=== PATIENT | female | born 1970 | race Caucasian/White ===

== ENCOUNTER 2017-05-16 03:17 | Emergency (ER) | payer BC, SELFPAY ==
[2017-05-16 03:19] VITALS: BP 147/92; PULSE 98; RESP 17; TEMP 36.8; O2SAT 95; BMI 30.4
--- NOTE | 2017-05-16 03:34 | CT_ITS ---
STUDY: CT ABDOMEN AND PELVIS WITH CONTRAST REASON FOR EXAM: Female, 46 years old. Right lower quadrant pain RADIATION DOSAGE (If Supplied By Facility): CTDIvol = ( 16.62 ) mGy, DLP = ( 982.38 ) mGycm TECHNIQUE: Transaxial images were obtained from the dome of the diaphragm to the symphysis pubis without oral contrast. 100ML ml of Isovue 300 contrast was administered. Sagittal and coronal images were reconstructed. Individualized dose optimization techniques were used for this CT. COMPARISON: None. FINDINGS: The lung bases are clear. The liver is normal with no dilated intrahepatic biliary radicles. The gallbladder is normal with no gallstones and no pericholecystic fluid collection or streakiness. The spleen, pancreas and both adrenals are normal. The kidneys are normal with no masses, calculi or hydronephrosis. The stomach is normal. There is no bowel distention, acute appendicitis or diverticulitis. No abnormally constricting large bowel lesions. The abdominal wall is intact. There is no ascites, free intraperitoneal air or any evidence of epiploic appendagitis. The vascular structures in the retroperitoneum are normal The bones and joints seen are normal with no osteolytic or osteoblastic changes There is no retrocrural, retroperitoneal or mesenteric adenopathy. There is no mesenteric mistiness The urinary bladder is normal.. The uterus is normal There is no inguinal or pelvic adenopathy and there is no inguinal hernia. CT/Abdomen/Pelvis WITH Contrast IMPRESSION: No acute findings in the abdomen or pelvis. Specifically there is no acute appendicitis or diverticulitis. Electronically Signed: Willem Norris, at 6:18 EST Tel , Service support ,
[2017-05-16] MEDS: Ondansetron 4 MG/2 ML Vial IV (03:46)
[2017-05-16] MEDS: 0.9% Normal Saline 1,000 ML 1000 ML IV (03:47)
[2017-05-16 04:01] LABS: Bacteria 0 SEEN /hpf (None Seen); Mucous, Urine 0 SEEN /hpf (<or=2+); Red Blood Cells-Urine 0 SEEN /hpf (0-5); White Blood Cells 0 SEEN /hpf (0-5)
[2017-05-16 04:04] LABS: Color, Urine Yellow (Yellow); Glucose, Dipstick Normal (Normal); Ketone-Dipstick 5 mg/dl (Negative); Leukocyte Esterase-Dipstick Negative /ul (Negative); Nitrite-Dipstick Negative (Negative); Occult Blood-Urine Negative /ul (Negative); Protein-Dipstick 30 mg/dl (Negative); Urine Bilirubin Dipstick Negative (Negative); Urine Clarity Sl. Cloudy (Clear); Urine Urobilinogen 1 mg/dl (Normal)
[2017-05-16 04:05] LABS: Absolute Lymphocyte Count 1.47 X10^3/ul (0.83-4.51); Absolute Neutrophil Count 12.8 X10^3/uL (2.0-7.7); Basophil# 0.02 X10^3/uL; Basophil% 0.1 % (0-1); Eosinophil# 0.09 X10^3/uL; Eosinophils% 0.6 % (0-5); Hematocrit 40.7 % (37-47); Hemoglobin 13.5 g/dl (12.0-15.0); Lymphocyte # 1.47 X10^3/ul (4.0); Lymphocyte % 9.7 % (19-41); Mean Corp Hgb Conc 33.2 g/gl (32-36); Mean Corpuscular Hgb 29.7 pg (27.0-32.0); Mean Corpuscular Volume 89.5 fL (81-99); Mean Platelet Vol. 10.1 fl (6.2-12.0); Monocyte# 0.76 X10^3/uL; Neutrophil # 12.75 X10^3/uL (2.7-7.7); Neutrophil % 84.4 % (47-70); Platelet Count 257 K/mm3 (150-450); RBC Distribution Width CV 13.6 % (11.6-14.6); RBC Distribution Width SD 43.9 fl (35.1-43.9); Red Blood Count 4.55 M/mm3 (4.2-5.4); White Blood Count 15.1 K/mm3 (4.4-11.0)
[2017-05-16 04:10] LABS: Calcium Oxalate Crystals Ur 3+ /hpf (<or=2+)
[2017-05-16 04:11] LABS: POSITIVE COUNT NO; POSITIVE DIFFERENTIAL NO; POSITIVE MORPHOLOGY NO; Squamous Epithelial Cells - UA 0-5 SEEN /hpf (5-10)
[2017-05-16 04:19] LABS: Anion Gap 8 (5-15); BUN 11 mg/dL (7-18); BUN/Creat Ratio 13.9 RATIO (10-20); Calcium,Total 8.5 mg/dL (8.5-10.1); Chloride 105 mmol/L (98-107); Creatinine, Serum 0.79 mg/dL (0.55-1.02); EST Glomerular Filtration Rate 83 mL/min (>60); Est Glom Filt Rate - Afr Amer 101 mL/min (>60); Estimated Creatinine Clearance 78.47 ml/min; Glucose 105 mg/dL (74-106); Potassium 3.4 mmol/L (3.5-5.1); Sodium Level 140 mmol/L (136-145)
[2017-05-16 04:26] LABS: Pregnancy, Serum, hCG Quali. NEGATIVE Negative (0-9 Nonpreg)
--- NOTE | 2017-05-16 04:51 | ED.DCSUM_ITS ---
- ER Visit Summary Date of Service: 05/16/17 Chief Complaint: Abdominal pain History of Present Illness: The patient is a 46 F who sees Diamond Gant. She reports that she has abdominal pain began 2 days ago. Is gradually gotten worse. Is a sharp pain is 10 out of 10 at worst and 6 out of 10 currently. Is worsened by nothing relieved by nothing. She has had nausea without vomiting. Reports that she has had 8 episodes of diarrhea today. No blood in her stools or black tarry stools. No dysuria or frequency. Patient denies sick contacts. Has not been camping out of the country. No possible bad food exposure. Does not drink well water. No recent antibiotic use. Physical Examination: Vitals: Stable. Afebrile. General: Well-nourished and well-developed. Head: Normocephalic atraumatic. Neck: Supple, no lymphadenopathy. No JVD. Nontender. Cardiovascular: Regular rate and rhythm. No murmurs. Respiratory: No respiratory distress. Clear to auscultation bilaterally. Abdominal: Soft, moderate tenderness to palpation in the right lower quadrant, nondistended, normal bowel sounds. No guarding, rebound, or peritoneal signs. Back: Nontender. Extremities: Nontender, no edema. Skin: Normal color, no rash. Neurologic: Alert and oriented ?3. Cranial nerves II through XII are intact. Normal strength and sensation. Psych: Normal affect. Test Results: CBC is remarkable for a white count of 15.1 with 84 segmented neutrophils and 10 lymphocytes. Chem-7 is remarkable for potassium 3.4. UA is marked for ketones and 3+ calcium oxalate crystals. test is negative. CT abdomen pelvis with p.o. and IV contrast is back and shows no acute disease and a normal appendix. Emergency Department Course and Treatment: She had an IV placed. She was given a dose of morphine and Zofran IV. She is resting comfortably. The patient has had no diarrhea while in the emergency department. Treatment Plan: She will be discharged with Zofran and instructed to follow-up with her primary care physician in 1-2 days if not improving. Return to the emergency department for any worsening symptoms. Disposition: To home in improved and stable condition. Impression: 1. Abdominal pain, uncertain cause. 2. Diarrhea. This note was generated with [employer] software. It may contain incorrect words, spelling, and punctuation that were not noted in review of the chart prior to signing ED Disposition - Plan for ED Patient: Disposition: Home or Assisted Living Chief Complaint: Abd Pain Instructions: ED Abdominal Pain Unkn Cause Prescriptions: Ondansetron [Zofran Odt] 4 mg PO Q8H PRN PRN #10 tablet PRN Reason: Nausea Referrals: Sridevi Gant, [facility] [Primary Care Provider] - 1-2 Days if not improving
[2017-05-16 07:25] VITALS: BP 131/92; PULSE 82; RESP 16; O2SAT 97
== END 2017-05-16 07:26 | disposition home or self-care (01) ==
LOC: ED 03:39
PROVIDERS: Emergency Provider Emergency Medicine; Family Provider Nurse Practitioner Family; PCP Nurse Practitioner Family
DX: R10.31 Right lower quadrant pain (principal); R19.7 Diarrhea, unspecified; R68.83 Chills (without fever); R05 Cough; R11.0 Nausea; I10 Essential (primary) hypertension; F41.9 Anxiety disorder, unspecified; F32.9 Major depressive disorder, single episode, unspecified; Z87.42 Personal history of other diseases of the female genital tract; Z79.899 Other long term (current) drug therapy
CPT/HCPCS: 74177; 80048; 81001; 84703; 85025; 96361; 96374; 96375; 99283; J7030; Q9967; J2405

== ENCOUNTER → 2018-03-08 09:45 | Outpatient (CLI) | payer BC, SELFPAY ==
[2018-03-08 12:50] LABS: Hemoglobin A1c 5.5 % (4.2-6.3)
[2018-03-08 12:53] LABS: Estradiol 37.2 pg/mL; Free T3 3.4 pg/mL (2.18-3.98); T4 Free Direct 0.98 ng/dL (0.76-1.46); Thyroid Stim Hormone (TSH) 3.76 uIU/mL (0.358-3.74)
[2018-03-09 08:36] LABS: Thyroid Peroxidase AB 180 IU/mL (0-34)
[2018-03-12 08:41] LABS: HPV Reflexed? NOT INDICATED
== END ==
PROVIDERS: Visit Provider Obstetrics & Gynecology
DX: N92.6 Irregular menstruation, unspecified (principal); Z12.4 Encounter for screening for malignant neoplasm of cervix
CPT/HCPCS: 36415; 82670; 83036; 84144; 84403; 84439; 84443; 84481; 86376; 88175; G0145

== ENCOUNTER → 2018-03-14 11:23 | Outpatient (CLI) | payer BC, SELFPAY ==
--- NOTE | 2018-03-14 11:54 | US_ITS ---
STUDY: ULTRASOUND OF THE FEMALE PELVIS - COMPLETE REASON FOR EXAM: Female, 47 years old. Abnormal bleeding. LMP: March 08, 2018. TECHNIQUE: Transabdominal and Transvaginal. The urinary bladder was nearly empty on initial transabdominal scanning, so additional endovaginal imaging was employed. TECHNICAL QUALITY: Adequate. COMPARISON: CT abdomen and pelvis May 16, 2017. FINDINGS: The uterus is anteverted and is in a midline position. The uterus measures 7.9 x 4.7 x 4.0 cm. There multiple subcentimeter Nabothian cysts of the cervix. The endometrium measures 6.5 mm in thickness, and is heterogeneous (striated). There is no demonstrated endometrial mass. The myometrium was mildly heterogeneous with some increased overall vascularity, but there is no demonstrated myometrial mass. I.U.D. - The patient does not have an I.U.D. The right ovary is visualized. The right ovary measures 2.4 x 2.7 x 1.3 cm. This includes a 10 x 12 x 12 mm simple appearing cyst. There is no visualized right adnexal mass or complex lesion. There is normal arterial and normal venous vascularity. The left ovary is visualized. The left ovary measures 2.7 x 1.5 x 1.4 cm. This includes a 1.4 x 1.2 x 1.0 cm cyst with some internal echogenicity that may be proteinaceous debris or minor hemorrhage. There is no other visualized left adnexal mass or complex lesion. There is mild increased left adnexal vascularity compared to the right, although this may reflect varices. There is no fluid in the cul-de-sac. Polycystic ovary disease: No. US/Transvaginal Non- IMPRESSION: 1. Mildly heterogeneous normal sized uterus and normal thickness endometrium without a defined mass other than multiple subcentimeter nabothian cysts in the uterine cervix. 2. Mildly complicated 1.4 cm left ovarian cyst. There is a simple appearing 12 mm right ovarian cyst. Either or both may be follicles, and one might consider follow up immediately after the next 1-2 menstrual cycles to document involution or stability. Electronically Signed: Ramo Baron MD at 13:47 EST , Service support ,
--- NOTE | 2018-03-14 11:54 | US_ITS ---
STUDY: ULTRASOUND OF THE FEMALE PELVIS - COMPLETE REASON FOR EXAM: Female, 47 years old. Abnormal bleeding. LMP: March 08, 2018. TECHNIQUE: Transabdominal and Transvaginal. The urinary bladder was nearly empty on initial transabdominal scanning, so additional endovaginal imaging was employed. TECHNICAL QUALITY: Adequate. COMPARISON: CT abdomen and pelvis May 16, 2017. FINDINGS: The uterus is anteverted and is in a midline position. The uterus measures 7.9 x 4.7 x 4.0 cm. There multiple subcentimeter Nabothian cysts of the cervix. The endometrium measures 6.5 mm in thickness, and is heterogeneous (striated). There is no demonstrated endometrial mass. The myometrium was mildly heterogeneous with some increased overall vascularity, but there is no demonstrated myometrial mass. I.U.D. - The patient does not have an I.U.D. The right ovary is visualized. The right ovary measures 2.4 x 2.7 x 1.3 cm. This includes a 10 x 12 x 12 mm simple appearing cyst. There is no visualized right adnexal mass or complex lesion. There is normal arterial and normal venous vascularity. The left ovary is visualized. The left ovary measures 2.7 x 1.5 x 1.4 cm. This includes a 1.4 x 1.2 x 1.0 cm cyst with some internal echogenicity that may be proteinaceous debris or minor hemorrhage. There is no other visualized left adnexal mass or complex lesion. There is mild increased left adnexal vascularity compared to the right, although this may reflect varices. There is no fluid in the cul-de-sac. Polycystic ovary disease: No. US/Pelvic (Non ) IMPRESSION: 1. Mildly heterogeneous normal sized uterus and normal thickness endometrium without a defined mass other than multiple subcentimeter nabothian cysts in the uterine cervix. 2. Mildly complicated 1.4 cm left ovarian cyst. There is a simple appearing 12 mm right ovarian cyst. Either or both may be follicles, and one might consider follow up immediately after the next 1-2 menstrual cycles to document involution or stability. Electronically Signed: Ramo Baron MD at 13:47 EST , Service support ,
--- OUTSIDE RECORDS SUMMARY | 2018-04-30 12:34 | XMS RPT_ITS ---
:1970 Author Organization OHIP Care Team Providers Name Role Phone Ron Mendez Admitting Unavailable Ron Mendez Attending Unavailable Sridevi Gant Primary Care Unavailable Ellen Ganta K Admitting Unavailable Sridevi Gant K Attending Unavailable Ellen Ganta K Primary Care Unavailable Westley Simpson S Admitting Unavailable Westley Simpson S Attending Unavailable Sridevi Gant Primary Care Unavailable PendWestley cates S Admitting Unavailable Westley Simpson S Attending Unavailable Ellen Ganta K Primary Care Unavailable Krystal Ugalde Attending Unavailable Krystal Ugalde Referring Unavailable Sridevi Gant USER EXPERIENCE ARCHITECT-C Primary Care Unavailable Sridevi Gant USER EXPERIENCE ARCHITECT-C Primary Care Unavailable Sin Mcgrath Attending Unavailable Krystal Ugalde Attending Unavailable PROBLEMS PROBLEMS DATE TYPE CONDITION / CODE ATTENDING STATUS SOURCE 03/14/2018 Unknown N93.8 - Other Krystal Ugalde Active [facility] and vaginal Repository bleeding / N93.8(ICD-10) 03/08/2018 Unknown Z12.4 - Encounter Tram Krystal Figueroaoster for screening for [facility] malignant [facility] neoplasm of Repository cervix / Z12.4(ICD-10) 03/08/2018 Unknown N92.6 - Irregular Krystal Ugalde Umm Figueroaoster menstruation, [facility] unspecified / Hospital N92.6(ICD-10) Repository PROCEDURES PROCEDURES No Procedure Records FoundRESULTS RESULTS TRANSVAGINAL Observed: 03/14/2018 Status: F Source: [place] NON- 11:54 AM [facility] REPOSITORY [facility] Imaging Services [address] [place] [address] Transvaginal Non- MR#: [id number] Acct: [id number] Name: AURA SAUNDERS Rep #: [id number] : 1970 F 47 From: Geovany Baron MD PCP: HATTIE Antony Status: REG CLI Study: Transvaginal Non- Date of Exam: 03/14/18 Exam# [id number] Ordering Dr: Krystal Ugalde MD STUDY: ULTRASOUND OF THE FEMALE PELVIS - COMPLETE REASON FOR EXAM: Female, 47 years old. Abnormal bleeding. LMP: March 08, 2018. TECHNIQUE: Transabdominal and Transvaginal. The urinary bladder was nearly empty on initial transabdominal scanning, so additional endovaginal imaging was employed. TECHNICAL QUALITY: Adequate. COMPARISON: CT abdomen and pelvis May 16, 2017. FINDINGS: The uterus is anteverted and is in a midline position. The uterus measures 7.9 x 4.7 x 4.0 cm. There multiple subcentimeter Nabothian cysts of the cervix. The endometrium measures 6.5 mm in thickness, and is heterogeneous (striated). There is no demonstrated endometrial mass. The myometrium was mildly heterogeneous with some increased overall vascularity, but there is no demonstrated myometrial mass. I.U.D. - The patient does not have an I.U.D. The right ovary is visualized. The right ovary measures 2.4 x 2.7 x 1.3 cm. This includes a 10 x 12 x 12 mm simple appearing cyst. There is no visualized right adnexal mass or complex lesion. There is normal arterial and normal venous vascularity. The left ovary is visualized. The left ovary measures 2.7 x 1.5 x 1.4 cm. This includes a 1.4 x 1.2 x 1.0 cm cyst with some internal echogenicity that may be proteinaceous debris or minor hemorrhage. There is no other visualized left adnexal mass or complex lesion. There is mild increased left adnexal vascularity compared to the right, although this may reflect varices. There is no fluid in the cul-de-sac. Polycystic ovary disease: No. US/Transvaginal Non- IMPRESSION: 1. Mildly heterogeneous normal sized uterus and normal thickness endometrium without a defined mass other than multiple subcentimeter nabothian cysts in the uterine cervix. 2. Mildly complicated 1.4 cm left ovarian cyst. There is a simple appearing 12 mm right ovarian cyst. Either or both may be follicles, and one might consider follow up immediately after the next 1- 2 menstrual cycles to document involution or stability. Electronically Signed: Ramo Baron MD at 13:47 EST , Service support , CC: HATTIE Gant; Krystal Ugalde MD Pharmacy Operations Specialist: Signed PELVIC (NON ) Observed: 03/14/2018 Status: F Source: [place] 11:54 AM [facility] REPOSITORY [facility] Imaging Services [address] [place] [id number] Pelvic (Non ) MR#: [id number] Acct: [id number] Name: AURA SAUNDERS Rep #: [id number] : 1970 F 47 From: Geovany Baron MD PCP: HATTIE Antony Status: REG CLI Study: Pelvic (Non ) Date of Exam: 03/14/18 Exam# [id number] Ordering Dr: Krystal Ugalde MD STUDY: ULTRASOUND OF THE FEMALE PELVIS - COMPLETE REASON FOR EXAM: Female, 47 years old. Abnormal bleeding. LMP: March 08, 2018. TECHNIQUE: Transabdominal and Transvaginal. The urinary bladder was nearly empty on initial transabdominal scanning, so additional endovaginal imaging was employed. TECHNICAL QUALITY: Adequate. COMPARISON: CT abdomen and pelvis May 16, 2017. FINDINGS: The uterus is anteverted and is in a midline position. The uterus measures 7.9 x 4.7 x 4.0 cm. There multiple subcentimeter Nabothian cysts of the cervix. The endometrium measures 6.5 mm in thickness, and is heterogeneous (striated). There is no demonstrated endometrial mass. The myometrium was mildly heterogeneous with some increased overall vascularity, but there is no demonstrated myometrial mass. I.U.D. - The patient does not have an I.U.D. The right ovary is visualized. The right ovary measures 2.4 x 2.7 x 1.3 cm. This includes a 10 x 12 x 12 mm simple appearing cyst. There is no visualized right adnexal mass or complex lesion. There is normal arterial and normal venous vascularity. The left ovary is visualized. The left ovary measures 2.7 x 1.5 x 1.4 cm. This includes a 1.4 x 1.2 x 1.0 cm cyst with some internal echogenicity that may be proteinaceous debris or minor hemorrhage. There is no other visualized left adnexal mass or complex lesion. There is mild increased left adnexal vascularity compared to the right, although this may reflect varices. There is no fluid in the cul-de-sac. Polycystic ovary disease: No. US/Pelvic (Non ) IMPRESSION: 1. Mildly heterogeneous normal sized uterus and normal thickness endometrium without a defined mass other than multiple subcentimeter nabothian cysts in the uterine cervix. 2. Mildly complicated 1.4 cm left ovarian cyst. There is a simple appearing 12 mm right ovarian cyst. Either or both may be follicles, and one might consider follow up immediately after the next 1- 2 menstrual cycles to document involution or stability. Electronically Signed: Ramo Baron MD at 13:47 EST , Service support , CC: HATTIE Gant; Krystal Ugalde MD Pharmacy Operations Specialist: Signed PROGRESS Observed: 03/13/2018 Status: COMPLETED Source: [place] 7:45 AM [facility] [place] REPOSITORY HNO ID: [id number] Author: Miya Alfaro) Emma Service: (none) Author Type: Nurse Practitioner Type: Progress Notes Filed: 03/13/2018 7:55 AM Note Text: Subjective The history is provided by the patient. No freelance interpreter/translator was used. ERICK Saunders is a 47 year old female who presents today for CC of headache, sinus pressure, and left ear pain. This started over a week ago. Alleviating/Treatment: excedrin migraine, mucinex Aggravating: Leaning forward Risk factors: Co workers ill BP 118/70 Pulse 69 Temp 36.4 ?C (97.5 ?F) (Tympanic) Resp 16 Wt 77.2 kg (170 lb 3.2 oz) SpO2 96% No past medical history on file. I have confirmed and edited as necessary, the [facility] Review of Systems Constitutional: Negative for chills and fever. HENT: Positive for ear pain and sinus pain. Negative for congestion and sore throat. Respiratory: Negative for cough. Musculoskeletal: Negative for myalgias. Neurological: Positive for headaches (sinus). Objective Physical Exam Constitutional: She is well-developed, well-nourished, and in no distress. HENT: Head: Normocephalic and atraumatic. Right Ear: External ear and ear canal normal. Tympanic membrane is bulging. A middle ear effusion (serous) is present. Left Ear: Ear canal normal. Tympanic membrane is injected, erythematous and bulging. A middle ear effusion (purulent) is present. Nose: Mucosal edema and rhinorrhea present. Right sinus exhibits no maxillary sinus tenderness and no frontal sinus tenderness. Left sinus exhibits maxillary sinus tenderness and frontal sinus tenderness. Mouth/Throat: Uvula is midline and mucous membranes are normal. Posterior oropharyngeal erythema (mild) present. No oropharyngeal exudate, posterior oropharyngeal edema or tonsillar abscesses. Pulmonary/Chest: Breath sounds normal. She has no decreased breath sounds. She has no wheezes. She has no rhonchi. She has no rales. Lymphadenopathy: Head (right side): No submental, no submandibular and no tonsillar adenopathy present. Head (left side): No submental, no submandibular and no tonsillar adenopathy present. She has cervical adenopathy. Right cervical: Superficial cervical adenopathy present. Left cervical: Superficial cervical adenopathy present. Neurological: She is alert. Skin: Skin is warm and dry. Psychiatric: Affect normal. Nursing note and vitals reviewed. ASSESSMENT/PLAN: 1. Acute non-recurrent pansinusitis - ICD9: 461.8, ICD10: J01.40 (primary diagnosis) - Will begin treatment with Augmentin 875 mg PO BID for 10 days - Supportive care with plenty of fluids, rest. Tylenol (generic acetaminophen) 500 mg-2 tabs every 8 hrs. as needed for fever and aches Ibuprofen 600 mg (3-200mg tablets) every 6 hours. - Follow up in one week if symptoms persist or worsen. - AMOXICILLIN 875 MG-POTASSIUM CLAVULANATE 125 MG TABLET -Increase fluid intake. Try to drink at least 8 glasses of non caffeinated fluids daily. --Rest as much as possible. -Do the nasal saline irrigation at least 2 x day to relieve nasal mucous and congestion: brands include Soham Med, Simply saline, Paulding nasal spray, or even the generic store brand one is ok. Take the entire course of antibiotics as prescribed. DO NOT stop taking it early, even if you are feeling better. -Practice good hygiene, wash hands frequently. -Monitor for signs of worsening infection: increased temperature, pain in face, ear pain or headaches or increase in nasal congestion/mucous that is not improving. -Educated patient on side effects of medication. Probiotic (Florajen) 2. Acute suppurative otitis media of left ear - ICD9: 382.00, ICD10: H66.005 - Will begin treatment with Augmentin 875 mg PO BID for 10 days - Follow up in one week if symptoms persist or worsen. - AMOXICILLIN 875 MG-POTASSIUM CLAVULANATE 125 MG TABLET GO TO THE ER IF: 1. You have a severe headache or pain around the ear. 2. You notice swelling around the ear. 3. You have a seizure (convulsion), twitching of the facial muscles, or passes out. 4. You are dizzy, have a stiff neck, or cannot walk or talk normally. * Seek medical care immediately, call 911, go to ER if you have chest pain, difficulty breathing, shortness of breath, inability to swallow. Diagnosis and treatment plan were discussed and questions were answered to the patient's satisfaction. Pt acknowledged understanding of concepts and follow up plan. Specific signs and symptoms that would indicate the need for higher level of care were discussed in detail warranting prompt ER evaluation. JUANCHO Mirza Observed: 03/13/2018 Status: COMPLETED Source: [place] 7:30 AM [facility] REPOSITORY Office Visit (WSTR) AURA SAUNDERS ([id number]) 1970 F Date Time Provider Department 03/13/18 7:30 AM MIYA CARTER (NEAL) [facility] During your visit today, we recorded the following information about you: Temperature Pulse Respiration Blood pressure 97.5 degrees 69/minute 16/minute 118/70 Weight 77.2 kg Miya Carter APRN.CNP 03/13/2018 7:55 AM Signed Subjective The history is provided by the patient. No freelance interpreter/translator was used. ERICK Aura Saunders is a 47 year old female who presents today for CC of headache, sinus pressure, and left ear pain. This started over a week ago. Alleviating/Treatment: excedrin migraine, mucinex Aggravating: Leaning forward Risk factors: Co workers ill BP 118/70 Pulse 69 Temp 36.4 ?C (97.5 ?F) (Tympanic) Resp 16 Wt 77.2 kg (170 lb 3.2 oz) SpO2 96% No past medical history on file. I have confirmed and edited as necessary, the [facility] Review of Systems Constitutional: Negative for chills and fever. HENT: Positive for ear pain and sinus pain. Negative for congestion and sore throat. Respiratory: Negative for cough. Musculoskeletal: Negative for myalgias. Neurological: Positive for headaches (sinus). Objective Physical Exam Constitutional: She is well-developed, well-nourished, and in no distress. HENT: Head: Normocephalic and atraumatic. Right Ear: External ear and ear canal normal. Tympanic membrane is bulging. A middle ear effusion (serous) is present. Left Ear: Ear canal normal. Tympanic membrane is injected, erythematous and bulging. A middle ear effusion (purulent) is present. Nose: Mucosal edema and rhinorrhea present. Right sinus exhibits no maxillary sinus tenderness and no frontal sinus tenderness. Left sinus exhibits maxillary sinus tenderness and frontal sinus tenderness. Mouth/Throat: Uvula is midline and mucous membranes are normal. Posterior oropharyngeal erythema (mild) present. No oropharyngeal exudate, posterior oropharyngeal edema or tonsillar abscesses. Pulmonary/Chest: Breath sounds normal. She has no decreased breath sounds. She has no wheezes. She has no rhonchi. She has no rales. Lymphadenopathy: Head (right side): No submental, no submandibular and no tonsillar adenopathy present. Head (left side): No submental, no submandibular and no tonsillar adenopathy present. She has cervical adenopathy. Right cervical: Superficial cervical adenopathy present. Left cervical: Superficial cervical adenopathy present. Neurological: She is alert. Skin: Skin is warm and dry. Psychiatric: Affect normal. Nursing note and vitals reviewed. ASSESSMENT/PLAN: 1. Acute non-recurrent pansinusitis - ICD9: 461.8, ICD10: J01.40 (primary diagnosis) - Will begin treatment with Augmentin 875 mg PO BID for 10 days - Supportive care with plenty of fluids, rest. Tylenol (generic acetaminophen) 500 mg-2 tabs every 8 hrs. as needed for fever and aches Ibuprofen 600 mg (3-200mg tablets) every 6 hours. - Follow up in one week if symptoms persist or worsen. - AMOXICILLIN 875 MG-POTASSIUM CLAVULANATE 125 MG TABLET -Increase fluid intake. Try to drink at least 8 glasses of non caffeinated fluids daily. --Rest as much as possible. -Do the nasal saline irrigation at least 2 x day to relieve nasal mucous and congestion: brands include Soham Med, Simply saline, Paulding nasal spray, or even the generic store brand one is ok. Take the entire course of antibiotics as prescribed. DO NOT stop taking it early, even if you are feeling better. -Practice good hygiene, wash hands frequently. -Monitor for signs of worsening infection: increased temperature, pain in face, ear pain or headaches or increase in nasal congestion/mucous that is not improving. -Educated patient on side effects of medication. Probiotic (Florajen) 2. Acute suppurative otitis media of left ear - ICD9: 382.00, ICD10: H66.005 - Will begin treatment with Augmentin 875 mg PO BID for 10 days - Follow up in one week if symptoms persist or worsen. - AMOXICILLIN 875 MG-POTASSIUM CLAVULANATE 125 MG TABLET GO TO THE ER IF: 1. You have a severe headache or pain around the ear. 2. You notice swelling around the ear. 3. You have a seizure (convulsion), twitching of the facial muscles, or passes out. 4. You are dizzy, have a stiff neck, or cannot walk or talk normally. * Seek medical care immediately, call 911, go to ER if you have chest pain, difficulty breathing, shortness of breath, inability to swallow. Diagnosis and treatment plan were discussed and questions were answered to the patient's satisfaction. Pt acknowledged understanding of concepts and follow up plan. Specific signs and symptoms that would indicate the need for higher level of care were discussed in detail warranting prompt ER evaluation. Miya Carter APRN.NEAL Carter APRN.CNP 03/13/2018 7:51 AM Signed ASSESSMENT/PLAN: 1. Acute non-recurrent pansinusitis - ICD9: 461.8, ICD10: J01.40 (primary diagnosis) - Will begin treatment with Augmentin 875 mg PO BID for 10 days - Supportive care with plenty of fluids, rest. Tylenol (generic acetaminophen) 500 mg-2 tabs every 8 hrs. as needed for fever and aches Ibuprofen 600 mg (3-200mg tablets) every 6 hours. - Follow up in one week if symptoms persist or worsen. - AMOXICILLIN 875 MG-POTASSIUM CLAVULANATE 125 MG TABLET -Increase fluid intake. Try to drink at least 8 glasses of non caffeinated fluids daily. --Rest as much as possible. -Do the nasal saline irrigation at least 2 x day to relieve nasal mucous and congestion: brands include Soham Med, Simply saline, Paulding nasal spray, or even the generic store brand one is ok. Take the entire course of antibiotics as prescribed. DO NOT stop taking it early, even if you are feeling better. -Practice good hygiene, wash hands frequently. -Monitor for signs of worsening infection: increased temperature, pain in face, ear pain or headaches or increase in nasal congestion/mucous that is not improving. -Educated patient on side effects of medication. You can take an OTC probiotic such as Culturelle or Align to help with stomach upset/loose stool that you may get as a side effect of the antibiotic. 2. Acute suppurative otitis media of left ear - ICD9: 382.00, ICD10: H66.005 - Will begin treatment with Augmentin 875 mg PO BID for 10 days - Follow up in one week if symptoms persist or worsen. - AMOXICILLIN 875 MG-POTASSIUM CLAVULANATE 125 MG TABLET GO TO THE ER IF: 1. You have a severe headache or pain around the ear. 2. You notice swelling around the ear. 3. You have a seizure (convulsion), twitching of the facial muscles, or passes out. 4. You are dizzy, have a stiff neck, or cannot walk or talk normally. * Seek medical care immediately, call 911, go to ER if you have chest pain, difficulty breathing, shortness of breath, inability to swallow. Referring Provider: SELF [[id number]] Allergies As of Date: 03/13/2018 (No Known Allergies) Date Reviewed: 03/13/2018 Reviewed by: Miya MckeonMorton HospitalAshley Carter - Fully Assessed Reason for Visit: SAMANIEGO, sinus and left ear pain [Other] Cmt: x 1 week Primary Visit Diagnosis:Acute non-recurrent pansinusitis [J01.40] Other Visit Diagnosis:Acute suppurative otitis media of left ear [H66.005] Order(s):amoxicillin-clavulanic acid (AUGMENTIN) 875-125 mg per tabletTake 1 tablet by mouth twice daily for 10 days.Disp: 20 tabletRfl: 0 Prescriptions as of 03/13/2018 Sig: LOSARTAN ORAL Take by mouth. ZOLOFT ORAL Take by mouth. CHOLECALCIFEROL (VITAMIN D3) * Take 5,000 Units by mouth onc* PRILOSEC ORAL Take by mouth. POTASSIUM BICARBONATE ORAL Take by mouth. AMOXICILLIN 875 MG-POTASSIUM * Take 1 tablet by mouth twice * Problem List As Of Date: 03/13/2018 (None) Other instructions from your clinician: ASSESSMENT/PLAN: 1. Acute non-recurrent pansinusitis - ICD9: 461.8, ICD10: J01.40 (primary diagnosis) - Will begin treatment with Augmentin 875 mg PO BID for 10 days - Supportive care with plenty of fluids, rest. Tylenol (generic acetaminophen) 500 mg-2 tabs every 8 hrs. as needed for fever and aches Ibuprofen 600 mg (3-200mg tablets) every 6 hours. - Follow up in one week if symptoms persist or worsen. - AMOXICILLIN 875 MG-POTASSIUM CLAVULANATE 125 MG TABLET -Increase fluid intake. Try to drink at least 8 glasses of non caffeinated fluids daily. --Rest as much as possible. -Do the nasal saline irrigation at least 2 x day to relieve nasal mucous and congestion: brands include Soham Med, Simply saline, Paulding nasal spray, or even the generic store brand one is ok. Take the entire course of antibiotics as prescribed. DO NOT stop taking it early, even if you are feeling better. -Practice good hygiene, wash hands frequently. -Monitor for signs of worsening infection: increased temperature, pain in face, ear pain or headaches or increase in nasal congestion/mucous that is not improving. -Educated patient on side effects of medication. You can take an OTC probiotic such as Culturelle or Align to help with stomach upset/loose stool that you may get as a side effect of the antibiotic. 2. Acute suppurative otitis media of left ear - ICD9: 382.00, ICD10: H66.005 - Will begin treatment with Augmentin 875 mg PO BID for 10 days - Follow up in one week if symptoms persist or worsen. - AMOXICILLIN 875 MG-POTASSIUM CLAVULANATE 125 MG TABLET GO TO THE ER IF: 1. You have a severe headache or pain around the ear. 2. You notice swelling around the ear. 3. You have a seizure (convulsion), twitching of the facial muscles, or passes out. 4. You are dizzy, have a stiff neck, or cannot walk or talk normally. * Seek medical care immediately, call 911, go to ER if you have chest pain, difficulty breathing, shortness of breath, inability to swallow. Prescriptions ordered this encounter Disp Refills Start End AMOXICILLIN 875 MG-POTASSIUM CLAVULA* 20 t* 0 03/13/2018 03/23/2018 Route: ORAL Sig: Take 1 tablet by mouth twice daily for 10 days. Encounter Status:Closed by MIYA CARTER CNP on 03/13/18 HEMOGLOBIN A1C Collected: 03/08/2018 Status: F Source: [place] 9:53 AM [facility] REPOSITORY TYPE CODE TESTS RESULT OUT OF RANGE REFERENCE UNITS LAB L501.9985 4.2-6.3 % Normal HGB A1C 5.5 Performed By: #### L501.9985 #### [facility] [address] [place], [place], [id number] ([phone] FREE T3 Collected: 03/08/2018 Status: F Source: [place] 9:53 AM [facility] REPOSITORY TYPE CODE TESTS RESULT OUT OF RANGE REFERENCE UNITS LAB L501.68781 2.18-3.98 pg/mL Normal FREE T3 3.4 Performed By: #### L501.87394, L501.9520, L506.0400, L3300.1750 #### [facility] [address] [place], [address] THYROID STIM HORMONE Collected: 03/08/2018 Status: F Source: [place] (TSH) 9:53 AM [facility] REPOSITORY TYPE CODE TESTS RESULT OUT OF RANGE REFERENCE UNITS LAB L501.9520 0.358-3.74 uIU/mL High TSH 3.76 Performed By: #### L501.13948, L501.9520, L506.0400, L3300.1750 #### [facility] [address] [place], [address] T4 FREE DIRECT Collected: 03/08/2018 Status: F Source: [place] 9:53 AM [facility] REPOSITORY TYPE CODE TESTS RESULT OUT OF RANGE REFERENCE UNITS LAB L506.0400 0.76-1.46 ng/dL Normal T4 FREE 0.98 DIRECT Performed By: #### L501.10192, L501.9520, L506.0400, L3300.1750 #### [facility] [address] [place], [address] ESTRADIOL Collected: 03/08/2018 Status: F Source: [place] 9:53 AM [facility] REPOSITORY TYPE CODE TESTS RESULT OUT OF RANGE REFERENCE UNITS LAB L3300.1750 pg/mL Normal ESTRADIOL 37.2 Result Comment: NORMAL REFERENCE RANGES FEMALE FOLLICULAR 21.4 - 164.8 pg/mL MID-CYCLE PEAK 49.9 - 367.2 pg/mL LUTEAL 40.2 - 259.0 pg/mL POST-MENOPAUSAL ON MHT <11.0 - 462.1 pg/mL NOT ON MHT <11.0 - 58.3 pg/mL MALE <11.0 - 52.5 pg/mL NOTE: [facility] HAS CONFIRMED THE DRUG FULVETRANT (FASLODEX) MAY CAUSE FALSELY ELEVATED ESTRADIOL RESULTS WHEN USING THIS TEST METHOD. IF PATIENT IS TAKING FULVESTRANT AN ALTERNATIVE METHOD SHOULD BE USED TO DETERMINE ESTRADIOL CONCENTRATION. Performed By: #### L501.63039, L501.9520, L506.0400, L3300.1750 #### [facility] [address] [place], [address] TESTOSTERONE, SERUM TOTAL Collected: 03/08/2018 Status: F Source: [place] 9:53 AM [facility] REPOSITORY TYPE CODE TESTS RESULT OUT OF REFERENCE UNITS RANGE LAB L509.3000 ng/dL Testosterone Normal 7.94 Result Comment: NORMAL REFERENCE RANGES MALE AGE <50 123.06 - 813.86 ng/dL MALE AGE >50 89.98 - 780.10 ng/dL FEMALE PREMENOPAUSE AGE 21 - 60 9.01 - 47.94 ng/dL FEMALE POSTMENOPAUSE AGE 45 - 89 <7.00 - 45.62 ng/dL REFERENCE RANGE AND METHODOLOGY CHANGED 03/23/2017 Performed By: #### L509.3000, L509.4001 #### [facility] [address] [place], [address] PROGESTERONE LEVEL Collected: 03/08/2018 Status: F Source: RISON 9:53 AM [facility] REPOSITORY TYPE CODE TESTS RESULT OUT OF REFERENCE UNITS RANGE LAB L509.4001 See Comment ng/mL Progesterone Normal 2.90 Result Comment: Progesterone Reference Table: UNITS Female: Follicular 0.15 - 1.40 ng/mL Luteal 3.34 - 25.56 ng/mL Mid-luteal 4.44 - 28.03 ng/mL Postmenopausal 0.0 - 0.73 ng/mL : 1st Trimester 11.22 - 90.00 ng/mL 2nd Trimester 25.55 - 89.40 ng/mL 3rd Trimester 48.40 -422.50 ng/mL Performed By: #### L509.3000, L509.4001 #### [facility] [place], [address] THYROID PEROXIDASE AB Collected: 03/08/2018 Status: F Source: RISON 9:53 AM [facility] REPOSITORY TYPE CODE TESTS RESULT OUT OF RANGE REFERENCE UNITS LAB L3300.6900 0-34 IU/mL High TPO AB 180 6676 Result Comment: Performed at: [facility] [address] [id number] Development Lead: Salvatore Block PhD, Phone: [phone] Performed By: #### L3300.6900 #### [facility] (refer to report for specific site) refer to report for address and phone number PAP I-G W/RFX HRHPV Collected: 03/08/2018 Status: F Source: RISON 9:00 AM [facility] REPOSITORY Order Comment: CYTOLOGY INFORMATION: - CLINICAL INFORMATION: - DATE LMP/MENOPAUSE: 02/11/18 LMP - COLLECTION VIAL: Thin Prep Vial - FREQUENCY CHECKER SOURCE: CERVICAL/ENDOCERVICAL - COLLECTION TECHNIQUE: BRUSH/SPATULA Specimen Comment: [id number] Specimen Comment: Source.............Cervix;Endocervix Specimen Comment: LMP / Prev Treat...IUH=[id number] Specimen Comment: No. of containers..01 ThinPrep Vial TYPE CODE TESTS RESULT OUT OF RANGE REFERENCE UNITS LAB L7400.0800 . Normal DIAGN Comment Result Comment: NEGATIVE FOR INTRAEPITHELIAL LESION AND MALIGNANCY. LAB L7400.0900 . Normal ADEQ Comment Result Comment: Satisfactory for evaluation. No endocervical component is identified. LAB L7400.1400 . Normal PERFORM Comment Result Comment: Jeainne Sidhu, Rn Pacu LAB L7400.4753 . Normal TEST METHOD Comment Result Comment: This liquid based ThinPrep(R) pap test was screened with the use of an image guided system. LAB L7400.2600 . Normal . COMM LAB L7400.2700 . Normal PAPSMR Comment Result Comment: The Pap smear is a screening test designed to aid in the detection of premalignant and malignant conditions of the uterine cervix. It is not a diagnostic procedure and should not be used as the sole means of detecting cervical cancer. Both false-positive and false-negative reports do occur. LAB L7400.2800 . Normal HPV RFLX Comment Result Comment: The HPV DNA reflex criteria were not met with this specimen result therefore, no HPV testing was performed. Performed at: [facility] [id number] Development Lead: Payal Alvarado MD, Phone: [phone] Performed By: #### L7400.0350 #### [facility] (refer to report for specific site) refer to report for address and phone number Observed: 12/27/2017 Status: F Source: [facility] STREP CONFIRM 8:54 AM [facility] REPOSITORY Final Report: No Beta Hemolytic Streptococci Isolated Performed By: #### CD:[id number] #### DEVIN Microbiology Subsection [address] [place], [place] [id number] POC STREP A Collected: 12/27/2017 Status: F Source: [facility] 8:52 AM [facility] REPOSITORY TYPE CODE TESTS RESULT OUT OF RANGE REFERENCE UNITS LAB CD:[id number] Negative 283(LOINC) Normal Strep A Negative Screen LAB CD:[id number] Positive 315(LOINC) Normal Strep A Positive Scrn Int Ctl Performed By: #### CD:[id number] #### DEVIN POC Subsection [facility] [place] [address] CBC W/ AUTO DIFF Collected: 08/11/2017 Status: F Source: [facility] 9:35 AM [facility] REPOSITORY TYPE CODE TESTS RESULT OUT OF RANGE REFERENCE UNITS LAB 18460194(L 3.6-11.0 E3/mcL OINC) Normal WBC 8.2 LAB 61908065(L 3.90-5.40 E6/mcL OINC) Normal RBC 4.80 LAB 43535298(L 12.0-16.0 G/DL OINC) Normal Hgb 13.9 LAB 01635773(L 36.0-48.0 % OINC) Normal Hct 41.4 LAB 00757988(L 11.5-14.5 % OINC) Normal RDW 13.8 LAB 15264972(L 27.0-31.0 pg OINC) Normal MCH 29.0 LAB 22977833(L 33.0-37.0 G/DL OINC) Normal MCHC 33.6 LAB 24162205(L 78.0-100.0 fL OINC) Normal MCV 86.3 LAB 33778129(L 7.4-11.0 fL OINC) Normal MPV 8.9 LAB 49201328(L 130-400 E3/mcL OINC) Normal Platelet 258 Performed By: #### [id number] #### [place] [address] AUTO DIFF Collected: 08/11/2017 Status: F Source: BHARATH 9:35 AM [facility] REPOSITORY Order Comment: Order Added by Discern Expert. TYPE CODE TESTS RESULT OUT OF RANGE REFERENCE UNITS LAB 81601053(L 37.0-75.0 % OINC) Normal Neutro Auto 65.3 LAB 38234165(L 20.0-55.0 % OINC) Normal Lymph Auto 27.1 LAB 94592044(L 0.0-10.0 % OINC) Normal [place] Auto 5.3 LAB 68046319(L 0.0-11.0 % OINC) Normal Eos Auto 1.9 LAB 54294886(L 0.0-2.0 % OINC) Normal Basophil Auto 0.4 LAB 92543163(L 1.4-6.5 E3/mcL OINC) Normal Neutro 5.4 Absolute LAB 15964264(L 1.2-3.4 E3/mcL OINC) Normal Lymph Absolute 2.2 LAB 73343280(L 0.0-0.7 E3/mcL OINC) Normal [place] Absolute 0.4 LAB 91520601(L 0.0-0.7 E3/mcL OINC) Normal Eos Absolute 0.2 LAB 80500930(L 0.0-0.2 E3/mcL OINC) Normal Basophil 0.0 Absolute Performed By: #### [id number] #### DEVIN Rem[employer] [address] [place] [address] VIT B12 Collected: 08/11/2017 Status: F Source: [facility] 9:35 AM [facility] REPOSITORY TYPE CODE TESTS RESULT OUT OF RANGE REFERENCE UNITS LAB 65595523(LO 180-914 pg/mL INC) Normal Vitamin B12 574 Lvl Performed By: #### [id number] #### DVEIN [employer] [address] [place] [address] VITAMIN D 25 HYDROXY Collected: 08/11/2017 Status: F Source: [facility] 9:35 AM [facility] REPOSITORY TYPE CODE TESTS RESULT OUT OF RANGE REFERENCE UNITS LAB 856108548(L 30.0-100.0 ng/mL OINC) Normal Vitamin D 25 48.2 Hydroxy Performed By: #### [id number] #### DEVIN [employer] [address] [place] [address] CMP Collected: 08/11/2017 Status: F Source: [facility] 9:35 AM [facility] REPOSITORY TYPE CODE TESTS RESULT OUT OF RANGE REFERENCE UNITS LAB 04199509(L 70-99 mg/dL OINC) Glucose Normal Lvl 79 LAB 08861770(L 8.4-10.2 mg/dL OINC) Calcium Normal Lvl 9.2 LAB 10487146(L 136-145 mEq/L OINC) Sodium Normal Lvl 138 LAB 33712406(L 3.5-5.1 mEq/L OINC) Low Potassium Lvl 3.4 LAB 61817707(L 98-107 mEq/L OINC) Chloride Normal 102 LAB 21767781(L 24.0-30.0 mEq/L OINC) CO2 Normal 25.2 LAB 76066367(L 7-18 mg/dL OINC) BUN Normal 13 LAB 7773978(LO 0.6-1.3 mg/dL INC) Normal Creatinine 0.7 LAB 05764434(L 42-121 Int._Unit/ OINC) L Alk Phos Normal 50 LAB 17796138(L 0.2-1.0 mg/dL OINC) Bili Normal Total 0.8 LAB 76713082(L 3.2-5.0 G/DL OINC) Albumin Normal Lvl 4.6 LAB 93792948(L 6.4-8.3 G/DL OINC) Total Normal Protein 7.2 LAB 65356013(L 10-40 Int._Unit/ OINC) L ALT Normal 17 LAB 74933012(L 10-42 Int._Unit/ OINC) L AST Normal 19 LAB 42667399(L 5.4-30.0 ratio OINC) Normal BUN/Creat Ratio 18.6 LAB 21093532(L 2.0-4.0 G/DL OINC) Globulin Normal 2.6 LAB 59431653(L 1.1-1.9 ratio OINC) A/G Normal Ratio 1.8 Performed By: #### 1407676 #### DEVIN [employer] [address] [place] [address] EGFR Collected: 08/11/2017 Status: F Source: [facility] 9:35 AM [facility] REPOSITORY Order Comment: Order added by Discern Expert. TYPE CODE TESTS RESULT OUT OF RANGE REFERENCE UNITS LAB 53869770(LO mL/min/1.73 INC) m2 Normal eGFR >60 LAB 31972596(LO mL/min/1.73 INC) m2 Normal eGFR AA >60 Performed By: #### [id number] #### DEVIN [employer] [address] [place] [address] LIPID PROFILE Collected: 08/11/2017 Status: F Source: [facility] 9:35 AM [facility] REPOSITORY TYPE CODE TESTS RESULT OUT OF RANGE REFERENCE UNITS LAB 51082271(LO 50-200 mg/dL INC) High Chol 208 Result Comment: TOTAL CHOLEESTEROL: <200 NORMAL 200 - 239 BORDERLINE HIGH >240 HIGH LAB 26362446(LOINC) >=41 mg/dL Normal HDL 64 LAB 28765557(LOINC) 0-130 mg/dL Normal LDL 129 Result Comment: <100 OPTIMAL 100-129 NEAR / ABOVE OPTIMAL 130-159 BORDERLINE HIGH 160-189 HIGH >190 VERY HIGH CALC LDL NOT VALID WHEN TRIGLYCERIDE IS >400 MG/DL LAB 61020861(LOINC) 35-150 mg/dL Normal Trig 77 Result Comment: <150 NORMAL 150-199 BORDERLINE HIGH 200-499 HIGH >500 VERY HIGH LAB 71439410(LOINC) Normal VLDL 15 Performed By: #### [id number] #### DEVIN [employer] [address] [address] POC INFLUENZA A&B AG Collected: 06/08/2017 Status: F Source: BHARATH 10:04 AM [facility] REPOSITORY TYPE CODE TESTS RESULT OUT OF REFERENCE UNITS RANGE LAB 67005359(L Negative OINC) Normal Influenzae A Ag Negative Result Comment: A negative test result does not exclude infection with influenza A and B. Therefore, the results obtained should be used in conjunction with clinical findings to make an accurate diagnosis. LAB 80280697(LOINC) Negative Normal Influenzae B Ag Negative Performed By: #### CD:[id number] #### DEVIN POC Subsection [address] [address] EMERGENCY DEPARTMENT Observed: 05/18/2017 Status: F Source: TRACEY SUMMARY 3:51 PM [facility] REPOSITORY [facility] Medical Records Department [address] [place] [address] Emergency Department Summary 05/16/17 0450 MR#: [id number] Acct: [id number] Name: AURA SAUNDERS Rep #: [id number] : 1970 46 From: Sin Mcgrath MD PCP: Sridevi Gant USER EXPERIENCE ARCHITECTBerkley Status: DEP ER - ER Visit Summary Date of Service: 05/16/17 Chief Complaint: Abdominal pain History of Present Illness: The patient is a 46 F who sees Diamond Gant. She reports that she has abdominal pain began 2 days ago. Is gradually gotten worse. Is a sharp pain is 10 out of 10 at worst and 6 out of 10 currently. Is worsened by nothing relieved by nothing. She has had nausea without vomiting. Reports that she has had 8 episodes of diarrhea today. No blood in her stools or black tarry stools. No dysuria or frequency. Patient denies sick contacts. Has not been camping out of the country. No possible bad food exposure. Does not drink well water. No recent antibiotic use. Physical Examination: Vitals: Stable. Afebrile. General: Well-nourished and well-developed. Head: Normocephalic atraumatic. Neck: Supple, no lymphadenopathy. No JVD. Nontender. Cardiovascular: Regular rate and rhythm. No murmurs. Respiratory: No respiratory distress. Clear to auscultation bilaterally. Abdominal: Soft, moderate tenderness to palpation in the right lower quadrant, nondistended, normal bowel sounds. No guarding, rebound, or peritoneal signs. Back: Nontender. Extremities: Nontender, no edema. Skin: Normal color, no rash. Neurologic: Alert and oriented 3. Cranial nerves II through XII are intact. Normal strength and sensation. Psych: Normal affect. Test Results: CBC is remarkable for a white count of 15.1 with 84 segmented neutrophils and 10 lymphocytes. Chem-7 is remarkable for potassium 3.4. UA is marked for ketones and 3+ calcium oxalate crystals. test is negative. CT abdomen pelvis with p.o. and IV contrast is back and shows no acute disease and a normal appendix. Emergency Department Course and Treatment: She had an IV placed. She was given a dose of morphine and Zofran IV. She is resting comfortably. The patient has had no diarrhea while in the emergency department. Treatment Plan: She will be discharged with Zofran and instructed to follow-up with her primary care physician in 1-2 days if not improving. Return to the emergency department for any worsening symptoms. Disposition: To home in improved and stable condition. Impression: 1. Abdominal pain, uncertain cause. 2. Diarrhea. This note was generated with Guest[employer] dictation software. It may contain incorrect words, spelling, and punctuation that were not noted in review of the chart prior to signing ED Disposition - Plan for ED Patient: Disposition: Home or Assisted Living Chief Complaint: Abd Pain Instructions: ED Abdominal Pain Unkn Cause Prescriptions: Ondansetron [Zofran Odt] 4 mg PO Q8H PRN PRN #10 tablet PRN Reason: Nausea Referrals: Sridevi Gant, FERNANDO-C [Primary Care Provider] - 1-2 Days if not improving What to do if you have Problems For any increased pain, shortness of breath, bleeding, nausea or vomiting, chest pain, or any unexpected problems, contact your Primary Care Provider. Call [facility] ([phone]) or report to the closest Emergency Room. Call 911 if necessary. 05/18/17 1484 <Electronically signed by Sin Mcgrath MD> Date Sin Mcgrath MD Cosigner Signature (If Indicated): Date CC: Sridevi Gant URINALYSIS, COMPLETE Collected: 05/16/2017 Status: F Source: TRACEY 3:50 AM [facility] REPOSITORY Order Comment: Order Date: 05/16/17 How was Urine Obtained? CLEAN CATCH TYPE CODE TESTS RESULT OUT OF RANGE REFERENCE UNITS LAB L400.3000 Yellow COLOR Normal Yellow LAB L400.3050 Clear Normal CLARITY Sl. Cloudy LAB L400.3200 Normal mg/dl Normal GLUCOSE, UR Normal LAB L400.3300 Negative mg/dL Normal BILIRUBIN URINE Negative LAB L400.3400 Negative mg/dl High 5 KETONE UR LAB L400.3465 1.002-1.030 Normal SP.GR. DIPSTX 1.030 LAB L400.3550 5.0 - 8.0 pH UR Normal 5.0 LAB L400.3600 Negative mg/dl High PROT 30 DIPSTX LAB L400.3700 Normal mg/dl High 1 UROBILI LAB L400.3750 Negative Normal NITRITE UR Negative LAB L400.3780 Negative /ul Normal OCCULT BLOOD-UR Negative LAB L400.3800 Negative /ul LEUK Normal ESTERASE Negative LAB L400.4050 0-5 /hpf WBC 0 Normal SEEN LAB L400.4100 0-5 /hpf 0 Normal RBC-UA SEEN LAB L400.4150 5-10 /hpf SQUAM Normal EPI 0-5 SEEN LAB L400.4300 None Seen /hpf 0 Normal BACTERIA SEEN LAB L400.4350 <or=2+ /hpf 0 Normal MUCUS, URINE SEEN LAB L400.4700 <or=2+ /hpf CA OX 3+ Normal CRYSTAL Performed By: #### L400.0001 #### [facility] [address] [place], [address] CBC W/DIFF, AUTOMATED Collected: 05/16/2017 Status: F Source: TRACEY 3:50 AM [facility] REPOSITORY TYPE CODE TESTS RESULT OUT OF RANGE REFERENCE UNITS LAB L100.1000 4.4-11.0 K/mm3 High WBC 15.1 LAB L100.1200 4.2-5.4 M/mm3 Normal RBC 4.55 LAB L100.1300 12.0-15.0 g/dl Normal HGB 13.5 LAB L100.1400 37-47 % Normal HCT 40.7 LAB L100.1500 81-99 fL Normal MCV 89.5 LAB L100.1600 27.0-32.0 pg Normal MCH 29.7 LAB L100.1700 32-36 g/gl Normal MCHC 33.2 LAB L100.1810 11.6-14.6 % Normal RDW CV 13.6 LAB L100.1820 35.1-43.9 fl Normal RDW SD 43.9 LAB L100.1900 150-450 K/mm3 Normal PLT 257 LAB L100.2000 6.2-12.0 fl Normal MPV 10.1 LAB L100.2100 47-70 % High NEUT% 84.4 LAB L100.2200 19-41 % Low LY% 9.7 LAB L100.2300 0-10 % Normal MONO% 5.0 LAB L100.2400 0-5 % Normal EO% 0.6 LAB L100.2500 0-1 % Normal BASO% 0.1 LAB L100.2550 0.0-0.9 % Normal IM GRAN % 0.200 Result Comment: IG% - Immature Granulocytes (promyelocytes, myelocytes and metamyelocytes) > 1% indicates that a LEFT SHIFT is Present. LAB L100.2620 2.0-7.7 X10 3/uL High Absolute Neut 12.8 LAB L100.2720 0.83-4.51 X10 3/ul Normal Absolute Lymph 1.47 Performed By: #### L100.0100 #### [facility] [address] [place], [place], [address] BASIC METABOLIC Collected: 05/16/2017 Status: F Source: TRACEY PROFILE (BMP) 3:50 AM [facility] REPOSITORY TYPE CODE TESTS RESULT OUT OF RANGE REFERENCE UNITS LAB L501.0100 74-106 mg/dL Normal GLU 105 Result Comment: Fasting Glucose result from 100 to 125 mg/dL suggests IMPAIRED HOMEOSTASIS per A.D.A. criteria. Please note revised GLUCOSE reference range effective 2017. LAB L501.1000 7-18 mg/dL Normal BUN 11 LAB L501.1100 0.55-1.02 mg/dL Normal CREAT,SERUM 0.79 Result Comment: The validity of the calculated GFR AND GFRAA in patients over 70 years has not been determined. Clinical correlation is essential. LAB L501.1110 >60 mL/min Normal EST GFR 83 Result Comment: Non- GFR Calc LAB L501.1115 >60 mL/min Normal EST GFR - AA 101 Result Comment: GFR Calc LAB L501.1255 ml/min Normal Estimated CRCL 78.47 LAB L501.1300 10-20 RATIO Normal BUN/CRE 13.9 LAB L501.2200 8.5-10 mg/dL Normal .1 CA 8.5 LAB L501.5300 136-14 mmol/L Normal 5 NA 140 LAB L501.5600 3.5-5. mmol/L Low 1 K 3.4 LAB L501.5900 98-107 mmol/L Normal CL 105 LAB L501.6100 21.0-3 mmol/L Normal 2.0 CO2 27.0 LAB L501.6200 5-15 Normal GAP 8 Performed By: #### L500.2500 #### [facility] [address] [place], [place], [id number] ,SERUM,HCG QUALI. Collected: Status: F Source: TRACEY 05/16/2017 3:50 AM [facility] REPOSITORY TYPE CODE TESTS RESULT OUT OF REFERENCE UNITS RANGE LAB L700.7000 0-9 Nonpreg Negative Normal HCGSQUAL NEGATIVE LAB L700.6700 =>Qualitative mIU/mL Normal HCG Qual < 1 triggr Performed By: #### L700.6800 #### [facility] [address] [place], [place], [id number] ABDOMEN/PELVIS WITH Observed: 05/16/2017 Status: F Source: TRACEY CONTRAST 3:35 AM [facility] REPOSITORY [facility] Imaging Services [address] [place] [address] Abdomen/Pelvis WITH Contrast MR#: [id number] Acct: [id number] Name: AURA SAUNDESR Rep #: [id number] : 1970 F 46 From: Willem Norris MD PCP: Sridevi Gant Status: REG ER Study: Abdomen/Pelvis WITH Contrast Date of Exam: 05/16/17 Exam# [id number] Ordering Dr: Sin Mcgrath MD STUDY: CT ABDOMEN AND PELVIS WITH CONTRAST REASON FOR EXAM: Female, 46 years old. Right lower quadrant pain RADIATION DOSAGE (If Supplied By Facility): CTDIvol = ( 16.62 ) mGy, DLP = ( 982.38 ) mGycm TECHNIQUE: Transaxial images were obtained from the dome of the diaphragm to the symphysis pubis without oral contrast. 100ML ml of Isovue 300 contrast was administered. Sagittal and coronal images were reconstructed. Individualized dose optimization techniques were used for this CT. COMPARISON: None. FINDINGS: The lung bases are clear. The liver is normal with no dilated intrahepatic biliary radicles. The gallbladder is normal with no gallstones and no pericholecystic fluid collection or streakiness. The spleen, pancreas and both adrenals are normal. The kidneys are normal with no masses, calculi or hydronephrosis. The stomach is normal. There is no bowel distention, acute appendicitis or diverticulitis. No abnormally constricting large bowel lesions. The abdominal wall is intact. There is no ascites, free intraperitoneal air or any evidence of epiploic appendagitis. The vascular structures in the retroperitoneum are normal The bones and joints seen are normal with no osteolytic or osteoblastic changes There is no retrocrural, retroperitoneal or mesenteric adenopathy. There is no mesenteric mistiness The urinary bladder is normal.. The uterus is normal There is no inguinal or pelvic adenopathy and there is no inguinal hernia. CT/Abdomen/Pelvis WITH Contrast IMPRESSION: No acute findings in the abdomen or pelvis. Specifically there is no acute appendicitis or diverticulitis. Electronically Signed: Willem Norris, at 6:18 EST Tel , Service support , CC: Sridevi Gant; Sin Mcgrath MD Pharmacy Operations Specialist: Signed ALLERGIES ALLERGIES DATE TYPE / CODE NAME / CODE REACTION SEVERITY SOURCE 05/16/2017 Drug No Known Unknown [place] Allergy/416 Allergies/F247244 Community 656784(SNOM 388(RXNORM) Hospital ED CT) Repository Drug NO KNOWN [facility] Class/08337 ALLERGIES Main [place] 1003(SNOMED Repository CT) Drug/141193 No Known [place]ish 003(SNOMED Allergies [facility] Repository Drug/296041 [place] C Amish 003(SNOMED [facility]) [facility] Repository ENCOUNTERS ENCOUNTERS ADMIT/DISCHARGE ACCOUNT ADMITTING ENCOUNTER LOCATION SOURCE NUMBER CLASS 03/14/2018 [id number] Ambulatory [facility] ing:US Repository 03/13/2018/03/14/20 [id number] Ambulatory [address] [place] Repository 03/08/2018 [id number] Ambulatory [facility] ing:WOBLAB Repository 01/21/2018/01/22/[id number] ing:CD:[id number] [facility] 7151Room: Repository CD:[id number] 12/27/2017/12/28/[id number] ing:CD:[id number] [facility]raase System 7151Room: Repository CD:[id number] 08/11/2017/08/12/19 [id number] Sridevi Gant [facility] [address] [facility] Repository 06/08/2017/06/09/19 [id number] [facility] [facility] ing:CD:[id number] [facility] 7151Room: Repository CD:[id number] 05/16/2017/05/16/19 [id number] Emergency [address] ing:ED Repository PAYERS PAYERS ENCOUNTER GUARANTOR PAYER SUBSCRIBER SOURCE 03/14/2018 AURA Primary AURA Webb [id number] [address]CKAY Insurance:ANTHEMPolic ZENODOB: [address], y Number: [id number] [address]Ygv: [id number] Repository Date:3700-53-39AM [address] () [address]JES[place]VF, [place] [address]WW: 03/14/2018 Secondary NOT GIVENUNK [place] Insurance:SELF PAY [facility] Number: Effective Repository Date:2018-03-13 03/08/2018 Aura Primary Aura Webb [id number] [address]CKAY Insurance:ANTHEMPolic ZenoDOB: [address], y Number: [id number] County Medical Center [address]Uhz: [id number] Repository Date:2083-67-17OQ [address]OX () [address]53[address]XZRSMEN, [place] [address]IS: 03/08/2018 Secondary NOT GIVENUNK [place] Insurance:SELF PAY [facility] Number: Effective Repository Date:2018-03-08 01/21/2018 AURA E Primary AURA E Amish ZENODOB: Insurance:ANTHEMPolic ZENODOB: [facility] W y Number: Effective [id number] System [place] Date:2018-01-21 [facility] 9208[place], [place] Name:[facility] [address]Brv: [id number], [place] [address]Zca: [id number]: [phone] () () 12/27/2017 AURA E Primary AURA E Amish ZENODOB: Insurance:ANTHEMPolic ZENODOB: [facility] W y Number: Effective [id number] [place] [address] Date:2017-12-27 [facility], 7561-71-26Tdit [place], [place] Name:[place] [address]Rww: [id number] [address]Dqn: [id number]: [phone] ([phone] (HP) (WP) 08/11/2017 AURA E Primary AURA E Amish ZENODOB: Insurance:ANTHEMPolic ZENODOB: [facility] W y Number: Effective [id number] [place] [address] Date:2017-08-11 [facility], 2700-65-19[place], [place] Name:[place] [address]Xil: [id number], [place] [address]Ydp: [phone]: [phone] ([phone] (HP) (WP) 06/08/2017 AURA E Primary AURA E Amish ZENODOB: Insurance:ANTHEMPolic ZENODOB: [facility] W y Number: Effective [id number] [place] [address] Date:2017-06-08 [facility], 9577-18-83Cnqi [place], [place] Name:[place] [address]Lpj: [id number] [address]Sbq: [id number]: [phone] ([phone] (HP) (WP) 05/16/2017 Aura Primary Aura Webb [id number] W Insurance:ANTHEMPolic ZenoDOB: [facility] y Number: [id number], [id number] Repository [place] [address]Ouq: Date:0803-43-02[address]KIJBINQ, [place] () [address]XM: 05/16/2017 Secondary NOT GIVENUNK [place] Insurance:SELF PAY [facility] Number: Effective Repository Date:2017-05-16
== END ==
PROVIDERS: Family Provider Nurse Practitioner Family; PCP Nurse Practitioner Family; Referring Provider Obstetrics & Gynecology; Visit Provider Obstetrics & Gynecology
DX: N93.8 Other specified abnormal uterine and vaginal bleeding (principal)
CPT/HCPCS: 76830; 76856; 93976

== ENCOUNTER → 2018-05-02 07:47 | Outpatient (CLI) | payer BC, SELFPAY ==
--- NOTE | 2018-05-02 07:50 | BI_ITS ---
MAMMOGRAPHY - BILATERAL SCREENING REASON FOR EXAM: Female, 47 years old. Routine annual screening examination. PERTINENT HISTORY: Grandmother with breast cancer. TECHNIQUE: Digital bilateral breast mona (3D mammographic acquisition) in the CC and MLO projections. 2-D mediolateral oblique (MLO) and craniocaudad (CC) views of both breasts were obtained. CAD: Full Field Digital Mammography with Computer Added Detection was performed. COMPARISON: None. Baseline examination. FINDINGS: Breast Composition: The breasts are heterogeneously dense, which may obscure small masses. There are no dominant masses or suspicious calcifications. No other significant abnormalities are identified. BI/SCREENING MAMM (CAD), BILAT IMPRESSION: Negative screening mammogram. Yearly followup mammogram recommended. (A) ASSESSMENT CATEGORY: BIRADS Category 1: Negative. A letter regarding these results will be sent to the patient by the facility within 30 days. Approximately 10% of breast cancers are not detected by mammography. A normal mammogram should not delay biopsy of a clinically suspicious abnormality. [id number] Electronically Signed: Quique Henriquez MD at 12:53 EST , Service support ,
== END ==
PROVIDERS: Family Provider Nurse Practitioner Family; PCP Nurse Practitioner Family; Referring Provider Obstetrics & Gynecology; Visit Provider Obstetrics & Gynecology
DX: Z12.31 Encounter for screening mammogram for malignant neoplasm of breast (principal)
CPT/HCPCS: 77063; 77067

== ENCOUNTER 2018-06-01 03:26 | Emergency (ER) | payer BC, SELFPAY ==
[2018-06-01 03:27] VITALS: BP 115/67; PULSE 77; RESP 16; TEMP 36.6; O2SAT 96; BMI 28.8
[2018-06-01] MEDS: Ketorolac 60 MG/2 ML Vial IM (04:47)
[2018-06-01] MEDS: Oxymetazoline 0.05% 1 SPRAY SPRAY.BTL 2 SPRAY NASAL (04:47)
--- NOTE | 2018-06-01 05:02 | ED.VIS.GEN ---
History of Present Illness Chief Complaint: Cold Sx Informant: Patient Onset: Weeks - 3-4 Context: Gradual Onset Timing: Continuous Quality: pressure, aching Location: facial, bifrontal Current Severity: Severe Maximum Severity: Severe Worsened by: blowing nose Relieved by: nothing Associated Symptoms: nasal congestion, rhinorrhea clear Narrative: Patient states she has had a sinus infection for about a month, she was put on Augmentin that she was prescribed at urgent care but it did not seem to do anything. She finished that. She has not taken anything else for these symptoms. She states she comes from work tonight because she was feeling bad with the same symptoms. No significant coughing. No fevers. No purulent nasal discharge. Past Medical History - Allergies and Home Meds Allergies/Adverse Reactions: Allergies No Known Allergies Allergy (Verified 05/16/17 03:18) Primary Care Physician: Radha Norton MD [Primary Care Provider] - Smoking Status: Former smoker Review of Systems General: Denies: Chills, Fever Eyes: Denies: Visual changes - bilaterally, Diplopia ENT: Reports: Rhinorrhea, - - Facial pain/pressure. Denies: Bilateral ear pain, Sore throat Respiratory: Denies: Dyspnea, Cough Gastrointestinal: Denies: Abdominal pain, Nausea, Vomiting Skin: Denies: Rash, Abscess Neurological: Reports: Headache. Denies: Weakness, Parasthesia Physical Exam Vital Signs/Narrative: Vital Signs Temp Pulse Resp BP Pulse Ox 06/01/18 03:27 97.9 F 77 16 115/67 96 Inital Vital Signs reviewed: Yes General: Well nourished, Well developed, No Acute Distress Head: Normocephalic, Atraumatic Eyes: Perrl, EOMI ENT: Moist mucous membranes, No rhinorrhea, TM's clear, Sinus tenderness - Throughout all facial sinuses bilaterally, but mostly at ethmoids., - - Bilateral nasal turbinate edema without purulent discharge or bleeding. Neck: Supple, Nontender, No lymphadenopathy Skin: Normal color, No rash, No Trauma Neurological: Alert, Oriented x3, Cranial nerves II-XII grossly intact, Normal Strength, Normal Sensation, Normal Gait Psychological: Normal affect, Normal Mood Diagnostic/Tx/Re-eval - Medical Decision Making After treatment with IM Toradol and Afrin nasal spray, the patient's sinuses feel open, she is able to breathe better, and she states her headache is almost completely gone. I do not think more antibiotics are indicated. She is given appropriate instructions with regards to using the oxymetazoline nasal spray, and follow-up. She is comfortable with that plan. ED Disposition - Plan for ED Patient: Disposition: Home or Assisted Living Diagnosis: Sinus headache, Sinusitis Instructions: ED Headache Sinus Referrals: Radha Norton MD [Primary Care Provider] - 1 Week if not improving Additional Instructions: Use oxymetazoline nasal spray, 2 sprays each nostril as needed for congestion, up to every 12 hours, up to 3 days at a time. This may also help sinus headaches. Take with ibuprofen.
[2018-06-01 05:20] VITALS: BP 110/73; PULSE 66; O2SAT 98
--- NOTE | 2018-06-01 05:20 | ED.RN ---
NO REACTION NOTED AFTER TORADOL INJECTION. DISCHARGE INSTRUCTIONS GIVEN PRIOR DISCHARGE.
== END 2018-06-01 05:21 | disposition home or self-care (01) ==
PROVIDERS: Emergency Provider Emergency Medicine; Family Provider Family Medicine; PCP Family Medicine
DX: J32.9 Chronic sinusitis, unspecified (principal); R51 Headache; Z79.899 Other long term (current) drug therapy; Z87.891 Personal history of nicotine dependence
CPT/HCPCS: 96372; 99282

== ENCOUNTER 2018-06-11 23:04 | Emergency (ER) | payer BC, SELFPAY ==
[2018-06-11 23:05] VITALS: BP 127/71; PULSE 89; RESP 22; TEMP 35.9; O2SAT 96; BMI 28.8
--- NOTE | 2018-06-12 | RAD_ITS ---
STUDY: X-RAY CHEST REASON FOR EXAM: Female, 47 years old. Chest pain TECHNIQUE: Frontal and lateral views of the chest. COMPARISON: None. FINDINGS: The lungs are clear and expanded. There is no demonstrated pleural abnormality. Normal size heart. Normal mediastinum and surendra. Normal visualized pulmonary arteries. Normal visualized aortic arch and descending thoracic aorta. There are diffuse degenerative changes of the visualized thoracic spine. There is degenerative osteoarthritis of the bilateral shoulders. There is no demonstrated abnormality of the visualized soft tissue structures of the upper abdomen. RAD/Chest PA and Lateral IMPRESSION: Degenerative changes, as described above. No demonstrated acute cardiopulmonary process. Electronically Signed: Luis Pozo, at 0:47 EDT Tel , Service support ,
--- NOTE | 2018-06-12 00:04 | ED.VISSUMM ---
- ER Visit Summary Date of Service: 06/12/18 Chief Complaint: Right lower chest pain History of Present Illness: The patient is a 47 F who presents with right lower chest pain that began today. Patient states the pain has been constant. Patient describes the pain as sharp rated patient states the pain is worse with deep breathing and coughing. Patient states the pain is worse with movement as well. Patient admits to some rhinorrhea. Patient denies any fevers or chills. Patient denies any nausea or vomiting. Patient states the pain radiates around into her back. Physical Examination: Vital signs are stable. Patient is afebrile. Patient is in no acute distress. Oral mucosa is pink and moist. Neck is supple. Trachea is midline. There is no JVD noted. Heart was regular rate and rhythm. Lungs are clear and equal bilaterally. There is adequate respiratory effort. It was limited secondary to pain. Abdomen is soft and nontender. Cranial nerves II through XII are intact. There are no focal motor or sensory deficits noted. Musculoskeletal exam showed some reproducible tenderness over the right lower chest wall. There is no bony crepitance or step-off noted. Test Results: PA and lateral chest x-rays obtained. There is no acute cardiopulmonary process. There is no pneumothorax noted. Emergency Department Course and Treatment: Patient was given a dose of Celebrex prior to arrival. Patient was given a prescription for Naprosyn. Patient was instructed to take 10-15 deep breaths every hour while awake to prevent atelectasis and pneumonia. Instructed to follow-up with her primary care physician in 5-7 days. Patient understood and was agreeable with the plan. All questions were answered. Disposition: Discharge home Impression: Right-sided chest pain This note was generated with [employer] dictation software. It may contain incorrect words, spelling, and punctuation that were not noted in review of the chart prior to signing ED Disposition - Plan for ED Patient: Disposition: Home or Assisted Living Diagnosis: Right-sided chest pain Instructions: ED Chest Pain NonCardiac Prescriptions: Naproxen [Naprosyn] 500 mg PO BID PRN #20 tab Referrals: Radha Norton MD [Primary Care Provider] - 5-7 Days
[2018-06-12 01:28] VITALS: BP 104/79; PULSE 82; RESP 16; O2SAT 96
== END 2018-06-12 01:29 | disposition home or self-care (01) ==
PROVIDERS: Emergency Provider Emergency Medicine; Family Provider Family Medicine; PCP Family Medicine
DX: R07.9 Chest pain, unspecified (principal); I10 Essential (primary) hypertension; E03.9 Hypothyroidism, unspecified; F32.9 Major depressive disorder, single episode, unspecified; F41.9 Anxiety disorder, unspecified; Z87.891 Personal history of nicotine dependence; Z79.899 Other long term (current) drug therapy
CPT/HCPCS: 71046; 99282

== ENCOUNTER → 2018-06-16 10:46 | Outpatient (CLI) | payer BC, SELFPAY ==
[2018-06-11 23:05] VITALS: BMI 28.8
[2018-06-16 12:59] LABS: Free T3 2.7 pg/mL (2.18-3.98); T4 Free Direct 0.99 ng/dL (0.76-1.46); Thyroid Stim Hormone (TSH) 3.84 uIU/mL (0.358-3.74)
== END ==
PROVIDERS: Family Provider Family Medicine; PCP Family Medicine; Visit Provider Family Medicine
DX: E03.9 Hypothyroidism, unspecified (principal)
CPT/HCPCS: 36415; 84439; 84443; 84481

== ENCOUNTER → 2018-09-02 | Outpatient (CLI) | payer BC, SELFPAY ==
[2018-09-02 08:48] LABS: Free T3 2.5 pg/mL (2.18-3.98); T4 Free Direct 1.07 ng/dL (0.76-1.46); Thyroid Stim Hormone (TSH) 2.17 uIU/mL (0.358-3.74)
== END | disposition home or self-care (01) ==
LOC: LAB.FUTURE 07:32
PROVIDERS: Family Provider Family Medicine; PCP Family Medicine; Referring Provider Family Medicine; Visit Provider Family Medicine
DX: E03.9 Hypothyroidism, unspecified (principal)
CPT/HCPCS: 36415; 84439; 84443; 84481

== ENCOUNTER → 2018-11-06 | Outpatient (CLI) | payer BC, SELFPAY | END | disposition home or self-care (01) | LOC: LAB 09:41 | PROVIDERS: Family Provider Family Medicine; PCP Family Medicine; Referring Provider Obstetrics & Gynecology; Visit Provider Obstetrics & Gynecology | DX: H52.10 Myopia, unspecified eye (principal); H52.4 Presbyopia | CPT/HCPCS: 36415; 82951; 82952; 83525 ==

== ENCOUNTER → 2018-11-24 | Outpatient (CLI) | payer BC, SELFPAY ==
[2018-11-24 14:04] LABS: Estradiol 75.3 pg/mL
[2018-11-24 14:10] LABS: Progesterone Level 8.41 ng/mL (See Comment)
== END | disposition home or self-care (01) ==
LOC: WOBLAB 09:33
PROVIDERS: Visit Provider Obstetrics & Gynecology
DX: N92.6 Irregular menstruation, unspecified (principal)
CPT/HCPCS: 36415; 82670; 84144

== ENCOUNTER 2018-12-26 23:01 | Emergency (ER) | payer BC, SELFPAY ==
[2018-12-26 23:03] VITALS: BP 130/102; PULSE 89; RESP 18; TEMP 36.9; O2SAT 98; BMI 28.8
--- NOTE | 2018-12-27 01:10 | EKG12_ITS ---
Test Reason : Blood Pressure : / mmHG Vent. Rate : 059 BPM Atrial Rate : 059 BPM P-R Int : 140 ms QRS Dur : 088 ms QT Int : 436 ms P-R-T Axes : 051 035 031 degrees QTc Int : 431 ms Sinus bradycardia Low voltage QRS Borderline ECG Confirmed by BERYL GAGE ([id number]), slot editor TANVIR LIGHT ([id number]) on 01/02/2019 1:22:48 PM Referred By: GABE Confirmed By:BERYL GAGE
--- NOTE | 2018-12-27 01:10 | ED.VIS.GEN ---
History of Present Illness Chief Complaint: General Illness Narrative: This patient is a 47-year-old female who presents after bug bite. She felt pain on her right forearm and brushed away something white. She states it happened quickly and she did not get a good look at what ever bit her. She then began to feel dizzy and nauseated. The symptoms have since improved although she complains of tingling in her arms and legs. She does have a history of anxiety. No chest pain. No shortness of breath. No vomiting. Past Medical History - Allergies and Home Meds Allergies/Adverse Reactions: Allergies No Known Allergies Allergy (Verified 12/27/18 00:07) Primary Care Physician: Radha Norton MD [Primary Care Provider] - Past Medical History: - - Anxiety, hypokalemia, hypertension Smoking Status: Former smoker Review of Systems All systems negative except as indicated General: Denies: Fever Cardiovascular: Reports: - - Dizziness. Denies: Chest pain Respiratory: Denies: Dyspnea Gastrointestinal: Reports: Nausea Neurological: Reports: Parasthesia, Numbness Physical Exam Vital Signs/Narrative: Vital Signs Temp Pulse Resp BP Pulse Ox 12/26/18 23:03 98.5 F 89 18 130/102 H 98 Inital Vital Signs reviewed: Yes General: Well nourished Head: Normocephalic Eyes: EOMI ENT: Moist mucous membranes Neck: Supple Cardiovascular: Regular rate, Regular rhythm Respiratory: No distress, CTA bilaterally Abdomen: Soft, Nontender Skin: Normal color, - - No wounds, no erythema Neurological: Alert, Normal Strength, Normal Sensation Psychological: - - Anxious Diagnostic/Tx/Re-eval - Medical Decision Making BMP normal, normal potassium and calcium. EKG shows sinus rhythm at a rate of 59 with no acute ischemic changes. Patient was given Zofran ODT for nausea. I do think some of her symptoms are attributable to anxiety. She has no findings to suggest serious acute life-threatening pathology at this time. She was advised and follow-up as an outpatient was discharged home. ED Disposition - Plan for ED Patient: Disposition: Home or Assisted Living Diagnosis: Bug bite, Anxiety, Paresthesia Instructions: Insect Bite, Anxiety Reaction Referrals: Radha Norton MD [Primary Care Provider] -
[2018-12-27] MEDS: Ondansetron ODT 4 MG Tablet PO (01:16)
--- NOTE | 2018-12-27 01:32 | NURSING ---
NO OLD EKGS IN MUSE
[2018-12-27 01:39] LABS: Anion Gap 4 (5-15); BUN 9 mg/dL (7-18); BUN/Creat Ratio 11.9 RATIO (10-20); Calcium,Total 8.7 mg/dL (8.5-10.1); Chloride 106 mmol/L (98-107); Creatinine, Serum 0.76 mg/dL (0.55-1.02); EST Glomerular Filtration Rate 88 mL/min (>60); Est Glom Filt Rate - Afr Amer 106 mL/min (>60); Estimated Creatinine Clearance 80.72 ml/min; Glucose 97 mg/dL (74-106); Potassium 3.6 mmol/L (3.5-5.1); Sodium Level 138 mmol/L (136-145)
[2018-12-27 02:20] VITALS: PULSE 72; RESP 16; O2SAT 97
== END 2018-12-27 02:22 | disposition home or self-care (01) ==
PROVIDERS: Emergency Provider Emergency Medicine; Family Provider Family Medicine; PCP Family Medicine
DX: S50.861A Insect bite (nonvenomous) of right forearm, initial encounter (principal); R20.2 Paresthesia of skin; F41.9 Anxiety disorder, unspecified; W57.XXXA Bitten or stung by nonvenomous insect and other nonvenomous arthropods, initial encounter; Y93.9 Activity, unspecified; Y92.9 Unspecified place or not applicable; I10 Essential (primary) hypertension; Z79.899 Other long term (current) drug therapy; Z87.891 Personal history of nicotine dependence
CPT/HCPCS: 36415; 80048; 93005; 99282

== ENCOUNTER → 2019-02-01 07:34 | Outpatient (CLI) | payer BC, SELFPAY ==
--- NOTE | 2019-02-01 07:36 | CT_ITS ---
STUDY: CT BRAIN AND SINUSES WITHOUT CONTRAST REASON FOR EXAM: Female, 48 years old. RADIATION DOSAGE (If Supplied By Facility): CTDIvol = ( 33.06 ) mGy, DLP = ( 912.36 ) mGycm TECHNIQUE: Transaxial CT imaging of the brain was performed without administration of contrast. Individualized dose optimization techniques were used for this CT. COMPARISON: No relevant priors. FINDINGS: CT BRAIN Normal soft tissue structures. Normal calvarium. Normal size ventricles and extra-axial spaces for the patient's age. Normal white matter tracts of the cerebral hemispheres. Normal basal ganglia and thalami. Normal brainstem. Normal cerebellum. There is no intracranial hemorrhage. There are no findings of an acute ischemic infarction. CT SINUSES Post Surgical Changes: None. Frontal Sinus and Recess: Normal aeration without mucosal inflammatory disease. Ethmoidal Sinuses: Normal aeration without mucosal inflammatory disease. Maxillary Sinuses: Partial opacification of the left maxillary sinus. Ostiomeatal Complex: Clear. Sphenoid Sinus: Partial opacification of the right sphenoid sinus. Sphenoethmoidal Recess: Clear. Nasal Turbinate (Right): Middle Turbinate (Right): Normal. Middle Turbinate (Left): Normal. Inferior Turbinate (Right): Normal. Inferior Turbinate (Left): Normal. Nasal Septum: Midline. Nasal Airway: Clear. Cri biform Plate / Anterior Cranial Fossa: Normal. Orbits: Normal. CT/Sinus/Facial Bone IMPRESSION: Partial opacification of the left maxillary and right sphenoid sinus. Electronically Signed: Quique Henriquez, at 15:43 EDT , Service support ,
== END ==
PROVIDERS: Family Provider Family Medicine; PCP Family Medicine; Referring Provider Otolaryngology; Visit Provider Otolaryngology
DX: J32.9 Chronic sinusitis, unspecified (principal)
CPT/HCPCS: 70486

== ENCOUNTER 2019-02-05 08:19 | Outpatient (RCR) | payer BC, SELFPAY | END 2019-02-05 23:59 | disposition home or self-care (01) | LOC: NS 08:19 | PROVIDERS: Family Provider Family Medicine; PCP Family Medicine; Visit Provider Family Medicine | DX: Z71.3 Dietary counseling and surveillance (principal); E66.9 Obesity, unspecified; E03.9 Hypothyroidism, unspecified; I10 Essential (primary) hypertension; F32.9 Major depressive disorder, single episode, unspecified; Z68.29 Body mass index [BMI] 29.0-29.9, adult | CPT/HCPCS: 97802 ==

== ENCOUNTER → 2019-02-06 08:46 | Outpatient (CLI) | payer BC, SELFPAY ==
[2019-02-08 20:07] LABS: Alternaria tenuis <0.10 kU/L (Class 0); Ash, White <0.10 kU/L (Class 0); Aspergillus fumigatus <0.10 kU/L (Class 0); Bermuda Grass <0.10 kU/L (Class 0); Birch <0.10 kU/L (Class 0); Black Walnut <0.10 kU/L (Class 0); Cat Hair / Dander,Stand <0.10 kU/L (Class 0); Cedar, Mountain <0.10 kU/L (Class 0); Cladosporium herbarum <0.10 kU/L (Class 0); Cockroach, American <0.10 kU/L (Class 0); Cottonwood <0.10 kU/L (Class 0); D farinae Mite <0.10 kU/L (Class 0); D pteronyssinus <0.10 kU/L (Class 0); Dog Epithelia 0.43 kU/L (Class I); Elm, American White <0.10 kU/L (Class 0); Immunoglobulin E 29 IU/mL (6-495); Maple/Box Elder <0.10 kU/L (Class 0); Mulberry, White <0.10 kU/L (Class 0); Oak, White <0.10 kU/L (Class 0); Pecan <0.10 kU/L (Class 0); Penicillium Notatum <0.10 kU/L (Class 0); Pigweed, Rough <0.10 kU/L (Class 0); Ragweed, Short/Common <0.10 kU/L (Class 0); Russian Thistle <0.10 kU/L (Class 0); Sheep Sorrel <0.10 kU/L (Class 0); Sycamore, American <0.10 kU/L (Class 0)
[2019-02-09 16:10] LABS: Mouse Urine <0.10 kU/L (Class 0)
== END ==
PROVIDERS: Family Provider Family Medicine; PCP Family Medicine; Referring Provider Otolaryngology; Visit Provider Otolaryngology
DX: T78.40XA Allergy, unspecified, initial encounter (principal)
CPT/HCPCS: 36415; 82785; 86003

== ENCOUNTER → 2019-02-23 13:38 | Outpatient (CLI) | payer BC, SELFPAY ==
--- NOTE | 2019-02-23 09:45 | EMB_PTH ---
PATIENT: ZANE BLACKMON LOC: [facility] U#:[id number] AGE/SX: 54/F ROOM: RE02/23/[address]: Dr. Jerilyn Boucher MD : 1970 BED: DIS: SPEC #: [id number] RECD: 02/23/19 13:45 STATUS: MICA REDaisy #: [id number] BAILEY: 02/23/19 09:[address]: Jerilyn Ibarra DEPT: SURGICAL PATHOLOGY RECD BY: Von Arshad ENTERED: 02/23/19 13:50 SP TYPE: ENDOM BX/C DAVIS DR: Dr. Radha Norton MD Tissues: Endometrium, NOS Procedures: Surgery Specimen Level IV HEADER OPERATION: Endometrial biopsy PRE-OP DIAGNOSIS: Abnormal uterine bleeding, menorrhagia TISSUE SUBMITTED: Endometrial biopsy MICROSCOPIC DIAGNOSIS Endometrium, biopsy: Mildly disordered proliferative endometrium. AM:ryanne 02/26/19 MICROSCOPIC DESCRIPTION Slides are reviewed. GROSS DESCRIPTION Received is one container labeled with the patient's name and not further designated. The specimen consists of multiple fragments of hemorrhagic soft tissue that in aggregate measure 2.5 x 2 x 0.2 cm. The specimen is totally submitted in one cassette. / SJ:ryanne 02/23/19 TC:5 CPT: 60937
[2019-02-23 14:24] LABS: Mucous, Urine 0 SEEN /hpf (<or=2+); White Blood Cells 0 SEEN /hpf (0-5)
[2019-02-23 14:30] LABS: Color, Urine Yellow (Yellow); Glucose, Dipstick Normal (Normal); Ketone-Dipstick 15 mg/dl (Negative); Leukocyte Esterase-Dipstick Negative /ul (Negative); Nitrite-Dipstick Negative (Negative); Occult Blood-Urine 10 /ul (Negative); Protein-Dipstick Negative (Negative); Specific Gravity, Urine 1.025 (1.002-1.030); Urine Bilirubin Dipstick Negative (Negative); Urine Clarity Sl. Cloudy (Clear); Urine Urobilinogen Normal (Normal)
[2019-02-23 14:33] LABS: Bacteria RARE /hpf (None Seen); Red Blood Cells-Urine 0-5 SEEN /hpf (0-5); Squamous Epithelial Cells - UA 5-10 SEEN /hpf (5-10)
== END ==
PROVIDERS: Family Provider Family Medicine; PCP Family Medicine; Referring Provider Obstetrics & Gynecology; Visit Provider Obstetrics & Gynecology
DX: N85.8 Other specified noninflammatory disorders of uterus (principal); N39.0 Urinary tract infection, site not specified
CPT/HCPCS: 81001; 87086; 87088; 88305

== ENCOUNTER → 2019-02-27 16:10 | Outpatient (CLI) | payer BC, SELFPAY ==
--- NOTE | 2019-02-27 16:13 | US_ITS ---
PROCEDURE: ULTRASOUND OF THE FEMALE PELVIS - COMPLETE REASON FOR EXAM: Female, 48 years old. HEAVY AND IRREGULAR PERIODS TECHNIQUE: Transabdominal and Transvaginal TECHNICAL QUALITY: Adequate. COMPARISON: Pelvic ultrasound dated March 14, 2018 FINDINGS: The uterus is anteverted and is in a midline position. The uterus measures 8.6 x 4.7 x 4.6 cm. There is no demonstrated myometrial mass. Decreased differentiation between the endometrium and surrounding myometrium noted on the current study. This can be associated with adenomyosis. The endometrium measures 8.3 mm in thickness, and is hyperechoic. There is no demonstrated endometrial mass. There is a Nabothian cyst of the cervix. The right ovary is visualized. The right ovary measures 3.4 x 2.1 x 1.4 cm. There is no right ovarian cyst or ovarian mass. There is no visualized right adnexal mass or complex lesion. The left ovary is visualized. The left ovary measures 2.9 x 1.5 x 1.6 cm. A 1.6 cm dominant follicular cyst is present. There is no visualized left adnexal mass or complex lesion. Normal color vascular flow and Doppler signal is demonstrated in both ovaries. There is no fluid in the cul-de-sac. US/Transvaginal Non- IMPRESSION: 1. Decreased differentiation between the endometrium and surrounding myometrium noted on the current study. This can be associated with adenomyosis. This can be further evaluated with MRI of the pelvis with and without contrast if clinically indicated. Electronically Signed: Hugo Aguilar MD at 10:24 EST , Service support ,
--- NOTE | 2019-02-27 16:13 | US_ITS ---
PROCEDURE: ULTRASOUND OF THE FEMALE PELVIS - COMPLETE REASON FOR EXAM: Female, 48 years old. HEAVY AND IRREGULAR PERIODS TECHNIQUE: Transabdominal and Transvaginal TECHNICAL QUALITY: Adequate. COMPARISON: Pelvic ultrasound dated March 14, 2018 FINDINGS: The uterus is anteverted and is in a midline position. The uterus measures 8.6 x 4.7 x 4.6 cm. There is no demonstrated myometrial mass. Decreased differentiation between the endometrium and surrounding myometrium noted on the current study. This can be associated with adenomyosis. The endometrium measures 8.3 mm in thickness, and is hyperechoic. There is no demonstrated endometrial mass. There is a Nabothian cyst of the cervix. The right ovary is visualized. The right ovary measures 3.4 x 2.1 x 1.4 cm. There is no right ovarian cyst or ovarian mass. There is no visualized right adnexal mass or complex lesion. The left ovary is visualized. The left ovary measures 2.9 x 1.5 x 1.6 cm. A 1.6 cm dominant follicular cyst is present. There is no visualized left adnexal mass or complex lesion. Normal color vascular flow and Doppler signal is demonstrated in both ovaries. There is no fluid in the cul-de-sac. US/Pelvic (Non ) IMPRESSION: 1. Decreased differentiation between the endometrium and surrounding myometrium noted on the current study. This can be associated with adenomyosis. This can be further evaluated with MRI of the pelvis with and without contrast if clinically indicated. Electronically Signed: Hugo Aguilar MD at 10:24 EST , Service support ,
== END ==
PROVIDERS: Family Provider Family Medicine; PCP Family Medicine; Referring Provider Obstetrics & Gynecology; Visit Provider Obstetrics & Gynecology
DX: N93.8 Other specified abnormal uterine and vaginal bleeding (principal)
CPT/HCPCS: 76830; 76856; 93976

== ENCOUNTER 2019-03-05 12:25 | Day surgery (SDC) | payer BC, SELFPAY ==
[2019-03-05 12:56] VITALS: BP 99/63; PULSE 70; RESP 15; TEMP 36.4; O2SAT 100; BMI 28.6
[2019-03-05] MEDS: Lactated Ringers 1,000 ML 100 ML IV (13:05)
[2019-03-05] MEDS: Oxymetazoline 0.05% 1 SPRAY SPRAY.BTL 3 SPRAY NASAL (13:10)
[2019-03-05 13:18] LABS: Thyroid Stim Hormone (TSH) 3.87 uIU/mL (0.358-3.74)
--- NOTE | 2019-03-05 14:22 | PCM.DC ---
You will use the following diet at home:: Regular Discharge Activity: - - No strenuous activity. No nose blowing Additional Activity Instructions:: Start irrigation 03/06/19. Irrigate 4x/day. Allergies/Adverse Reactions: Allergies latex Allergy (Verified 03/05/19 12:46) Rash card board Allergy (Uncoded 03/05/19 12:46) Rash Medications to take at Discharge Sertraline HCl 100 mg PO DAILY 08/24/16 Levothyroxine [Synthroid] 50 mcg PO DAILY 06/01/18 Losartan Potassium 50 mg PO DAILY 06/01/18 [place]-3/Dha/Epa/Fish Oil [Fish Oil 1,000 mg Softgel] 1,000 mg PO DAILY 06/01/18 Omeprazole 20 mg PO DAILY 06/01/18 Cholecalciferol (Vitamin D3) [Vitamin D3] 5,000 unit PO DAILY 06/11/18 Potassium Chloride [K-Dur] 10 meq PO DAILY 06/11/18 Naproxen [Naprosyn] 500 mg PO BID PRN #20 tab 06/12/18 Hydroxyzine HCl 10 mg PO Q6H PRN PRN 03/02/19 Primary Care Physician: Radha Norton MD [Primary Care Provider] - Test Results: Test results from this visit will be discussed in further detail at your follow-up appointment, if applicable.
[2019-03-05 15:22] VITALS: BP 117/86; BP 99/63; PULSE 89; RESP 16; TEMP 36.9; O2SAT 100
--- NOTE | 2019-03-05 15:29 | PCM.OPRPT ---
Report of Operation Date of Procedure: 03/05/19 Pre-Operative Diagnosis: chronic sinusitis Post-Operative Diagnosis: same Surgery/Procedure Performed:: Bilateral total ethmoidectomy. Bilateral maxillary antrostomy. Right sphenoidotomy. Use of navigation Type of Anesthesia:: General Anesthesiologist: Phani Valadez Specimen's removed: sinus contents Estimated Blood Loss (mL): minimal Description of Procedure: The patient was taken to the operating room on 03/05/19. She was placed in the supine position on the operating table. She was given sufficient general endotracheal anesthesia. The head of bed was elevated 30 degrees. The navigation system was placed and verified per protocol and found to be accurate. 0 and 30 degrees rigid nasal endoscopes were used throughout the entire case. The middle turbinate, uncinate process and polyps were injected with 1% lidocaine with epinephrine bilaterally. The right middle turbinate was medialized with a [place]wood elevator. A ball-tipped sinus seeker was placed into the patient's maxillary sinus. The back biter was used to create the antrostomy. The uncinate process was taken down using a microdebrider. Next, the ethmoid bulla was opened with a small curette. Anterior and posterior ethmoidectomy were then carried out using curette, sinus shaver and 45 degree Blakesley Constanza forceps. Ethmoid cells were verified for relation to the skull base and orbit prior to being entered with the navigation system. The front face of the sphenoid was opened with a suction. Huber-Cut forceps were then used to widen the opening. I then placed Afrin pledgets into the sinonasal cavity. Next attention was turned to the left side. The middle turbinate was medialized with a [place]wood elevator. The maxillary sinus was entered with a ball tipped sinus seeker. The antrostomy was created with a back biter. The uncinate process was taken down using a sinus shaver. The ethmoid bulla was opened with a small curette. Anterior posterior ethmoidectomy were then carried out using a sinus shaver curette and Blakesley Constanza forceps. Ethmoid cells were verified for relation to the skull base and orbit prior to being entered with the navigation system. Hemostasis was then achieved using Afrin pledgets. The pledgets were then removed bilaterally and Jacob powder was applied bilaterally for absolute hemostasis. The procedure was then terminated. The patient was then awoken and brought to the recovery room in stable condition blood loss minimal. Sponge, needle, instrument count were correct at the end of the procedure.
[2019-03-05 15:30] VITALS: BP 123/82; BP 99/63; PULSE 73; RESP 16; O2SAT 97
--- NOTE | 2019-03-05 15:35 | ETH_PTH ---
PATIENT: ZANE BLACKMON LOC: [facility] U#:[id number] AGE/SX: 48/F ROOM: RE03/05/[address]: Dr. Gabino English MD : 1970 BED: DIS: 03/05/2019 SPEC #: [id number] RECD: 03/05/19 15:42 STATUS: MICA REDaisy #: [id number] BAILEY: 03/05/19 15:[address]: Gabino English DEPT: SURGICAL PATHOLOGY RECD BY: Von Arshad ENTERED: 03/06/19 07:28 SP TYPE: ETH TISS OTHR DR: Dr. Radha Norton MD Tissues: A - Ethmoid sinus, NOS B - Ethmoid sinus, NOS Procedures: Decalcification bone/plaque Surgery Specimen Level IV HEADER OPERATION: Endoscopic intranasal ethmoid, maxillary, antros, right sphenoidotomy PRE-OP DIAGNOSIS: Chronic sinusitis TISSUE SUBMITTED: A - Right ethmoid and maxillary sinus contents, B - Left ethmoid and maxillary sinus contents MICROSCOPIC DIAGNOSIS A. Right ethmoid and maxillary sinus contents: Fragments of respiratory mucosa with mild chronic inflammation and bone. B. Left ethmoid and maxillary sinus contents: Fragments of respiratory mucosa with mild chronic inflammation and bone. AVIS:ryanne 03/09/19 MICROSCOPIC DESCRIPTION Slides are reviewed. GROSS DESCRIPTION A - Received in fixative is one container labeled with the patient's name and designated right ethmoid and maxillary sinus contents. The specimen consists of multiple irregular fragments of mckinnon soft tissue mixed with fragments of bone that in aggregate measure 2 x 0.7 x 0.2 cm. The entire specimen is submitted in one cassette after decalcification. B - Received in fixative is one container labeled with the patient's name and designated left ethmoid and maxillary sinus contents. The specimen consists of multiple irregular fragments of mckinnon soft tissue mixed with fragments of bone that in aggregate measure 1.5 x 0.5 x 0.2 cm. The entire specimen is submitted in one cassette after decalcification. / AVIS:ryanne 03/06/19 TC:5 CPT: 70145 x2, 14502 x2
[2019-03-05 15:45] VITALS: BP 126/74; BP 99/63; PULSE 82; RESP 16; O2SAT 100
[2019-03-05 15:48] VITALS: BP 117/80; BP 99/63; PULSE 77; RESP 16; TEMP 36.4; O2SAT 99
[2019-03-05] MEDS: HYDROcodone Bitartrate/Apap 5/325 Tablet PO (16:01)
[2019-03-05 16:25] VITALS: BP 120/77; BP 99/63; PULSE 74; RESP 16; O2SAT 96
== END 2019-03-05 16:29 | disposition home or self-care (01) ==
LOC: SDC 12:26 → AC 12:30
PROVIDERS: Anesthesiology; Family Provider Family Medicine; PCP Family Medicine; Referring Provider Otolaryngology; Visit Provider Otolaryngology
PROC: (CPT 31255; principal; 2019-03-05 15:05)
DX: J32.9 Chronic sinusitis, unspecified (principal); I10 Essential (primary) hypertension; K21.9 Gastro-esophageal reflux disease without esophagitis; F41.9 Anxiety disorder, unspecified; F32.9 Major depressive disorder, single episode, unspecified; E06.9 Thyroiditis, unspecified; Z79.899 Other long term (current) drug therapy; Z87.891 Personal history of nicotine dependence
CPT/HCPCS: 00160; 31255; 31256; 31257; 61782; 36415; 84443; 88305; 88311; J7120; J2405

== ENCOUNTER 2019-04-05 14:47 | Observation (INO) | payer BC, SELFPAY ==
--- NOTE | 2019-03-26 11:46 | EKG12_ITS ---
Test Reason : PRE OP Blood Pressure : / mmHG Vent. Rate : 064 BPM Atrial Rate : 064 BPM P-R Int : 138 ms QRS Dur : 088 ms QT Int : 418 ms P-R-T Axes : 055 039 031 degrees QTc Int : 431 ms Normal sinus rhythm Normal ECG Confirmed by MAKENNA HELMS, MYLES ([id number]), story editor GARRETT SANCHEZ ([id number]) on 03/27/2019 9:42:31 AM Referred By: Jerilyn Manley Confirmed By:MYLES MENSAH MD
[2019-03-26 12:32] LABS: Hematocrit 40.2 % (37-47); Mean Corp Hgb Conc 32.3 g/dL (32-36); Mean Corpuscular Hgb 27.4 pg (27.0-32.0); Mean Corpuscular Volume 84.6 fL (81-99); Mean Platelet Vol. 10.6 fl (6.2-12.0); Platelet Count 206 K/mm3 (150-450); RBC Distribution Width SD 39.7 fl (35.1-43.9); Red Blood Count 4.75 M/mm3 (4.2-5.4); White Blood Count 6.5 K/mm3 (4.4-11.0)
[2019-03-26 12:36] LABS: International Normalized Ratio 1.1; Prothrombin Time (Protime)PT. 13.8 SECONDS (11.7-14.9)
[2019-03-26 12:48] LABS: Anion Gap 4 (5-15); BUN 10 mg/dL (7-18); BUN/Creat Ratio 12.4 RATIO (10-20); Calcium,Total 8.9 mg/dL (8.5-10.1); Chloride 105 mmol/L (98-107); EST Glomerular Filtration Rate 81 mL/min (>60); Est Glom Filt Rate - Afr Amer 99 mL/min (>60); Glucose 100 mg/dL (74-106); Potassium 3.9 mmol/L (3.5-5.1); Sodium Level 137 mmol/L (136-145)
--- NOTE | 2019-04-04 22:08 | PCM.HPOB.BLA ---
- Problem List (1) Abnormal uterine bleeding (AUB) Status: Acute History and Physical Date of Admission: 04/05/19 Date: 03/26/2019 Name: AURA SAUNDERS Age: 48 Date of : 1970 HISTORY OF PRESENT ILLNESS: On 03/26/2019, Aura Saunders, a 48 year old female 2 0 0 0 2, presented for: -- Pre-Op -- Aura is being seen for pre op visit. Pt to have LAVH, BS on 04/05/[address] Carissa Boucher. Pt having surgery due to irregular and heavy periods. Medications and allergies are up to date. Consents signed and reviewed with pt. AM as above. Plan for LAVH, bilateral salpingectomy for persistent AUB refractory to medical management. Prior US suspicious for adenomyosis. shm ALLERGIES: No Known Drug Allergies MEDICATIONS HISTORY: Current medications prescribed by our practice are: 1. Prometrium 100 mg capsule, As Directed take on capsule po cycle days 3 through 10 and 3 capsules cycle day 11 through 27 Patient is also takin. losartan 50 mg tablet, daily 2. omeprazole 20 mg tablet,delayed release, daily 3. potassium 99 mg tablet, daily 4. Vitamin D3 5,000 unit tablet, daily 5. Zoloft 100 mg tablet, daily 6. hydroxyzine HCl 10 mg tablet, two tabs daily and as needed REVIEW OF SYSTEMS: GENERAL - Denies fever, or chills SKIN - Denies skin changes EYES - Denies visual changes EARS - Denies difficulty hearing NOSE - Denies nasal congestion or bleeding MOUTH - Denies sore throat or difficulty swallowing NECK - Denies pain or swelling RESPIRATORY - Denies shortness of breath or wheezing CARDIOVASCULAR - Denies palpitations or chest pain GASTROINTESTINAL - Denies nausea, vomiting, diarrhea, constipation GENITOURINARY - Denies dysuria, frequency of urination, incontinence of urine MUSCULOSKELETAL - Denies joint or muscle pain NEUROLOGICAL - Denies localized numbness or weakness PSYCHIATRIC - Denies depression or anxiety ENDOCRINE - Denies heat or cold intolerance, weight loss or gain HEMATO-IMMUNOLOGIC - Denies excesive bleeding with cuts SURGICAL HISTORY: 1. Fatty Tissue removed 1990 Linus Ceballos 2. 11/19/1999 C section 3. Laporscopic Cyst removal 1996 4. 03/05/2019 Right side sinuses MENSTRUAL HISTORY: LMP Known?- ApproximateAmount/Duration - 4 to 7 days, Regularity - Irregular, Frequency - variable days, LMP - 03/06/19, Age Onset Menarche - 14 FAMILY HISTORY: Father - Type 2 Diabetes; Father - High Cholesterol; Father - Hypertension; Father - Atrial fibrillation; Mother - Anemia; Mother - Supraventricular tachycardia; Aunt - Carcinoma of breast; Cousin - Lupus erythematosus; SOCIAL HISTORY: Alcohol Use - denies drinking Smoking - used to smoke but quit Diet - no special diet Lifestyle - high stress lifestyle Exercise - none Seat Belt Use - always Employer - [employer] Job Description - [employer] Illicit Drug Use - denies use of street drugs Sexual Activity - sexually inactive Hours Worked - 40 hours per week Children Name(s) - Sury Malone Control - not active PHYSICAL EXAMINATION BP- 110/80 Sitting, Right arm, regular cuff Temp- 98.5 Taken Orally Weight- 173.20 lbs Height- 63.50 inch BMI:30.26 CONSTITUTIONAL - NAD, well nourished, and well developed SKIN - No rash, lesions, or ulcers HEENT - normocephalic, atraumatic, sclerae anicteric LUNGS - CTA x2 without wheezes, crackles or rales CARDIAC - Regular rate and rhythm without rubs, murmurs, or gallops ABDOMEN - Without hepatosplenomegaly, distention, masses, rebound, or guarding; normal bowel sounds; no hernias EXTREMITIES - No edema or calf tenderness NEUROLOGICAL - normal gait, normal balance, normal motor PSYCHIATRIC - A and O to time, place, person, mood and affect ASSESSMENT: 1. Other Specified Abnormal Uterine And Vaginal Bleeding PLAN BY DIAGNOSIS: 1. Other Specified Abnormal Uterine And Vaginal Bleeding EMB path benign - disordered proliferative endometrium US reviewed - suggests adenomyosis Reviewed LAVH, bilateral salpingectomy, how performed, anticipated hospitalization and recovery Procedural r/b/i/a reviewed Consents signed. Plan ovarian conservation - pt understands need for repeat procedure due to ovarian pathology approx 5-7%, benign >> malignant >> f/u EKG, CBC, BMP, coag results
[2019-04-05] VITALS (10 sets, daily range): BP systolic 90–126; BP diastolic 54–82; PULSE 65–100; RESP 14–18; TEMP 36.5–37.1; O2SAT 92–98; BMI 29.4
[2019-04-05 08:56] LABS: Internal QC Validated? YES +Cl - CLEAR BKGD; Pregnancy, Urine Negative Negative
[2019-04-05] MEDS: Lactated Ringers 1,000 ML 125 ML IV ×3 (09:12→15:12)
--- NOTE | 2019-04-05 10:25 | HYST_PTH ---
PATIENT: ZANE BLACKMON LOC: MS3 U#:[id number] AGE/SX: 48/F ROOM: MS317 RE04/05/[address]: Dr. Jerilyn Boucher MD : 1970 BED: 1 DIS: 04/06/2019 SPEC #: [id number] RECD: 04/05/19 15:08 STATUS: MICA REDaisy #: [id number] BAILEY: 04/05/19 10:[address]: Jerilyn Ibarra DEPT: SURGICAL PATHOLOGY RECD BY: Von Arshad ENTERED: 04/06/19 12:35 SP TYPE: HYSTERECT OTHR DR: Dr. Radha Norton MD Tissues: Uterus, NOS Procedures: Surgery Specimen Level V HEADER OPERATION: Hysterectomy, LAVH, bilateral salpingectomy PRE-OP DIAGNOSIS: Abnormal uterine and vaginal bleeding TISSUE SUBMITTED: Uterus, bilateral fallopian tubes MICROSCOPIC DIAGNOSIS Uterus and bilateral fallopian tubes, vaginal hysterectomy and bilateral salpingectomy: Cervix - chronic cystic cervicitis. Endometrium - secretory endometrium. Myometrium - adenomyosis. Bilateral fallopian tubes - no pathologic diagnosis. Right paratubal cysts. SJ:ryanne 04/09/19 MICROSCOPIC DESCRIPTION Slides are reviewed. GROSS DESCRIPTION Received in fixative is one container labeled with the patient's name and designated uterus and bilateral fallopian tubes. The specimen consists of a hysterectomy specimen consisting of uterus with cervix and attached bilateral fallopian tubes. The uterus with cervix weighs 86 gm and measures 9 x 5 x 4 cm. The serosal surface is mckinnon, glistening. The ectocervical mucosa is unremarkable. The external os is circular in contour. The endocervical canal measures 3 cm in length and the endocervical mucosa is mckinnon, glistening and unremarkable. Sections of the cervix reveal a few cysts filled with mucoid material. The endometrial cavity measures 4 cm in length and 2 cm in width. The endometrium is mckinnon, glistening without any mass lesion and measures 0.1 to 0.2 cm in thickness. Sections of the uterine wall do not reveal any mass lesion and measures up to 2 cm in thickness. The right fallopian tube measures 4 cm in length and 0.8 cm in diameter. Two paratubal cysts are noted measuring 0.7 and 1.5 cm in greatest dimension. The cysts are filled with clear fluid. Sections do not reveal any mass lesion. The proximal portion of the fallopian tube also shows a plastic ring consistent with previous tubal ligation. The left fallopian tube measures 4.5 cm in length and 0.5 cm in diameter. The fimbrial end is identified. Sections reveal unremarkable cut surfaces. The proximal portion is narrow consistent with previous tubal occlusion. No plastic ring is identified. Quality Assurance Specialist sections are submitted in eight cassettes as follows: 1 - anterior cervix, 2 - posterior cervix, 3 & 4 - anterior uterine wall, 5 & 6 - posterior uterine wall, 7 - right fallopian tube and paratubal cyst, 8 - left fallopian tube. / AVIS:ryanne 04/06/19 TC:5 CPT: 20024
[2019-04-05 10:42] LABS: Thyroid Stim Hormone (TSH) 3.78 uIU/mL (0.358-3.74)
[2019-04-05] MEDS: Vasopressin 20 UNITS/ML Vial (14:40)
[2019-04-05] MEDS: Bupivacaine Mpf 0.5% 30 ML VIAL (14:45)
[2019-04-05] MEDS: Ketorolac 30 MG/ML Syringe IV ×2 (14:45→22:14)
--- NOTE | 2019-04-05 14:50 | PCM.OPRPT ---
Problem List (1) Abnormal uterine bleeding (AUB) Status: Acute Comment: suspect adenomyosis Report of Operation Date of Procedure: 04/05/19 Pre-Operative Diagnosis: Abnormal uterine bleeding Surgery/Procedure Performed:: Laparoscopic assisted vaginal hysterectomy, bilateral salpingectomy Description of Surgical Findings:: Omental adhesion to the anterior abdominal wall extending along the midline and left abdomen. Uterus, tubes and ovaries were normal in appearance. Bladder adhesion wood heel flap inserter: Joaquin Cunha wood heel flap inserter: Jaylene Corey Type of Anesthesia:: General Anesthesiologist: Olivier Avendano Drains: urine 200 ml Estimated Blood Loss (mL): 50 Fluids Replaced: 1100ml Description of Procedure: The patient was taken to the operating room and placed in the dorsal supine position and induced under general anesthesia and intubated. Her arms were tucked at her sides and she was repositioned to dorsolithotomy. The perineum and abdomen were prepped and draped in sterile fashion. The patient was placed into high lithotomy. Martin catheter was placed into the bladder and a weighted speculum placed into the vagina and the cervix grasped using a Lee tenaculum. 20 cc of vasopressin was injected cervically in a dilution of 20 units in 100 mL NS. The uterus sounded to 9 cm and the ZUMI uterine manipulator was placed. The patient was repositioned into low lithotomy and attention was then turned to the abdomen. An inferior umbilical incision was made and 5 mm port placed under laparoscopic guidance confirming entry into the abdominal cavity. There was a large omental adhesion to the anterior abdominal wall extending just inferior to the umbilicus into the pelvis. A tap block was placed using half percent bupivacaine under laparoscopic guidance in the right and left lower quadrants. Incisions were made at both sites and 5 mm ports were also placed. Patient was placed into Trendelenburg. I proceeded to take down the omental anterior abdominal wall adhesion using sharp and blunt dissection with the thickest portion of the adhesion lysed using the Enseal device. Access to the pelvis demonstrated normal-appearing uterus, tubes and ovaries bilaterally. There was significant bladder adhesion to the lower uterus. The left tubal fimbria was identified and the mesosalpinx transected using the Enseal device to the level of the uterine cornua. The Enseal was used for all electrocoagulation and transection during anoscopy unless otherwise indicated. The left utero-ovarian ligament and round ligament were clamped, electrocoagulated and transected. The broad ligament was dissected and the posterior and anterior leaflets were transected with skeletonization of the uterine vessels. The left bladder flap was created. The same was done on the right side with completion of the bladder flap. The uterine vessels were electrocoagulated bilaterally. The abdomen was desufflated and attention turned to the perineum. The patient was placed into high lithotomy with slight Trendelenburg. A weighted speculum was placed into the vagina and the ZUMI was removed. The Lee tenaculum was placed again at the cervix. A circumferential incision was made using the scalpel. The uterine vesicle membrane was dissected sharply and the curved Dejan placed at the site. Posterior colpotomy was performed using curved Brizuela scissors on entry into the posterior cul-de-sac. A long weighted speculum was then placed into the posterior cul-de-sac. The uterosacral ligaments were Tootie clamped, cut and suture ligated using 0 Vicryl suture. 0 Vicryl suture was used for all sutures remaining in the procedure. The uterus distended and the anterior cul-de-sac peritoneum was identified and sharply entered. The curved Dejan was repositioned into the anterior cul-de-sac. The cardinal ligament was Tootie clamped, cut and suture-ligated with delivery of the uterus cervix and bilateral tubes. Bleeding from the left cardinal ligament pedicle was controlled using transfixed suture tie. A modified Milan culdoplasty was performed incorporating the anterior and posterior peritoneum with the uterosacral ligaments. The vaginal cuff was reapproximated using serial figure of 8 sutures. There is good hemostasis. The patient was placed into low lithotomy and the abdomen was recently insufflated and laparoscopy again performed demonstrating intra-abdominal hemostasis. The abdomen was desufflated and ports were removed the procedure was complete. The skin was closed using 4-0 Monocryl by the LEARNING SPECIALIST under my supervision. Steri-Strips and OpSite dressing were placed over the incisions. Additional half percent bupivacaine was injected locally. Martin catheter was removed. The patient was placed into dorsal supine position, awakened, extubated and transferred to recovery room without complication. Patient tolerated the procedure well. - Complications none - Admit VTE Documentation VTE Present on Admission: No VTE Mechan Device Prophylaxis: SCD's VTE Pharm Prophylaxis ordered?: No
[2019-04-05] MEDS: Ondansetron 4 MG/2 ML Vial IV (16:52)
[2019-04-05] MEDS: Acetaminophen 500 MG Tablet 1000 MG PO (18:27)
[2019-04-05] MEDS: Dextrose 5%-Lactated Ringers 1,000 ML 150 ML IV (18:27)
[2019-04-05] MEDS: Enoxaparin 40 MG/0.4 ML Syringe SC (22:15)
[2019-04-06] MEDS: Dextrose 5%-Lactated Ringers 1,000 ML 150 ML IV ×2 (00:36→05:56)
[2019-04-06 03:37] VITALS: BP 96/63; PULSE 69; RESP 16; TEMP 36.7; O2SAT 97
[2019-04-06] MEDS: Ketorolac 30 MG/ML Syringe IV ×2 (03:48→10:56)
[2019-04-06 06:05] LABS: Hematocrit 32.4 % (37-47); Hemoglobin 10.6 g/dL (12.0-15.0); Mean Corp Hgb Conc 32.7 g/dL (32-36); Mean Corpuscular Hgb 27.5 pg (27.0-32.0); Mean Corpuscular Volume 84.2 fL (81-99); Mean Platelet Vol. 10.5 fl (6.2-12.0); Platelet Count 175 K/mm3 (150-450); RBC Distribution Width CV 13.2 % (11.6-14.6); RBC Distribution Width SD 40.3 fl (35.1-43.9); Red Blood Count 3.85 M/mm3 (4.2-5.4); White Blood Count 9.3 K/mm3 (4.4-11.0)
[2019-04-06 06:25] LABS: Creatinine, Serum 0.78 mg/dL (0.55-1.02); EST Glomerular Filtration Rate 85 mL/min (>60); Est Glom Filt Rate - Afr Amer 103 mL/min (>60); Estimated Creatinine Clearance 77.82 ml/min
--- NOTE | 2019-04-06 08:02 | DCINST_ITS ---
Discharge Diet: No Restrictions Discharge Activity: Return to Normal Activity, May not drive while taking narcotic pain medications., May Shower, - - No tub bath for 2 weeks May resume sexual activity in: 6 weeks Lifting Restrictions: 10 lb Call your doctor if you observe: Fever of 101 or Higher, Inability to urinate, Inability to have a bowel movement, Using more than one pad per hour, Shortness of breath, Chest pain, Calf discomfort, Uncontrolled pain Suture Line Care: Avoid Pulling/Pushing Remove Dressing in (days):: 1 Cleanse incision/area with: Soap & Water Additional Dressing/Incision Instructions:: Remove steristrips on Tuesday Allergies/Adverse Reactions: Allergies latex Allergy (Verified 03/30/19 13:42) Rash card board Allergy (Uncoded 03/05/19 12:46) Rash Medications to take at Discharge Sertraline HCl 150 mg PO DAILY 08/24/16 Losartan Potassium 50 mg PO DAILY 06/01/18 [place]-3/Dha/Epa/Fish Oil [Fish Oil 1,000 mg Softgel] 1,000 mg PO DAILY 06/01/18 Omeprazole 20 mg PO DAILY 06/01/18 Cholecalciferol (Vitamin D3) [Vitamin D3] 5,000 unit PO DAILY 06/11/18 Potassium Chloride [K-Dur] 10 meq PO DAILY 06/11/18 Naproxen [Naprosyn] 500 mg PO BID PRN #20 tab 06/12/18 Hydroxyzine HCl 10 mg PO Q6H PRN PRN 03/02/19 Oxycodone [Oxyir] 1 tab PO Q6H PRN PRN 7 Days #20 tab 04/06/19 The following prescriptions were given: Oxycodone [Oxyir] 1 tab PO Q6H PRN PRN 7 Days #20 tab PRN Reason: Pain Score 4-10/10 Prescription Printed Orders to be completed after discharge: Type & Screen Time Frame: 04/05/19, Facility: [facility], Location: [facility] Primary Care Physician: Radha Norton MD [Primary Care Provider] - Test Results: Test results from this visit will be discussed in further detail at your follow- up appointment, if applicable. Please Follow Up With: Jerilyn Manley MD When: 1-2 weeks
[2019-04-06] MEDS: Enoxaparin 40 MG/0.4 ML Syringe SC (10:53)
[2019-04-06] MEDS: 0.9% Saline Lock 10 ML Syringe IV (10:54)
[2019-04-06 11:02] VITALS: BP 111/64; PULSE 72; RESP 16; TEMP 36.5; O2SAT 98
== END 2019-04-06 11:15 | disposition home or self-care (01) ==
LOC: SDC 15:11 → MS3 15:11
PROVIDERS: Anesthesiology; Admitting Provider Obstetrics & Gynecology; Family Provider Family Medicine; PCP Family Medicine; Referring Provider Obstetrics & Gynecology; Visit Provider Obstetrics & Gynecology
PROC: 0UT9FZZ Resection of Uterus, Via Natural or Artificial Opening With Percutaneous Endoscopic Assistance (ICD-10-PCS; CPT 58552; principal; 2019-04-05 10:00)
DX: N92.0 Excessive and frequent menstruation with regular cycle (principal); Z79.899 Other long term (current) drug therapy; E07.9 Disorder of thyroid, unspecified; Z87.891 Personal history of nicotine dependence; K21.9 Gastro-esophageal reflux disease without esophagitis; I10 Essential (primary) hypertension
CPT/HCPCS: 58552; 36415; 80048; 81025; 82565; 84443; 85027; 85610; 85730; 86850; 86900; 86901; 88307; 93005; 96361; 96372; 96374; 96375; 96376; 99218; 99251; J7120; A4216; C1760; G0378; G0379; G0463; J2405

== ENCOUNTER → 2019-05-07 15:14 | Outpatient (CLI) | payer BC, SELFPAY ==
[2019-04-05 16:18] VITALS: BMI 29.4
--- NOTE | 2019-05-07 15:17 | BI_ITS ---
MAMMOGRAPHY - BILATERAL SCREENING REASON FOR EXAM: Female, 48 years old. Routine annual screening examination. PERTINENT HISTORY: Aunt with breast cancer. Occasional left breast pain. TECHNIQUE: Digital bilateral breast eran (3D mammographic acquisition) in the CC and MLO projections. 2-D mediolateral oblique (MLO) and craniocaudad (CC) views of both breasts were obtained. CAD: Full Field Digital Mammography with Computer Added Detection was performed. COMPARISON: Comparison is made with prior study dated October 30, 2018. FINDINGS: Breast Composition: The breasts are heterogeneously dense, which may obscure small masses. There are no dominant masses or suspicious calcifications. Small benign-appearing bilateral axillary lymph nodes. No other significant abnormalities are identified. There has been no significant change since the prior study. BI/SCREEN MAMM (CAD) W/ERAN BILAT IMPRESSION: Stable bilateral screening mammogram. Yearly follow-up mammogram recommended. (A) ASSESSMENT CATEGORY: BIRADS Category 2: Benign. A letter regarding these results will be sent to the patient by the facility within 30 days. Approximately 10% of breast cancers are not detected by mammography. A normal mammogram should not delay biopsy of a clinically suspicious abnormality. [id number] Electronically Signed: Quique Henriquez, at 8:32 EST , Service support ,
== END ==
LOC: OPBI 15:16
PROVIDERS: PCP Family Medicine; Referring Provider Obstetrics & Gynecology; Visit Provider Obstetrics & Gynecology
DX: Z12.31 Encounter for screening mammogram for malignant neoplasm of breast (principal)
CPT/HCPCS: 77063; 77067

== ENCOUNTER 2019-07-24 16:18 | Emergency (ER) | payer BC, SELFPAY ==
[2019-04-05 16:18] VITALS: BMI 29.4
[2019-07-24 16:19] VITALS: BP 108/71; PULSE 99; RESP 16; TEMP 36.6; O2SAT 96; BMI 29.9
--- NOTE | 2019-07-24 16:33 | EKG12_ITS ---
Test Reason : SOB Blood Pressure : / mmHG Vent. Rate : 084 BPM Atrial Rate : 084 BPM P-R Int : 136 ms QRS Dur : 086 ms QT Int : 376 ms P-R-T Axes : 058 039 039 degrees QTc Int : 444 ms Normal sinus rhythm Low voltage QRS Borderline ECG Confirmed by JEANNIE HELMS, JOHAN ([id number]), publications editor ERIKA CASTILLO ([id number]) on 07/30/2019 10:49:18 AM Referred By: JAYDEN Confirmed By:SNEHA DENNIS MD
--- NOTE | 2019-07-24 16:35 | ED.DCSUM_ITS ---
- ER Visit Summary Date of Service: 07/24/19 Chief Complaint: [Chest pain] History of Present Illness: The patient is a 48 F [presents to the emergency department with complaint of discomfort and a fullness/lump in her chest that she noticed 4 days ago. Patient states the discomfort is worse with movement and there is a burning sensation when she moves her arm certain ways. Patient has also some mild discomfort to the back portion of her left upper arm. She denies any injury to her chest. She denies any fever or cough. 0 vomiting. She is never had discomfort like this before.] Physical Examination: [HEENT-PERRLA, EOMI. Cranial nerves II through XII grossly intact. TMs clear. Mucous membranes moist. No adenopathy. Cardiovascular-regular rate and rhythm without murmur or ectopy Lungs-clear to auscultation, chest wall stable without crepitus or subcu emphysema. Patient does have tenderness palpation over the sternum and specifically the xiphoid process which reproduces her pain. The fullness she is feeling is the xiphoid process. Abdomen-normoactive bowel sounds, soft, nontender, no rebound or rigidity, no peritoneal signs. Extremities-intact ?4, normal range of motion, normal pulses, atraumatic] Test Results: [EKG obtained showed a sinus rhythm with a ventricular rate of 84 bpm with no acute segment changes. Chest x-ray obtained was normal as read by myself.] Emergency Department Course and Treatment: [] Treatment Plan: [Patient will be given a prescription for a few [place] for pain. I suspect her pain likely is chest wall pain as her tenderness is right over the xiphoid and reproducible.] Patient advised to follow-up with her primary care physician within next 5 to 7 days. Disposition: [Discharged home in stable condition. Patient advised to return if worsening pain, fever, or condition should worsen anyway.] Impression: [Chest wall pain] This note was generated with [employer] dictation software. It may contain incorrect words, spelling, and punctuation that were not noted in review of the chart prior to signing ED Disposition - Plan for ED Patient: Referrals: Radha Norton MD [Primary Care Provider] -
--- NOTE | 2019-07-24 16:55 | RAD_ITS ---
STUDY: X-RAY CHEST REASON FOR EXAM: Female, 48 years old. lump in sternal breast area TECHNIQUE: PA and lateral chest COMPARISON: 06/11/2018 FINDINGS: The lungs are clear and expanded. There is no demonstrated pleural abnormality. There is no change from prior. Normal size heart. Normal mediastinum and surendra. Normal visualized pulmonary arteries. Normal visualized aortic arch and descending thoracic aorta. Normal visualized thoracic spine. Normal visualized ribs, clavicles, and shoulders. There is no demonstrated abnormality of the visualized soft tissue structures of the upper abdomen. RAD/Chest PA and Lateral IMPRESSION: Normal x-ray examination of the chest. If there is clinical concern for breast mass than mammography and ultrasound would be recommended. If there is suspicion for bony lesion CT could be performed. Electronically Signed: Kishan Gonzales, at 17:13 EDT Tel , Service support ,
--- NOTE | 2019-07-24 17:08 | DCINST.ED_ITS ---
ED Disposition - Plan for ED Patient: Instructions: ED CHEST PAIN [place] Prescriptions: Hydrocodone Bitart/Apap 5-325 [[place] 5MG-325MG] 1 tablet PO Q4H PRN PRN 2 Days #10 tablet PRN Reason: Pain Transmission Status: Sent to [facility] #30 Referrals: Radha Norton MD [Primary Care Provider] - 5-7 Days
--- NOTE | 2019-07-24 17:08 | ED.DEP ---
ED Disposition - Plan for ED Patient: Instructions: ED CHEST PAIN [place] Prescriptions: Hydrocodone Bitart/Apap 5-325 [[place] 5MG-325MG] 1 tablet PO Q4H PRN PRN 2 Days #10 tablet PRN Reason: Pain Transmission Status: Sent to [facility] #30 Referrals: Radha Norton MD [Primary Care Provider] - 5-7 Days
== END 2019-07-24 17:31 | disposition home or self-care (01) ==
LOC: ED 17:26
PROVIDERS: Emergency Provider Emergency Medicine; PCP Family Medicine
DX: R07.89 Other chest pain (principal); F41.9 Anxiety disorder, unspecified; Z79.899 Other long term (current) drug therapy; Z87.891 Personal history of nicotine dependence
CPT/HCPCS: 71046; 93005; 99282

== ENCOUNTER → 2019-09-13 10:36 | Outpatient (CLI) | payer BC, SELFPAY ==
[2019-09-13 12:52] LABS: Anion Gap 8 (5-15); BUN 15 mg/dL (7-18); BUN/Creat Ratio 16.4 RATIO (10-20); Calcium,Total 9.2 mg/dL (8.5-10.1); Chloride 102 mmol/L (98-107); Creatinine, Serum 0.91 mg/dL (0.55-1.02); EST Glomerular Filtration Rate 70 mL/min (>60); Est Glom Filt Rate - Afr Amer 85 mL/min (>60); Glucose 100 mg/dL (74-106); Potassium 3.7 mmol/L (3.5-5.1); Sodium Level 139 mmol/L (136-145)
[2019-09-19 10:19] LABS: Thyroid Stim Hormone (TSH) 1.21 uIU/mL (0.358-3.74)
== END ==
PROVIDERS: PCP Family Medicine; Visit Provider Family Medicine
DX: E03.9 Hypothyroidism, unspecified (principal); I10 Essential (primary) hypertension
CPT/HCPCS: 36415; 80048; 84443

== ENCOUNTER 2019-11-14 15:34 | Emergency (ER) | payer BC, SELFPAY ==
[2019-11-14 15:34] VITALS: BP 132/83; PULSE 100; RESP 19; TEMP 35.7; O2SAT 98; BMI 30.3
--- NOTE | 2019-11-14 16:13 | ED.VIS.GEN ---
History of Present Illness Chief Complaint: Back Informant: Patient Narrative: 48-year-old female presenting with back pain for 2 days. She states it started hurting acutely at work. 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 She states is a lot of twisting and turning. He does not have any paresthesias. It radiates horizontally across her back. She states she took Aleve 2 hours ago and it starting to feel improved. She denies any direct trauma. She does state that she had to call into work yesterday because she was having trouble getting out of bed, but today is much better. She is ambulatory. No loss of bladder or bowel control. Past Medical History - Allergies and Home Meds Allergies/Adverse Reactions: Allergies latex Allergy (Verified 11/14/19 15:38) Rash card board Allergy (Uncoded 11/14/19 15:38) Rash Primary Care Physician: Radha Norton MD [Primary Care Provider] - Prior records reviewed: Yes Past Medical History: - - Anxiety, hypertension, thyroid, asthma Surgical History: no surgical history Lives: Alone Smoking Status: Former smoker Alcohol: None Drugs: None Review of Systems General: Reports: Chills Eyes: Denies: Visual changes - bilaterally, Diplopia ENT: Denies: Rhinorrhea, Sore throat Cardiovascular: Denies: Chest pain, Palpitations Respiratory: Denies: Dyspnea, Cough, Dyspnea on exertion Gastrointestinal: Denies: Abdominal pain, Nausea, Vomiting, Diarrhea, Melena, Hematochezia Genitourinary: Denies: Dysuria, Hematuria, Frequency Musculoskeletal: Reports: Back pain. Denies: Extremity Pain Skin: Denies: Rash, Wounds Neurological: Denies: Headache, Weakness, Numbness Physical Exam Vital Signs/Narrative: Vital Signs Temp Pulse Resp BP Pulse Ox 11/14/19 15:34 96.3 F L 100 19 H 132/83 H 98 General: Well nourished, Well developed, No Acute Distress Head: Normocephalic, Atraumatic Eyes: Perrl, EOMI ENT: No rhinorrhea Cardiovascular: Regular rate, Regular rhythm Respiratory: No distress Abdomen: Soft Back: - - There is to palpation across the lower aspect of the lumbar spine approximately L1-L3. There is no midline deformity or step-off. There is no rash, ecchymosis. Extremities: Nontender, No edema Skin: Normal color, No rash Neurological: Alert, Oriented x3 Psychological: Normal affect, Normal Mood Diagnostic/Tx/Re-eval - Medical Decision Making Presents with back pain which she states came on while she was working. It is improving. She states it is better with Naprosyn as well. I did x-ray her back because she does have some mild midline tenderness. It shows degenerative changes L1-L2. Otherwise patient has no red flag signs or symptoms. She will be given work restrictions. [facility]. Patient stable for discharge at this time. Impression: 1. Lumbar strain ED Disposition - Plan for ED Patient: Disposition: Home or Assisted Living Instructions: ED LUMBAR SPRAIN/STRAIN Prescriptions: Cyclobenzaprine HCl 10 mg PO Q8H PRN PRN #20 tab PRN Reason: pain Transmission Status: Received by [facility] #30 Naproxen [Naprosyn] 500 mg PO BID PRN PRN #30 tab PRN Reason: Pain Score 1-10/10 Transmission Status: Received by [facility] #30 Referrals: Radha Norton MD [Primary Care Provider] -
--- NOTE | 2019-11-14 16:20 | RAD_ITS ---
STUDY: X-RAY - LUMBAR SPINE REASON FOR EXAM: Female, 48 years old. Back pain. TECHNIQUE: 5 view(s) of the lumbar spine were obtained. COMPARISON: CT of the abdomen and pelvis dated 05/16/17. FINDINGS: There is no evidence of fracture or dislocation in the lumbar spine. The vertebral body heights are well-maintained. There are mild degenerative changes at L1/L2 with disc space narrowing and small osteophytes. RAD/L/S Spine Min 4 Views IMPRESSION: No fracture or dislocation in the lumbar spine. Mild degenerative changes at L1/L2. Electronically Signed: Ishaan Arreguin, at 16:34 EDT Tel , Service support ,
== END 2019-11-14 17:25 | disposition home or self-care (01) ==
PROVIDERS: Emergency Provider Student in an Organized Health Care Education/Training Program; PCP Family Medicine
DX: S39.012A Strain of muscle, fascia and tendon of lower back, initial encounter (principal); X50.1XXA Overexertion from prolonged static or awkward postures, initial encounter; Y93.9 Activity, unspecified; Y92.9 Unspecified place or not applicable; I10 Essential (primary) hypertension; F41.9 Anxiety disorder, unspecified; J45.909 Unspecified asthma, uncomplicated; Z79.899 Other long term (current) drug therapy; Z87.891 Personal history of nicotine dependence
CPT/HCPCS: 72110; 99282

== ENCOUNTER 2019-12-14 07:30 | Outpatient (RCR) | payer BC, SELFPAY ==
--- NOTE | 2019-11-26 16:44 | HP.PTEVAL_ITS ---
Patient's Visit Information ZANE BLACKMON is a 48 year old F referred to Physical Therapy by Dr. Radha Norton MD with a diagnosis of Strain of muscles and tendon in back.. Date of Evaluation: 11/26/19 Physical Therapist: ETIENNE Lion - Visit Plan Frequency: 3x /Week Duration: 4 Weeks Plan: 3X/ week for 4 weeks for core stability, hip strength, postural exercises and body mechanics with HEP and modalities such as E-stim, MH, and US as needed with HEP. - Subjective Pt reports that when she was work, the lower part of her back got a sharp pain in her back like someone was stabbing her. She thinks that it was TuesdayNov 18. She went to ER and got an X-ray. The pain lasted 3-4 days. She has no pain now but every now and then she will have some pain when lifting. The Dr gave her naproxen and muscle relaxor and it helped somewhat and went to Dr the following day and was prescribed with off brand vicodin and she only took one or two of those. Pt has N&T at the ends of her toes and they do not happen at the same time. Sometimes her legs will get the same thing. Sometimes it is hard to lift her legs as well. Her leg symptoms were present before November 18. Pt is worse with anything she does for a long period of time. She reports that when she does that it will radiate up to her shoulders and her neck. - Pain back pain Pain Intensity (Out of 10): 2 B leg pain Pain Intensity (Out of 10): 0 Comment: comes and goes - Objective Gait: Walks with a normal gait pattern, at times she has a little wider KARINA. Trunk AROM: flex 75%, EXT 50%, SB B 75%, Rot B 75%. Walking on heels and toes: pt is able to walk on heels and toes without issue. LE MMT: B hip flex 3+/5 (with increase in back pain when testing the R), B knee ext 4/5, B knee flex 4/5, B hip abd 4-/5, B hip ext 3+/5. Patellar DTR's 3+/3. SLR - B. SLUMP TEST + on the R. Prone lying--- increase burning in L-spine. Prone lying with pillow under abdomin... still burning but less. Bridging caused no pain nor did pelvic tilts. - Goals Goal 1:: I HEP Goal Time Frame: 4-6 Weeks Goal 2:: Increase LE strength to be 4/5 B hip abd, B hip ext, and B hip flexion (at the time of eval: LE MMT: B hip flex 3+/5 (with increase in back pain when testing the R), B knee ext 4/5, B knee flex 4/5, B hip abd 4-/5, B hip ext 3+/5). Goal Time Frame: 4-6 Weeks Goal 3:: Be able to demonstrate how to lift an object off the floor by squatting to get it and not compromise her LB. Goal Time Frame: 4-6 Weeks Goal 4:: Be able to lye on her stomach and not have back pain Goal Time Frame: 4-6 Weeks Goal 5:: Decrease LBP to 0/10 after a work day. - Rehabilitation Potential Rehabilitation Potential: Good - Anticipated Interventions Patient/Client Instruction: Educate patient on: Condition, Plan of Care For the Purpose of:: To decrease pain, To decrease swelling/inflammation, To increase ROM, To improve nutrient delivery to tissue, To improve muscle performance and motor function, To improve ability to perform ADL's, To increase tolerance to activity/condition/position, To improve performance and independence with ADL's, To decrease level of supervision to perform tasks, To improve ability of physical actions for home/community/work/leisure, To improve health of tissue, To decrease soft tissue restriction, To increase flexibility/ROM Therapeutic Exercise to Include: Strength training, Postural training, Flexibilty training, Gait and locomotor training, Active ROM, Dynamic Lumbar Stabilization For the Purpose of:: To decrease pain, To increase ROM, To improve nutrient delivery to tissue, To increase oxygenation perfusion, To improve muscle performance and motor function, To improve ability to perform ADL's, To increase tolerance to activity/condition/position, To improve performance and independence with ADL's, To decrease level of supervision to perform tasks, To improve ability of physical actions for home/community/work/leisure, To improve gait and locomotor functions, To improve health of tissue, To decrease soft tissue restriction, To increase flexibility/ROM IF ES: Yes Cryotherapy (ice pack, ice massage): Yes Thermo therapy (hot pack): Yes Ultrasound (thermal/non thermal): Yes For the Purpose of:: To decrease pain, To decrease swelling/inflammation, To increase ROM, To improve nutrient delivery to tissue Thank you for the opportunity to evaluate your patient. For Medicare and Medicare HMO plans, please review the plan of care and approve it. It will need to be FAXED BACK to us at [phone] for Medicare purposes. For Medicare only, by signing this I certify the plan of care. Please let me know if there are questions or concerns regarding this plan of care. Physician Signature: Dat e:
--- NOTE | 2020-03-18 11:47 | HP.PT.NRP ---
ZANE BLACKMON was seen in my office for initial evaluation on 11/26/19. The following Plan of Care was established for this patient: Initial Frequency: 3x /Week Initial Duration: 4 Weeks Patient/Client Instruction: Educate patient on: Condition, Plan of Care For the Purpose of:: To decrease pain, To decrease swelling/inflammation, To increase ROM, To improve nutrient delivery to tissue, To improve muscle performance and motor function, To improve ability to perform ADL's, To increase tolerance to activity/condition/position, To improve performance and independence with ADL's, To decrease level of supervision to perform tasks, To improve ability of physical actions for home/community/work/leisure, To improve health of tissue, To decrease soft tissue restriction, To increase flexibility/ROM Therapeutic Exercise to Include: Strength training, Postural training, Flexibilty training, Gait and locomotor training, Active ROM, Dynamic Lumbar Stabilization For the Purpose of:: To decrease pain, To increase ROM, To improve nutrient delivery to tissue, To increase oxygenation perfusion, To improve muscle performance and motor function, To improve ability to perform ADL's, To increase tolerance to activity/condition/position, To improve performance and independence with ADL's, To decrease level of supervision to perform tasks, To improve ability of physical actions for home/community/work/leisure, To improve gait and locomotor functions, To improve health of tissue, To decrease soft tissue restriction, To increase flexibility/ROM IF ES: Yes Cryotherapy (ice pack, ice massage): Yes Thermo therapy (hot pack): Yes Ultrasound (thermal/non thermal): Yes For the Purpose of:: To decrease pain, To decrease swelling/inflammation, To increase ROM, To improve nutrient delivery to tissue This patient was last seen in our office 12/14/19. Pertinent comments regarding their Physical therapy will appear below: DC PT At this point I will be discontinuing this patient from physical therapy. I would be happy to see this patient again in the future if found appropriate by the physician. Thank you! Sharifa Chery, MPT
== END 2019-12-14 19:00 | disposition home or self-care (01) ==
LOC: PT 07:30
PROVIDERS: PCP Family Medicine; Visit Provider Family Medicine
DX: S39.012D Strain of muscle, fascia and tendon of lower back, subsequent encounter (principal)
CPT/HCPCS: 97110; 97161

== ENCOUNTER 2020-03-07 16:18 | Emergency (ER) | payer BC, SELFPAY ==
[2020-03-07 16:19] VITALS: BP 128/84; PULSE 79; RESP 20; TEMP 36.2; O2SAT 99; BMI 29.9
--- NOTE | 2020-03-07 17:19 | ED.DCSUM_ITS ---
- ER Visit Summary Date of Service: 03/07/20 Chief Complaint: Back pain History of Present Illness: The patient is a [address] Radha Bella. She reports that she woke up this morning with low back pain. She denies any recent trauma. No fall, MVA, or change in activity. She denies any red flags. Patient ports that the sharp pain that was 10 on 10 at worst and 5 out of 10 currently. Is worsened by bending. Is relieved by Excedrin Migraine. States that she has tingling in her right second and third toes that comes and goes. Is not tingling now. There is no radiation of the pain down her legs. It does seem to radiate around anteriorly toward her bladder. She denies flank pain. She denies any problems with her bowels or her bladder. She has no groin numbness. Patient reports she has had dysuria for the past week. She complains of a headache that 6 out of 10 in severity. Physical Examination: Vitals: Stable. Afebrile. General: A&O x 3. NAD. Cardiovascular exam: Regular rate and rhythm, no murmur, rub or gallop. Respiratory exam: Clear to auscultation bilaterally. No wheezes or stridor. Abdominal exam: Soft, nontender, nondistended, normal bowel sounds. No peritoneal signs. Back: Diffuse moderate tenderness to palpation over the lumbar spine and the paraspinous musculature in the lumbar region. No point tenderness. Negative straight leg bilaterally. 5/5 DF, PF, EHL bilaterally. Normal sensation to light touch throughout. Extremity: No clubbing, cyanosis, or edema. Test Results: Urinalysis shows no evidence of infection or kidney stone. Emergency Department Course and Treatment: An [facility] report was obtained which shows she had 3 prescriptions for opiates in the past year. She drove here and was treated with naproxen. She is resting comfortably. Treatment Plan: Patient will be discharged naproxen and Campbell. Instructed to follow-up with her primary care physician in 3 to 5 days if not improving. Symptomatic care with a TENS unit and heating pad was also discussed. The signs and symptoms of cauda equina syndrome were discussed. She is instructed to return for these. Disposition: To home in improved and stable condition. Impression: 1. Low back pain. This note was generated with Leroy dictation software. It may contain incorrect words, spelling, and punctuation that were not noted in review of the chart prior to signing ED Disposition - Plan for ED Patient: Instructions: ED Back Pain (Acute or Chronic) Prescriptions: Naproxen [Naprosyn] 500 mg PO BID #14 tablet Hydrocodone Bitart/Apap 5-325 [Campbell 5MG-325MG] 1 tablet PO Q4H PRN PRN 2 Days #10 tablet PRN Reason: Pain Referrals: Radha Norton MD [Primary Care Provider] - 3-5 Days if not improving
[2020-03-07] MEDS: Naproxen 250 MG Tablet 500 MG PO (17:37)
[2020-03-07 17:56] LABS: Mucous, Urine 0 SEEN /hpf (<or=2+); Red Blood Cells-Urine 0 SEEN /hpf (0-5); Squamous Epithelial Cells - UA 0 SEEN /hpf (5-10); White Blood Cells 0 SEEN /hpf (0-5)
[2020-03-07 18:01] LABS: Color, Urine Yellow (Yellow); Glucose, Dipstick Normal (Normal); Ketone-Dipstick Negative (Negative); Leukocyte Esterase-Dipstick Negative /ul (Negative); Nitrite-Dipstick Negative (Negative); Occult Blood-Urine Negative /ul (Negative); Protein-Dipstick Negative (Negative); Specific Gravity, Urine 1.025 (1.002-1.030); Urine Bilirubin Dipstick Negative (Negative); Urine Clarity Clear (Clear); Urine Urobilinogen Normal (Normal)
[2020-03-07 18:07] LABS: Bacteria 2+ /hpf (None Seen); Hyaline Cast 0-5 SEEN /lpf (0-5)
[2020-03-07 18:35] VITALS: PULSE 70; RESP 18; O2SAT 98
== END 2020-03-07 18:35 | disposition home or self-care (01) ==
LOC: ED 17:49
PROVIDERS: Emergency Provider Emergency Medicine; PCP Family Medicine
DX: M54.5 Low back pain (principal); R20.2 Paresthesia of skin; R11.0 Nausea; R30.0 Dysuria; R51.9 Headache, unspecified; I10 Essential (primary) hypertension; E03.9 Hypothyroidism, unspecified; F41.9 Anxiety disorder, unspecified; Z79.899 Other long term (current) drug therapy; Z87.891 Personal history of nicotine dependence
CPT/HCPCS: 81001; 99283

== ENCOUNTER → 2020-03-13 16:30 | Outpatient (CLI) | payer BC, SELFPAY ==
[2020-03-07 16:19] VITALS: BMI 29.9
== END ==
PROVIDERS: PCP Family Medicine; Referring Provider Family Medicine; Visit Provider Family Medicine
DX: Z20.828 Contact with and (suspected) exposure to other viral communicable diseases (principal)
CPT/HCPCS: 87635; C9803; U0003

== ENCOUNTER 2020-03-18 23:24 | Emergency (ER) | payer BC, SELFPAY ==
[2020-03-18 23:25] VITALS: BP 111/79; PULSE 91; RESP 16; TEMP 36.2; O2SAT 100; BMI 29.5
[2020-03-18 23:38] LABS: Bacteria 0 SEEN /hpf (None Seen); Red Blood Cells-Urine 0 SEEN /hpf (0-5)
--- NOTE | 2020-03-18 23:38 | ED.DCSUM_ITS ---
History of Present Illness Chief Complaint: Other, Pain/Inj Detail of Chief Complaint: Groin pain, dysuria Informant: Patient Onset: Days Context: Gradual Onset Current Severity: Mild Maximum Severity: Mild Narrative: Patient presents secondary to right sided groin pain. She does have pain that radiates down into the lateral thighs bilaterally. She does report some back tightness and in fact was seen here approximately 10 days ago for similar. Patient also reports some mild burning with urination that started today. No fever noted. She denies vaginal discharge. - Past Medical History (1) Anxiety Status: Chronic (2) Asthma Status: Chronic (3) Hypertension Status: Chronic (4) Hypothyroidism Status: Chronic Past Medical History - Allergies and Home Meds Allergies/Adverse Reactions: Allergies latex Allergy (Verified 03/18/20 23:40) Rash card board Allergy (Uncoded 03/18/20 23:40) Rash Primary Care Physician: Radha Norton MD [Primary Care Provider] - Prior records reviewed: Yes Surgical History: no surgical history, hysterectomy Smoking Status: Former smoker Review of Systems General: Denies: Fever Eyes: Denies: Visual changes - bilaterally ENT: Denies: Bilateral ear pain Cardiovascular: Denies: Chest pain Respiratory: Denies: Dyspnea, Cough Gastrointestinal: Denies: Abdominal pain, Vomiting, Diarrhea Genitourinary: Reports: Dysuria. Denies: Hematuria, Frequency Musculoskeletal: Reports: Back pain, Extremity Pain Skin: Denies: Rash Neurological: Denies: Headache Hematologic: Denies: Easy bruising, Easy bleeding Allergy: Denies: Uticaria Physical Exam Vital Signs/Narrative: Vital Signs Temp Pulse Resp BP Pulse Ox 03/18/20 23:25 97.1 F L 91 16 111/79 100 Inital Vital Signs reviewed: Yes General: Well nourished, Well developed Head: Normocephalic ENT: Moist mucous membranes Neck: Supple Cardiovascular: Regular rate, Regular rhythm Respiratory: No distress, CTA bilaterally Abdomen: Soft, Nontender, Normal bowel sounds Back: - - Reproducible tenderness in the bilateral lower lumbar paraspinal muscles. No overlying skin changes. Extremities: Nontender Skin: Normal color Neurological: Alert, Oriented x3, Normal Strength, Normal Sensation Psychological: Normal affect Diagnostic/Tx/Re-eval Laboratory Results 03/18/20 23:30 Urine Color Sarah Urine Clarity Sl. Cloudy Urine pH 5.0 Ur Specific [place] 1.030 Urine Protein 30 H Urine Glucose (UA) Normal Urine Ketones 15 H Urine Occult Blood Negative Urine Nitrite Negative Urine Bilirubin Negative Urine Urobilinogen 1 H Ur Leukocyte Esterase 25 H Urine RBC 0 SEEN Urine WBC 0-5 SEEN Ur Squamous Epith Cells 10-25 SEEN Calcium Oxalate Crystal 2+ Urine Bacteria 0 SEEN Hyaline Casts 5-10 SEEN Urine Mucus 2+ - Medical Decision Making Urinalysis shows no sign of acute infection. She does have some calcium oxalate crystals and we discussed increasing fluid intake to help flush her kidneys. She definitely does have musculoskeletal back pain with some radiation to her legs. She will be given a Lidoderm patch along with prednisone and Flexeril. She will continue anti-inflammatories at home. ED Disposition - Plan for ED Patient: Disposition: Home or Assisted Living Diagnosis: Lumbar back sprain Instructions: ED Back Sprain/Strain Prescriptions: Prednisone [Deltasone] 40 mg PO DAILY #10 tab Transmission Status: Pending to [facility]30 cycloBENZAPRine HCl [Flexeril] 10 mg PO TID PRN #20 tab PRN Reason: Muscle Spasm Transmission Status: Pending to [facility] Lidocaine [Lidoderm Patch] 1 patch TOPICAL DAILY #3 patch Transmission Status: Pending to [facility] Referrals: Radha Norton MD [Primary Care Provider] - 1 Week if not improving
[2020-03-18 23:49] LABS: Color, Urine Amber (Yellow); Glucose, Dipstick Normal (Normal); Ketone-Dipstick 15 mg/dl (Negative); Leukocyte Esterase-Dipstick 25 /ul (Negative); Nitrite-Dipstick Negative (Negative); Occult Blood-Urine Negative /ul (Negative); Protein-Dipstick 30 mg/dl (Negative); Urine Bilirubin Dipstick Negative (Negative); Urine Clarity Sl. Cloudy (Clear); Urine Urobilinogen 1 mg/dl (Normal)
[2020-03-19 00:02] LABS: Calcium Oxalate Crystals Ur 2+ /hpf (<or=2+); Hyaline Cast 5-10 SEEN /lpf (0-5); Squamous Epithelial Cells - UA 10-25 SEEN /hpf (5-10)
[2020-03-19 00:03] LABS: Mucous, Urine 2+ /hpf (<or=2+); White Blood Cells 0-5 SEEN /hpf (0-5)
[2020-03-19] MEDS: Lidocaine 5% Patch 1 PATCH TOPICAL (00:26)
[2020-03-19] MEDS: predniSONE 20 MG Tablet 40 MG PO (00:26)
[2020-03-19] MEDS: cycloBENZAPRine HCl 10 MG Tablet PO (00:26)
[2020-03-19 00:27] VITALS: PULSE 78; O2SAT 99
== END 2020-03-19 00:50 | disposition home or self-care (01) ==
PROVIDERS: Emergency Provider Emergency Medicine; PCP Family Medicine
DX: S33.5XXA Sprain of ligaments of lumbar spine, initial encounter (principal); R30.0 Dysuria; X58.XXXA Exposure to other specified factors, initial encounter; Y93.9 Activity, unspecified; Y92.9 Unspecified place or not applicable; I10 Essential (primary) hypertension; E03.9 Hypothyroidism, unspecified; F41.9 Anxiety disorder, unspecified; J45.909 Unspecified asthma, uncomplicated; Z79.899 Other long term (current) drug therapy; Z87.891 Personal history of nicotine dependence
CPT/HCPCS: 81001; 87086; 87088; 99284

== ENCOUNTER → 2020-04-16 06:58 | Outpatient (CLI) | payer OTHER, SELFPAY ==
[2020-03-18 23:25] VITALS: BMI 29.5
--- NOTE | 2020-04-16 07:31 | MRI_ITS ---
STUDY: MRI LUMBAR SPINE WITHOUT CONTRAST REASON FOR EXAM: Female, 49 years old. lumbar radiculopathy, numbness in toes, rt leg pain, TECHNIQUE: Standardized fat and water weighted pulse sequences were obtained in the sagittal and axial planes. COMPARISON: X-ray 1220 FINDINGS: T12-L1: Normal endplates. Normal disc height, hydration and morphology. Normal bilateral facet joints. Normal central canal and bilateral lateral recesses. Normal bilateral intervertebral neural foramina. Normal lumbar lordosis. There is no substantial scoliosis. Normal conus medullaris that terminates at the L1. L1-2: Disc desiccation with loss of disc height but no disc protrusion, spinal stenosis, or neural foraminal stenosis. L2-3: Normal endplates. Normal disc height, hydration and morphology. Normal bilateral facet joints. Normal central canal and bilateral lateral recesses. Normal bilateral intervertebral neural foramina. L3-4: Normal endplates. Normal disc height, hydration and morphology. Normal bilateral facet joints. Normal central canal and bilateral lateral recesses. Normal bilateral intervertebral neural foramina. L4-5: Mild bilateral facet hypertrophy and moderate ligament flavum hypertrophy. Mild broad disc protrusion produces mild spinal stenosis and mild bilateral neural foraminal stenosis. L5-S1: Normal endplates. Normal disc height, hydration and morphology. Normal bilateral facet joints. Normal central canal and bilateral lateral recesses. Normal bilateral intervertebral neural foramina. Normal visualized sacral ala. Normal visualized paraspinous soft tissue structures. MRI/Spine Lumbar (Routine) IMPRESSION: Multilevel degenerative changes, as described above. Electronically Signed: Jake Hernandez MD at 14:23 EST Tel , Service support ,
== END ==
LOC: MRI 07:02
PROVIDERS: PCP Family Medicine; Referring Provider Family Medicine; Visit Provider Family Medicine
DX: M43.16 Spondylolisthesis, lumbar region (principal)
CPT/HCPCS: 72148

== ENCOUNTER 2020-06-10 01:12 | Emergency (ER) | payer OTHER, SELFPAY ==
[2020-06-10 01:12] VITALS: BP 137/88; PULSE 68; RESP 18; TEMP 36.6; O2SAT 98; BMI 29.6
--- NOTE | 2020-06-10 01:31 | ED.DCSUM_ITS ---
History of Present Illness Chief Complaint: General Illness Informant: Patient Onset: Yesterday Current Severity: Moderate Maximum Severity: Moderate Narrative: Patient present secondary to headache, nausea, vomiting, and diarrhea. Patient states that she had a headache all day yesterday. Is mostly in the frontal area. Typically when she gets headaches she will take [id number] tension headache medicine or migraine medicine. She been having diarrhea since yesterday and approximate 1 hour prior to arrival started having vomiting. She does report light sensitivity. She did go to the urgent care yesterday to be seen for some upper abdominal pain that she is been having for quite some time. They referred her to a GI specialist. Patient does report having some chills but no fever. She denies any known e xposure to Covid. - Past Medical History (1) GERD (gastroesophageal reflux disease) Status: Chronic (2) Anxiety Status: Chronic (3) Asthma Status: Chronic (4) Hypertension Status: Chronic (5) Hypothyroidism Status: Chronic Past Medical History - Allergies and Home Meds Allergies/Adverse Reactions: Allergies latex Allergy (Verified 06/10/20 01:17) Rash card board Allergy (Uncoded 06/10/20 01:17) Rash Primary Care Physician: Radha Norton MD [Primary Care Provider] - Prior records reviewed: Yes Surgical History: no surgical history, hysterectomy Smoking Status: Former smoker Review of Systems General: Reports: Chills. Denies: Fever Eyes: Denies: Visual changes - bilaterally ENT: Denies: Bilateral ear pain, Rhinorrhea, Sore throat Cardiovascular: Denies: Chest pain, Palpitations Respiratory: Denies: Dyspnea, Cough Gastrointestinal: Reports: Abdominal pain, Nausea, Vomiting, Diarrhea Genitourinary: Denies: Dysuria Musculoskeletal: Denies: Swelling, Extremity Pain Skin: Denies: Rash Neurological: Reports: Headache Hematologic: Denies: Easy bruising, Easy bleeding Allergy: Denies: Uticaria Physical Exam Vital Signs/Narrative: Vital Signs Temp Pulse Resp BP Pulse Ox 06/10/20 01:12 97.9 F 68 18 137/88 H 98 Inital Vital Signs reviewed: Yes General: Well nourished, Well developed Head: Normocephalic ENT: Moist mucous membranes Neck: Supple Cardiovascular: Regular rate, Regular rhythm Respiratory: No distress, CTA bilaterally Abdomen: Soft, Tender - Mild tenderness to the epigastrium., Hypoactive bowel sounds. Negative for: Guarding, Rebound tenderness Extremities: Nontender Skin: Normal color Neurological: Alert, Oriented x3 Psychological: Normal affect Diagnostic/Tx/Re-eval 06/10/20 01:36 Mucosa - Nose SARS-CoV-2 Antigen (Rapid) - Final Laboratory Results 06/10/20 06/10/20 01:20 01:20 WBC 7.4 RBC 5.22 Hgb 14.4 Hct 44.5 MCV 85.2 MCH 27.6 MCHC 32.4 RDW Std Deviation 40.5 RDW Coeff of Singh 13.2 Plt Count 124 L MPV 12.4 H Immature Gran % (Auto) 0.100 Neut % (Auto) 68.3 Lymph % (Auto) 24.2 [place] % (Auto) 5.4 Eos % (Auto) 1.7 Baso % (Auto) 0.3 Absolute Neuts (auto) 5.1 Absolute Lymphs (auto) 1.80 Nucleated RBC % 0 Sodium 139 Potassium 4.1 Chloride 103 Carbon Dioxide 31.0 Anion Gap 5 BUN 16 Creatinine 0.92 Estim Creat Clear Calc 65.28 Est GFR (MDRD) Af Amer 85 Est GFR (MDRD) Non-Af 70 BUN/Creatinine Ratio 17.5 Glucose 122 H Calcium 8.9 Total Bilirubin 0.30 Direct Bilirubin 0.10 AST 26 ALT 41 Alkaline Phosphatase 80 Total Protein 7.2 Albumin 3.5 Globulin 3.7 Lipase 153 - Medical Decision Making Patient was treated with Toradol, Reglan, Benadryl, and IV fluids. On repeat evaluation she is resting comfortably. She reports her headache and nausea are significantly improved. Blood work is unremarkable. Covid test is negative. Test results are discussed with her and she is comfortable with discharge to home. She has an appointment scheduled with her doctor later today. ED Disposition - Plan for ED Patient: Disposition: Home or Assisted Living Diagnosis: Migraine Instructions: ED, Migraine (Classical) Referrals: Radha Norton MD [Primary Care Provider] - Keep Ashly appointment
[2020-06-10 01:36] LABS: Absolute Neutrophil Count 5.1 X10^3/uL (2.0-7.7); Basophil# 0.02 X10^3/uL; Basophil% 0.3 % (0-1); Eosinophil# 0.13 X10^3/uL; Eosinophils% 1.7 % (0-5); Hematocrit 44.5 % (37-47); Hemoglobin 14.4 g/dL (12.0-15.0); Lymphocyte % 24.2 % (19-41); Mean Corp Hgb Conc 32.4 g/dL (32-36); Mean Corpuscular Hgb 27.6 pg (27.0-32.0); Mean Corpuscular Volume 85.2 fL (81-99); Mean Platelet Vol. 12.4 fl (6.2-12.0); Monocyte% 5.4 % (0-10); NRBC Flagged by Analyzer 0 % (0-5); Neutrophil # 5.08 X10^3/uL (2.7-7.7); Neutrophil % 68.3 % (47-70); Platelet Count 124 K/mm3 (150-450); RBC Distribution Width CV 13.2 % (11.6-14.6); RBC Distribution Width SD 40.5 fl (35.1-43.9); Red Blood Count 5.22 M/mm3 (4.2-5.4); White Blood Count 7.4 K/mm3 (4.4-11.0)
[2020-06-10] MEDS: Metoclopramide 10 MG/2 ML Vial IV (01:37)
[2020-06-10] MEDS: 0.9% Normal Saline 1,000 ML 1000 ML IV (01:37)
[2020-06-10] MEDS: Ketorolac 30 MG/ML Syringe IV (01:39)
[2020-06-10] MEDS: DiphenhydrAMINE 50 MG/ML Syringe 25 MG IV (01:40)
[2020-06-10 01:57] LABS: AST(SGOT) 26 U/L (15-37); Alanine Aminotransfer ALT/SGPT 41 U/L (13-56); Albumin, Serum 3.5 g/dL (3.2-5.0); Alkaline Phosphatase 80 U/L (45-117); Anion Gap 5 (5-15); BUN 16 mg/dL (7-18); BUN/Creat Ratio 17.5 RATIO (10-20); Calcium,Total 8.9 mg/dL (8.5-10.1); Chloride 103 mmol/L (98-107); Creatinine, Serum 0.92 mg/dL (0.55-1.02); EST Glomerular Filtration Rate 70 mL/min (>60); Est Glom Filt Rate - Afr Amer 85 mL/min (>60); Estimated Creatinine Clearance 65.28 ml/min; Globulin 3.7 g/dL (2.2-4.2); Glucose 122 mg/dL (74-106); Lipase 153 U/L (73-393); Potassium 4.1 mmol/L (3.5-5.1); Protein, Total 7.2 g/dL (6.4-8.2); Sodium Level 139 mmol/L (136-145)
[2020-06-10 02:40] VITALS: BP 106/67; PULSE 76; RESP 16; O2SAT 96
== END 2020-06-10 02:41 | disposition home or self-care (01) ==
PROVIDERS: Emergency Provider Emergency Medicine; PCP Family Medicine
DX: G43.909 Migraine, unspecified, not intractable, without status migrainosus (principal); K21.9 Gastro-esophageal reflux disease without esophagitis; F41.9 Anxiety disorder, unspecified; J45.909 Unspecified asthma, uncomplicated; I10 Essential (primary) hypertension; E03.9 Hypothyroidism, unspecified; Z87.891 Personal history of nicotine dependence; Z79.899 Other long term (current) drug therapy; Z79.51 Long term (current) use of inhaled steroids
CPT/HCPCS: 80048; 80076; 83690; 85025; 87426; 96361; 96374; 96375; 99283; J7030; A4216

== ENCOUNTER 2020-06-16 10:15 | Day surgery (SDC) | payer OTHER, SELFPAY ==
[2020-06-16 10:39] VITALS: BP 128/93; PULSE 92; RESP 16; TEMP 36.8; O2SAT 97; BMI 29.6
[2020-06-16] MEDS: Lactated Ringers 1,000 ML 100 ML IV (10:54)
[2020-06-16] MEDS: MethylPREDNISolone Acetate 80 MG/ML Vial (12:00)
[2020-06-16] MEDS: 0.9% Normal Saline (Pres. free 10 ML Vial (12:00)
[2020-06-16] MEDS: Bupivacaine 0.25% 30 ML Vial (12:00)
[2020-06-16] MEDS: Lidocaine 1% (5 ml sdv) 5 ML Vial (12:00)
--- NOTE | 2020-06-16 12:00 | RAD_ITS ---
PROCEDURE: Caudal block. DATE OF EXAMINATION: 06/16/2020 INDICATION: Female, 49 years old. Chronic back pain. FLUOROSCOPY TIME (if supplied): (8 seconds) minutes/seconds. Single lateral view was submitted. RAD/Fluor Guidance for Spine Inj IMPRESSION: Intraoperative imaging provided for caudal block. Electronically Signed: Quique Henriquez MD at 15:31 EDT , Service support ,
[2020-06-16 12:10] VITALS: BP 108/73; BP 128/93; PULSE 74; RESP 16; TEMP 36.9; O2SAT 97
[2020-06-16 12:15] VITALS: BP 105/70; BP 128/93; PULSE 69; RESP 16; O2SAT 97
[2020-06-16 12:20] VITALS: BP 112/69; BP 128/93; PULSE 70; RESP 16; O2SAT 97
[2020-06-16 12:25] VITALS: BP 124/76; BP 128/93; PULSE 76; RESP 16; TEMP 36.8; O2SAT 98
--- NOTE | 2020-06-16 12:54 | PCM.OPRPT ---
Report of Operation Date of Procedure: 06/16/20 Description of Surgical Findings:: PREOPERATIVE DIAGNOSIS: Lumbosacral radiculopathy, lumbosacral degenerative disc disease, lumbosacral spinal stenosis POSTOPERATIVE DIAGNOSIS: Lumbosacral radiculopathy, lumbosacral degenerative disc disease, lumbosacral spinal stenosis PROCEDURE PERFORMED: Diagnostic/therapeutic caudal epidural steroid injection. ANESTHESIA: MAC. BLOOD LOSS: Minimal. COMPLICATIONS: None. DESCRIPTION OF PROCEDURE: History and physical of today was reviewed. Risks and benefits of the procedure were explained. The patient understood and agreed to proceed. Informed consent was obtained. IV inserted per routine protocol. The patient was taken to the operating room and placed in the prone position with a pillow positioned underneath the abdomen. The lower back and tailbone area was prepped and draped in a sterile fashion using iodine x3. Under fluoroscopy guidance on a lateral view, the caudal space was identified. The skin and subcutaneous tissue was anesthetized with approximately 3 mL of 1% lidocaine using a 25-gauge regular needle. Under direct visualization with fluoroscopy, using a 22-gauge 3-1/2-inch spinal needle, the needle was advanced via the skin through the sacral hiatus. The tip of the needle was passed through the sacrococcygeal ligament and advanced to approximately S4 area. After negative aspiration of blood or CSF, a total of 3 mL of contrast was injected to confirm correct placement of the needle as well as cephalad spread. The spread was followed to approximately L5 area. After confirmation on AP as well as lateral view and repeated negative aspiration, a total of 15 mL of preservative-free 0.125% Marcaine with 80 mg of Depo-Medrol was injected easily. The needle was then removed intact. The patient experienced no sign or symptoms of intrathecal or intravascular injection. The patient experienced no paresthesia. The procedure was completed without any apparent difficulty or any complications. The patient appeared to tolerate it well. ASSESSMENT AND PLAN: This is a 49-year-old female with lumbosacral radiculopathy, lumbosacral degenerative disc disease, lumbosacral spinal stenosis status post diagnostic/therapeutic caudal epidural steroid injection patient will continue her current medications, patient will follow in approximately 2 weeks for reevaluation.
[2020-06-16 13:15] VITALS: BP 128/93
== END 2020-06-16 13:15 | disposition home or self-care (01) ==
LOC: SDC 10:15 → AC 10:16
PROVIDERS: PCP Family Medicine; Referring Provider Anesthesiology Pain Medicine; Visit Provider Anesthesiology Pain Medicine
PROC: 3E0S3BZ Introduction of Anesthetic Agent into Epidural Space, Percutaneous Approach (ICD-10-PCS; CPT 62282; principal; 2020-06-16 11:25)
DX: M47.27 Other spondylosis with radiculopathy, lumbosacral region (principal); M51.17 Intervertebral disc disorders with radiculopathy, lumbosacral region; M48.07 Spinal stenosis, lumbosacral region; M46.96 Unspecified inflammatory spondylopathy, lumbar region; I10 Essential (primary) hypertension; E03.9 Hypothyroidism, unspecified; K21.9 Gastro-esophageal reflux disease without esophagitis; F32.9 Major depressive disorder, single episode, unspecified; F41.9 Anxiety disorder, unspecified; J45.909 Unspecified asthma, uncomplicated; Z79.899 Other long term (current) drug therapy; Z87.891 Personal history of nicotine dependence
CPT/HCPCS: 62323; 64483; 77003; J7120; J3490

== ENCOUNTER → 2020-06-20 15:00 | Outpatient (CLI) | payer OTHER, SELFPAY ==
[2020-06-16 10:39] VITALS: BMI 29.6
--- NOTE | 2020-06-20 15:02 | RAD_ITS ---
INDICATION: NECK PAIN, DIZZINESS EXAMINATION/TECHNIQUE: X-RAY - XR Spine Cervical 4 or 5 Views COMPARISON: None. FINDINGS: VERTEBRAE: Preserved vertebral body height. No fracture. No spondylolisthesis. Straightening of the normal cervical lordosis. No significant facet arthropathy. Minor anterior spondylosis. DISCS: Mild loss of disc space at C3-C4, C4-C5 and C5-C6. No foraminal stenosis. NECK SOFT TISSUES: No prevertebral soft tissue widening. LUNG APICES: Clear. RAD/Cerv Spine 4 or 5 Views IMPRESSION: Mild degenerative changes, as above.. Electronically Signed: Jurgen Olvera MD ([place]) at 14:15 EDT , Service support ,
[2020-06-20 17:38] LABS: Erythrocyte Sedimentation Rate 17 mm/hr (0-30)
[2020-06-20 18:04] LABS: Anion Gap 9 (5-15); BUN 17 mg/dL (7-18); BUN/Creat Ratio 19.6 RATIO (10-20); CRP < 2.90 mg/L (0.0-3.0); Calcium,Total 9.9 mg/dL (8.5-10.1); Chloride 103 mmol/L (98-107); Creatinine, Serum 0.87 mg/dL (0.55-1.02); EST Glomerular Filtration Rate 74 mL/min (>60); Est Glom Filt Rate - Afr Amer 90 mL/min (>60); Follicle Stimulating Hormone 9.4 mIU/mL; Glucose 95 mg/dL (74-106); Potassium 3.9 mmol/L (3.5-5.1); Sodium Level 138 mmol/L (136-145); Thyroid Stim Hormone (TSH) 3.43 uIU/mL (0.358-3.74)
== END ==
PROVIDERS: PCP Family Medicine; Referring Provider Family Medicine; Visit Provider Family Medicine
DX: M54.12 Radiculopathy, cervical region (principal); E03.9 Hypothyroidism, unspecified; R23.2 Flushing; M25.50 Pain in unspecified joint
CPT/HCPCS: 36415; 72050; 80048; 83001; 84443; 85652; 86140

== ENCOUNTER → 2020-07-02 17:28 | Outpatient (CLI) | payer OTHER, SELFPAY ==
[2020-06-16 10:39] VITALS: BMI 29.6
--- NOTE | 2020-07-02 17:40 | RAD_ITS ---
STUDY: X-RAY - PELVIS AND BILATERAL HIPS REASON FOR EXAM: Female, 49 years old. Bilateral hip pain TECHNIQUE: AP view of the pelvis.? 2 views of the right hip, and 2 views of the left hip were obtained. COMPARISON: None. FINDINGS: There is a non-specific bowel gas pattern. Phleboliths. Normal bilateral iliac wings, sacroiliac joints and visualized sacrum. Normal bilateral superior and inferior pubic rami. Normal pubic symphysis. Normal bilateral ischial tuberosities. Normal visualized right femoral head. Normal right acetabulum. Normal right hip joint. Normal visualized left femoral head. Normal left acetabulum. Normal left hip joint. RAD/Hips B/L min 2 views w/ Pelvis IMPRESSION: No abnormality of the pelvis or hips. Electronically Signed: Faisal Addison MD at 14:41 EDT , Service support ,
== END ==
PROVIDERS: PCP Family Medicine; Referring Provider Nurse Practitioner Family; Visit Provider Nurse Practitioner Family
DX: M25.551 Pain in right hip (principal); M25.552 Pain in left hip
CPT/HCPCS: 73521

== ENCOUNTER → 2020-07-16 08:58 | Outpatient (CLI) | payer OTHER, SELFPAY ==
[2020-06-16 10:39] VITALS: BMI 29.6
--- NOTE | 2020-07-16 09:01 | US_ITS ---
STUDY: ULTRASOUND BREAST - LEFT REASON FOR EXAM: Female, 49 years old. Left breast pain/palpable mass. TECHNIQUE: Axial and longitudinal images of the LEFT breast were performed with a high resolution ultrasound transducer. # OF IMAGES: 21 COMPARISON: Comparison is made with prior examination dated 07/16/2020 and 05/07/2019. FINDINGS: LEFT Breast: Incidental note is made of a 1.3 cm x 1 cm x 0.6 cm lymph node with a fatty hilum in the left axilla. US/Breast Limited Unilateral IMPRESSION: 1.3 cm x 1 cm x 0.6 cm lymph node with a fatty hilum in the left axilla. ASSESSMENT CATEGORY: BIRADS Category 2: Benign. A letter regarding these results will be sent to the patient by the facility within 30 days. Electronically Signed: Quique Henriquez MD at 14:04 EDT , Service support ,
--- NOTE | 2020-07-16 09:01 | BI_ITS ---
MAMMOGRAPHY - BILATERAL DIAGNOSTIC REASON FOR EXAM: Female, 49 years old. Occasional pain in the upper outer quadrant of the left breast. 3 day history of left breast lump. PERTINENT HISTORY: Aunt with breast cancer. TECHNIQUE: Digital bilateral breast mona (3D mammographic acquisition) in the CC and MLO projections. 2-D mediolateral oblique (MLO) and craniocaudad (CC) views of both breasts were obtained. CAD: Full Field Digital Mammography with Computer Added Detection was performed. COMPARISON: Comparison is made with prior mammogram dated 05/07/2019 and 05/02/2018. FINDINGS: Breast Composition: The breasts are heterogeneously dense, which may obscure small masses. There are no dominant masses or suspicious calcifications. Stable small benign-appearing bilateral axillary lymph nodes. No other significant abnormalities are identified. There has been no significant change since the prior study. BI/DIAG MAMM W/CAD, BILAT IMPRESSION: Stable bilateral diagnostic mammogram. With the patient''s history of pain in the upper-outer quadrant of the left breast as well as palpable lump, correlation with ultrasound is recommended. ASSESSMENT CATEGORY: BIRADS Category 0: Incomplete. Need additional imaging evaluation. A letter regarding these results will be sent to the patient by the facility within 30 days. Approximately 10% of breast cancers are not detected by mammography. A normal mammogram should not delay biopsy of a clinically suspicious abnormality. Electronically Signed: Quique Henriquez MD at 10:19 EDT , Service support ,
== END ==
PROVIDERS: PCP Family Medicine; Referring Provider Obstetrics & Gynecology; Visit Provider Obstetrics & Gynecology
DX: N63.21 Unspecified lump in the left breast, upper outer quadrant (principal)
CPT/HCPCS: 76642; 77062; 77066; G0279

== ENCOUNTER 2020-07-30 08:46 | Outpatient (RCR) | payer OTHER, SELFPAY ==
--- NOTE | 2020-08-13 08:13 | HP.FCE ---
Floor (Occasional 1-33% of Day): 30# Floor (Frequent 34-66% of Day): 15# Floor (Constant 67-100% of Day): 6# Floor PDL: Light Knee (Occasional 1-33% of Day): 30# Knee (Frequent 34-66% of Day): 15# Knee (Constant 67-100% of Day): 6# Knee PDL: Light Waist (Occasional 1-33% of Day): 25# Waist (Frequent 34-66% of Day): 12# Waist (Constant 67-100% of Day): 5# Waist PDL: Light Shoulder (Occasional 1-33% of Day): 25# Shoulder (Frequent 34-66% of Day): 12# Shoulder (Constant 67-100% of Day): 5# Shoulder PDL: Sedentary Overhead (Occasional 1-33% of Day): 10# Overhead (Frequent 34-66% of Day): NA Overhead (Constant 67-100% of Day): NA Overhead PDL: Sedentary Comments: pt demo with poor to fair lifting mechanics throughout lifting portion of the assessment. Bending: Occasional Ability (1-33% of day) Comments: with external support Squatting: Occasional Ability (1-33% of day) Comments: with external support Kneeling: Occasional Ability (1-33% of day) Comments: with external support Reaching out: Frequent Ability (34-66% of day) Reaching up: Frequent Ability (34-66% of day) Sitting: Frequent Ability (34-66% of day) Walking: Frequent Ability (34-66% of day) Standing: Frequent Ability (34-66% of day) Duration Sedentary Sedentary Light Light Light Medium Medium Medium Heavy Very Heavy Heavy Occasional (0-33% of day) Frequent (34-66% of day) Constant (67-100% of day) 10 # Negligible Negligible 15 # 8 # Negligible 20 # 10# Negli. 35 # 18 # 7 # 50 # 25 # 10 # 75 # 100 # >100 # 38 # 50 # >50 # 15 # 20 # >20 # Weight:: 79.832 kg Hand Dominance: Right Medical History Including Restrictions: This 49 year old female reports she was in fair health until July 2019. Pt states she was working and turned to pick a box up. pt states she got a sharp shooting pain in her back and it dropped her to her knees. Pt states she sat down and took ibuprofen. pt states she went home but did not go to the ER. 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 pt states nothing dx. other than aging- pt states she had physical therapy but she had issues with stiffness after physical therapy and worked third shift and was unable to make it to therapy, pt states she was given HEP but does not do. pt states she went to Dr. Pugh chiropractor pt states this made her back hurt worse. pt states she did go to the ortho jan Thao this sent her to Pain Mtg and had a injection states this helped for awhile decreasing pain to 50%..pt to see ortho August 20. pt states she tried a back brace at work but this make it difficult to perform her job. pt states she was given a 25# lift requirement. Diagnoses: intervertebral disc disorder Symptoms: Back pain. nauseated. numbness down leg. neck pain. left shoulder pain Pain: 5/10 burning pain. took pain medication this am Work History: Pt states she has worked at [employer] for 4 years. pt states she is required to lift 50# and be on her feet for her work shifts. pt states she has not been at work 2020 - she is worried about returning to heavy lifting. 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 pt was cooperative ADLS: Pt lives alone in apt. pt states she has 1 flight of stairs to enter her apartment. pt has 2 hand rails and will use them as needed. pt has a tub/shower combination and reports she is ind. with all ADls and IADLs at this time. pt states she feels tasks like cleaning or cooking do take more time but she gets then done. ROM: pt demonstrated no deficits with UE/LE cervical or lumbar spine during assessment. Strength: pt demo with bilateral hip flex 4/5 bilateral quadriceps and hamstrings 4+/5, bilateral UE 4+/5 grossly throughout Right Plastic Dolls Mold Filler Strength Average: 63.00 Right Plastic Dolls Mold Filler Strength Percentile: 28% Left Plastic Dolls Mold Filler Strength Average: 56.66 Left Plastic Dolls Mold Filler Strength Percentile: 28% Right Lateral Pinch Average: 12.00 Right Lateral Pinch Percentile: 50% Left Lateral Pinch Average: 11.33 Left Lateral Pinch Percentile: 50% Right Tripod Pinch Average: 10.00 Right Tripod Pinch Percentile: 25% Left Tripod Pinch Average: 10.00 Left Tripod Pinch Percentile: 25% Sensation: denies in fingers Fine Motor: denies Balance: pt demo with normal/good balance during assessment- no noted LOB during assessment. Bending: pt was able to bend forward 3 x and 6/10x pt refused to completed bending forward 10x rapidly. pt completed with ext. support. Pt can bend forward on an occasional ability Squatting: pt demonstrated the ability to squat 3 x, and 10x with ex support. pt unable to perform 10x rapidly. pt can squat on a occasional ability. heart rate 109 following Kneeling: pt demonstrated the ability to kneel 3/3 x and 5/10 with external support. pt tearful during this task reported her pain level 7/10. pt was unable to perform 10x or 10x rapidly pt can kneel on a low occasional ability with use of external support Reaching out/up: pt completed the ability to reach up/out 3x 10x 10x rapidly while sitting. pt can reach out on a frequent ability. Walking: Pt ambulated with a good reciprocal gait pattern and step length. pt can ambulate on a frequent ability (34-66% of the day) Standing: pt demo the ability to stand for 6 min shifting her body wt. pt can stand on frequent ability (34-66% of the day). pt would stand intermittently throughout assessment for 4-6 min and return to sitting or walking. Sitting: pt demo the ability to sitting 20 min and would stand when she felt the need- pt reports she has trouble sitting long periods of time and prefers to have flexibility to stand/sit and shift her body weight. pt can sit on frequent ability (34-66% of the day) Climbing Stairs: pt demonstrated the ability to ascend/descend 10 steps with use of rail intermittently with a reciprocal step with good ability. pt does have full flight of stairs to get into her apartment. Floor Lift: pt demonstrated the ability to lift 30#maximally from floor level- pt demo poor lifting mechanics with this lift- therapist demo proper lift positioning and pt able to lift with better lift mechanics. Knee Lift: pt demo the ability to lift 30# maximally from this level with fair lift mechanics. heart rate 113 Waist Lift: pt demo the ability to lift 25# maximally from this level with good lift mechanics. Shoulder Lift: pt demo the ability to lift 25# maximally from this level with fair lift mechanics. Overhead Lift: pt demo the ability to lift 10# maximally from this level with fair lift mechanics. Carrying: pt demonstrated the ability to carry 30# for 5 feet- pt painful in low back and stated pain was radiating down her leg Comments: pt report pain level 8/10 following lifting tasks.
--- NOTE | 2020-08-13 08:13 | HP.OTFCE.D ---
FCE D/C Summary - Discharge ZANE BLACKMON was seen for a one time visit for an FCE on 07/30/20 and is discharged.
== END 2020-07-30 19:00 | disposition home or self-care (01) ==
LOC: OT 08:46
PROVIDERS: PCP Family Medicine; Referring Provider Family Medicine; Visit Provider Family Medicine
DX: M51.16 Intervertebral disc disorders with radiculopathy, lumbar region (principal)
CPT/HCPCS: 97750

== ENCOUNTER 2020-09-16 15:01 | Emergency (ER) | payer OTHER, SELFPAY ==
[2020-09-16 15:02] VITALS: BP 117/76; PULSE 89; RESP 16; TEMP 36.8; O2SAT 98; BMI 30.7
--- NOTE | 2020-09-16 15:33 | RAD_ITS ---
STUDY: X-RAY - LEFT SHOULDER REASON FOR EXAM: Female, 49 years old. Injury/Pain TECHNIQUE: 4 view(s) of the shoulder. COMPARISON: None. FINDINGS: Normal glenohumeral articulation. Normal acromioclavicular joint. Normal acromion. Normal humeral head and visualized proximal humerus. The soft tissue structures are unremarkable. Normal visualized pulmonary apex. RAD/Shoulder min 2 Views IMPRESSION: Normal x-ray examination of the shoulder. Electronically Signed: Jake Hernandez MD at 15:56 EDT Tel , Service support ,
--- NOTE | 2020-09-16 15:35 | RAD_ITS ---
STUDY: X-RAY - CERVICAL SPINE REASON FOR EXAM: Female, 49 years old. Injury/Pain TECHNIQUE: 3 view(s) of the cervical spine were obtained. COMPARISON: None FINDINGS: Normal anterior atlantoaxial articulation. Normal odontoid process. Normal cervical lordosis. Normal vertebral bodies and endplates. Normal disc space heights. Normal visualized intervertebral neuroforamina. The soft tissue structures are unremarkable. RAD/Cerv Spine 2 or 3 Views IMPRESSION: Normal x-ray examination of the visualized cervical spine. Electronically Signed: Jake Hernandez MD at 15:56 EDT Tel , Service support ,
--- NOTE | 2020-09-16 16:44 | EX.ED.UPPERE ---
HPI History of Present Illness Chief Complaint: Upper Extremity Injury Informant: patient Onset/Context/Timing Onset: Yesterday Context: Gradual Onset Timing: Continuous Quality of Pain: Sharp and Burning Location: Left shoulder and neck Worsened by: Nothing Relieved by: Nothing Narrative Narrative: Patient presents with left shoulder and neck pain that began yesterday while she was at work. Patient denies any trauma or injury. Patient states the pain is gradually getting worse. Patient describes the pain is sharp and burning. Patient admits to some tingling in her fingers. Patient states nothing makes the pain worse and nothing makes the pain better. Patient states the pain is worse over the posterior aspect of her left shoulder radiates into her neck and down into her left upper arm. [facility] Medical History Allergies Asthma Frequent headaches High blood pressure Hives Thyroid disease Vision problems Home Medications losartan 50 mg PO DAILY 06/01/18 [History Last Taken 06/16/20 08:00] omeprazole 20 mg PO DAILY 06/01/18 [History Last Taken 06/16/20 08:00] potassium chloride 10 meq PO DAILY 06/11/18 [History Last Taken Unknown] hydroxyzine HCl 10 mg PO Q6H PRN PRN 03/02/19 [History Last Taken Unknown] albuterol sulfate 90 mcg/actuation aerosol inhaler 2 puff INHALATION Q4H PRN g 11/08/19 [History Last Taken Unknown] fluticasone propionate 50 mcg/actuation nasal spray,suspension 2 spray INTRANASAL DAILY 11/08/19 [History Last Taken Unknown] sertraline 100 mg tablet 200 mg PO DAILY tab 11/08/19 [History Last Taken Unknown] omega-3 fatty acids-fish oil 1 ea PO DAILY 11/14/19 [History Last Taken Unknown] naproxen 500 mg PO BID #14 tab 03/07/20 [Rx Last Taken Unknown] cyclobenzaprine 10 mg PO TID PRN #20 tab 03/19/20 [Rx Last Taken Unknown] lidocaine 1 patch TOPICAL DAILY #3 patch 03/19/20 [Rx Last Taken Unknown] gabapentin 300 mg PO BID 06/11/20 [History Last Taken Unknown] cholecalciferol (vitamin D3) 125 mcg PO DAILY 09/16/20 [History Last Taken Unknown] levothyroxine 88 mcg PO DAILY 09/16/20 [History Last Taken Unknown] Allergy/AdvReac Type Severity Reaction Status Date / Time latex Allergy Rash Verified 09/16/20 15:02 card board Allergy Rash Uncoded 09/16/20 15:02 Family History (Updated 11/08/19 @ 09:06 by Pamela Lloyd) Other Alcohol abuse Anemia Anxiety and depression Arthritis Asthma Breast cancer Cancer Diabetes Heart disease High cholesterol History of ulcer disease Hormonal disorder Hypertension Severe allergy Thyroid disorder Surgical History History of delivery History of excision of mass History of hysterectomy History of sinus surgery Ovarian cyst Social History Smoking Status: Former smoker alcohol intake: never substance use type: does not use additional social history: DOES TAKE ASPIRIN NEEDED DOES TAKE IBUPROFEN NEEDED ROS ROS ED Constitutional Constitutional ED: Denies chills or fever(s) Eyes Eyes: Denies blurry vision or change in vision ENT ENT ED: Denies rhinorrhea or sore throat Cardiovascular Cardiovascular: Denies chest pain or palpitations Respiratory/Chest Respiratory/Chest: Denies cough or dyspnea Gastrointestinal Gastrointestinal: Denies nausea or vomiting Genitourinary Genitourinary ED: Denies dysuria or hematuria Musculoskeletal Musculoskeletal: Reports back pain and neck pain Integumentary Denies abscess or rash Neurologic Neurologic: Denies headache(s) or weakness Allergic/Immunologic Allergic/Immunologic ED: Denies mouth swelling or urticaria EXAM Physical Exam Const Vital Signs: 09/16/20 15:02 Temperature 98.2 F Temperature Source Temporal Pulse Rate 89 Respiratory Rate 16 Blood Pressure 117/76 Blood Pressure Mean 89 Pulse Ox 98 Oxygen Delivery Method Room Air Positive well nourished and well developed General Appearance ED: well developed HEENT Reports moist mucous membranes Neck supple Neck Narrative: There is tenderness over the left cervical paraspinal muscles and left trapezius muscles. There is no midline tenderness. There is no bony crepitance or step-off. There is good range of motion. General: tenderness Extremity Left Upper Extremity: shoulder joint Shoulder Joint Exam - Left: inspection (There is some tenderness over the posterior aspect of the left shoulder. There is no obvious deformity.), ROM (Range of motion was limited in all motions of the left shoulder secondary to pain.) and neurovascular exam (Radial pulses are equal bilaterally. Sensation was intact to light touch in the radial, median, ulnar, and axillary areas bilaterally. Strength is 5/5 bilateral knee upper extremities.) Neuro oriented x3, CN's II-XII intact bilaterally, moves all extremities, no focal motor deficits and no sensory deficits noted Sensorium / Orientation: alert Psych mental status grossly normal MDM MDM MDM Narrative Medical decision making narrative: X-rays of the left shoulder were obtained. There are 4 views. On my interpretation, there is no acute fracture or dislocation. Radiologist also interpreted the x-rays and agrees. X-rays of the cervical spine were obtained. There are 3 views. On my interpretation, there is no acute fracture, spondylolisthesis, or spondylolysis. Radiologist also interpreted the x-rays and agrees. Patient was advised of her findings. Patient was instructed to continue her Flexeril as needed for pain. Patient was also instructed to continue her Naprosyn as needed. Patient was also instructed to continue using her lidocaine patch as needed. Patient was instructed to use her gabapentin as prescribed. Patient was instructed to use ice to the area. Patient was instructed to follow-up with her primary care physician in 5 to 7 days. Patient understood and was agreeable with the plan. All questions were answered. Radiography Diagnostic Testing: Radiology Impression Shoulder X-Ray 09/16/20 15:33 IMPRESSION: Normal x-ray examination of the shoulder. Electronically Signed: Jake Hernandez MD at 15:56 EDT Tel , Service support , Cervical Spine X-Ray 09/16/20 15:35 IMPRESSION: Normal x-ray examination of the visualized cervical spine. Electronically Signed: Jake Hernandez MD at 15:56 EDT Tel , Service support , Discharge Plan Triage Chief Complaint: Upper Extremity Injury ED Provider: Phani Deng Dx/Rx/DC Orders Clinical Impression: Muscle strain of left shoulder region Instructions: ED Muscle Strain, Extremity Prescriptions: No Action sertraline 100 mg tablet 200 mg PO DAILY RF: 0 fluticasone propionate 50 mcg/actuation spray,suspension 2 spray INTRANASAL DAILY RF: 0 albuterol sulfate 90 mcg/actuation HFA aerosol inhaler 2 puff INHALATION Q4H PRN (Reason: Sob &/Or Wheezing) RF: 0 losartan 50 MG tablet 50 mg PO DAILY RF: 0 omeprazole 20 MG capsule,delayed release(DR/EC) 20 mg PO DAILY RF: 0 potassium chloride 10 MEQ tablet 10 meq PO DAILY RF: 0 hydroxyzine HCl 10 MG tablet 10 mg PO Q6H PRN PRN (Reason: Anxiety) RF: 0 omega-3 fatty acids-fish oil 1 EACH capsule 1 ea PO DAILY RF: 0 naproxen 500 MG tablet 500 mg PO BID Qty: 14 RF: 0 cyclobenzaprine 10 MG tablet 10 mg PO TID PRN (Reason: Muscle Spasm) Qty: 20 RF: 0 lidocaine 1 PATCH patch 1 patch TOPICAL DAILY Qty: 3 RF: 0 gabapentin 300 MG capsule 300 mg PO BID RF: 0 levothyroxine 88 mcg Tablet 88 mcg PO DAILY RF: 0 cholecalciferol (vitamin D3) 125 mcg (5,000 unit) Tablet 125 mcg PO DAILY RF: 0 Stand Alone Forms: Work Status Form Primary Care Provider: Radha Norton Referrals: Radha Norton MD [Primary Care Provider] - 5-7 Days Disposition Disposition: Home, self care
== END 2020-09-16 17:18 | disposition home or self-care (01) ==
PROVIDERS: Emergency Provider Emergency Medicine; PCP Family Medicine
DX: S46.912A Strain of unspecified muscle, fascia and tendon at shoulder and upper arm level, left arm, initial encounter (principal); X58.XXXA Exposure to other specified factors, initial encounter; Z87.891 Personal history of nicotine dependence; Z79.899 Other long term (current) drug therapy
CPT/HCPCS: 72040; 73030; 99282

== ENCOUNTER 2020-09-24 16:00 | Outpatient (RCR) | payer OTHER, SELFPAY ==
--- NOTE | 2020-09-08 17:36 | HP.PTEVAL_ITS ---
Patient's Visit Information ZANE BLACKMON is a 49 year old F referred to Physical Therapy by Dr. Radha Norton MD with a diagnosis of DDD. Date of Evaluation: 09/08/20 Physical Therapist: Dilma Macias PT, Cert MDT - Visit Plan Frequency: 2-3x /Week Duration: 4-6 Weeks Plan: AQUATIC THERAPY FOR PAIN RELIEF, POSTURE CORRECTION/STRENGTHENING, INSTRUCTION IN APPROPRIATE BODY MECHANICS AND ACTIVITY MODIFICATIONS. DLS STARTING WITH A NEUTRAL SPINE PROGRESSING ROM TOLERATED. CHARAN LE ROM, STRETCHING AND STRENGTHENING. HEP INSTRUCTION. 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 Disability: NO. Present symptoms: CENTRAL LBP. CHARAN LE PAIN, NUMBNESS AND TINGLING TO THE TOES. Present since: ABOUT A YEAR. Pain Scale: WORST 10/10, LEAST 5/10. Currently: 5/10. Commenced as a result of: NO APPARENT REASON. Symptoms at onset: RIGHT LOW BACK. Worse: PROLONGED SITTING, PROLONGED STANDING, RISING FROM SITTING, BENDING, LIFTING, TWISTING. SOME DAYS ARE BETTER THAN OTHERS. SOMETIMES I CAN'T GET OFF THE COUCH AFTER SLEEPING ON COUCH. Better: IBUPROFEN, NAPROXEN, HEAT, PAIN PATCH. Disturbed sleep: YES. Previous history/Previous treatment: PHYSICAL THEAPY IN NOV 2019 - HELPED SOMEWHAT TEMPORARILY. STILL DOING SOME OF THE EX'S LEARNED BUT THEY ARE NOT HELPING. PAIN MGMT - 1 CAUDAL INJECTION WITHOUT BENEFIT. NO BACK SURGERY. H/O CHIROPRACTOR OFF AND ON FOR 6 YEARS. LAST CHIROPRACTIC VISIT WAS LAST FALL. CONSULT WITH DR. DANIEL AFTER LUMBAR MRI - STATES THAT HE SAID SHE DOES NOT NEED SURGERY AND THERE IS NOTHING ELSE HE CAN DO FOR HER. FUNCTIONAL CAPACITY EVALUA TION. Coughing/sneezing/straining: CAN BE POSITIVE. Gait: NORMAL BUT DISTANCE LIMITED DUE TO PAIN. Difficulty initiating urinatin: NO. Accidents: NO. Unexplained weight loss: NO. Imaging: APR 2020 MRI LUMBAR: L1-2: Disc desiccation with loss of disc height but no disc protrusion,. spinal stenosis, or neural foraminal stenosis. L4-5: Mild bilateral facet hypertrophy and moderate ligament flavum. hypertrophy. Mild broad disc protrusion produces mild spinal stenosis and. mild bilateral neural foraminal stenosis. PMH/Recent major surgery: HIATIAL HERNIA - UNDER PHYSICIAN CARE CURRENTLY. HYPOTHYROIDISM, HTN, LOW VITAMIN D AND POTASSIUM - Objective Sitting/Standing Posture: POOR. Lordosis: NORMAL. Lateral shift: NO. Relevant shift: N/A. Active Correction of posture: NE. Other Observations: INDEP GAIT AND TRANSFERS WITH NO GROSS DEVIATIONS NOTED. Motor deficit: CHARAN LE'S GROSSLY 5/5 WITH MMT'ING EXCEPT HIPS 4/5. Sensory deficit: CHARAN LE LIGHT TOUCH SENSATION APPEARS INTACT AND SYMMETRICAL. ROM deficit: MILD CHARAN LE HS AND GASTROC SOLEUS TIGHTNESS. MODERATE CHARAN HIP FLEXOR TIGHTNESS. Reflexes: CHARAN LE'S 2/3. Dural Signs: POSITIVE CHARAN LE'S RIGHT > LEFT. Lumbar mvmt loss: flex - MOD. ext - MOD. R SG - MOD. L SG - MOD. Core strength: POOR. Palpation: ACUTE TENDERNESS IN ENTIRE LUMBAR SPINE REGION. TREATMENT: NEUR OMUSCULAR REEDUCATION - RETRAINING OF MVMT AND POSTURE FOR SITTING, LYING AND STANDING ACTIVITIES. - Goals Goal 1:: DECREASE C/O LOW BACK AND CHARAN LE SX'S. Goal Time Frame: 4-6 Weeks Goal 2:: IMPROVE PERSONAL CARE, LIFTING, WALKING, SITTING, STANDING, SLEEP, SOCIAL LIFE, TRAVEL AND WORK/HOMEMAKING FUNCTION. Goal Time Frame: 4-6 Weeks Goal 3:: INSTRUCT IN PROPHYLAXIS Goal Time Frame: 4-6 Weeks - Anticipated Interventions Patient/Client Instruction: Educate patient on: Condition, Plan of Care, Risk Factors For the Purpose of:: To improve self management Therapeutic Exercise to Include: Strength training, Body mechanics, Postural training, In an aquatic setting, Dynamic Lumbar Stabilization For the Purpose of:: To decrease pain, To improve muscle performance and motor function, To improve performance and independence with ADL's, To improve ability of physical actions for home/community/work/leisure Thank you for the opportunity to evaluate your patient. For Medicare and Medicare HMO plans, please review the plan of care and approve it. It will need to be FAXED BACK to us at [phone] for Medicare purposes. For Medicare only, by signing this I certify the plan of care. Please let me know if there are questions or concerns regarding this plan of care. Physician Signat ure: Date:
--- NOTE | 2020-10-08 08:20 | HP.PT.NRP ---
ZANE BLACKMON was seen in my office for initial evaluation on 09/08/20. The following Plan of Care was established for this patient: Initial Frequency: 2-3x /Week Initial Duration: 4-6 Weeks Patient/Client Instruction: Educate patient on: Condition, Plan of Care, Risk Factors For the Purpose of:: To improve self management Therapeutic Exercise to Include: Strength training, Body mechanics, Postural training, In an aquatic setting, Dynamic Lumbar Stabilization For the Purpose of:: To decrease pain, To improve muscle performance and motor function, To improve performance and independence with ADL's, To improve ability of physical actions for home/community/work/leisure This patient was last seen in our office . Pertinent comments regarding their Physical therapy will appear below: This patient has not returned to Physical Therapy and is appropriate to return to MD for further follow-up as needed. At this point I will be discontinuing this patient from physical therapy. I would be happy to see this patient again in the future if found appropriate by the physician. Thank you! Dilma Macias, PT, Cert MDT
== END 2020-09-24 19:00 | disposition home or self-care (01) ==
LOC: PT 16:00
PROVIDERS: PCP Family Medicine; Referring Provider Family Medicine; Visit Provider Family Medicine
DX: M51.36 Other intervertebral disc degeneration, lumbar region (principal)
CPT/HCPCS: 97112; 97113; 97162

== ENCOUNTER 2020-11-26 11:52 | Emergency (ER) | payer OTHER, SELFPAY ==
[2020-11-26 11:53] VITALS: BP 131/79; PULSE 81; RESP 18; TEMP 36.6; O2SAT 98; BMI 31.4
--- NOTE | 2020-11-26 12:09 | CT_ITS ---
STUDY: CT ABDOMEN AND PELVIS WITHOUT CONTRAST REASON FOR EXAM: Female, 49 years old. Epigastric pain. RADIATION DOSAGE (If Supplied By Facility): CTDIvol = ( 15.78 ) mGy, DLP = ( 767.57 ) mGycm TECHNIQUE: Transaxial images were obtained from the dome of the diaphragm to the symphysis pubis without oral contrast, and without intravenous contrast. Sagittal and coronal images were reconstructed. Individualized dose optimization techniques were used for this CT. COMPARISON: Comparison is made with prior study dated 05/16/2017. FINDINGS: The visualized lung bases are unremarkable. The visualized portions of the heart are within normal limits. Normal liver. Normal gallbladder and extrahepatic biliary system. Normal spleen. Normal pancreas. Normal bilateral adrenal glands. Normal right kidney. Normal left kidney. There is a small hiatal hernia. Normal small intestine. Normal colon. The appendix is visualized and appears normal. Normal abdominal aorta. Normal inferior vena cava. Normal retroperitoneum. Normal urinary bladder. There is absence of the uterus consistent with a prior hysterectomy. Normal abdominal wall. There are mild degenerative changes of the visualized lumbar spine. CT/Abdomen/Pelvis without Cont IMPRESSION: Small hiatal hernia. Electronically Signed: Quique Henriquez MD at 13:01 EDT , Service support ,
--- NOTE | 2020-11-26 12:10 | EX.ED.DYSGE1 ---
HPI History of Present Illness Chief Complaint: Chest Other Informant: patient Narrative Narrative: 49-year-old female presents to the emergency department with abdominal pain. The patient tells me that she underwent endoscopy and colonoscopy with Dr. Kendrick on Tuesday. She has been doing well until today when she woke had pain in her epigastrium. Is worse with movements and turning. She has been eating and drinking normally. No black or bloody stools. No fevers. She states that yesterday she did carry some laundry and wonders if that may have aggravated that. She states that she talked to her primary care provider was sent to the emergency room for evaluation of potential endoscopy complication. [facility] Medical History Allergies Asthma Cellulitis of left ear Former smoker Frequent headaches High blood pressure Hives Mass of left ear Mass of right ear Thyroid disease Vision problems Home Medications losartan 50 mg PO DAILY 06/01/18 [History Last Taken 06/16/20 08:00] omeprazole 20 mg PO DAILY 06/01/18 [History Last Taken 06/16/20 08:00] potassium chloride 10 meq PO DAILY 06/11/18 [History Last Taken Unknown] hydroxyzine HCl 10 mg PO Q6H PRN PRN 03/02/19 [History Last Taken Unknown] albuterol sulfate 90 mcg/actuation aerosol inhaler 2 puff INHALATION Q4H PRN g 11/08/19 [History Last Taken Unknown] fluticasone propionate 50 mcg/actuation nasal spray,suspension 2 spray INTRANASAL DAILY 11/08/19 [History Last Taken Unknown] sertraline 100 mg tablet 200 mg PO DAILY tab 11/08/19 [History Last Taken Unknown] omega-3 fatty acids-fish oil 1 ea PO DAILY 11/14/19 [History Last Taken Unknown] naproxen 500 mg PO BID #14 tab 03/07/20 [Rx Last Taken Unknown] cyclobenzaprine 10 mg PO TID PRN #20 tab 03/19/20 [Rx Last Taken Unknown] lidocaine 1 patch TOPICAL DAILY #3 patch 03/19/20 [Rx Last Taken Unknown] gabapentin 300 mg PO BID 06/11/20 [History Last Taken Unknown] cholecalciferol (vitamin D3) 125 mcg PO DAILY 09/16/20 [History Last Taken Unknown] levothyroxine 88 mcg PO DAILY 09/16/20 [History Last Taken Unknown] levofloxacin 500 mg tablet 500 mg PO DAILY #14 tab 10/16/20 [Rx Last Taken Unknown] Allergy/AdvReac Type Severity Reaction Status Date / Time latex Allergy Rash Verified 11/26/20 11:56 card board Allergy Rash Uncoded 11/26/20 11:56 Family History Other Alcohol abuse Anemia Anxiety and depression Arthritis Asthma Breast cancer Cancer Diabetes Heart disease High cholesterol History of ulcer disease Hormonal disorder Hypertension Severe allergy Thyroid disorder Surgical History History of delivery History of excision of mass History of hysterectomy History of sinus surgery Ovarian cyst Social History Smoking Status: Former smoker alcohol intake: never substance use type: does not use additional social history: DOES TAKE ASPIRIN NEEDED DOES TAKE IBUPROFEN NEEDED ROS ROS ED Constitutional Constitutional ED: Denies chills or weight loss Eyes Eyes: Denies change in vision or diplopia ENT ENT ED: Denies ear pain, rhinorrhea or sore throat Cardiovascular Cardiovascular: Denies chest pain, orthopnea, palpitations or racing heartbeat Respiratory/Chest Respiratory/Chest: Denies cough, dyspnea or orthopnea Gastrointestinal Gastrointestinal: Reports abdominal pain; Denies diarrhea, nausea or vomiting Genitourinary Genitourinary ED: Denies dysuria, hematuria or urinary frequency Musculoskeletal Musculoskeletal: Denies arthralgias or myalgias Integumentary Denies abscess or rash Neurologic Neurologic: Denies headache(s) or weakness Psychiatric Psychiatric: Denies anxiety, depression, suicidal ideation or suicidal thoughts Endocrine Endocrinology: Denies polydipsia, polyphagia or polyuria Allergic/Immunologic Allergic/Immunologic ED: Denies mouth swelling, tongue swelling or urticaria EXAM Physical Exam Const Vital Signs: 11/26/20 11:53 11/26/20 12:02 Temperature 98 F Temperature Source Temporal Pulse Rate 81 Respiratory Rate 18 Respiratory Effort Normal Non-Labored Blood Pressure 131/79 H Blood Pressure Mean 96 Pulse Ox 98 Oxygen Delivery Method Room Air Positive well nourished and well developed General Appearance ED: well developed HEENT Reports normocephalic, head/scalp atraumatic and moist mucous membranes Eyes PERRL and EOMs intact bilaterally Neck no lymphadenopathy, supple and no JVD Resp normal respiratory effort and clear to auscultation bilaterally Cardio regular rate, regular rhythm and no murmurs GI GI Narrative: Patient has a minimal tenderness diffusely in her abdomen but more pronounced at the xiphoid process in the epigastrium. Palpation: soft and tender Back/Spine no CVA tenderness and normal ROM Extremity normal to inspection General Extremety ED: Negative for edema General Extremity: Negative for edema Neuro oriented x3 and CN's II-XII intact bilaterally Sensorium / Orientation: alert Motor Exam: strength 5/5 throughout Psych mental status grossly normal Mood & Affect: Negative for depressed or tearful Skin no rashes or lesions noted and no wounds Discharge Plan Triage Chief Complaint: Chest Other ED Provider: Ghulam Suarez Dx/Rx/DC Orders Prescriptions: No Action sertraline 100 mg tablet 200 mg PO DAILY RF: 0 fluticasone propionate 50 mcg/actuation spray,suspension 2 spray INTRANASAL DAILY RF: 0 albuterol sulfate 90 mcg/actuation HFA aerosol inhaler 2 puff INHALATION Q4H PRN (Reason: Sob &/Or Wheezing) RF: 0 levofloxacin 500 mg tablet 500 mg PO DAILY Qty: 14 RF: 0 losartan 50 MG tablet 50 mg PO DAILY RF: 0 omeprazole 20 MG capsule,delayed release(DR/EC) 20 mg PO DAILY RF: 0 potassium chloride 10 MEQ tablet 10 meq PO DAILY RF: 0 hydroxyzine HCl 10 MG tablet 10 mg PO Q6H PRN PRN (Reason: Anxiety) RF: 0 omega-3 fatty acids-fish oil 1 EACH capsule 1 ea PO DAILY RF: 0 naproxen 500 MG tablet 500 mg PO BID Qty: 14 RF: 0 cyclobenzaprine 10 MG tablet 10 mg PO TID PRN (Reason: Muscle Spasm) Qty: 20 RF: 0 lidocaine 1 PATCH patch 1 patch TOPICAL DAILY Qty: 3 RF: 0 gabapentin 300 MG capsule 300 mg PO BID RF: 0 levothyroxine 88 mcg Tablet 88 mcg PO DAILY RF: 0 cholecalciferol (vitamin D3) 125 mcg (5,000 unit) Tablet 125 mcg PO DAILY RF: 0 Primary Care Provider: Paco Patel
[2020-11-26 13:44] VITALS: BP 146/72; PULSE 87; RESP 15; O2SAT 98
== END 2020-11-26 13:45 | disposition home or self-care (01) ==
PROVIDERS: Emergency Provider Emergency Medicine; PCP Family Medicine
DX: R10.13 Epigastric pain (principal); I10 Essential (primary) hypertension; E07.9 Disorder of thyroid, unspecified; J45.909 Unspecified asthma, uncomplicated; Z79.82 Long term (current) use of aspirin; Z79.899 Other long term (current) drug therapy; Z87.891 Personal history of nicotine dependence
CPT/HCPCS: 74176; 99284

== ENCOUNTER 2021-01-23 18:41 | Emergency (ER) | payer OTHER, SELFPAY ==
[2021-01-23 18:42] VITALS: BP 147/105; PULSE 113; RESP 18; TEMP 35.8; O2SAT 99; BMI 30.2
--- NOTE | 2021-01-23 19:05 | EX.ED.GENINJ ---
HPI History of Present Illness Chief Complaint: Back Informant: patient Narrative Narrative: About 10:00 this morning the patient stepped on a loose area of concrete causing her to fall to the ground. She landed on her right knee and then back on her buttock. She was able to get up and go in and have her nails done. She started get soreness after that. 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 No numbness tingling or weakness. She has a long history of back pain. She has Flexeril at home which she has not yet taken. She also just started a steroid burst about 2 days ago for ongoing problems with her back. She did not then instilled does not have numbness tingling weakness bowel or bladder dysfunction. Her biggest concern is that she has to go into work tonight and do repetitive motion and she thinks that might aggravate her back. She never hit her head. No loss of consciousness. This was a mechanical fall and not syncope. [facility] Medical History Allergies Asthma Cellulitis of left ear Former smoker Frequent headaches High blood pressure Hives Mass of left ear Mass of right ear Thyroid disease Vision problems Home Medications losartan 50 mg PO DAILY 06/01/18 [History Last Taken 06/16/20 08:00] omeprazole 20 mg PO DAILY 06/01/18 [History Last Taken 06/16/20 08:00] potassium chloride 10 meq PO DAILY 06/11/18 [History Last Taken Unknown] hydroxyzine HCl 10 mg PO Q6H PRN PRN 03/02/19 [History Last Taken Unknown] albuterol sulfate 90 mcg/actuation aerosol inhaler 2 puff INHALATION Q4H PRN g 11/08/19 [History Last Taken Unknown] fluticasone propionate 50 mcg/actuation nasal spray,suspension 2 spray INTRANASAL DAILY 11/08/19 [History Last Taken Unknown] sertraline 100 mg tablet 200 mg PO DAILY tab 11/08/19 [History Last Taken Unknown] omega-3 fatty acids-fish oil 1 ea PO DAILY 11/14/19 [History Last Taken Unknown] naproxen 500 mg PO BID #14 tab 03/07/20 [Rx Last Taken Unknown] cyclobenzaprine 10 mg PO TID PRN #20 tab 03/19/20 [Rx Last Taken Unknown] lidocaine 1 patch TOPICAL DAILY #3 patch 03/19/20 [Rx Last Taken Unknown] gabapentin 300 mg PO BID 06/11/20 [History Last Taken Unknown] cholecalciferol (vitamin D3) 125 mcg PO DAILY 09/16/20 [History Last Taken Unknown] levothyroxine 88 mcg PO DAILY 09/16/20 [History Last Taken Unknown] levofloxacin 500 mg tablet 500 mg PO DAILY #14 tab 10/16/20 [Rx Last Taken Unknown] atorvastatin 80 mg PO DAILY 01/23/21 [History Last Taken Unknown] buspirone 5 mg PO BID 01/23/21 [History Last Taken Unknown] famotidine 20 mg PO DAILY 01/23/21 [History Last Taken Unknown] hydrocodone-acetaminophen 1 tab PO Q6H PRN 3 Days #10 tab 01/23/21 [Rx Last Taken Unknown] methylprednisolone See Taper PO DAILY 01/23/21 [History Last Taken Unknown] Allergy/AdvReac Type Severity Reaction Status Date / Time latex Allergy Rash Verified 01/23/21 18:44 card board Allergy Rash Uncoded 01/23/21 18:44 Family History Other Alcohol abuse Anemia Anxiety and depression Arthritis Asthma Breast cancer Cancer Diabetes Heart disease High cholesterol History of ulcer disease Hormonal disorder Hypertension Severe allergy Thyroid disorder Surgical History History of delivery History of excision of mass History of hysterectomy History of sinus surgery Ovarian cyst Social History Smoking Status: Former smoker alcohol intake: never substance use type: does not use additional social history: DOES TAKE ASPIRIN NEEDED DOES TAKE IBUPROFEN NEEDED ROS ROS ED Constitutional Constitutional ED: Denies chills or fever(s) Eyes Eyes: Denies blurry vision or change in vision ENT ENT ED: Denies rhinorrhea or sore throat Cardiovascular Cardiovascular: Denies chest pain Respiratory/Chest Respiratory/Chest: Denies cough or dyspnea Gastrointestinal Gastrointestinal: Denies abdominal pain, nausea or vomiting Genitourinary Genitourinary ED: Denies dysuria, hematuria or urinary frequency Musculoskeletal Musculoskeletal: Reports back pain Integumentary Denies rash Neurologic Neurologic: Denies paresthesias or weakness Endocrine Endocrinology: Denies polydipsia or polyuria Hematologic/Lymphatic Hematologic/Lymphatic: Denies easy bleeding or easy bruising Allergic/Immunologic Allergic/Immunologic ED: Denies urticaria EXAM Physical Exam Const Vital Signs: 01/23/21 18:42 Temperature 96.4 F L Temperature Source Temporal Pulse Rate 113 H Respiratory Rate 18 Blood Pressure 147/105 H Blood Pressure Mean 119 Pulse Ox 99 Oxygen Delivery Method Room Air Positive well nourished and well developed General Appearance ED: well developed and NAD HEENT atraumatic Eyes PERRL and EOMs intact bilaterally Chest Wall inspection of chest normal Resp normal respiratory effort and clear to auscultation bilaterally Auscultation: Negative for rales, rhonchi or wheezes Cardio regular rhythm Rate: regular rate GI normal to inspection, nondistended, normoactive bowel sounds, non-tender and non-distended Palpation: soft Back/Spine normal to inspection Back/Spine Narrative: No sign of contusion or abrasion on the back. She has some mild right low paraspinal only tenderness. No bony tenderness. Extremity full ROM Extremity Narrative: She is a region over her tibial tuberosity on the right. But her extensor mechanism is fully intact. No patellar tenderness. No tenderness in the bony areas. No deformity. She is mobile and walking on this without difficulty. General Extremety ED: Negative for deformity General Extremity: Negative for deformity Neuro no focal motor deficits, no sensory deficits noted and gait normal Sensorium / Orientation: alert Motor Exam: strength 5/5 throughout Psych mental status grossly normal Skin Skin Narrative: Abrasion to right proximal tibial tuberosity as above. Trauma: abrasion MDM MDM MDM Narrative Medical decision making narrative: I talked with patient about options. She fell. She then started to get discomfort in her back some hours after this. There is no radicular symptoms. I do not think she broke anything. She is mobile and moving and walking. She has an abrasion of her knee but no notable pain. I do not think she needs x-rays. She just started her steroids a couple days ago. She has Flexeril at home. We will give her Toradol here. I will write her off work which she wants. I will give her a few hydrocodone. I did do online prescribing. She has a few small prescriptions for narcotics the most recent of which was back in June. I think the patient is having discomfort but is not seeking narcotic. Discharge Plan Triage Chief Complaint: Back ED Provider: Pietro La Dx/Rx/DC Orders Clinical Impression: Fall from slip, trip, or stumble, Lumbar strain, Contusion of right knee Instructions: ED Back Sprain/Strain, ED Soft Tissue Contusion Prescriptions: New hydrocodone-acetaminophen 5-325 mg tablet 1 tab PO Q6H PRN (Reason: pain) 3 Days Qty: 10 RF: 0 No Action sertraline 100 mg tablet 200 mg PO DAILY RF: 0 fluticasone propionate 50 mcg/actuation spray,suspension 2 spray INTRANASAL DAILY RF: 0 albuterol sulfate 90 mcg/actuation HFA aerosol inhaler 2 puff INHALATION Q4H PRN (Reason: Sob &/Or Wheezing) RF: 0 levofloxacin 500 mg tablet 500 mg PO DAILY Qty: 14 RF: 0 losartan 50 MG tablet 50 mg PO DAILY RF: 0 omeprazole 20 MG capsule,delayed release(DR/EC) 20 mg PO DAILY RF: 0 potassium chloride 10 MEQ tablet 10 meq PO DAILY RF: 0 hydroxyzine HCl 10 MG tablet 10 mg PO Q6H PRN PRN (Reason: Anxiety) RF: 0 omega-3 fatty acids-fish oil 1 EACH capsule 1 ea PO DAILY RF: 0 naproxen 500 MG tablet 500 mg PO BID Qty: 14 RF: 0 cyclobenzaprine 10 MG tablet 10 mg PO TID PRN (Reason: Muscle Spasm) Qty: 20 RF: 0 lidocaine 1 PATCH patch 1 patch TOPICAL DAILY Qty: 3 RF: 0 gabapentin 300 MG capsule 300 mg PO BID RF: 0 levothyroxine 88 mcg Tablet 88 mcg PO DAILY RF: 0 cholecalciferol (vitamin D3) 125 mcg (5,000 unit) Tablet 125 mcg PO DAILY RF: 0 buspirone 5 mg tablet 5 mg PO BID RF: 0 atorvastatin 80 mg tablet 80 mg PO DAILY RF: 0 famotidine 20 mg tablet 20 mg PO DAILY RF: 0 methylprednisolone 4 mg tablets,dose pack See Taper mg PO DAILY RF: 0 Primary Care Provider: Paco Patel Referrals: Paco Patel MD [Primary Care Provider] - 3-5 Days if not improving Disposition Disposition: Home, Self Care
[2021-01-23] MEDS: Ketorolac 60 MG/2 ML Vial IM (19:23)
== END 2021-01-23 19:53 | disposition home or self-care (01) ==
PROVIDERS: Emergency Provider Emergency Medicine; PCP Family Medicine
DX: S39.012A Strain of muscle, fascia and tendon of lower back, initial encounter (principal); S80.01XA Contusion of right knee, initial encounter; W01.0XXA Fall on same level from slipping, tripping and stumbling without subsequent striking against object, initial encounter; Y93.9 Activity, unspecified; Y92.9 Unspecified place or not applicable; J45.909 Unspecified asthma, uncomplicated; Z87.891 Personal history of nicotine dependence
CPT/HCPCS: 96372; 99282

== ENCOUNTER 2021-06-02 21:26 | Emergency (ER) | payer BC, SELFPAY ==
[2021-06-02 21:27] VITALS: BP 141/100; PULSE 102; RESP 16; TEMP 36.4; O2SAT 98; BMI 30.2
--- NOTE | 2021-06-02 21:44 | EKG12_ITS ---
Test Reason : CP Blood Pressure : / mmHG Vent. Rate : 098 BPM Atrial Rate : 098 BPM P-R Int : 124 ms QRS Dur : 086 ms QT Int : 356 ms P-R-T Axes : 061 047 037 degrees QTc Int : 454 ms Normal sinus rhythm Normal ECG Confirmed by MYLES MENSAH MD ([id number]), news videotape editor TANVIR LIGHT ([id number]) on 06/04/2021 1:39:10 PM Referred By: AUREA Confirmed By:MYLES MENSAH MD
[2021-06-02 21:47] VITALS: BP 114/85; PULSE 100; RESP 14; O2SAT 99
--- NOTE | 2021-06-02 21:50 | EDS_ITS ---
HPI History of Present Illness Chief Complaint: Chest Pain Detail of Chief Complaint: Left-sided chest pain Informant: patient Onset/Context/Timing Onset: Today (8:30 PM till arrival) and Yesterday (10 PM to 5 AM this morning) Activity at onset: sudden Timing: Continuous Quality: Positive for Pressure Location: Left Parasternal Current Severity: Mild Maximum Severity: Severe Worsened By: Nothing Relieved By: Nothing Associated Symptoms: Positive for Nausea (Complains of nausea when the pain was more intense); Negative for Vomiting, Diaphoresis, Dyspnea, Cough, Fever, Lightheadedness, Acid Reflux and Palpitations Narrative Narrative: Patient is a 50-year-old woman who presents with left-sided chest discomfort associated with nausea x1 today. The pain started last evening at 10:30 PM while lifting 80 pound boxes at work. It persisted until 5 AM. She denied any alleviating or exacerbating factors. She denied any personal pertaining factors. She denies history of coronary disease. She denies history of PE or DVT. She denies leg pain, swelling discoloration. She is not on any hormonal therapy. She has no risk factors for VTE. Patient does smoke. She does have history of hypertension, hyperlipidemia. There are no family members with coronary disease at a young age. Father had history of coronary disease at the age of 58 and diabetes. Patient endorses recent upper respiratory infection with nasal congestion and cough. The cough was productive of clear-colored sputum. Prior Similar Symptoms: Yes (Did not seek medical attention because the pain was not as bad as it presently is) Recent Illness/Hospitalization: No CVD Risk Factors: Positive for Hypertension, Hypercholesterolemia and Smoking; Negative for Diabetes and Family History 1' </=55 PE Risk Factors: Negative for Recent Travel/Surgery, Recent Immobilization, Prior DVT or PE, Cancer and OCP + Smoking + >/=35 TAD Risk Factors: Positive for Hypertension; Negative for Marfan's Syndrome and Family History [facility] Medical History Allergies Asthma Cellulitis of left ear Chest pain Depression Former smoker Frequent headaches High blood pressure Hives Hypertension Hypothyroidism Mass of left ear Mass of right ear Smoker Thyroid disease Vision problems Home Medications losartan 50 mg PO DAILY 06/01/18 [History Last Taken 06/16/20 08:00] omeprazole 20 mg PO DAILY 02/28/19 [History Last Taken 06/16/20 08:00] potassium chloride 10 meq PO DAILY 06/11/18 [History Last Taken Unknown] hydroxyzine HCl 10 mg PO Q6H PRN PRN 03/02/19 [History Last Taken Unknown] albuterol sulfate 90 mcg/actuation aerosol inhaler 2 puff INHALATION Q4H PRN g 11/08/19 [History Last Taken Unknown] fluticasone propionate 50 mcg/actuation nasal spray,suspension 2 spray INTRANASAL DAILY 11/08/19 [History Last Taken Unknown] omega-3 fatty acids-fish oil 1 ea PO DAILY 11/14/19 [History Last Taken Unknown] naproxen 500 mg PO BID #14 tab 03/07/20 [Rx Last Taken Unknown] lidocaine 1 patch TOPICAL DAILY #3 patch 03/19/20 [Rx Last Taken Unknown] gabapentin 300 mg PO BID 06/11/20 [History Last Taken Unknown] cholecalciferol (vitamin D3) 125 mcg PO DAILY 09/16/20 [History Last Taken Unknown] levothyroxine 88 mcg PO DAILY 09/16/20 [History Last Taken Unknown] atorvastatin 80 mg PO DAILY 01/23/21 [History Last Taken Unknown] buspirone 5 mg PO BID 01/23/21 [History Last Taken Unknown] famotidine 20 mg PO DAILY 01/23/21 [History Last Taken Unknown] duloxetine [Cymbalta] 60 mg PO DAILY 06/02/21 [History Last Taken Unknown] naproxen 500 mg PO BID #14 tab 06/02/21 [Rx Last Taken Unknown] Allergy/AdvReac Type Severity Reaction Status Date / Time latex Allergy Rash Verified 06/02/21 21:28 card board Allergy Rash Uncoded 06/02/21 21:28 Family History Other Alcohol abuse Anemia Anxiety and depression Arthritis Asthma Breast cancer Cancer Diabetes Heart disease High cholesterol History of ulcer disease Hormonal disorder Hypertension Severe allergy Thyroid disorder Surgical History History of delivery History of excision of mass History of hysterectomy History of sinus surgery Ovarian cyst Social History Smoking Status: Current every day smoker tobacco type: cigarettes alcohol intake: never substance use type: does not use additional social history: DOES TAKE ASPIRIN NEEDED DOES TAKE IBUPROFEN NEEDED ROS ROS ED Constitutional Constitutional ED: Denies chills, fever(s), subjective, sweats or weight loss Eyes Eyes: Reports none ENT ENT ED: Reports rhinorrhea; Denies ear pain or sore throat Cardiovascular Cardiovascular: Reports as per HPI and chest pain; Denies orthopnea, palpitati ons, paroxysmal nocturnal dyspnea or racing heartbeat Respiratory/Chest Respiratory/Chest: Reports cough; Denies dyspnea, dyspnea on exertion, orthopnea, paroxysmal nocturnal dyspnea or sputum Gastrointestinal Gastrointestinal: Reports nausea; Denies abdominal pain, constipation, diarrhea, melena, vomiting or other Genitourinary Genitourinary ED: Denies dysuria, hematuria or urinary frequency Musculoskeletal Musculoskeletal: Denies arthralgias, back pain, myalgias or neck pain Integumentary Denies rash Neurologic Neurologic: Denies headache(s), paresthesias or weakness Psychiatric Psychiatric: Reports anxiety and depression; Denies suicidal thoughts Endocrine Endocrinology: Denies polydipsia, polyphagia or polyuria Hematologic/Lymphatic Hematologic/Lymphatic: Denies easy bleeding or easy bruising EXAM Physical Exam Const Vital Signs: 06/02/21 21:27 06/02/21 21:35 06/02/21 21:47 Temperature 97.6 F L Temperature Source Temporal Pulse Rate 102 H 100 Respiratory Rate 16 14 Respiratory Effort Normal Blood Pressure 141/100 H 114/85 H Blood Pressure Mean 113 94 Pulse Ox 98 99 Oxygen Delivery Method Room Air Positive well nourished, well developed and obese General Appearance ED: well developed and NAD; Negative for pallor Nutritional Appearance: obese HEENT Reports TM's clear and moist mucous membranes HEENT Narrative: Uvula midline. No erythema exudate posterior pharynx. normocephalic and atraumatic Tympanic Membrane ED: Yes TM's clear Eyes PERRL and EOMs intact bilaterally General Eye ED: Negative for pale conjunctiva or scleral icterus Neck no lymphadenopathy, supple and no JVD Neck Narrative: Trachea midline. No carotid bruits. Chest Wall palpation of chest normal Chest Narrative: There is significant tenderness over the fourth and fifth left intercostal space and this reproduces patient's pain. Having her push out against resistance pulling towards her chest against resistance causes the left sided chest pain. Having her attempt to cross her arms against resistance causes her pain left side as well. There is no crepitus. There is no bruising noted. Resp normal respiratory effort and clear to auscultation bilaterally Effort and Inspection: respiratory distress and pain with movement Cardio regular rate, regular rhythm, S1 normal heart sound and S2 normal heart sound GI normal to inspection, nondistended, normoactive bowel sounds, soft to palpation, non-tender and non-distended Back/Spine no CVA tenderness and no thoracic nor lumbar tenderness Cervical Spine: Negative for cervical spine tenderness Extremity normal to inspection Extremity Narrative: There is no asymmetry, swelling, discoloration, leg vein distention, palpable cords or tenderness along the distribution of the deep venous system. General Extremety ED: Negative for edema, pulses abnormal or tenderness General Extremity: Negative for edema or pulses abnormal Neuro oriented x3 Sensorium / Orientation: awake and alert Psych Mood & Affect: depressed and anxious Skin no rashes or lesions noted and no wounds General Skin Exam: Negative for jaundice or pallor Heart Score History: Slightly/Non-Suspicious ECG: Normal Age: >45 - <65 years Risk Factors: >/= 3 Risk Factors or History of CAD Score: 3 MDM MDM MDM Narrative Medical decision making narrative: Pain that started with lifting 80 pound boxes is reproducible and normal EKG with pain. The EKG was obtained per nurse protocol. Suspect patient has costochondritis and she recently had an upper respiratory infection. The patient is PERC negative. Patient was observed until 2250. She is had no ectopy. Her chest pain is improved. Will discharge to home EKG Initial EKG: Attestation: I personally reviewed and interpreted this EKG as follows: Interpretation: Sinus Rhythm (Ventricular rate is 98. TX interval is 124 ms. QRS duration 86 ms. QT duration is 3 and 56 ms. [place] is normal. The EKG is normal.) Discharge Plan Triage Chief Complaint: Chest Pain ED Provider: Lobo Mojica Dx/Rx/DC Orders Clinical Impression: Acute costochondritis Instructions: Costochondritis Prescriptions: New naproxen 500 MG tablet 500 mg PO BID Qty: 14 RF: 0 No Action fluticasone propionate 50 mcg/actuation spray,suspension 2 spray INTRANASAL DAILY RF: 0 albuterol sulfate 90 mcg/actuation HFA aerosol inhaler 2 puff INHALATION Q4H PRN (Reason: Sob &/Or Wheezing) RF: 0 losartan 50 MG tablet 50 mg PO DAILY RF: 0 omeprazole 20 MG capsule,delayed release(DR/EC) 20 mg PO DAILY RF: 0 potassium chloride 10 MEQ tablet 10 meq PO DAILY RF: 0 hydroxyzine HCl 10 MG tablet 10 mg PO Q6H PRN PRN (Reason: Anxiety) RF: 0 omega-3 fatty acids-fish oil 1 EACH capsule 1 ea PO DAILY RF: 0 naproxen 500 MG tablet 500 mg PO BID Qty: 14 RF: 0 lidocaine 1 PATCH patch 1 patch TOPICAL DAILY Qty: 3 RF: 0 gabapentin 300 MG capsule 300 mg PO BID RF: 0 levothyroxine 88 mcg Tablet 88 mcg PO DAILY RF: 0 cholecalciferol (vitamin D3) 125 mcg (5,000 unit) Tablet 125 mcg PO DAILY RF: 0 buspirone 5 mg tablet 5 mg PO BID RF: 0 atorvastatin 80 mg tablet 80 mg PO DAILY RF: 0 famotidine 20 mg tablet 20 mg PO DAILY RF: 0 duloxetine [Cymbalta] 20 mg Capsule,Delayed Release(Dr/Ec) 60 mg PO DAILY RF: 0 Primary Care Provider: Paco Patel Referrals: Paco Patel MD [Primary Care Provider] - 3-5 Days if not improving Disposition Disposition: Home, Self Care
[2021-06-02] MEDS: Naproxen 250 MG Tablet 500 MG PO (21:57)
[2021-06-02 22:59] VITALS: BP 102/69; PULSE 78; RESP 16; O2SAT 96
== END 2021-06-02 23:03 | disposition home or self-care (01) ==
PROVIDERS: Emergency Provider Emergency Medicine; PCP Family Medicine; Visit Provider Emergency Medicine
DX: M94.0 Chondrocostal junction syndrome [Tietze] (principal); E11.9 Type 2 diabetes mellitus without complications; I10 Essential (primary) hypertension; E78.5 Hyperlipidemia, unspecified; F17.210 Nicotine dependence, cigarettes, uncomplicated; J45.909 Unspecified asthma, uncomplicated; F32.A Depression, unspecified; E03.9 Hypothyroidism, unspecified; Z79.899 Other long term (current) drug therapy; E66.9 Obesity, unspecified; Z68.30 Body mass index [BMI] 30.0-30.9, adult
CPT/HCPCS: 93005; 99282

== ENCOUNTER 2021-07-07 05:13 | Emergency (ER) | payer BC, SELFPAY ==
[2021-07-07 05:13] VITALS: BP 132/85; PULSE 97; RESP 18; TEMP 36.9; O2SAT 98; BMI 30.9
--- NOTE | 2021-07-07 05:33 | EX.ED.DYSGE1 ---
HPI History of Present Illness Chief Complaint: Back Narrative Narrative: Patient is a 50-year-old female who states she does a lot of standing as well as twisting and bending at work. She denies any direct trauma but states over the past few days she has had increased bilateral low back pain that is worse with motion. She denies any loss of bowel or bladder control or IV drug use. She denies any hematuria or dysuria. She states she has been taking [id number] medications as well as her normal meds without symptom improvement and therefore comes in for evaluation. [facility] Medical History (Updated 07/07/21 @ 05:[address] Landen Borrero, DO) Allergies Asthma Back problem Cellulitis of left ear Chest pain Depression Former smoker Frequent headaches High blood pressure High cholesterol High cholesterol Hives Hypertension Hypothyroidism Mass of left ear Mass of right ear Smoker Thyroid disease Vision problems Vitamin deficiency Home Medications losartan 50 mg PO DAILY 06/01/18 [History Last Taken 06/16/20 08:00] omeprazole 20 mg PO DAILY 06/01/18 [History Last Taken 06/16/20 08:00] potassium chloride 10 meq PO DAILY 06/11/18 [History Last Taken Unknown] hydroxyzine HCl 10 mg PO Q6H PRN PRN 03/02/19 [History Last Taken Unknown] albuterol sulfate 90 mcg/actuation aerosol inhaler 2 puff INHALATION Q4H PRN g 11/08/19 [History Last Taken Unknown] omega-3 fatty acids-fish oil 1 ea PO DAILY 11/14/19 [History Last Taken Unknown] lidocaine 1 patch TOPICAL DAILY #3 patch 03/19/20 [Rx Last Taken Unknown] gabapentin 300 mg PO BID 06/11/20 [History Last Taken Unknown] cholecalciferol (vitamin D3) 125 mcg PO DAILY 09/16/20 [History Last Taken Unknown] levothyroxine 88 mcg PO DAILY 09/16/20 [History Last Taken Unknown] atorvastatin 80 mg PO DAILY 01/23/21 [History Last Taken Unknown] buspirone 5 mg PO BID 01/23/21 [History Last Taken Unknown] famotidine 20 mg PO DAILY 01/23/21 [History Last Taken Unknown] duloxetine [Cymbalta] 60 mg PO DAILY 06/02/21 [History Last Taken Unknown] cyclobenzaprine 10 mg tablet 10 mg PO BID PRN tab 07/06/21 [History Last Taken Unknown] lactobacillus combo no.6 4 billion cell tablet cell PO 07/06/21 [History Last Taken Unknown] magnesium oxide 400 mg PO DAILY 07/06/21 [History Last Taken Unknown] vitamin B complex 1 tab PO DAILY 07/06/21 [History Last Taken Unknown] hydrocodone-acetaminophen 1 tab PO Q6H PRN 3 Days #12 tab 07/07/21 [Rx Last Taken Unknown] methocarbamol 1,000 mg PO 4X/DAY PRN PRN #56 tab 07/07/21 [Rx Last Taken Unknown] Allergy/AdvReac Type Severity Reaction Status Date / Time dog dander Allergy Unknown Other Verified 07/07/21 05:16 grass pollen Allergy Unknown Other Verified 07/07/21 05:16 latex Allergy Rash Verified 07/07/21 05:16 card board Allergy Rash Uncoded 06/02/21 21:28 Family History (Updated 07/06/21 @ 11:44 by Pamela Lloyd) Brother Alcohol abuse Severe allergy Suicide attempt Mother Anemia Anxiety and depression Arthritis Asthma Hormonal disorder Depression Grandmother Arthritis Thyroid disorder Aunt Breast cancer Cancer Thyroid disorder Father Diabetes Heart disease Hypertension High cholesterol History of ulcer disease Sister Seizures Surgical History History of delivery History of excision of mass History of hysterectomy History of sinus surgery Ovarian cyst Social History Smoking Status: Current every day smoker tobacco type: cigarettes alcohol intake: never substance use type: does not use additional social history: DOES TAKE ASPIRIN NEEDED DOES TAKE IBUPROFEN NEEDED ROS ROS ED Constitutional Constitutional ED: Denies chills or fever(s) ENT ENT ED: Denies sore throat Cardiovascular Cardiovascular: Denies chest pain Respiratory/Chest Respiratory/Chest: Denies cough or dyspnea Gastrointestinal Gastrointestinal: Denies abdominal pain, diarrhea, nausea or vomiting Genitourinary Genitourinary ED: Denies dysuria or hematuria Musculoskeletal Musculoskeletal: Reports back pain; Denies myalgias Integumentary Denies rash Neurologic Neurologic: Denies headache(s) or paresthesias Hematologic/Lymphatic Hematologic/Lymphatic: Denies easy bleeding or easy bruising EXAM Physical Exam Const Vital Signs: 07/07/21 05:13 Temperature 98.4 F Temperature Source Temporal Pulse Rate 97 Respiratory Rate 18 Blood Pressure 132/85 H Blood Pressure Mean 100 Pulse Ox 98 Oxygen Delivery Method Room Air Positive well nourished and well developed General Appearance ED: well developed Eyes PERRL and EOMs intact bilaterally Neck supple Resp normal respiratory effort and clear to auscultation bilaterally Cardio regular rate and regular rhythm GI normal to inspection, nondistended, normoactive bowel sounds, non-tender, non-distended and no masses Auscultation: normoactive bowel sounds Palpation: soft Back/Spine Back/Spine Narrative: No bony deformity or step-off of the thoracic or lumbar spine no midline pain with palpation. There is bilateral paralumbar tension and spasm noted that worsens with extension and rotation. Negative straight leg raise. No clonus or Babinski. No saddle anesthesia. Patellar reflexes are +2-4 bilaterally are equal and symmetric Extremity normal to inspection Neuro oriented x3 and CN's II-XII intact bilaterally Sensorium / Orientation: alert Motor Exam: strength 5/5 throughout Psych mental status grossly normal Skin no rashes or lesions noted Skin Narrative: No overlying soft tissue changes to suggest trauma or infection MDM MDM MDM Narrative Medical decision making narrative: Patient presented to the ER with stable vitals and no report or signs of trauma and had no risk factors for cauda equina or epidural abscess. Her history and exam is most consistent with a lumbosacral strain and therefore should be treated with Toradol Norflex and discharged home with symptomatic care. Discharge Plan Triage Chief Complaint: Back ED Provider: Landen Borrero Dx/Rx/DC Orders Clinical Impression: Acute lumbosacral myofascial strain Instructions: Back Safety: Standing, Understanding Lumbosacral Strain, ED Back Sprain/Strain Prescriptions: New hydrocodone-acetaminophen 5-325 mg tablet 1 tab PO Q6H PRN (Reason: pain) 3 Days Qty: 12 RF: 0 methocarbamol 500 mg tablet 1,000 mg PO 4X/DAY PRN PRN (Reason: Muscle pain/spasm) Qty: 56 RF: 0 No Action albuterol sulfate 90 mcg/actuation HFA aerosol inhaler 2 puff INHALATION Q4H PRN (Reason: Sob &/Or Wheezing) RF: 0 cyclobenzaprine 10 mg tablet 10 mg PO BID PRNRF: 0 magnesium oxide 400 mg magnesium capsule 400 mg PO DAILY RF: 0 vitamin B complex Tablet 1 tab PO DAILY RF: 0 lactobacillus combo no.6 4 billion cell tablet PO RF: 0 losartan 50 MG tablet 50 mg PO DAILY RF: 0 omeprazole 20 MG capsule,delayed release(DR/EC) 20 mg PO DAILY RF: 0 potassium chloride 10 MEQ tablet 10 meq PO DAILY RF: 0 hydroxyzine HCl 10 MG tablet 10 mg PO Q6H PRN PRN (Reason: Anxiety) RF: 0 omega-3 fatty acids-fish oil 1 EACH capsule 1 ea PO DAILY RF: 0 lidocaine 1 PATCH patch 1 patch TOPICAL DAILY Qty: 3 RF: 0 gabapentin 300 MG capsule 300 mg PO BID RF: 0 levothyroxine 88 mcg Tablet 88 mcg PO DAILY RF: 0 cholecalciferol (vitamin D3) 125 mcg (5,000 unit) Tablet 125 mcg PO DAILY RF: 0 buspirone 5 mg tablet 5 mg PO BID RF: 0 atorvastatin 80 mg tablet 80 mg PO DAILY RF: 0 famotidine 20 mg tablet 20 mg PO DAILY RF: 0 duloxetine [Cymbalta] 20 mg Capsule,Delayed Release(Dr/Ec) 60 mg PO DAILY RF: 0 Stand Alone Forms: ED Work / School Excuse Primary Care Provider: Paco Patel Referrals: Paco Patel MD [Primary Care Provider] - Activity Restrictions/Additional Instructions: Please continue to stretch and heat your low back to help reduce pain and speed healing Disposition Disposition: Home, Self Care Discharge Date/Time: 07/07/21 06:11
[2021-07-07] MEDS: Ketorolac 30 MG/ML Syringe IM (05:48)
[2021-07-07] MEDS: Orphenadrine 60 MG/2 ML Ampul IM (05:51)
== END 2021-07-07 06:11 | disposition home or self-care (01) ==
PROVIDERS: Emergency Provider Emergency Medicine; PCP Family Medicine; Visit Provider Emergency Medicine
DX: S39.012A Strain of muscle, fascia and tendon of lower back, initial encounter (principal); X50.1XXA Overexertion from prolonged static or awkward postures, initial encounter; Y93.9 Activity, unspecified; Y92.9 Unspecified place or not applicable; J45.909 Unspecified asthma, uncomplicated; F32.A Depression, unspecified; I10 Essential (primary) hypertension; E78.00 Pure hypercholesterolemia, unspecified; E03.9 Hypothyroidism, unspecified; Z79.899 Other long term (current) drug therapy; F17.210 Nicotine dependence, cigarettes, uncomplicated
CPT/HCPCS: 96372; 99282

== ENCOUNTER 2021-10-28 08:03 | Outpatient (CLI) | payer BC, SELFPAY ==
[2021-10-28 09:42] LABS: AST(SGOT) 25 U/L (15-37); Alanine Aminotransfer ALT/SGPT 33 U/L (13-56); Albumin, Serum 3.7 g/dL (3.2-5.0); Alkaline Phosphatase 61 U/L (45-117); Bilirubin, Direct 0.19 mg/dL (0.00-0.30); Cholesterol 148 mg/dL (200); Globulin 3.3 g/dL (2.2-4.2); High Density Lipoprotein 56 mg/dL; T4 Free Direct 1.35 ng/dL (0.76-1.46); Thyroid Stim Hormone (TSH) 1.07 uIU/mL (0.358-3.74); Triglycerides 78 mg/dL; Very Low Density Lipoprotein 16 mg/dL (5-40)
== END 2021-10-28 23:59 | disposition home or self-care (01) ==
LOC: LAB 08:05
PROVIDERS: PCP Family Medicine; Visit Provider Family Medicine
DX: E03.9 Hypothyroidism, unspecified (principal); E78.5 Hyperlipidemia, unspecified
CPT/HCPCS: 36415; 80061; 80076; 84439; 84443

== ENCOUNTER → 2021-11-23 | Outpatient (CLI) | payer BC, SELFPAY ==
[2021-11-23 15:14] LABS: Erythrocyte Sedimentation Rate 13 mm/hr (0-30)
[2021-11-25 13:16] LABS: ANTINUCLEAR ANTIBODIES DIRECT Negative (Negative)
== END | disposition home or self-care (01) ==
LOC: LAB 14:14
PROVIDERS: PCP Family Medicine; Referring Provider Family Medicine; Visit Provider Family Medicine
DX: R53.83 Other fatigue (principal)
CPT/HCPCS: 36415; 85652; 86038; 86225; 86235

== ENCOUNTER 2022-04-30 16:52 | Emergency (ER) | payer BC, SELFPAY ==
[2022-04-30 16:53] VITALS: BP 119/94; PULSE 103; RESP 18; TEMP 36.4; O2SAT 98; BMI 31.2
--- NOTE | 2022-04-30 18:02 | RAD_ITS ---
INDICATION: Cough EXAMINATION/TECHNIQUE: X-RAY - XR Chest 2 Views COMPARISON: 07/24/2019. FINDINGS: The lungs are clear. The cardiomediastinal silhouette is unremarkable. No pleural effusion or pneumothorax. No acute osseous abnormalities. RAD/Chest PA and Lateral IMPRESSION: No acute radiographic abnormalities. Electronically Signed: Brando Pena MD at 18:54 EST ,
--- NOTE | 2022-04-30 18:03 | EX.ED.DYSGE1 ---
HPI History of Present Illness Chief Complaint: General Illness Informant: patient Narrative Narrative: Patient presents with a cough. She states it started about 2 weeks ago. No sputum production. She has had intermittent wheezing. She had nasal congestion but steroids and a Kitty pot stopped that. She had ear pain but that is gone. She has had intermittent dizziness but that is gotten better. She is still coughing though. She does not have chest pain. She does not think she has had fevers now. She has been seen in urgent care twice. First time she was placed on Flonase. She did not take this because she did not like the flowery smell. The second time she went to urgent care she was given steroids. But she does not know what dose this was. She was also given an antibiotic to take if she was not better. She started this antibiotic about 3 days ago but has already stopped it because she thinks it might of sent her blood pressure up. However, she did not check her blood pressure. She does not know what the antibiotic was. Patient is still smoking despite the ongoing cough. She was counseled that smoking is probably not good for her cough and long-term health. [facility] Medical History Allergies Asthma Back problem Cellulitis of left ear Chest pain Chronic neck pain Chronic thoracic back pain Depression Family history of breast cancer Former smoker Frequent headaches High blood pressure High cholesterol High cholesterol Hives Hypertension Hypothyroidism Intertrigo Macromastia Mass of left ear Mass of right ear Shoulder pain Smoker Thyroid disease Vision problems Vitamin deficiency Home Medications losartan 50 mg tablet 50 mg PO DAILY 06/01/18 [History Last Taken 06/16/20 08:00] omeprazole 20 mg capsule,delayed release 20 mg PO DAILY 06/01/18 [History Last Taken 06/16/20 08:00] potassium chloride 10 mEq tablet,extended release(part/cryst) 10 meq PO DAILY 06/11/18 [History Last Taken Unknown] hydroxyzine HCl 10 mg tablet 10 mg PO Q6H PRN PRN Anxiety 03/02/19 [History Last Taken Unknown] albuterol sulfate 90 mcg/actuation aerosol inhaler 2 puff inhalation Q4H PRN Sob &/Or Wheezing 11/08/19 [History Last Taken Unknown] omega-3 fatty acids-fish oil 340 mg-1,000 mg capsule 1 ea PO DAILY 11/14/19 [History Last Taken Unknown] lidocaine 5 % topical patch 1 patch topical DAILY #3 patches 03/19/20 [Rx Last Taken Unknown] gabapentin 300 mg capsule 300 mg PO BID 06/11/20 [History Last Taken Unknown] cholecalciferol (vitamin D3) 125 mcg (5,000 unit) tablet 125 mcg PO DAILY 09/16/20 [History Last Taken Unknown] levothyroxine 88 mcg tablet 88 mcg PO DAILY 09/16/20 [History Last Taken Unknown] atorvastatin 80 mg tablet 80 mg PO DAILY 01/23/21 [History Last Taken Unknown] buspirone 5 mg tablet 5 mg PO BID 01/23/21 [History Last Taken Unknown] famotidine 20 mg tablet 20 mg PO DAILY 01/23/21 [History Last Taken Unknown] duloxetine 20 mg capsule,delayed release (Cymbalta) 60 mg PO DAILY 06/02/21 [History Last Taken Unknown] cyclobenzaprine 10 mg tablet 10 mg PO BID PRN 07/06/21 [History Last Taken Unknown] magnesium oxide 400 mg PO DAILY 07/06/21 [History Last Taken Unknown] vitamin B complex 1 tab PO DAILY 07/06/21 [History Last Taken Unknown] methocarbamol 500 mg tablet 1,000 mg PO 4X/DAY PRN PRN Muscle pain/spasm #56 tabs 07/07/21 [Rx Last Taken Unknown] Allergy/AdvReac Type Severity Reaction Status Date / Time dog dander Allergy Unknown Other Verified 04/30/22 16:54 grass pollen Allergy Unknown Other Verified 04/30/22 16:54 latex Allergy Rash Verified 04/30/22 16:54 card board Allergy Rash Uncoded 04/30/22 16:54 Family History Brother Alcohol abuse Severe allergy Suicide attempt Mother Anemia Anxiety and depression Arthritis Asthma Hormonal disorder Depression Grandmother Arthritis Thyroid disorder Aunt Breast cancer Cancer Thyroid disorder Father Diabetes Heart disease Hypertension High cholesterol History of ulcer disease Sister Seizures Other Family history of breast cancer Surgical History History of delivery History of excision of mass History of hysterectomy History of sinus surgery Ovarian cyst Social History Smoking Status: Current every day smoker tobacco type: cigarettes alcohol intake: never substance use type: does not use additional social history: DOES TAKE ASPIRIN NEEDED DOES TAKE IBUPROFEN NEEDED ROS ROS ED Constitutional Constitutional ED: Denies fever(s) Eyes Eyes: Denies change in vision or diplopia ENT ENT ED: Reports rhinorrhea; Denies ear pain or sore throat Cardiovascular Cardiovascular: Denies chest pain, palpitations or racing heartbeat Respiratory/Chest Respiratory/Chest: Reports cough; Denies sputum Gastrointestinal Gastrointestinal: Denies nausea or vomiting Genitourinary Genitourinary ED: Denies dysuria Musculoskeletal Musculoskeletal: Denies myalgias Integumentary Denies rash Neurologic Neurologic: Denies headache(s) Psychiatric Psychiatric: Reports anxiety and depression Endocrine Endocrinology: Denies polydipsia or polyuria Hematologic/Lymphatic Hematologic/Lymphatic: Denies lymphadenopathy Allergic/Immunologic Allergic/Immunologic ED: Denies mouth swelling, tongue swelling or urticaria EXAM Physical Exam Narrative Exam Narrative: Patient awake alert no acute distress. She is sitting quietly in bed looks very comfortable. Breathing is normal easy and unlabored. She carries on normal conversation. HEENT shows mild clear rhinorrhea. No sinus tenderness at all. She has a trace amount of fluid behind both tympanic membranes but they are not at all red or inflamed. Posterior pharynx is normal color without exudate or swelling. Voice is normal. Neck shows no stridor or JVD. Lungs show just a tiny hint of expiratory wheeze but after a few breaths it does get better. I hear no rhonchi or rales. There is no pain with a deep breath. Heart is regular. Her rate is about 85 now. There is no murmur gallop or rub. Abdomen: Soft and completely nontender : No CVA or suprapubic tenderness Extremities: No edema cords or asymmetry tenderness along deep venous system or distended veins. Peripheral pulses are equal and normal x4. Patient is alert oriented and appropriate. Const Vital Signs: 04/30/22 16:53 04/30/22 17:55 04/30/22 18:55 Temperature 97.6 F L Temperature Source Temporal Pulse Rate 103 H 100 Respiratory Rate 18 17 Respiratory Effort Normal Non-Labored Respiratory Pattern Normal Blood Pressure 119/94 H Blood Pressure Mean 102 Pulse Ox 98 98 Oxygen Delivery Method Room Air Room Air MDM MDM MDM Narrative Medical decision making narrative: My independent interpretation of the patient's PA and lateral chest x-ray shows no acute process. No infiltrate. No cardiomegaly. No fluid overload. No pneumothorax. Final reading by radiology also shows no acute radiographic abnormalities. COVID and influenza are negative. Patient still does have a very slight wheeze. I will give her a dose of Kenalog here. She has albuterol at home. I think she likely has a viral upper respiratory infection but is having some intermittent bronchospasm with it. I do not think she needs to be admitted at that this point. She has no travel surgery immobilization personal or family history of DVT or PE. She is not hypoxic. There is no chest pain or pleuritic pain or leg swelling I do not think she needs D-dimer or CT scan of the chest. Radiography Diagnostic Testing: Clinical Impression(s) from Imaging Studies Chest X-Ray 04/30/22 18:02 IMPRESSION: No acute radiographic abnormalities. Electronically Signed: Brando Pena MD at 18:54 EST , Discharge Plan Triage Chief Complaint: General Illness ED Provider: Pietro La Dx/Rx/DC Orders Clinical Impression: Acute bronchospasm, Viral URI with cough Prescriptions: No Action albuterol sulfate 90 mcg/actuation HFA aerosol inhaler 2 puff INHALATION Q4H PRN (Reason: Sob &/Or Wheezing) cyclobenzaprine 10 mg tablet 10 mg PO BID PRN magnesium oxide 400 mg magnesium capsule 400 mg PO DAILY vitamin B complex Tablet 1 tab PO DAILY losartan 50 MG tablet 50 mg PO DAILY omeprazole 20 MG capsule,delayed release(DR/EC) 20 mg PO DAILY potassium chloride 10 MEQ tablet 10 meq PO DAILY hydroxyzine HCl 10 MG tablet 10 mg PO Q6H PRN PRN (Reason: Anxiety) omega-3 fatty acids-fish oil 1 EACH capsule 1 ea PO DAILY lidocaine 1 PATCH patch 1 patch TOPICAL DAILY Qty: 3 0RF gabapentin 300 MG capsule 300 mg PO BID levothyroxine 88 mcg Tablet 88 mcg PO DAILY cholecalciferol (vitamin D3) 125 mcg (5,000 unit) Tablet 125 mcg PO DAILY buspirone 5 mg tablet 5 mg PO BID Label Comments: TAKE 1 TABLET BY MOUTH EVERY 12 HOURS atorvastatin 80 mg tablet 80 mg PO DAILY Label Comments: Take 1 tablet by mouth daily at bedtime. For cholesterol. famotidine 20 mg tablet 20 mg PO DAILY Label Comments: Take 1 tablet by mouth twice daily. duloxetine [Cymbalta] 20 mg Capsule,Delayed Release(Dr/Ec) 60 mg PO DAILY methocarbamol 500 mg tablet 1,000 mg PO 4X/DAY PRN PRN (Reason: Muscle pain/spasm) Qty: 56 0RF Primary Care Provider: Radha Norton Referrals: Radha Norton MD [Primary Care Provider] - 3-5 Days if not improving Disposition Disposition: Home, Self Care
[2022-04-30 18:55] VITALS: PULSE 100; RESP 17; O2SAT 98
[2022-04-30] MEDS: Triamcinolone Acetonide 40 MG/ML Vial IM (20:37)
== END 2022-04-30 21:00 | disposition home or self-care (01) ==
PROVIDERS: Emergency Provider Emergency Medicine; PCP Family Medicine; Visit Provider Emergency Medicine
DX: J06.9 Acute upper respiratory infection, unspecified (principal); F17.210 Nicotine dependence, cigarettes, uncomplicated; J98.01 Acute bronchospasm; J45.909 Unspecified asthma, uncomplicated; E78.00 Pure hypercholesterolemia, unspecified; I10 Essential (primary) hypertension; E03.9 Hypothyroidism, unspecified; Z79.899 Other long term (current) drug therapy; Z79.890 Hormone replacement therapy; F41.9 Anxiety disorder, unspecified; F32.A Depression, unspecified
CPT/HCPCS: 71046; 87428; 96372; 99282

== ENCOUNTER 2022-08-05 21:28 | Emergency (ER) | payer BC, SELFPAY ==
[2022-08-05 21:29] VITALS: BP 119/85; PULSE 106; RESP 16; TEMP 36.6; O2SAT 98; BMI 31.4
--- NOTE | 2022-08-05 21:55 | CT_ITS ---
STUDY: CT ABDOMEN AND PELVIS WITH CONTRAST REASON FOR EXAM: Female, 51 years old. Left upper quadrant abdominal pain RADIATION DOSAGE (If Supplied By Facility): CTDIvol = ( 14.99 ) mGy, DLP = ( 847.11 ) mGycm TECHNIQUE: IV 100mL Isovue-370 was administered. Transaxial images were obtained from the dome of the diaphragm to the symphysis pubis. Multiplanar coronal and sagittal images were reformatted. Individualized Dose Optimization Techniques Were Used For This CT. COMPARISON: 11/26/2020 FINDINGS: There is increased herniation of the splenic flexure of colon at the posterior left hemidiaphragm, now with overlying atelectasis. Small pericardial effusion. Normal liver. Normal gallbladder and extrahepatic biliary system. Normal spleen. Normal pancreas. Normal bilateral adrenal glands. Redemonstrated small sliding hiatal hernia. Normal small intestine. Normal colon. The appendix is visualized and appears normal. Normal abdominal aorta. No retroperitoneal adenopathy. Normal right kidney. Normal left kidney. Normal urinary bladder. There is absence of the uterus consistent with a prior hysterectomy. Normal abdominal wall. Normal osseous structures. CT/Abdomen/Pelvis W IV Cont ONLY IMPRESSION: Posterior left hemidiaphragm hernia contains a loop of colon. There is overlying left lung base atelectasis. Small pericardial effusion. Electronically Signed: Owen Marrero MD at 23:45 EDT ,
--- NOTE | 2022-08-05 21:55 | EKG12_ITS ---
Test Reason : DYSRHYTHMIA Blood Pressure : / mmHG Vent. Rate : 095 BPM Atrial Rate : 095 BPM P-R Int : 126 ms QRS Dur : 086 ms QT Int : 350 ms P-R-T Axes : 048 035 038 degrees QTc Int : 439 ms Normal sinus rhythm Normal ECG Confirmed by JEANNIE HELMS, JOHAN ([id number]), editor continuity and script TANVIR LIGHT ([id number]) on 08/09/2022 2:31:18 PM Referred By: JAYDEN Confirmed By:SNEHA DENNIS MD
--- NOTE | 2022-08-05 21:56 | ED.VIS.GI ---
HPI HPI - GI History of Present Illness Chief Complaint: Abd Pain Detail of Chief Complaint: Abdominal pain Informant: patient Narrative Narrative: Patient presents with abdominal pain that started 3 days ago. Patient states that over the weekend she had some watery stools after eating some peppers and cabbage. 3 days ago she woke up in the middle night with severe pain in the left upper abdomen. Pain sometimes radiates to her left shoulder and into her left arm. She denies chest pain. Patient denies blood in her stool or black tarry stool. She had nausea but no vomiting. She denies fever. She is never had pain like this before. No history of kidney stones or diverticulitis. Patient has had prior hysterectomy. [facility] Medical History Allergies Asthma Back problem Cellulitis of left ear Chest pain Chronic neck pain Chronic thoracic back pain Depression Family history of breast cancer Former smoker Frequent headaches High blood pressure High cholesterol High cholesterol Hives Hypertension Hypothyroidism Intertrigo Macromastia Mass of left ear Mass of right ear Shoulder pain Smoker Thyroid disease Vision problems Vitamin deficiency Home Medications losartan 50 mg tablet 50 mg PO DAILY 06/01/18 [History Last Taken 06/16/20 08:00] omeprazole 20 mg capsule,delayed release 20 mg PO DAILY 06/01/18 [History Last Taken 06/16/20 08:00] potassium chloride 10 mEq tablet,extended release(part/cryst) 10 meq PO DAILY 06/11/18 [History Last Taken Unknown] hydroxyzine HCl 10 mg tablet 10 mg PO Q6H PRN PRN Anxiety 03/02/19 [History Last Taken Unknown] albuterol sulfate 90 mcg/actuation aerosol inhaler 2 puff inhalation Q4H PRN Sob &/Or Wheezing 11/08/19 [History Last Taken Unknown] omega-3 fatty acids-fish oil 340 mg-1,000 mg capsule 1 ea PO DAILY 11/14/19 [History Last Taken Unknown] lidocaine 5 % topical patch 1 patch topical DAILY #3 patches 03/19/20 [Rx Last Taken Unknown] gabapentin 300 mg capsule 300 mg PO BID 06/11/20 [History Last Taken Unknown] cholecalciferol (vitamin D3) 125 mcg (5,000 unit) tablet 125 mcg PO DAILY 09/16/20 [History Last Taken Unknown] levothyroxine 88 mcg tablet 88 mcg PO DAILY 09/16/20 [History Last Taken Unknown] atorvastatin 80 mg tablet 80 mg PO DAILY 01/23/21 [History Last Taken Unknown] buspirone 5 mg tablet 5 mg PO BID 01/23/21 [History Last Taken Unknown] famotidine 20 mg tablet 20 mg PO DAILY 01/23/21 [History Last Taken Unknown] duloxetine 20 mg capsule,delayed release (Cymbalta) 60 mg PO DAILY 06/02/21 [History Last Taken Unknown] cyclobenzaprine 10 mg tablet 10 mg PO BID PRN Muscle Pain 07/06/21 [History Last Taken Unknown] magnesium oxide 400 mg PO DAILY 07/06/21 [History Last Taken Unknown] vitamin B complex 1 tab PO DAILY 07/06/21 [History Last Taken Unknown] Allergy/AdvReac Type Severity Reaction Status Date / Time dog dander Allergy Unknown Other Verified 08/05/22 21:31 grass pollen Allergy Unknown Other Verified 08/05/22 21:31 Environmental Allergies: Allergy Rash Verified 08/05/22 21:31 Uncoded latex Allergy Rash Verified 08/05/22 21:31 Family History Brother Alcohol abuse Severe allergy Suicide attempt Mother Anemia Anxiety and depression Arthritis Asthma Hormonal disorder Depression Grandmother Arthritis Thyroid disorder Aunt Breast cancer Cancer Thyroid disorder Father Diabetes Heart disease Hypertension High cholesterol History of ulcer disease Sister Seizures Other Family history of breast cancer Surgical History History of delivery History of excision of mass History of hysterectomy History of sinus surgery Ovarian cyst Social History Smoking Status: Current every day smoker tobacco type: cigarettes alcohol intake: never substance use type: does not use additional social history: DOES TAKE ASPIRIN NEEDED DOES TAKE IBUPROFEN NEEDED ROS ROS ED Review of Systems ROS Unobtainable: other Constitutional Constitutional ED: Reports lethargy; Denies chills, fever(s), sweats or weight loss Eyes Eyes: Denies blurry vision, change in vision or diplopia ENT ENT ED: Denies rhinorrhea or sore throat Cardiovascular Cardiovascular: Denies chest pain, orthopnea or racing heartbeat Respiratory/Chest Respiratory/Chest: Denies cough, dyspnea, dyspnea on exertion, orthopnea or sputum Gastrointestinal Gastrointestinal: Reports abdominal pain and nausea; Denies diarrhea or vomiting Genitourinary Genitourinary ED: Denies dysuria, hematuria or urinary frequency Musculoskeletal Musculoskeletal: Denies arthralgias, back pain, myalgias or neck pain Integumentary Denies abscess, Abrasions or rash Neurologic Neurologic: Denies headache(s) or weakness Psychiatric Psychiatric: Denies anxiety, depression or suicidal thoughts Endocrine Endocrinology: Denies polydipsia, polyphagia or polyuria Hematologic/Lymphatic Hematologic/Lymphatic: Denies easy bleeding, easy bruising or lymphadenopathy Allergic/Immunologic Allergic/Immunologic ED: Denies mouth swelling, tongue swelling or urticaria EXAM Physical Exam Const Vital Signs: 08/05/22 21:29 Temperature 97.8 F Temperature Source Temporal Pulse Rate 106 H Respiratory Rate 16 Blood Pressure 119/85 H Blood Pressure Mean 96 Pulse Ox 98 Oxygen Delivery Method Room Air Positive well nourished and well developed General Appearance ED: well developed and NAD HEENT Reports TM's clear and moist mucous membranes normocephalic and atraumatic; Negative for trauma or tenderness Tympanic Membrane ED: Yes TM's clear Eyes PERRL and EOMs intact bilaterally General Eye ED: Negative for pale conjunctiva or scleral icterus Neck no lymphadenopathy, supple and no JVD General: Negative for tenderness Chest Wall inspection of chest normal and palpation of chest normal Chest: Negative for tenderness Resp normal respiratory effort and clear to auscultation bilaterally Effort and Inspection: Negative for respiratory distress or pain with movement Auscultation: Negative for rhonchi, wheezes or diminished lung sounds Cardio regular rate, regular rhythm, S1 normal heart sound, S2 normal heart sound and no murmurs Peripheral Pulses: pulses 2+ throughout GI normal to inspection, nondistended, normoactive bowel sounds, soft to palpation, non-distended and no masses GI Narrative: Tenderness palpation over the left upper quadrant and left lower quadrant with guarding. There is no rebound, rigidity, or. Signs. No mass palpated. Back/Spine no CVA tenderness and no thoracic nor lumbar tenderness Extremity normal to inspection General Extremety ED: Negative for edema General Extremity: Negative for edema Neuro oriented x3, CN's II-XII intact bilaterally, no sensory deficits noted and gait normal Sensorium / Orientation: awake, alert, oriented to person, oriented to place and oriented to time Motor Exam: strength 5/5 throughout and strength abnormal Psych mental status grossly normal Skin no rashes or lesions noted and no wounds MDM MDM MDM Narrative Medical decision making narrative: Patient per ounce with a history of left upper abdomen pain. Pain will radiate to the shoulder blade and front shoulder at times. Given her age I did perform an EKG which showed a sinus rhythm with a rate of 95 bpm with no acute ST segment changes. Troponin was normal. Patient had a CBC with differential that was normal. Chemistries normal. LFTs normal. Lactate normal. Lipase normal. I did order a CT scan of the abdomen and pelvis to evaluate further her abdominal pain. Care of patient turned over to evening physician awaiting CT result and final disposition. Urinalysis also ordered and pending. At this time etiology of her abdominal pain is unclear. Lab Data Labs: Laboratory Results - last 24 hr 08/05/22 08/05/22 08/05/22 22:15 22:15 22:15 WBC 9.7 RBC 4.60 Hgb 13.2 Hct 41.1 MCV 89.3 MCH 28.7 MCHC 32.1 RDW Std Deviation 44.3 H RDW Coeff of Singh 13.6 Plt Count 182 MPV 11.4 Immature Gran % (Auto) 0.300 Neut % (Auto) 64.3 Lymph % (Auto) 22.3 [place] % (Auto) 10.5 H Eos % (Auto) 2.3 Baso % (Auto) 0.3 Absolute Neuts (auto) 6.2 Absolute Lymphs (auto) 2.15 Nucleated RBC % 0 Sodium 140 Potassium 4.2 Chloride 103 Carbon Dioxide 29.0 Anion Gap 8 BUN 11 Creatinine 0.75 Estim Creat Clear Calc 78.35 Est GFR (MDRD) Af Amer 105 Est GFR (MDRD) Non-Af 87 BUN/Creatinine Ratio 14.6 Glucose 107 H Lactic Acid 0.9 Calcium 8.9 Total Bilirubin 0.50 AST 14 L ALT 29 Alkaline Phosphatase 72 Troponin I High Sens 4 Total Protein 7.0 Albumin 3.3 Globulin 3.7 Albumin/Globulin Ratio 0.9 Lipase 74 EKG Initial EKG: Attestation: I personally reviewed and interpreted this EKG as follows: Comments: Sinus rhythm with a rate of 95 bpm with no acute ST segment changes Discharge Plan Triage Chief Complaint: Abd Pain ED Provider: Warren Arcos Dx/Rx/DC Orders Clinical Impression: Abdominal pain Prescriptions: No Action albuterol sulfate 90 mcg/actuation HFA aerosol inhaler 2 puff INHALATION Q4H PRN (Reason: Sob &/Or Wheezing) cyclobenzaprine 10 mg tablet 10 mg PO BID PRN (Reason: Muscle Pain) magnesium oxide 400 mg magnesium capsule 400 mg PO DAILY vitamin B complex Tablet 1 tab PO DAILY losartan 50 MG tablet 50 mg PO DAILY omeprazole 20 MG capsule,delayed release(DR/EC) 20 mg PO DAILY potassium chloride 10 MEQ tablet 10 meq PO DAILY hydroxyzine HCl 10 MG tablet 10 mg PO Q6H PRN PRN (Reason: Anxiety) omega-3 fatty acids-fish oil 1 EACH capsule 1 ea PO DAILY lidocaine 1 PATCH patch 1 patch TOPICAL DAILY Qty: 3 0RF gabapentin 300 MG capsule 300 mg PO BID levothyroxine 88 mcg Tablet 88 mcg PO DAILY cholecalciferol (vitamin D3) 125 mcg (5,000 unit) Tablet 125 mcg PO DAILY buspirone 5 mg tablet 5 mg PO BID Label Comments: TAKE 1 TABLET BY MOUTH EVERY 12 HOURS atorvastatin 80 mg tablet 80 mg PO DAILY Label Comments: Take 1 tablet by mouth daily at bedtime. For cholesterol. famotidine 20 mg tablet 20 mg PO DAILY Label Comments: Take 1 tablet by mouth twice daily. duloxetine [Cymbalta] 20 mg Capsule,Delayed Release(Dr/Ec) 60 mg PO DAILY Primary Care Provider: Radha Norton Referrals: Radha Norton MD [Primary Care Provider] -
[2022-08-05] MEDS: 0.9% Normal Saline 1,000 ML 125 ML IV (22:14)
[2022-08-05] MEDS: Ondansetron 4 MG/2 ML Vial IV (22:15)
[2022-08-05] MEDS: Morphine 4 MG/ML Syringe IV (22:15)
[2022-08-05 22:25] LABS: Absolute Lymphocyte Count 2.15 X10^3/uL (0.83-4.51); Absolute Neutrophil Count 6.2 X10^3/uL (2.0-7.7); Basophil# 0.03 X10^3/uL; Basophil% 0.3 % (0-1); Eosinophil# 0.22 X10^3/uL; Eosinophils% 2.3 % (0-5); Hematocrit 41.1 % (37-47); Hemoglobin 13.2 g/dL (12.0-15.0); Lymphocyte # 2.15 X10^3/ul (0.83-4.51); Lymphocyte % 22.3 % (19-41); Mean Corp Hgb Conc 32.1 g/dL (32-36); Mean Corpuscular Hgb 28.7 pg (27.0-32.0); Mean Corpuscular Volume 89.3 fL (81-99); Mean Platelet Vol. 11.4 fl (6.2-12.0); Monocyte# 1.01 X10^3/uL; Monocyte% 10.5 % (0-10); NRBC Flagged by Analyzer 0 % (0-5); Neutrophil # 6.22 X10^3/uL (2.7-7.7); Neutrophil % 64.3 % (47-70); Platelet Count 182 K/mm3 (150-450); RBC Distribution Width CV 13.6 % (11.6-14.6); RBC Distribution Width SD 44.3 fl (35.1-43.9); White Blood Count 9.7 K/mm3 (4.4-11.0)
[2022-08-05 22:48] LABS: Lactic Acid 0.9 mmol/L (0.4-1.9)
[2022-08-05 22:50] LABS: ALB/GLOB Ratio 0.9 RATIO (0.9-2.4); AST(SGOT) 14 U/L (15-37); Alanine Aminotransfer ALT/SGPT 29 U/L (13-56); Albumin, Serum 3.3 g/dL (3.2-5.0); Alkaline Phosphatase 72 U/L (45-117); Anion Gap 8 (5-15); BUN 11 mg/dL (7-18); BUN/Creat Ratio 14.6 RATIO (10-20); Calcium,Total 8.9 mg/dL (8.5-10.1); Chloride 103 mmol/L (98-107); Creatinine, Serum 0.75 mg/dL (0.55-1.02); EST Glomerular Filtration Rate 87 mL/min (>60); Est Glom Filt Rate - Afr Amer 105 mL/min (>60); Estimated Creatinine Clearance 78.35 ml/min; Globulin 3.7 g/dL (2.2-4.2); Glucose 107 mg/dL (74-106); Lipase 74 U/L (13-75); Potassium 4.2 mmol/L (3.5-5.1); Sodium Level 140 mmol/L (136-145); Troponin-I HS 4 pg/mL (3.0-54.0)
[2022-08-05 23:49] LABS: Bacteria 0 SEEN /hpf (None Seen); Mucous, Urine 0 SEEN /hpf (<or=2+); Red Blood Cells-Urine 0 SEEN /hpf (0-5); Squamous Epithelial Cells - UA 0 SEEN /hpf (5-10); White Blood Cells 0 SEEN /hpf (0-5)
[2022-08-05 23:50] LABS: Color, Urine Yellow (Yellow); Glucose, Dipstick Normal (Normal); Ketone-Dipstick Negative (Negative); Leukocyte Esterase-Dipstick Negative /ul (Negative); Nitrite-Dipstick Negative (Negative); Occult Blood-Urine Negative /ul (Negative); Protein-Dipstick Negative (Negative); Urine Bilirubin Dipstick Negative (Negative); Urine Clarity Clear (Clear); Urine Urobilinogen Normal (Normal)
[2022-08-06 00:32] VITALS: BP 104/73; PULSE 90; RESP 16; O2SAT 95
[2022-08-06 01:08] VITALS: BP 104/73; PULSE 90; RESP 16; O2SAT 95
== END 2022-08-06 01:08 | disposition home or self-care (01) ==
PROVIDERS: Emergency Provider Emergency Medicine; PCP Family Medicine; Visit Provider Emergency Medicine
DX: R10.9 Unspecified abdominal pain (principal); Z90.710 Acquired absence of both cervix and uterus; I10 Essential (primary) hypertension; J45.909 Unspecified asthma, uncomplicated; Z79.899 Other long term (current) drug therapy; E03.9 Hypothyroidism, unspecified; E78.00 Pure hypercholesterolemia, unspecified; F32.A Depression, unspecified; G89.29 Other chronic pain; M54.2 Cervicalgia; F17.210 Nicotine dependence, cigarettes, uncomplicated
CPT/HCPCS: 74177; 80053; 81001; 83605; 83690; 84484; 85025; 93005; 96361; 96374; 96375; 99282; J7030; Q9967; A4216; J2405

== ENCOUNTER 2022-08-08 16:17 | Emergency (ER) | payer BC, SELFPAY ==
[2022-08-08 16:18] VITALS: BP 144/95; PULSE 102; RESP 20; TEMP 36.6; O2SAT 100; BMI 30.7
[2022-08-08] MEDS: Dicyclomine 20 MG/2 ML Vial IM (17:24)
[2022-08-08] MEDS: Ondansetron ODT 4 MG Tablet PO (17:24)
[2022-08-08] MEDS: Ketorolac 60 MG/2 ML Vial IM (17:24)
--- NOTE | 2022-08-08 17:40 | RAD_ITS ---
STUDY: X-RAY - ACUTE ABDOMINAL SERIES REASON FOR EXAM: Female, 51 years old. luq llq pain TECHNIQUE: Single view of the chest. Supine, 5 images 3 view(s) of the abdomen were obtained. COMPARISON: Chest x-ray April 30, 2022 FINDINGS: The lungs are clear and expanded. Normal size heart. Normal mediastinum and surendra. Normal visualized pulmonary arteries. Normal visualized aortic arch and descending thoracic aorta. Increased stool. Radiodense pill right lower quadrant. There is a non-specific bowel gas pattern. The soft tissue structures of the abdomen and pelvis are unremarkable. Mild dextroconvex scoliosis. RAD/Acute Abdomen Inc Chest IMPRESSION: Increased stool otherwise Normal x-ray examination of the chest, abdomen, and pelvis. Electronically Signed: Gabino Patel MD at 18:31 EDT ,
[2022-08-08 18:19] VITALS: RESP 18
--- NOTE | 2022-08-08 18:35 | EX.ED.DYSGE1 ---
HPI History of Present Illness Chief Complaint: Abd Pain Narrative Narrative: Patient is a 51-year-old female who is presenting to the ER with chief complaint left upper quadrant pain. Patient was just here 2 days ago. Patient had lab work and also CT of the abdomen pelvis done 2 days ago. Patient had a left elevated hemidiaphragm, and noted hernia as well. Patient has a surgery appointment on this week. Patient says that last weekend she had several episodes of diarrhea. She had no bowel movements this week until today where she had small hard stools. Patient has been passing flatulence no difficulty. Patient was sent home with a prescription of Drain 2 days ago. Patient is not using any stool softeners. Patient is back because her pain has returned and patient states that she cannot deal with the pain until . Patient has not tried taking any other [id number] products to help with pain, no other stool softeners or anything else lnkh-iii-[id number] to help with her symptoms. Patient has no fever or chills. No headache. No chest pain or shortness of breath. No urinary complaints, patient was constipated today, no bowel movements this week in the past, and diarrhea last weekend. Patient did not take any Imodium this past week. [facility] Medical History Allergies Asthma Back problem Cellulitis of left ear Chest pain Chronic neck pain Chronic thoracic back pain Depression Family history of breast cancer Former smoker Frequent headaches High blood pressure High cholesterol High cholesterol Hives Hypertension Hypothyroidism Intertrigo Macromastia Mass of left ear Mass of right ear Shoulder pain Smoker Thyroid disease Vision problems Vitamin deficiency Home Medications losartan 50 mg tablet 50 mg PO DAILY 06/01/18 [History Last Taken 06/16/20 08:00] omeprazole 20 mg capsule,delayed release 20 mg PO DAILY 06/01/18 [History Last Taken 06/16/20 08:00] potassium chloride 10 mEq tablet,extended release(part/cryst) 10 meq PO DAILY 06/11/18 [History Last Taken Unknown] hydroxyzine HCl 10 mg tablet 10 mg PO Q6H PRN PRN Anxiety 03/02/19 [History Last Taken Unknown] albuterol sulfate 90 mcg/actuation aerosol inhaler 2 puff inhalation Q4H PRN Sob &/Or Wheezing 11/08/19 [History Last Taken Unknown] omega-3 fatty acids-fish oil 340 mg-1,000 mg capsule 1 ea PO DAILY 11/14/19 [History Last Taken Unknown] lidocaine 5 % topical patch 1 patch topical DAILY #3 patches 03/19/20 [Rx Last Taken Unknown] gabapentin 300 mg capsule 300 mg PO BID 06/11/20 [History Last Taken Unknown] cholecalciferol (vitamin D3) 125 mcg (5,000 unit) tablet 125 mcg PO DAILY 09/16/20 [History Last Taken Unknown] levothyroxine 88 mcg tablet 88 mcg PO DAILY 09/16/20 [History Last Taken Unknown] atorvastatin 80 mg tablet 80 mg PO DAILY 01/23/21 [History Last Taken Unknown] buspirone 5 mg tablet 5 mg PO BID 01/23/21 [History Last Taken Unknown] famotidine 20 mg tablet 20 mg PO DAILY 01/23/21 [History Last Taken Unknown] duloxetine 20 mg capsule,delayed release (Cymbalta) 60 mg PO DAILY 06/02/21 [History Last Taken Unknown] cyclobenzaprine 10 mg tablet 10 mg PO BID PRN Muscle Pain 07/06/21 [History Last Taken Unknown] magnesium oxide 400 mg PO DAILY 07/06/21 [History Last Taken Unknown] vitamin B complex 1 tab PO DAILY 07/06/21 [History Last Taken Unknown] hydrocodone-acetaminophen 5-325mg 5mg-325mg 1 tab PO Q6H PRN PRN Pain 3 days #12 TABLETS 08/06/22 [Rx Last Taken Unknown] dicyclomine 10 mg capsule 10 mg PO TIDAC #20 CAPSULES 08/08/22 [Rx Last Taken Unknown] ondansetron 4 mg disintegrating tablet 4 mg PO Q8H PRN PRN Nausea #10 tabs 08/08/22 [Rx Last Taken Unknown] Allergy/AdvReac Type Severity Reaction Status Date / Time dog dander Allergy Unknown Other Verified 08/08/22 16:39 grass pollen Allergy Unknown Other Verified 08/08/22 16:39 Environmental Allergies: Allergy Rash Verified 08/08/22 16:39 Uncoded latex Allergy Rash Verified 08/08/22 16:39 Family History Brother Alcohol abuse Severe allergy Suicide attempt Mother Anemia Anxiety and depression Arthritis Asthma Hormonal disorder Depression Grandmother Arthritis Thyroid disorder Aunt Breast cancer Cancer Thyroid disorder Father Diabetes Heart disease Hypertension High cholesterol History of ulcer disease Sister Seizures Other Family history of breast cancer Surgical History History of delivery History of excision of mass History of hysterectomy History of sinus surgery Ovarian cyst Social History Smoking Status: Current every day smoker tobacco type: cigarettes alcohol intake: never substance use type: does not use additional social history: DOES TAKE ASPIRIN NEEDED DOES TAKE IBUPROFEN NEEDED ROS ROS ED ROS Narrative REVIEW OF SYSTEMS: Unless otherwise stated in this report the patient's positive and negative responses for review of systems for constitutional, eyes, ENT, cardiovascular, respiratory, gastrointestinal, neurological, , musculoskeletal, and integument systems and related systems to the presenting problem are either stated in the history of present illness or were not pertinent or were negative for the symptoms and/or complaints related to the presenting medical problem. EXAM Physical Exam Narrative Exam Narrative: Vital signs reviewed and patient is not hypoxic. General: The patient appears well and in no apparent distress. Patient is resting comfortably on cart. Not toxic, lethargic, or listless. Skin: Warm, dry, no pallor noted. There is no rash noted. Head: Normocephalic, atraumatic Eye: Normal conjunctiva, no drainage, EOMI. PERRL. Ears, Nose, Mouth, and Throat: oral mucosa is moist. Nares patent. Cardiovascular: Regular Rate and Rhythm, no murmurs, gallops, or rubs Respiratory: Patient is in no distress, no accessory muscle use, lungs are clear to auscultation, no wheezing, rales or rhonchi Back: non-tender, no CVA tenderness bilaterally to percussion. NO CTLS midline or paracervicl tenderness to palpation. GI: Soft, moderate tenderness to palpation to left upper quadrant, no pain in right upper quadrant, right lower quadrant, no flank pain bilateral. No peritoneal signs. Patient has hypoactive bowel sounds, minimal tenderness to palpation left lower quadrant, no suprapubic tenderness palpation, otherwise, no masses appreciated. No rebound, guarding, or rigidity noted. Musculoskeletal: The patient has full range of motion of all extremities and joints with no difficulty. Patient has no motor, no sensory deficits. Neurological: A&O x4, normal speech, no focal neurological deficits. Psychiatric: Cooperative Const Vital Signs: 08/08/22 16:18 08/08/22 18:19 Temperature 98 F Temperature Source Temporal Pulse Rate 102 H Respiratory Rate 20 H 18 Blood Pressure 144/95 H Blood Pressure Mean 111 Pulse Ox 100 Oxygen Delivery Method Room Air Room Air MDM MDM Radiography X-Ray: Read by ED Physician (X-ray read by Dr. Lobato. No cardiopulm disease, infiltrate, no effusion. No air-fluid levels, nonspecific bowel gas pattern, no free air, no obstruction.) Diagnostic Testing: Clinical Impression(s) from Imaging Studies Acute Abdomen Series 08/08/22 17:40 IMPRESSION: Increased stool otherwise Normal x-ray examination of the chest, abdomen, and pelvis. Electronically Signed: Gabino Patel MD at 18:31 EDT , Treatment and Re-Evaluation :: Patient was given Zofran, Bentyl and Toradol. Patient's pain did improve. Patient's abdominal/chest x-ray shows no acute pathology. Patient has signs and symptoms of constipation. Patient was educated on using mineral oil and mag citrate at home, she will increase fluids. Patient was sent home with prescription for Zofran and Bentyl. Patient has a surgical appointment on . Patient has no signs of obstruction or free air from new changes from CT that was just done 2 days ago. Discharge Plan Triage Chief Complaint: Abd Pain ED Provider: Jone Lobato Dx/Rx/DC Orders Clinical Impression: Abdominal pain, Constipation Instructions: Abdominal Pain, ED Constipation (Adult) Prescriptions: New ondansetron [ondansetron] 4 mg tablet,disintegrating 4 mg PO Q8H PRN PRN (Reason: Nausea) Qty: 10 0RF dicyclomine 10 mg capsule 10 mg PO TIDAC Qty: 20 0RF Rx Instructions: Take 2 tablets every 6 hours as needed abdominal cramping No Action albuterol sulfate 90 mcg/actuation HFA aerosol inhaler 2 puff INHALATION Q4H PRN (Reason: Sob &/Or Wheezing) cyclobenzaprine 10 mg tablet 10 mg PO BID PRN (Reason: Muscle Pain) magnesium oxide 400 mg magnesium capsule 400 mg PO DAILY vitamin B complex Tablet 1 tab PO DAILY losartan 50 MG tablet 50 mg PO DAILY omeprazole 20 MG capsule,delayed release(DR/EC) 20 mg PO DAILY potassium chloride 10 MEQ tablet 10 meq PO DAILY hydroxyzine HCl 10 MG tablet 10 mg PO Q6H PRN PRN (Reason: Anxiety) omega-3 fatty acids-fish oil 1 EACH capsule 1 ea PO DAILY lidocaine 1 PATCH patch 1 patch TOPICAL DAILY Qty: 3 0RF gabapentin 300 MG capsule 300 mg PO BID levothyroxine 88 mcg Tablet 88 mcg PO DAILY cholecalciferol (vitamin D3) 125 mcg (5,000 unit) Tablet 125 mcg PO DAILY buspirone 5 mg tablet 5 mg PO BID Label Comments: TAKE 1 TABLET BY MOUTH EVERY 12 HOURS atorvastatin 80 mg tablet 80 mg PO DAILY Label Comments: Take 1 tablet by mouth daily at bedtime. For cholesterol. famotidine 20 mg tablet 20 mg PO DAILY Label Comments: Take 1 tablet by mouth twice daily. duloxetine [Cymbalta] 20 mg Capsule,Delayed Release(Dr/Ec) 60 mg PO DAILY hydrocodone-acetaminophen 5-325 mg tablet 1 tab PO Q6H PRN PRN (Reason: Pain) 3 Days Qty: 12 0RF Primary Care Provider: Radha Norton Referrals: Radha Norton MD [Primary Care Provider] - Activity Restrictions/Additional Instructions: Use [id number] MiraLAX twice a day for the next 3 to 4 days. Use 1-2 bottles of mineral oil daily for the next couple days. Increase fluids. Use fleets enemas if needed. Use prune juice or apple juice as needed. Follow-up with your surgery appointment on . Disposition Disposition: Home, Self Care
[2022-08-08 19:11] VITALS: BP 126/86; PULSE 79; RESP 16; TEMP 36.1; O2SAT 97
== END 2022-08-08 19:20 | disposition home or self-care (01) ==
PROVIDERS: Emergency Provider Emergency Medicine; PCP Family Medicine; Visit Provider Emergency Medicine
DX: R10.9 Unspecified abdominal pain (principal); K59.00 Constipation, unspecified; I10 Essential (primary) hypertension; Z79.899 Other long term (current) drug therapy; J45.909 Unspecified asthma, uncomplicated; E03.9 Hypothyroidism, unspecified; E78.00 Pure hypercholesterolemia, unspecified; F32.A Depression, unspecified; Z90.710 Acquired absence of both cervix and uterus; F17.210 Nicotine dependence, cigarettes, uncomplicated
CPT/HCPCS: 74022; 96372; 99283

== ENCOUNTER → 2022-08-20 | Outpatient (CLI) | payer BC, SELFPAY ==
--- NOTE | 2022-08-20 07:53 | CT_ITS ---
STUDY: CT CHEST T ABDOMEN WITH CONTRAST REASON FOR EXAM: Female, 51 years old. Possible hernia. Left-sided chest pain and abdominal pain. RADIATION DOSAGE (If Supplied By Facility): CTDIvol = ( 14.62 ) mGy, DLP = ( 1129.52 ) mGycm TECHNIQUE: Transaxial imaging was performed following intravenous administration of Oral and amp; IV Readi-CAT and amp; 100mL Isovue-300. Individualized dose optimization techniques were used for this CT. COMPARISON: No relevant priors. FINDINGS: CHEST There is elevation of the posterior aspect of the left hemidiaphragm in keeping with a Bochdalek type diaphragmatic eventration. No focal herniation is seen. No evidence of Minimal increased markings in the left lung base. This represents a focal area of scarring. There is no demonstrated pleural abnormality. No coronary artery calcification is seen. Normal mediastinum. Normal hilar regions. Normal unenhanced pulmonary arteries. Normal aorta arch and descending thoracic aorta. Normal osseous structures. There is no demonstrated abnormality of the visualized upper abdomen. 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 No definite hernia is seen through the diaphragm. Normal liver. Normal gallbladder and extrahepatic biliary system. Normal spleen. Normal pancreas. Normal bilateral adrenal glands. Normal right kidney. Normal left kidney. There is a small hiatal hernia. Normal small intestine. Large amount of fecal material is seen in the colon. The appendix is visualized and appears normal. Normal abdominal aorta. Normal inferior vena cava. Normal retroperitoneum. Normal abdominal wall. Normal osseous structures. 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 Large amount of fecal material is seen in the colon. Electronically Signed: Quique Henriquez MD at 10:53 EDT ,
== END | disposition home or self-care (01) ==
LOC: CT 07:49
PROVIDERS: PCP Family Medicine; Referring Provider Surgery; Visit Provider Surgery
DX: R07.9 Chest pain, unspecified (principal); R10.9 Unspecified abdominal pain
CPT/HCPCS: 71260; 74160; Q9967

== ENCOUNTER → 2022-09-30 | Outpatient (CLI) | payer BC, SELFPAY ==
--- NOTE | 2022-09-30 16:13 | RAD_ITS ---
STUDY: X-RAY - SACRUM/COCCYX REASON FOR EXAM: Female, 51 years old. Fall 4 days ago. Pain. TECHNIQUE: 3 view(s) of the sacrum and coccyx were obtained. COMPARISON: None. FINDINGS: Normal bilateral sacroiliac joints. Normal visualized sacral ala and fused sacral bodies. Normal sacrococcygeal junction with a normal angulation. Normal coccygeal segments. No fracture or dislocation. No destructive osseous pathology. The presacral soft tissue structures are unremarkable. RAD/Sacrum-Coccyx min 2 Views IMPRESSION: Normal x-rays of the sacrum and coccyx. Electronically Signed: Conrad Eckert DO at 19:57 EDT ,
== END | disposition home or self-care (01) ==
LOC: MTRAD 16:11
PROVIDERS: PCP Family Medicine; Referring Provider Family Medicine; Visit Provider Family Medicine
DX: M53.3 Sacrococcygeal disorders, not elsewhere classified (principal)
CPT/HCPCS: 72220

== ENCOUNTER → 2022-10-27 | Outpatient (CLI) | payer BC, SELFPAY ==
--- NOTE | 2022-10-27 15:43 | BI_ITS ---
MAMMOGRAPHY - BILATERAL SCREENING REASON FOR EXAM: Female, 51 years old. Routine annual screening examination. PERTINENT HISTORY: Aunt with breast cancer. TECHNIQUE: Digital bilateral breast eran (3D mammographic acquisition) in the CC and MLO projections. 2-D mediolateral oblique (MLO) and craniocaudad (CC) views of both breasts were obtained. CAD: Full Field Digital Mammography with Computer Added Detection was performed. COMPARISON: Comparison is made with prior study dated July 16, 2020 and May 07, 2019. FINDINGS: Breast Composition: The breasts are heterogeneously dense, which may obscure small masses. There are no dominant masses or suspicious calcifications. Stable small benign-appearing bilateral axillary lymph nodes. No other significant abnormalities are identified. There has been no significant change since the prior study. BI/SCRN MAMM (CAD)W/ERAN BILAT IMPRESSION: Stable bilateral screening mammogram. Yearly follow-up mammogram recommended. (A) ASSESSMENT CATEGORY: BIRADS Category 2: Benign. A letter regarding these results will be sent to the patient by the facility within 30 days. Approximately 10% of breast cancers are not detected by mammography. A normal mammogram should not delay biopsy of a clinically suspicious abnormality. [id number] Electronically Signed: Quique Henriquez MD at 8:31 EDT ,
== END | disposition home or self-care (01) ==
LOC: OPBI 15:42
PROVIDERS: PCP Family Medicine; Referring Provider Nurse Practitioner Women's Health; Visit Provider Nurse Practitioner Women's Health
DX: Z12.31 Encounter for screening mammogram for malignant neoplasm of breast (principal); Z80.3 Family history of malignant neoplasm of breast
CPT/HCPCS: 77063; 77067

== ENCOUNTER → 2023-01-20 | Outpatient (CLI) | payer BC, SELFPAY ==
[2023-01-20 09:44] LABS: Absolute Lymphocyte Count 2.22 X10^3/uL (0.83-4.51); Absolute Neutrophil Count 3.4 X10^3/uL (2.0-7.7); Basophil# 0.03 X10^3/uL; Basophil% 0.5 % (0-1); Eosinophil# 0.25 X10^3/uL; Eosinophils% 3.9 % (0-5); Hematocrit 43.6 % (37-47); Hemoglobin 14.2 g/dL (12.0-15.0); Lymphocyte # 2.22 X10^3/ul (0.83-4.51); Lymphocyte % 34.3 % (19-41); Mean Corp Hgb Conc 32.6 g/dL (32-36); Mean Corpuscular Hgb 28.9 pg (27.0-32.0); Mean Corpuscular Volume 88.8 fL (81-99); Mean Platelet Vol. 11.3 fl (6.2-12.0); Monocyte# 0.51 X10^3/uL; Monocyte% 7.9 % (0-10); NRBC Flagged by Analyzer 0 % (0-5); Neutrophil # 3.44 X10^3/uL (2.7-7.7); Neutrophil % 53.1 % (47-70); Platelet Count 202 K/mm3 (150-450); RBC Distribution Width CV 13.3 % (11.6-14.6); RBC Distribution Width SD 43.6 fl (35.1-43.9); Red Blood Count 4.91 M/mm3 (4.2-5.4); White Blood Count 6.5 K/mm3 (4.4-11.0)
[2023-01-20 10:54] LABS: AST(SGOT) 21 U/L (15-37); Alanine Aminotransfer ALT/SGPT 30 U/L (13-56); Albumin, Serum 3.5 g/dL (3.2-5.0); Alkaline Phosphatase 65 U/L (45-117); Anion Gap 6 (5-15); BUN 11 mg/dL (7-18); BUN/Creat Ratio 12.2 RATIO (10-20); Calcium,Total 8.8 mg/dL (8.5-10.1); Chloride 106 mmol/L (98-107); Cholesterol 130 mg/dL (200); EST Glomerular Filtration Rate 70 mL/min (>60); Est Glom Filt Rate - Afr Amer 85 mL/min (>60); Globulin 3.4 g/dL (2.2-4.2); Glucose 110 mg/dL (74-106); High Density Lipoprotein 67 mg/dL; Potassium 3.8 mmol/L (3.5-5.1); Protein, Total 6.9 g/dL (6.4-8.2); Sodium Level 139 mmol/L (136-145); T4 Free Direct 1.26 ng/dL (0.76-1.46); Triglycerides 68 mg/dL; Very Low Density Lipoprotein 14 mg/dL (5-40)
== END | disposition home or self-care (01) ==
LOC: LAB 09:00
PROVIDERS: PCP Family Medicine; Visit Provider Family Medicine
DX: Z00.00 Encounter for general adult medical examination without abnormal findings (principal); I10 Essential (primary) hypertension; E03.9 Hypothyroidism, unspecified
CPT/HCPCS: 36415; 80053; 80061; 84439; 84443; 85025

== ENCOUNTER → 2023-01-27 | Outpatient (CLI) | payer BC, SELFPAY ==
[2023-01-27 15:49] LABS: Follicle Stimulating Hormone 102.2 mIU/mL
== END | disposition home or self-care (01) ==
LOC: BFHLAB 13:07
PROVIDERS: PCP Family Medicine; Referring Provider Family Medicine; Visit Provider Family Medicine
DX: Z78.0 Asymptomatic menopausal state (principal)
CPT/HCPCS: 36415; 83001

== ENCOUNTER → 2023-04-06 | Outpatient (CLI) | payer BC, SELFPAY ==
--- NOTE | 2023-04-06 12:26 | NEURO ---
NCS and/or EMG Patient Report Ordering Doctor: Radha Norton DATE OF SERVICE: 04/06/23 Aura presents for electrodiagnostic testing of the lower limbs. She reports numbness and tingling in her feet with pain in both legs, worse on the left side. She reports chronic lower back pain. Electrodiagnostic findings: Left peroneal motor nerve demonstrates normal distal latency, amplitude and conduction velocity. Right peroneal motor response demonstrates normal distal latency, amplitude and conduction velocity. Tibial motor response within normal limits bilaterally. Normal tibial and peroneal F?waves. Normal H?reflex bilaterally. Sensory responses are within normal limits. Needle EMG testing was performed in the lower limbs. All muscles tested showed no evidence of denervation with normal motor unit action potentials. Electrodiagnostic impression: This is a normal electrodiagnostic study in the lower limbs. There is no electrodiagnostic evidence for peripheral neuropathy or lumbosacral radiculopathy. Multi Select Codes Neurology Neurology Interp Codes: 16002-30 Musc test done w/n test comp (interp) (2) and 43276-95 Nrv cndj test 11-12 studies (interp)
== END | disposition home or self-care (01) ==
LOC: PSN 08:44
PROVIDERS: PCP Family Medicine; Referring Provider Family Medicine; Visit Provider Family Medicine
DX: M79.604 Pain in right leg (principal); M79.605 Pain in left leg
CPT/HCPCS: 95886; 95913

== ENCOUNTER 2023-05-30 11:01 | Emergency (ER) | payer BC, SELFPAY ==
[2023-05-30 11:02] VITALS: BP 116/88; PULSE 101; RESP 16; TEMP 36.4; O2SAT 94; BMI 27.1
--- NOTE | 2023-05-30 11:17 | ED.RN ---
pt states she has had elevated blood pressure when checking it over the past couple of days. she states she has noticed this since having an injection in her lower back for pain. she does endorse 4/10 back pain currently. she checked her blood pressure at work this morning because she was feeling dizzy and seeing spots . it was not elevated at that time. it is not currently elevated. she denies dizziness or seeing spots now but does state that her vision seems a little blurry . pt states I was worried I was going to get hurt at work because I'm feeling like this
--- NOTE | 2023-05-30 11:30 | EX.ED.DYSGE1 ---
HPI History of Present Illness Chief Complaint: Hypertension Informant: patient Onset/Context/Timing Onset: Days Context: Gradual Onset Timing: Continuous Quality: Dizzy, seeing spots Location: Generalized Worsened by: Nothing Relieved by: Nothing Narrative Narrative: Patient presents with elevated blood pressure for the past few days. Patient states it came on gradually. Patient states she feels dizzy and has been seeing spots. Patient states her blood pressure this morning was 158/100. Patient states nothing makes it better and nothing makes it worse. Patient states she had a recent injection into her left hip area. Patient states she was given an injection of lidocaine and a steroid. Patient denies any chest pain or shortness of breath. Patient admits to some nausea but denies any vomiting. [facility] Medical History Allergies Asthma Atelectasis Back problem Cellulitis of left ear Chest pain Chronic neck pain Chronic thoracic back pain Depression Family history of breast cancer Former smoker Frequent headaches High blood pressure High cholesterol High cholesterol Hives Hypertension Hypothyroidism Intertrigo Macromastia Mass of left ear Mass of right ear Shoulder pain Smoker Thyroid disease Vision problems Vitamin deficiency Home Medications losartan 50 mg tablet 50 mg PO DAILY 06/01/18 [History Last Taken 06/16/20 08:00] potassium chloride 10 mEq tablet,extended release(part/cryst) 10 meq PO DAILY 06/11/18 [History Last Taken Unknown] albuterol sulfate 90 mcg/actuation aerosol inhaler 2 puff inhalation Q4H PRN Sob &/Or Wheezing 11/08/19 [History Last Taken Unknown] omega-3 fatty acids-fish oil 340 mg-1,000 mg capsule 1 ea PO DAILY 11/14/19 [History Last Taken Unknown] lidocaine 5 % topical patch 1 patch topical DAILY #3 patches 03/19/20 [Rx Last Taken Unknown] gabapentin 300 mg capsule 300 mg PO BID 06/11/20 [History Last Taken Unknown] cholecalciferol (vitamin D3) 125 mcg (5,000 unit) tablet 125 mcg PO DAILY 09/16/20 [History Last Taken Unknown] levothyroxine 88 mcg tablet 88 mcg PO DAILY 09/16/20 [History Last Taken Unknown] atorvastatin 80 mg tablet 80 mg PO DAILY 01/23/21 [History Last Taken Unknown] buspirone 5 mg tablet 5 mg PO BID 01/23/21 [History Last Taken Unknown] famotidine 20 mg tablet 20 mg PO DAILY 01/23/21 [History Last Taken Unknown] duloxetine 20 mg capsule,delayed release (Cymbalta) 60 mg PO DAILY 06/02/21 [History Last Taken Unknown] cyclobenzaprine 10 mg tablet 10 mg PO BID PRN Muscle Pain 07/06/21 [History Last Taken Unknown] magnesium oxide 400 mg PO DAILY 07/06/21 [History Last Taken Unknown] vitamin B complex 1 tab PO DAILY 07/06/21 [History Last Taken Unknown] dicyclomine 10 mg capsule 10 mg PO TIDAC #20 CAPSULES 08/08/22 [Rx Last Taken Unknown] ondansetron 4 mg disintegrating tablet 4 mg PO Q8H PRN PRN Nausea #10 tabs 08/08/22 [Rx Last Taken Unknown] pantoprazole 40 mg tablet,delayed release 40 mg PO DAILY #30 tabs 08/12/22 [Rx Last Taken Unknown] sucralfate 1 gram tablet 1 g PO QACHS #120 tabs 09/03/22 [Rx Last Taken Unknown] estradiol 0.025 mg/24 hr semiweekly transdermal patch (Vivelle-Dot) 1 patch transdermal 2XW #24 ea 10/26/22 [Rx Last Taken Unknown] nitrofurantoin monohydrate/macrocrystals 100 mg capsule 100 mg PO Q12 #10 CAPSULES 05/30/23 [Rx Last Taken Unknown] Allergy/AdvReac Type Severity Reaction Status Date / Time dog dander Allergy Unknown Other Verified 05/30/23 11:02 grass pollen Allergy Unknown Other Verified 05/30/23 11:02 Environmental Allergies: Allergy Rash Verified 05/30/23 11:02 Uncoded latex Allergy Rash Verified 05/30/23 11:02 Family History Brother Alcohol abuse Severe allergy Suicide attempt Mother Anemia Anxiety and depression Arthritis Asthma Hormonal disorder Depression Grandmother Arthritis Thyroid disorder Aunt Breast cancer Cancer Thyroid disorder Father Diabetes Heart disease Hypertension High cholesterol History of ulcer disease Sister Seizures Other Family history of breast cancer Surgical History History of delivery History of excision of mass History of hysterectomy History of sinus surgery Ovarian cyst Social History housing: apartment number of children: 2 current occupational status: employed current occupation: [employer] Smoking Status: Light Smoker (<10/day) alcohol intake: never substance use type: does not use seatbelt use: always do you feel safe at home: Yes additional social history: DOES TAKE ASPIRIN NEEDED DOES TAKE IBUPROFEN NEEDED ROS ROS ED Constitutional Constitutional ED: Denies chills or fever(s) Eyes Eyes: Reports change in vision; Denies blurry vision ENT ENT ED: Denies rhinorrhea or sore throat Cardiovascular Cardiovascular: Denies chest pain or palpitations Respiratory/Chest Respiratory/Chest: Reports cough; Denies dyspnea Gastrointestinal Gastrointestinal: Reports nausea; Denies vomiting Genitourinary Genitourinary ED: Denies dysuria or hematuria Musculoskeletal Musculoskeletal: Reports neck pain; Denies back pain Integumentary Denies abscess or rash Neurologic Neurologic: Denies headache(s) or weakness Allergic/Immunologic Allergic/Immunologic ED: Denies mouth swelling or urticaria EXAM Physical Exam Const Vital Signs: 05/30/23 11:02 05/30/23 11:08 05/30/23 13:14 Temperature 97.5 F L Temperature Source Temporal Pulse Rate 101 H 82 Respiratory Rate 16 16 Respiratory Effort Normal Respiratory Pattern Normal Blood Pressure 116/88 H 145/94 H Blood Pressure Mean 97 111 Pulse Ox 94 100 Oxygen Delivery Method Room Air Room Air Positive well nourished and well developed General Appearance ED: well developed and NAD HEENT Reports moist mucous membranes Neck supple and no JVD Resp normal respiratory effort and clear to auscultation bilaterally Cardio regular rate and regular rhythm GI normal to inspection, nondistended, normoactive bowel sounds and non-tender Palpation: soft Extremity normal to inspection General Extremety ED: Negative for edema or tenderness General Extremity: Negative for edema Neuro oriented x3, CN's II-XII intact bilaterally and no sensory deficits noted Sensorium / Orientation: alert Motor Exam: strength 5/5 throughout Psych mental status grossly normal Skin no rashes or lesions noted MDM MDM MDM Narrative Medical decision making narrative: Differential diagnosis includes hypertension, electrolyte abnormality, anemia, and urinary tract infection. CBC will be obtained to assess for leukocytosis and anemia. Basic metabolic profile will be obtained to assess for electrolyte abnormality and renal function. Urinalysis will be obtained to assess for urinary tract infection and hematuria. Lab Data Attestation: I reviewed the patient's lab results. Lab results narrative: CBC was reviewed and was within normal limits. Basic metabolic profile was reviewed and was within normal limits. Urinalysis was reviewed. Leukocyte esterase was 100 with 10-25 white blood cells. Labs: Laboratory Results - last 24 hr 05/30/23 05/30/23 12:46 13:10 WBC 9.0 RBC 4.84 Hgb 14.4 Hct 42.6 MCV 88.0 MCH 29.8 MCHC 33.8 RDW Std Deviation 42.7 RDW Coeff of Singh 13.2 Plt Count 193 MPV 10.8 Immature Gran % (Auto) 0.400 Neut % (Auto) 71.6 H Lymph % (Auto) 20.3 [place] % (Auto) 7.1 Eos % (Auto) 0.4 Baso % (Auto) 0.2 Absolute Neuts (auto) 6.4 Absolute Lymphs (auto) 1.83 Nucleated RBC % 0 Sodium 138 Potassium 4.4 Chloride 106 Carbon Dioxide 30.0 Anion Gap 2 L BUN 18 Creatinine 1.02 Estim Creat Clear Calc 64.26 Est GFR (MDRD) Af Amer 74 Est GFR (MDRD) Non-Af 61 BUN/Creatinine Ratio 17.6 Glucose 100 Calcium 9.3 Urine Color Yellow Urine Clarity Sl. Cloudy Urine pH 6.0 Ur Specific [place] 1.020 Urine Protein 30 H Urine Glucose (UA) Normal Urine Ketones 5 H Urine Occult Blood Negative Urine Nitrite Negative Urine Bilirubin Negative Urine Urobilinogen Normal Ur Leukocyte Esterase 100 H Urine RBC 0 SEEN Urine WBC 10-25 SEEN Ur Squamous Epith Cells 0-5 SEEN Urine Bacteria 0 SEEN Urine Mucus 0 SEEN Treatment and Re-Evaluation :: Patient was given a dose of Macrobid here. Patient was given a prescription for Macrobid. Patient was instructed to continue to monitor her blood pressure. Patient was instructed to follow-up with her primary care physician in 5 to 7 days. Patient understood and was agreeable with the plan. All questions were answered. Discharge Plan Triage Chief Complaint: Hypertension ED Provider: Phani Deng Dx/Rx/DC Orders Clinical Impression: Urinary tract infection, Hypertension Instructions: ED Hypertension, Established, ED Cystitis Female Adult Prescriptions: New nitrofurantoin monohyd/m-cryst [nitrofurantoin monohyd/m-cryst] 100 mg capsule 100 mg PO Q12 Qty: 10 0RF No Action albuterol sulfate 90 mcg/actuation HFA aerosol inhaler 2 puff INHALATION Q4H PRN (Reason: Sob &/Or Wheezing) cyclobenzaprine 10 mg tablet 10 mg PO BID PRN (Reason: Muscle Pain) magnesium oxide 400 mg magnesium capsule 400 mg PO DAILY vitamin B complex Tablet 1 tab PO DAILY pantoprazole 40 mg tablet,delayed release (DR/EC) 40 mg PO DAILY Qty: 30 4RF sucralfate 1 gram tablet 1 g PO QACHS Qty: 120 0RF Rx Instructions: take 1 hour before meals and at bedtime estradiol [Vivelle-Dot] 0.025 mg/24 hr patch semiweekly 1 patch transdermal 2XW Qty: 24 3RF Rx Instructions: apply 1 patch for 3 days alternating with 1 patch for 4 days each week losartan 50 MG tablet 50 mg PO DAILY potassium chloride 10 MEQ tablet 10 meq PO DAILY omega-3 fatty acids-fish oil 1 EACH capsule 1 ea PO DAILY lidocaine 1 PATCH patch 1 patch TOPICAL DAILY Qty: 3 0RF gabapentin 300 MG capsule 300 mg PO BID levothyroxine 88 mcg Tablet 88 mcg PO DAILY cholecalciferol (vitamin D3) 125 mcg (5,000 unit) Tablet 125 mcg PO DAILY buspirone 5 mg tablet 5 mg PO BID Patient Comments: TAKE 1 TABLET BY MOUTH EVERY 12 HOURS atorvastatin 80 mg tablet 80 mg PO DAILY Patient Comments: Take 1 tablet by mouth daily at bedtime. For cholesterol. famotidine 20 mg tablet 20 mg PO DAILY Patient Comments: Take 1 tablet by mouth twice daily. duloxetine [Cymbalta] 20 mg Capsule,Delayed Release(Dr/Ec) 60 mg PO DAILY ondansetron [ondansetron] 4 mg tablet,disintegrating 4 mg PO Q8H PRN PRN (Reason: Nausea) Qty: 10 0RF dicyclomine 10 mg capsule 10 mg PO TIDAC Qty: 20 0RF Rx Instructions: Take 2 tablets every 6 hours as needed abdominal cramping Primary Care Provider: Radha Norton Referrals: Radha Norton MD [Primary Care Provider] - 5-7 Days Disposition Disposition: Home, Self Care
[2023-05-30 13:00] LABS: Absolute Lymphocyte Count 1.83 X10^3/uL (0.83-4.51); Absolute Neutrophil Count 6.4 X10^3/uL (2.0-7.7); Basophil# 0.02 X10^3/uL; Basophil% 0.2 % (0-1); Eosinophil# 0.04 X10^3/uL; Eosinophils% 0.4 % (0-5); Hematocrit 42.6 % (37-47); Hemoglobin 14.4 g/dL (12.0-15.0); Lymphocyte # 1.83 X10^3/ul (0.83-4.51); Lymphocyte % 20.3 % (19-41); Mean Corp Hgb Conc 33.8 g/dL (32-36); Mean Corpuscular Hgb 29.8 pg (27.0-32.0); Mean Platelet Vol. 10.8 fl (6.2-12.0); Monocyte# 0.64 X10^3/uL; Monocyte% 7.1 % (0-10); NRBC Flagged by Analyzer 0 % (0-5); Neutrophil # 6.43 X10^3/uL (2.7-7.7); Neutrophil % 71.6 % (47-70); Platelet Count 193 K/mm3 (150-450); RBC Distribution Width CV 13.2 % (11.6-14.6); RBC Distribution Width SD 42.7 fl (35.1-43.9); Red Blood Count 4.84 M/mm3 (4.2-5.4)
[2023-05-30 13:14] VITALS: BP 145/94; PULSE 82; RESP 16; O2SAT 100
[2023-05-30 13:14] LABS: Anion Gap 2 (5-15); BUN 18 mg/dL (7-18); BUN/Creat Ratio 17.6 RATIO (10-20); Calcium,Total 9.3 mg/dL (8.5-10.1); Chloride 106 mmol/L (98-107); Creatinine, Serum 1.02 mg/dL (0.55-1.02); EST Glomerular Filtration Rate 61 mL/min (>60); Est Glom Filt Rate - Afr Amer 74 mL/min (>60); Estimated Creatinine Clearance 64.26 ml/min; Glucose 100 mg/dL (74-106); Potassium 4.4 mmol/L (3.5-5.1); Sodium Level 138 mmol/L (136-145)
[2023-05-30 13:20] LABS: Bacteria 0 SEEN /hpf (None Seen); Mucous, Urine 0 SEEN /hpf (<or=2+); Red Blood Cells-Urine 0 SEEN /hpf (0-5)
[2023-05-30 13:23] LABS: Color, Urine Yellow (Yellow); Glucose, Dipstick Normal (Normal); Ketone-Dipstick 5 mg/dl (Negative); Leukocyte Esterase-Dipstick 100 /ul (Negative); Nitrite-Dipstick Negative (Negative); Occult Blood-Urine Negative /ul (Negative); Protein-Dipstick 30 mg/dl (Negative); Urine Bilirubin Dipstick Negative (Negative); Urine Clarity Sl. Cloudy (Clear); Urine Urobilinogen Normal (Normal)
[2023-05-30 13:29] LABS: Squamous Epithelial Cells - UA 0-5 SEEN /hpf (5-10); White Blood Cells 10-25 SEEN /hpf (0-5)
[2023-05-30 14:10] VITALS: BP 134/98; PULSE 78; RESP 16; TEMP 36.7; O2SAT 98
[2023-05-30] MEDS: Nitrofurantoin Macrocrystals 100 MG Capsule PO (14:12)
== END 2023-05-30 14:15 | disposition home or self-care (01) ==
PROVIDERS: Emergency Provider Emergency Medicine; PCP Family Medicine; Visit Provider Emergency Medicine
DX: N39.0 Urinary tract infection, site not specified (principal); I10 Essential (primary) hypertension; F17.200 Nicotine dependence, unspecified, uncomplicated; E78.00 Pure hypercholesterolemia, unspecified; Z79.899 Other long term (current) drug therapy; E03.9 Hypothyroidism, unspecified; F32.A Depression, unspecified; Z90.710 Acquired absence of both cervix and uterus
CPT/HCPCS: 80048; 81001; 85025; 99283; A4216

== ENCOUNTER → 2023-06-02 | Outpatient (CLI) | payer BC, SELFPAY ==
[2023-06-02 16:22] LABS: AST(SGOT) 19 U/L (15-37); Alanine Aminotransfer ALT/SGPT 34 U/L (13-56); Albumin, Serum 3.7 g/dL (3.2-5.0); Alkaline Phosphatase 89 U/L (45-117); Bilirubin, Direct 0.15 mg/dL (0.00-0.30); Globulin 3.1 g/dL (2.2-4.2); Lipase 48 U/L (13-75); Protein, Total 6.8 g/dL (6.4-8.2)
== END | disposition home or self-care (01) ==
LOC: BFHLAB 13:37
PROVIDERS: PCP Family Medicine; Visit Provider Family Medicine
DX: K44.9 Diaphragmatic hernia without obstruction or gangrene (principal)
CPT/HCPCS: 36415; 80076; 83690

== ENCOUNTER → 2023-07-12 | Outpatient (CLI) | payer BC, SELFPAY ==
[2023-07-12 13:06] LABS: International Normalized Ratio 0.9; Prothrombin Time (Protime)PT. 12.4 SECONDS (11.7-14.9)
== END | disposition home or self-care (01) ==
LOC: BFHLAB 11:04
PROVIDERS: PCP Family Medicine; Visit Provider Family Medicine
DX: R23.3 Spontaneous ecchymoses (principal)
CPT/HCPCS: 36415; 85610; 85730

== ENCOUNTER → 2023-07-26 | Outpatient (CLI) | payer BC, SELFPAY | END | disposition home or self-care (01) | LOC: BFHLAB 11:06 | PROVIDERS: PCP Family Medicine; Referring Provider Family Medicine; Visit Provider Family Medicine | DX: R30.0 Dysuria (principal) | CPT/HCPCS: 87086; 87088; 87186 ==

== ENCOUNTER → 2023-12-15 | Outpatient (CLI) | payer BC, SELFPAY ==
--- NOTE | 2023-12-15 11:36 | RAD_ITS ---
INDICATION: HIP PAIN EXAMINATION/TECHNIQUE: X-RAY - XR Hips Bilateral with Pelvis when performed; Min 5 Views COMPARISON: No relevant prior comparison study available. FINDINGS: PELVIC BONES: No displaced fracture, destructive or sclerotic lesions. Note that overlapping bowel shadows may however obscure fine detail. Sacroiliac joints are unremarkable. No widening of the pubic symphysis. HIPS: There is minimal osteoarthritic spur formation of the acetabula bilaterally. The articular structures are otherwise unremarkable. No displaced fracture. SOFT TISSUES: There are calcified phleboliths in the pelvis. No soft tissue swelling or gas. RAD/Hips B/L min 2 views w/ Pelvis IMPRESSION: Minimal degenerative arthrosis of the hip joints bilaterally. No evidence of displaced pelvic or hip fracture. Electronically Signed: Macario Myers MD at 12:28 EDT ,
--- NOTE | 2023-12-15 11:37 | RAD_ITS ---
STUDY: X-RAY - LUMBAR SPINE REASON FOR EXAM: Female, 52 years old. Lumbar spondylosis TECHNIQUE: 5 view(s) of the lumbar spine were obtained. COMPARISON: None FINDINGS: Normal lumbar lordosis. There is no substantial scoliosis. There is a normal alignment of the vertebrae. There is diffuse demineralization with multi-level endplate spondylosis. Normal disc space heights. The soft tissue structures are unremarkable. RAD/L/S Spine Min 4 Views IMPRESSION: Degenerative changes of the spine, as detailed above. Electronically Signed: Charli Sellers MD at 14:12 EDT ,
== END | disposition home or self-care (01) ==
LOC: RAD 11:33
PROVIDERS: PCP Family Medicine; Referring Provider Anesthesiology; Visit Provider Anesthesiology
DX: M25.559 Pain in unspecified hip (principal); M47.816 Spondylosis without myelopathy or radiculopathy, lumbar region
CPT/HCPCS: 72110; 73521

== ENCOUNTER 2024-01-16 16:34 | Emergency (ER) | payer BC, SELFPAY ==
[2024-01-16 16:35] VITALS: BP 127/85; PULSE 105; RESP 18; TEMP 37.1; O2SAT 99; BMI 27.8
--- NOTE | 2024-01-16 18:24 | RAD_ITS ---
EXAM: XR CHEST, 2 VIEWS CLINICAL INDICATION: Cough TECHNIQUE: Frontal and lateral views of the chest. COMPARISON: 08/09/2019 ; CT chest, 08/20/2022 FINDINGS: LUNGS AND PLEURAL SPACES: No significant abnormality. No consolidation or edema. No pneumothorax. No effusion. HEART: No significant abnormality. Cardiac silhouette not enlarged. MEDIASTINUM: Central airways and mediastinal contour are unremarkable. BONES/JOINTS: No significant abnormality. No acute fracture. SOFT TISSUES: No significant abnormality. RAD/Chest PA and Lateral IMPRESSION: No radiographic evidence of acute cardiopulmonary disease. Electronically Signed: Juan Lr DO at 19:38 EDT ,
--- NOTE | 2024-01-16 18:24 | EDS_ITS ---
HPI HPI - URI History of Present Illness Chief Complaint: Cough Informant: patient Onset/Context/Timing Onset: Weeks (2) Context: Gradual Onset Timing: Continuous Quality: Burning Location: Chest Worsened by: - (Nothing) Relieved by: - (Nothing) Associated Symptoms Associated Symptoms: Positive for Nasal Congestion, Headache, Nausea, Shortness of Breath and Productive Cough (Yellow sputum); Negative for Sinus Pressure, Myalgias, Vomiting, Diarrhea, Chest Pain, Nonproductive cough or Hemoptysis Narrative Narrative: Patient presents with cough and upper respiratory congestion that has been co nstant for the past 2 weeks. Patient states it came on gradually. Patient states it has been constant. Patient states she has some burning in her chest. Patient also admits to a headache. Patient states she is coughing up some yellow sputum. Patient admits to some shortness of breath. Patient also admits to some nausea. Patient denies any vomiting or diarrhea. Patient denies any body aches or muscle aches. Patient admits to some dizziness where she feels like she is lightheaded. ROS ROS ED Constitutional Constitutional ED: Denies chills or fever(s) Eyes Eyes: Reports blurry vision; Denies diplopia ENT ENT ED: Reports rhinorrhea; Denies sore throat Cardiovascular Cardiovascular: Denies chest pain or palpitations Respiratory/Chest Respiratory/Chest: Reports cough, dyspnea and sputum Gastrointestinal Gastrointestinal: Reports nausea; Denies vomiting Genitourinary Genitourinary ED: Denies dysuria or hematuria Musculoskeletal Musculoskeletal: Reports back pain; Denies neck pain Integumentary Denies abscess or rash Neurologic Neurologic: Reports headache(s); Denies weakness Allergic/Immunologic Allergic/Immunologic ED: Denies mouth swelling or urticaria [facility] Medical History Acute maxillary sinusitis, unspecified Contact with or exposure to other viral diseases Atelectasis Family history of breast cancer Intertrigo Shoulder pain Chronic thoracic back pain Chronic neck pain Macromastia High cholesterol Vitamin deficiency High cholesterol Back problem Depression Hypothyroidism Smoker Hypertension Chest pain Cellulitis of left ear Former smoker Mass of right ear Mass of left ear Vision problems Thyroid disease Hives High blood pressure Frequent headaches Asthma Allergies Home Medications ?Medication ?Instructions ?Recorded ?Last Taken ?Type losartan 50 mg tablet 50 mg PO DAILY 06/01/18 06/16/20 08:00 History potassium chloride 10 mEq 10 meq PO DAILY 06/11/18 Unknown History tablet,extended release(part/cryst) albuterol sulfate 90 mcg/actuation 2 puff inhalation Q4H PRN Sob &/Or 11/08/19 Unknown History aerosol inhaler Wheezing omega-3 fatty acids-fish oil 340 1 ea PO DAILY 11/14/19 Unknown History mg-1,000 mg capsule lidocaine 5 % topical patch 1 patch topical DAILY #3 patches 03/19/20 Unknown Rx gabapentin 300 mg capsule 300 mg PO BID 06/11/20 Unknown History cholecalciferol (vitamin D3) 125 125 mcg PO DAILY 09/16/20 Unknown History mcg (5,000 unit) tablet levothyroxine 88 mcg tablet 88 mcg PO DAILY 09/16/20 Unknown History atorvastatin 80 mg tablet 80 mg PO DAILY 01/23/21 Unknown History buspirone 5 mg tablet 5 mg PO BID 01/23/21 Unknown History famotidine 20 mg tablet 20 mg PO DAILY 01/23/21 Unknown History duloxetine 20 mg capsule,delayed 60 mg PO DAILY 06/02/21 Unknown History release (Cymbalta) cyclobenzaprine 10 mg tablet 10 mg PO BID PRN Muscle Pain 07/06/21 Unknown History magnesium oxide 400 mg PO DAILY 07/06/21 Unknown History vitamin B complex 1 tab PO DAILY 07/06/21 Unknown History dicyclomine 10 mg capsule 10 mg PO TIDAC #20 CAPSULES 08/08/22 Unknown Rx ondansetron 4 mg disintegrating 4 mg PO Q8H PRN PRN Nausea #10 tabs 08/08/22 Unknown Rx tablet pantoprazole 40 mg tablet,delayed 40 mg PO DAILY #30 tabs 08/12/22 Unknown Rx release sucralfate 1 gram tablet 1 g PO QACHS #120 tabs 09/03/22 Unknown Rx estradiol 0.025 mg/24 hr 1 patch transdermal 2XW #24 ea 10/26/22 Unknown Rx semiweekly transdermal patch (Vivelle-Dot) nitrofurantoin 100 mg PO Q12 #10 CAPSULES 05/30/23 Unknown Rx monohydrate/macrocrystals 100 mg capsule amoxicillin 500 mg tablet 500 mg PO TID #30 tabs 11/28/23 Unknown Rx Allergy/AdvReac Type Severity Reaction Status Date / Time dog dander Allergy Unknown Other Verified 01/16/24 16:35 grass pollen Allergy Unknown Other Verified 01/16/24 16:35 Environmental Allergies: Allergy Rash Verified 01/16/24 16:35 Uncoded latex Allergy Rash Verified 01/16/24 16:35 Family History Brother Alcohol abuse Severe allergy Suicide attempt Mother Anemia Anxiety and depression Arthritis Asthma Hormonal disorder Depression Grandmother Arthritis Thyroid disorder Aunt Breast cancer Cancer Thyroid disorder Father Diabetes Heart disease Hypertension High cholesterol History of ulcer disease Sister Seizures Other Family history of breast cancer Surgical History History of hysterectomy Ovarian cyst History of sinus surgery History of delivery History of excision of mass Social History housing: apartment number of children: 2 current occupational status: employed current occupation: [employer] Smoking Status: Light Smoker (<10/day) alcohol intake: never substance use type: does not use seatbelt use: always do you feel safe at home: Yes additional social history: DOES TAKE ASPIRIN NEEDED DOES TAKE IBUPROFEN NEEDED EXAM Physical Exam Const Vital Signs: 01/16/24 16:35 01/16/24 18:34 Temperature 98.8 F Temperature Source Oral Pulse Rate 105 H Respiratory Rate 18 Blood Pressure 127/85 H 114/78 Blood Pressure Mean 99 90 Pulse Ox 99 Oxygen Delivery Method Room Air Positive well nourished and well developed General Appearance ED: well developed and NAD HEENT Reports moist mucous membranes normocephalic Throat: posterior oropharynx abnormal Positive for cobblestoning and erythema; Negative for exudates Neck supple and no JVD Resp normal respiratory effort Auscultation: rhonchi lower bilaterally Cardio Rate: regular rate Rhythm: regular rhythm GI non-tender Palpation: soft Extremity normal to inspection and full ROM Neuro oriented x3, CN's II-XII intact bilaterally and no sensory deficits noted Sensorium / Orientation: alert Motor Exam: strength 5/5 throughout Psych mental status grossly normal MDM MDM MDM Narrative Medical decision making narrative: Differential diagnosis includes pneumonia, bronchitis, viral upper respiratory infection. Chest x-ray will be obtained to assess for pneumonia and bronchitis. COVID-19, influenza, and RSV PCR will be obtained to assess for viral illness. Lab Data Lab results narrative: COVID-19 PCR was reviewed and was negative. Influenza PCR was reviewed and was negative for influenza A and influenza B. RSV PCR was reviewed and was negative. Radiography Chest X-Ray - ED: 2 View, Read by ED Physician, Read by Radiologist and No Acute Disease Diagnostic Testing: Clinical Impression(s) from Imaging Studies Chest X-Ray 01/16/24 18:24 IMPRESSION: No radiographic evidence of acute cardiopulmonary disease. Electronically Signed: Juan VEdilberto Lr DO at 19:38 EDT , PA and lateral chest x-ray was obtained. There are 2 views. On my independent interpretation, lung marti are clear. There is normal cardiac silhouette. Bony thorax is normal. There is no acute process noted. Radiologist also interpreted the x-ray and agrees. Treatment and Re-Evaluation Narrative: Smoking cessation was discussed. Patient was feeling better on reevaluation. Patient was advised of her findings. Patient was advised that this is most like ly a viral upper respiratory infection. Patient was advised that the antibiotic she is currently taking are not necessary. Patient was instructed to follow-up with her primary care physician in 5 to 7 days. Patient understood and was agreeable with the plan. All questions were answered. Discharge Plan Triage Chief Complaint: Cough ED Provider: Phani Deng Dx/Rx/DC Orders Clinical Impression: Viral URI, Cough, Lightheadedness, Tobacco use Instructions: ED URI, Viral, No Abx (Adult) Prescriptions: No Action albuterol sulfate 90 mcg/actuation HFA aerosol inhaler 2 puff INHALATION Q4H PRN (Reason: Sob &/Or Wheezing) cyclobenzaprine 10 mg tablet 10 mg PO BID PRN (Reason: Muscle Pain) magnesium oxide 400 mg magnesium capsule 400 mg PO DAILY vitamin B complex Tablet 1 tab PO DAILY pantoprazole 40 mg tablet,delayed release (DR/EC) 40 mg PO DAILY Qty: 30 4RF sucralfate 1 gram tablet 1 g PO QACHS Qty: 120 0RF Rx Instructions: take 1 hour before meals and at bedtime estradiol [Vivelle-Dot] 0.025 mg/24 hr patch semiweekly 1 patch transdermal 2XW Qty: 24 3RF Rx Instructions: apply 1 patch for 3 days alternating with 1 patch for 4 days each week amoxicillin 500 mg tablet 500 mg PO TID Qty: 30 0RF losartan 50 MG tablet 50 mg PO DAILY potassium chloride 10 MEQ tablet 10 meq PO DAILY omega-3 fatty acids-fish oil 1 EACH capsule 1 ea PO DAILY lidocaine 1 PATCH patch 1 patch TOPICAL DAILY Qty: 3 0RF gabapentin 300 MG capsule 300 mg PO BID levothyroxine 88 mcg Tablet 88 mcg PO DAILY cholecalciferol (vitamin D3) 125 mcg (5,000 unit) Tablet 125 mcg PO DAILY buspirone 5 mg tablet 5 mg PO BID Patient Comments: TAKE 1 TABLET BY MOUTH EVERY 12 HOURS atorvastatin 80 mg tablet 80 mg PO DAILY Patient Comments: Take 1 tablet by mouth daily at bedtime. For cholesterol. famotidine 20 mg tablet 20 mg PO DAILY Patient Comments: Take 1 tablet by mouth twice daily. duloxetine [Cymbalta] 20 mg Capsule,Delayed Release(Dr/Ec) 60 mg PO DAILY ondansetron [ondansetron] 4 mg tablet,disintegrating 4 mg PO Q8H PRN PRN (Reason: Nausea) Qty: 10 0RF dicyclomine 10 mg capsule 10 mg PO TIDAC Qty: 20 0RF Rx Instructions: Take 2 tablets every 6 hours as needed abdominal cramping nitrofurantoin monohyd/m-cryst [nitrofurantoin monohyd/m-cryst] 100 mg capsule 100 mg PO Q12 Qty: 10 0RF Primary Care Provider: Radha Norton Referrals: Radha Norton MD [Primary Care Provider] - 5-7 Days Print Language: Citizen Of [place] Disposition Disposition: Home, Self Care
[2024-01-16 18:34] VITALS: BP 114/78
[2024-01-16 20:00] VITALS: BP 130/92; PULSE 96
== END 2024-01-16 20:35 | disposition home or self-care (01) ==
PROVIDERS: Emergency Provider Emergency Medicine; PCP Family Medicine; Visit Provider Emergency Medicine
DX: J06.9 Acute upper respiratory infection, unspecified (principal); I10 Essential (primary) hypertension; R42 Dizziness and giddiness; E78.00 Pure hypercholesterolemia, unspecified; R05.9 Cough, unspecified; Z79.899 Other long term (current) drug therapy; E03.9 Hypothyroidism, unspecified; Z79.890 Hormone replacement therapy; F32.A Depression, unspecified; Z90.710 Acquired absence of both cervix and uterus; F17.290 Nicotine dependence, other tobacco product, uncomplicated
CPT/HCPCS: 71046; 87631; 99282

== ENCOUNTER → 2024-02-07 | Outpatient (CLI) | payer BC, SELFPAY ==
--- NOTE | 2024-02-07 16:41 | RAD_ITS ---
STUDY: X-RAY - LEFT SHOULDER REASON FOR EXAM: Female, 53 years old. SHOULDER PAIN, FALL TECHNIQUE: 4 view(s) of the shoulder. COMPARISON: 09/16/2020 FINDINGS: There is mild degenerative arthrosis of the glenohumeral articulation. There is degenerative arthrosis of the acromioclavicular joint without inferior osseous spur formation. Normal acromion. Normal humeral head and visualized proximal humerus. The soft tissue structures are unremarkable. Normal visualized pulmonary apex. RAD/Shoulder min 2 Views IMPRESSION: No acute fracture or dislocation. Mild glenohumeral and acromioclavicular joint arthrosis. Electronically Signed: Jake Hernandez MD at 16:41 EST ,
== END | disposition home or self-care (01) ==
LOC: MTRAD 16:40
PROVIDERS: PCP Family Medicine; Referring Provider Family Medicine; Visit Provider Family Medicine
DX: M25.519 Pain in unspecified shoulder (principal)
CPT/HCPCS: 73030

== ENCOUNTER → 2024-07-26 | Outpatient (CLI) | payer BC, SELFPAY ==
[2024-07-26 17:58] LABS: Absolute Neutrophil Count 4.1 X10^3/uL (2.0-7.7); Basophil# 0.03 X10^3/uL; Basophil% 0.5 % (0-1); Eosinophil# 0.09 X10^3/uL; Eosinophils% 1.5 % (0-5); Hematocrit 43.8 % (37-47); Hemoglobin 14.1 g/dL (12.0-15.0); Lymphocyte % 24.8 % (19-41); Mean Corp Hgb Conc 32.2 g/dL (32-36); Mean Corpuscular Hgb 27.9 pg (27.0-32.0); Mean Corpuscular Volume 86.6 fL (81-99); Mean Platelet Vol. 10.4 fl (6.2-12.0); Monocyte# 0.34 X10^3/uL; Monocyte% 5.6 % (0-10); NRBC Flagged by Analyzer 0 % (0-5); Neutrophil # 4.09 X10^3/uL (2.7-7.7); Neutrophil % 67.4 % (47-70); Platelet Count 256 K/mm3 (150-450); RBC Distribution Width CV 13.4 % (11.6-14.6); RBC Distribution Width SD 42.5 fl (35.1-43.9); Red Blood Count 5.06 M/mm3 (4.2-5.4); White Blood Count 6.1 K/mm3 (4.4-11.0)
[2024-07-26 18:29] LABS: ALB/GLOB Ratio 1.5 RATIO (0.9-2.4); AST(SGOT) 24 U/L (<=31); Alanine Aminotransfer ALT/SGPT 23 U/L (<=34); Albumin, Serum 4.4 g/dL (3.5-5.0); Alkaline Phosphatase 79 U/L (35-104); Anion Gap 12 (5-15); BUN 12 mg/dL (4-19); BUN/Creat Ratio 15.7 RATIO (10-20); Calcium,Total 9.7 mg/dL (7.6-11.0); Carbon Dioxide 24.9 mmol/L (21.0-32.0); Chloride 104 mmol/L (98-108); Cholesterol 182 mg/dL (<=200); Creatinine, Serum 0.78 mg/dL (0.70-1.20); EST Glomerular Filtration Rate 92 (>60); Glucose 111 mg/dL (70-99); High Density Lipoprotein 57 mg/dL; Low Density Lipoprotein Calc. 102 mg/dL; Potassium 4.2 mmol/L (3.3-5.1); Protein, Total 7.4 g/dL (5.9-8.4); Sodium Level 140 mmol/L (133-145); Total Bilirubin 0.43 mg/dL (0.00-1.30); Triglycerides 116 mg/dL; Very Low Density Lipoprotein 23 mg/dL (5-40); cholesterol:hdl ratio screen 3.18
== END | disposition home or self-care (01) ==
LOC: BFHLAB 15:13
PROVIDERS: PCP Family Medicine; Referring Provider Family Medicine; Visit Provider Family Medicine
DX: E03.9 Hypothyroidism, unspecified (principal); I10 Essential (primary) hypertension
CPT/HCPCS: 36415; 80053; 80061; 84439; 84443; 85025

== ENCOUNTER 2024-09-12 19:57 | Emergency (ER) | payer OTHER, SELFPAY ==
[2024-09-12 19:59] VITALS: BP 133/85; PULSE 112; RESP 18; TEMP 36.3; O2SAT 97; BMI 28.0
[2024-09-12] MEDS: Naproxen 500 MG Tablet PO (22:23)
--- NOTE | 2024-09-12 22:25 | RAD_ITS ---
PROCEDURE: PELVIS 1 OR 2 VIEWS 09/12/2024 REASON FOR EXAM: INJURY/PAIN TECHNIQUE: 1 view(s) of the pelvis. COMPARISON: None. FINDINGS: No evidence of acute fracture or dislocation. The joint spaces are maintained. RAD/Pelvis 1 or 2 Views IMPRESSION: No acute osseous abnormality. Reading Location: [place] [id number]
--- NOTE | 2024-09-12 22:36 | EX.ED.GENINJ ---
HPI History of Present Illness Chief Complaint: Back Detail of Chief Complaint: Pain buttocks not back due to fall last September 05 Informant: patient Onset/Context/Timing Onset: Days Mechanism/Context: Blunt Injury and Fall Location of pain/injuries: - (Right and left buttocks) Quality of Pain: Dull and Aching Location: Right and left ischial tuberosity Current Severity: Mild Maximum Severity: Moderate Worsened by: Movement, sitting, palpation Relieved by: Nothing Associated Symptoms Associated Symptoms: Negative for Parasthesias, Weakness, Loss of function, Inability to ambulate, Loss of consciousness or Amnesia Narrative Narrative: Patient was at work. She was putting device to the lift slats. She did realize it was too. When she went to lift she fell backwards landing on her buttocks. She denied head trauma. She denies neck pain. She denies paresthesia, anesthesia or motor weakness lower extremity. She denies bowel bladder dysfunction. No saddle paresthesia or anesthesia. She does not have radicular pain. She is not on an anticoagulant or antithrombotic. She has no prior history of back problems. She does have history of hypercholesterolemia, muscle strain of left shoulder, GERD, hypothyroidism, hypertension and chronic thoracic back pain. Prior similar symptoms: No Recent Illness/Hospitalization: No [facility] Medical History Acute maxillary sinusitis, unspecified Contact with or exposure to other viral diseases Atelectasis Family history of breast cancer Intertrigo Shoulder pain Chronic thoracic back pain Chronic neck pain Macromastia High cholesterol Vitamin deficiency High cholesterol Back problem Depression Hypothyroidism Smoker Hypertension Chest pain Cellulitis of left ear Former smoker Mass of right ear Mass of left ear Vision problems Thyroid disease Hives High blood pressure Frequent headaches Asthma Allergies Home Medications ?Medication ?Instructions ?Recorded ?Last Taken ?Type losartan 50 mg tablet 50 mg PO DAILY 06/01/18 06/16/20 08:00 History potassium chloride 10 mEq 10 meq PO DAILY 06/11/18 Unknown History tablet,extended release(part/cryst) albuterol sulfate 90 mcg/actuation 2 puff inhalation Q4H PRN Sob &/Or 11/08/19 Unknown History aerosol inhaler Wheezing omega-3 fatty acids-fish oil 340 1 ea PO DAILY 11/14/19 Unknown History mg-1,000 mg capsule lidocaine 5 % topical patch 1 patch topical DAILY #3 patches 03/19/20 Unknown Rx gabapentin 300 mg capsule 300 mg PO BID 06/11/20 Unknown History cholecalciferol (vitamin D3) 125 125 mcg PO DAILY 09/16/20 Unknown History mcg (5,000 unit) tablet levothyroxine 88 mcg tablet 88 mcg PO DAILY 09/16/20 Unknown History atorvastatin 80 mg tablet 80 mg PO DAILY 01/23/21 Unknown History buspirone 5 mg tablet 5 mg PO BID 01/23/21 Unknown History famotidine 20 mg tablet 20 mg PO DAILY 01/23/21 Unknown History duloxetine 20 mg capsule,delayed 60 mg PO DAILY 06/02/21 Unknown History release (Cymbalta) cyclobenzaprine 10 mg tablet 10 mg PO BID PRN Muscle Pain 07/06/21 Unknown History magnesium oxide 400 mg PO DAILY 07/06/21 Unknown History vitamin B complex 1 tab PO DAILY 07/06/21 Unknown History dicyclomine 10 mg capsule 10 mg PO TIDAC #20 CAPSULES 08/08/22 Unknown Rx ondansetron 4 mg disintegrating 4 mg PO Q8H PRN PRN Nausea #10 tabs 08/08/22 Unknown Rx tablet pantoprazole 40 mg tablet,delayed 40 mg PO DAILY #30 tabs 08/12/22 Unknown Rx release sucralfate 1 gram tablet 1 g PO QACHS #120 tabs 09/03/22 Unknown Rx estradiol 0.025 mg/24 hr 1 patch transdermal 2XW #24 ea 10/26/22 Unknown Rx semiweekly transdermal patch (Vivelle-Dot) nitrofurantoin 100 mg PO Q12 #10 CAPSULES 05/30/23 Unknown Rx monohydrate/macrocrystals 100 mg capsule amoxicillin 500 mg tablet 500 mg PO TID #30 tabs 11/28/23 Unknown Rx hydrocodone-acetaminophen 5-325mg 1 tab PO Q6H PRN PRN Pain 3 days 09/12/24 Unknown Rx 5mg-325mg #10 TABLETS Allergy/AdvReac Type Severity Reaction Status Date / Time dog dander Allergy Unknown Other Verified 09/12/24 19:58 grass pollen Allergy Unknown Other Verified 09/12/24 19:58 Environmental Allergies: Allergy Rash Verified 09/12/24 19:58 Uncoded latex Allergy Rash Verified 09/12/24 19:58 Family History Brother Alcohol abuse Severe allergy Suicide attempt Mother Anemia Anxiety and depression Arthritis Asthma Hormonal disorder Depression Grandmother Arthritis Thyroid disorder Aunt Breast cancer Cancer Thyroid disorder Father Diabetes Heart disease Hypertension High cholesterol History of ulcer disease Sister Seizures Other Family history of breast cancer Surgical History History of hysterectomy Ovarian cyst History of sinus surgery History of delivery History of excision of mass Social History housing: apartment number of children: 2 current occupational status: employed current occupation: [employer] Smoking Status: Current every day smoker tobacco type: cigarettes alcohol intake: never substance use type: does not use seatbelt use: always do you feel safe at home: Yes additional social history: DOES TAKE ASPIRIN NEEDED DOES TAKE IBUPROFEN NEEDED ROS ROS ED Constitutional Constitutional ED: Denies chills, fever(s) or subjective Cardiovascular Cardiovascular: Denies chest pain or palpitations Respiratory/Chest Respiratory/Chest: Denies cough, dyspnea or dyspnea on exertion Gastrointestinal Gastrointestinal: Reports other Details: Further detailed HPI narrative ; Denies abdominal pain, nausea or vomiting Genitourinary Genitourinary ED: Denies hematuria Musculoskeletal Musculoskeletal: Reports other Details: Further detailed HPI narrative ; Denies arthralgias, back pain, myalgias or neck pain Neurologic Neurologic: Denies paresthesias or weakness Endocrine Endocrinology: Denies cold intolerance or heat intolerance Hematologic/Lymphatic Hematologic/Lymphatic: Denies easy bleeding or easy bruising EXAM Physical Exam Const Vital Signs: 09/12/24 19:59 Temperature 97.4 F L Temperature Source Temporal Pulse Rate 112 H Respiratory Rate 18 Blood Pressure 133/85 H Blood Pressure Mean 101 Pulse Ox 97 Oxygen Delivery Method Room Air Positive well nourished and well developed Constitutional Narrative: Patient appears uncomfortable. She is tachycardic. Blood pressure slightly elevated General Appearance ED: well developed HEENT atraumatic and tenderness Nose: Negative for septum abnormal Eyes PERRL and EOMs intact bilaterally General Eye ED: Yes other Other Details: There is no subconjunctival hemorrhage. Neck full ROM Neck Narrative: There is no tenderness. She has full active range of motion. Resp normal respiratory effort and clear to auscultation bilaterally Cardio regular rhythm, S1 normal heart sound, S2 normal heart sound and no murmurs Rate: tachycardic GI GI Narrative: There is no pain ovation over the pubic symphysis the right or left iliac wing. She does have pain to palpation over the left and right ischial tuberosity. Left is greater than right. There is no pain to palpation over the lumbar spine. Straight leg test is negative. Patella and ankle reflex are 3+. EHLs intact. Normal sensation L3-S1 dermatome. DP and PT pulse are palpable. Back/Spine normal to inspection and no thoracic nor lumbar tenderness Extremity normal to inspection and full ROM General Extremety ED: Negative for deformity, edema or tenderness General Extremity: Negative for deformity or edema Neuro oriented x3, CN's II-XII intact bilaterally, moves all extremities, no focal motor deficits and no sensory deficits noted Deep Tendon Reflexes: Rt Patellar (L4): 3+, Lt Patellar (L4): 3+, Rt Ankle (S1): 3+ and Lt Ankle (S1): 3+ Deep Tendon Reflexes Back: Rt Patellar (L4): 3+, Lt Patellar (L4): 3+, Rt Ankle (S1): 3+ and Lt Ankle (S1): 3+ Plantar Reflex: Downgoing: bilateral (There is no clonus at the ankles.) Psych mental status grossly normal and thought process normal Skin no rashes or lesions noted, no wounds, skin turgor normal and no jaundice MDM MDM Radiography Chest X-Ray - ED: 1 View and Read by ED Physician (Independently reviewed and interpreted by me at 2245. There is no fracture noted. The left and right hip joint appear normal as well.) Treatment and Re-Evaluation Narrative: Patient informed she has a contusion of her pelvis. Recommend sitting on an air donut. She was prescribed pain medicine. NSAIDs are contraindicated. Discharge Plan Triage Chief Complaint: Back ED Provider: Lobo Mojica Dx/Rx/DC Orders Clinical Impression: Contusion of pelvis, Hypertension, Hypothyroidism, GERD (gastroesophageal reflux disease), Injury due to fall Instructions: ED Coccyx or Sacrum Contusion Prescriptions: New hydrocodone-acetaminophen 5-325 mg tablet 1 tab PO Q6H PRN PRN (Reason: Pain) 3 Days Qty: 10 0RF No Action albuterol sulfate 90 mcg/actuation HFA aerosol inhaler 2 puff INHALATION Q4H PRN (Reason: Sob &/Or Wheezing) cyclobenzaprine 10 mg tablet 10 mg PO BID PRN (Reason: Muscle Pain) magnesium oxide 400 mg magnesium capsule 400 mg PO DAILY vitamin B complex Tablet 1 tab PO DAILY pantoprazole 40 mg tablet,delayed release (DR/EC) 40 mg PO DAILY Qty: 30 4RF sucralfate 1 gram tablet 1 g PO QACHS Qty: 120 0RF Rx Instructions: take 1 hour before meals and at bedtime estradiol [Vivelle-Dot] 0.025 mg/24 hr patch semiweekly 1 patch transdermal 2XW Qty: 24 3RF Rx Instructions: apply 1 patch for 3 days alternating with 1 patch for 4 days each week amoxicillin 500 mg tablet 500 mg PO TID Qty: 30 0RF losartan 50 MG tablet 50 mg PO DAILY potassium chloride 10 MEQ tablet 10 meq PO DAILY omega-3 fatty acids-fish oil 1 EACH capsule 1 ea PO DAILY lidocaine 1 PATCH patch 1 patch TOPICAL DAILY Qty: 3 0RF gabapentin 300 MG capsule 300 mg PO BID levothyroxine 88 mcg Tablet 88 mcg PO DAILY cholecalciferol (vitamin D3) 125 mcg (5,000 unit) Tablet 125 mcg PO DAILY buspirone 5 mg tablet 5 mg PO BID Patient Comments: TAKE 1 TABLET BY MOUTH EVERY 12 HOURS atorvastatin 80 mg tablet 80 mg PO DAILY Patient Comments: Take 1 tablet by mouth daily at bedtime. For cholesterol. famotidine 20 mg tablet 20 mg PO DAILY Patient Comments: Take 1 tablet by mouth twice daily. duloxetine [Cymbalta] 20 mg Capsule,Delayed Release(Dr/Ec) 60 mg PO DAILY ondansetron [ondansetron] 4 mg tablet,disintegrating 4 mg PO Q8H PRN PRN (Reason: Nausea) Qty: 10 0RF dicyclomine 10 mg capsule 10 mg PO TIDAC Qty: 20 0RF Rx Instructions: Take 2 tablets every 6 hours as needed abdominal cramping nitrofurantoin monohyd/m-cryst [nitrofurantoin monohyd/m-cryst] 100 mg capsule 100 mg PO Q12 Qty: 10 0RF Primary Care Provider: Radha Norton Referrals: Radha Norton MD [Primary Care Provider] - Print Language: Czech
--- OUTSIDE RECORDS SUMMARY | 2024-09-12 22:42 | XMS RPT_ITS | CCD ---
Author Organization [facility] Care Team Providers Care Box Repairer Name Role Phone Ron Mendez Admitting Unavailable Ron Mendez Attending Unavailable Sridevi Gant Primary Care Unavailable Sridevi Gant Admitting Unavailable Sridevi Gant Attending Unavailable Sridevi Gant Primary Care Unavailable Westley Simpson Admitting UnavailWestley Cornelius Attending UnavailSridevi Smith Primary Care Unavailable Westley Simpson Admitting Unavailabl Westley Neville Attending UnavailSridevi Smith Primary Care Unavailable Brando Patel MD Primary Care Provider Dr. Paco Patel Primary Care Provider [phone] Pamela Lloyd Attending Provider Unavailable Brando Patel MD Primary Care Provider Radha Norton Primary Care Provider Radha Norton Primary Care Provider Radha Norton MD Primary Care Provider Dr. Radha Norton Primary Care Provider Dr. Radha Norton Referring Provider [phone] Prince Spangler Attending Provider Dr. Radha Norton Primary Care Provider Dr. Lizeth Basilio Attending Provider Dr. Warren Arcos Referring Provider Dr. Radha Norton Referring Provider Mehdi LEAD TANK MECHANIC, FERNANDO-Minda Marcos Attending Provider Dr. Radha Norton Primary Care Provider [phone] Dr. Radha Norton Referring Provider Mehdi LEAD TANK MECHANIC, FERNANDO-Minda Marcos Attending Provider Dr. Radha Norton Primary Care Provider [phone] Dr. Radha Norton Referring Provider Dr. Radha Norton Other Provider Dr. Aamir Kaur Attending Provider Dr. Radha Norton Primary Care Provider Dr. Radha Norton Referring Provider Dr. Radha Norton Other Provider [phone] Aamir Kaur Attending Provider Radha Norton MD Primary Care Provider RADHA NORTON Primary Care Unavailable Radha Norton Attending Unavailable Cierra, Radha Referring Unavailable Nancyedleno, Radha Primary Care Unavailable Cierra, Radha Primary Care Unavailable Ishaan Sena Attending Unavailable Cierra, Ardha Referring Unavailable Cierra, Radha Primary Care Unavailable Radha Norton Attending Unavailable Cierra, Radha Referring Unavailable Miedleno, Radha Primary Care Unavailable Phani Dneg Attending Unavailable Radha Norton Attending Unavailable Cierra, Radha Referring Unavailable Cierra, Radha Primary Care Unavailable Cierra, Radha Primary Care Unavailable Jovan Duke Attending Unavailable Jovan Duke Referring Unavailable Allergies Allergy Classification Reported Allergen(s) Allergy Type Date of Onset Reaction(s) Facility (1 source) strawberry allergenic extract; Translations: [[place] [facility]] Drug Allergy [facility] Repository (18 sources) FLUoxetine; Translations: [FLUOXETINE] Drug Allergy 1 Other: See Comments [facility] Work Phone: (20 sources) Grass pollen; Translations: [GRASS POLLEN] Drug Allergy 1 Other: See Comments [facility] Work Phone: (20 sources) Latex; Translations: [LATEX] Drug Allergy 9 [facility] (20 sources) Dog Dander; Translations: [DOG DANDER] Drug Allergy 1 Other: See Comments [facility] Work Phone: (4 sources) card board Allergy to substance 2 [facility] (11 sources) Environmental Allergies: Uncoded; Translations: [Environmental Allergies: Uncoded] Allergy to substance 3 [facility] (1 source) Latex Drug allergy (disorder) 4 [facility] Repository (1 source) dog dander Drug allergy (disorder) 4 [facility] Repository Medications Current Medications Medication Drug Class(es) Dates Sig (Normalized) Sig (Original) [id number] 200 actuat albuterol 0.09 mg/actuat metered dose inhaler (20 sources) beta2-Adrenergic Agonist Start: 04-07-2021 take 2 puff(s) by inhalation every four hours as needed albuterol HFA (PROVENTIL HFA, VENTOLIN HFA) 90 mcg/actuation inhaler Inhale 2 Puffs as instructed every 4 hours as needed. 18 g 1 04/07/2021 Active Start: 11-08-2019 take 1 puff(s) by in halation every four hours Albuterol Sulfate Active 2 PUFF INHALATION Q4H November 08, 2019 12:00am Comment on above: Inhale 2 Puffs as in structed every 4 hours as needed. amoxicillin 875 mg oral tablet (2 sources) Penicillin-class Antibacterial Start: 3 End: 3 take 1 tablet by mouth twice daily amoxicillin (AMOXIL) 875 mg tablet Take 1 tablet by mouth twice daily for 7 days. 14 tablet 0 10/06/2022 10/13/2022 Active Start: 10-11-2021 End: 10-18-2021 take 1 tablet by mouth twice daily amoxicillin (AMOXIL) 875 mg tablet Take 1 tablet by mouth twice daily for 7 days. 14 tablet 0 10/11/2021 10/18/2021 Active Comment on above: Take 1 tablet by dustin th twice daily for 7 days. amoxicillin 875 mg / clavulanate 125 mg oral tablet (1 source) Penicillin-class Antibacterial Start: 2022 End: 2022 take 1 tablet by mouth twice daily amoxicillin-clavulan ic acid (AUGMENTIN) 875-125 mg per tablet Indications: Sinobronchitis Take 1 tablet by mouth twice daily for 7 days. 14 tablet 0 06/28/2022 07/05/2022 Active Comment on above: Take 1 tablet by dustin th twice daily for 7 days. atorvastatin 80 mg oral tablet (20 sources) HMG-CoA Reductase Inhibitor Start: 2020 End: 2021 take 1 tablet by mouth once daily at bedtime for hyperlipidemia atorvastatin (LIPITOR) 80 mg tablet Indications: Mixed hyperlipidemia Take 1 tablet by mouth daily at bedtime. For cholesterol. 90 tablet 1 04/07/2021 Active Comment on above: Take 1 tablet by dustin th daily at bedtime. For cholesterol. BENEFIBER, GUAR GUM, ORAL (17 sources) BENEFIBER, GUAR GUM, ORAL Take by mouth. Active BENEFIBER, GUAR GUM, ORAL Take by mouth. 0 Active Comment on above: Take by mouth. benzonatate 100 mg oral capsule (5 sources) Non-narcotic Antitussive Start: 04-25-19 take 2 capsules by mouth every eight hours as needed benzonatate (TESSALON PERLES) 100 mg capsule Take 2 capsules by mouth three times daily as needed. 30 capsule 04/25/2022 Active Comment on above: Take 2 capsules by m out three times daily as needed. busPIRone hydrochloride 5 mg oral tablet (20 sources) Start: 01-24-20 take 5 mg by mouth twice daily Buspirone Active 5 MG PO TWICE A DAY January 23, 2021 12:00am Start: 04-08-2020 take 1 tablet by dustin th every twelve hours busPIRone (BUSPAR) 5 mg tablet Take 5 mg by mouth q 12 HR. 04/08/2020 Active Comment on above: Take 5 mg by mouth q 12 HR. cholecalciferol 0.125 mg oral tablet (20 sources) Vitamin D Start: take 125 ug by mouth once daily Cholecalciferol (Vitamin D3) Active 125 MCG PO DAILY September 16, 2020 12:00am Start: 06-11-2018 End: 11-08-2019 take 5000 [IU] by mouth once daily Cholecalciferol (Vitamin D3) Discontinued 5000 UNIT PO DAILY June 11, 2018 1:00am November 08, 2019 8:50am take 1 tablet by dustin th once daily cholecalciferol (VITAMIN D3) 5,000 unit tab Take 5,000 Units by mouth once daily. Active Comment on above: Take 5,000 Units by mouth once daily. cyclobenzaprine hydrochloride 10 mg oral tablet (20 sources) Muscle Relaxant Start: 022 take 1 tablet by mouth twice daily as needed for pain cyclobenzaprine (FLEXERIL) 10 mg tablet Indications: Acute bilateral low back pain with bilateral sciatica Take 1 tablet by mouth twice daily as needed for muscle spasm or pain. 60 tablet 06/22/2021 Active Comment on above: Take 1 tablet by dustin twice daily as needed for muscle spasm or pain. dicyclomine hydrochloride 10 mg oral capsule (9 sources) Anticholinergic Start: 023 take 2 tablets by mouth every six hours as needed Dicyclomine Active 10 MG PO THREE TIMES DAILY BEFORE MEALS August 08, 2022 12:00am Take 2 tablets every 6 hours as needed abdominal cramping docosahexaenoic acid/epa (FISH OIL ORAL) (17 sources) take 1000 mg by mouth once daily docosahexaenoic acid/epa (FISH OIL ORAL) Take 1,000 mg by mouth once daily. Active take 1000 mg by mouth once daily docosahexaenoic acid/epa (FISH OIL ORAL) Take 1,000 mg by mouth once daily. 0 Active Comment on above: Take 1,000 mg by dustin th once daily. doxycycline hyclate 100 mg oral tablet (2 sources) Tetracycline-cla ss Drug Start: 04-25-2022 End: 05-02-2022 take 1 tablet by mouth twice daily doxycycline (VIBRA-TABS) 100 mg tablet Take 1 tablet by mouth twice daily for 7 days. 14 tablet 0 04/25/2022 05/02/2022 Active Start: 04-04-2022 End: 04-09-2022 take 1 tablet by mouth twice daily doxycycline monohydrate 100 mg tablet Indications: Wound of left lower extremity, initial encounter Take 1 tablet by mouth twice daily for 5 days. 10 tablet 0 04/04/2022 04/09/2022 Active Comment on above: Take 1 tablet by dustin twice daily for 5 days. Take 1 tablet by dustin twice daily for 7 days. DULoxetine 60 mg delayed release oral capsule (20 sources) Serotonin and Norepinephrine Reuptake Inhibitor Start: 2 take 3 capsules by mouth once daily Duloxetine (Cymbalta) 20 mg Capsule,Delayed Release(Dr/Ec) Active 60 MG PO DAILY June 02, 2021 1:00am Start: 12-01-2020 End: 12-27-2021 take 1 capsule by mouth once daily DULoxetine (CYMBALTA) 60 mg capsule Take 1 capsule by mouth once daily. 30 capsule 5 12/28/2021 Active Comment on above: Take 1 capsule by mo [facility] once daily. 84 hr estradiol 0.81401 mg/hr transdermal system (15 sources) Estrogen Start: 09-24-19 End: 10-27-19 apply 1 dose transdermal route two times weekly, then apply 1 dose transdermal route every hour Estradiol (Vivelle-Dot) 0.025 mg/24 hr patch semiweekly Active 1 PATCH TD TWICE A WEEK October 26, 2022 1:54pm apply 1 patch for 3 days alternating with 1 patch for 4 days each week famotidine 20 mg oral tablet (20 sources) Histamine-2 Receptor Antagonist Start: 06-19-19 take 1 tablet by mouth twice daily famotidine (PEPCID) 20 mg tablet Take 1 tablet by mouth twice daily. 180 tablet 2 06/18/2021 Active Start: 01-23-2021 take 20 mg by mouth once daily Famotidine Active 20 MG PO DAILY January 23, 2021 12:00am Comment on above: Take 1 tablet by dustin twice daily. fluticasone propionate 0.05 mg/actuat metered dose nasal spray (20 sources) Corticosteroid Start: 2 take 2 spray(s) by mouth once daily fluticasone (FLONASE) 50 mcg/actuation nasal spray Indications: Seasonal allergies Use 2 Sprays in each nostril once daily. Rinse mouth after use. 16 g 1 08/05/2021 Active Start: 11-08-2019 End: 07-06-2021 take 1 spray(s) nasal route once daily Fluticasone Propionate Discontinued 2 SPRAY INTRANASAL DAILY November 08, 2019 12:00am July 06, 2021 11:21am administer into each nostril Start: 10-28-2019 End: 08-05-2021 take 2 spray(s) by mouth once daily fluticasone (FLONASE) 50 mcg/actuation nasal spray Use 2 Sprays in each nostril once daily. Rinse mouth after use. 1 Bottle 0 10/28/2019 08/05/2021 Discontinued Comment on above: Use 2 Sprays in each nostril once daily. Rinse mouth after use. gabapentin 300 mg oral capsule (20 sources) Anti-epileptic Agent Start: 06-11-2020 take 300 mg by mouth twice daily Gabapentin Active 300 MG PO TWICE A DAY June 11, 2020 1:00am Start: 05-30-2020 take 1 capsule by mo [facility] once daily in the evening gabapentin (NEURONTIN) 300 mg capsule Take 1 capsule by mouth every evening. 05/30/2020 Active Comment on above: Take 1 capsule by mo [facility] every evening. hydrOXYzine hydrochloride 10 mg oral tablet (20 sources) Antihistamine Start: 10-15-19 take 1 tablet by mouth every six hours as needed hydrOXYzine HCl (ATARAX) 10 mg tablet Take 1 tablet by mouth four times daily as needed. 120 tablet 1 10/14/2020 Active Start: 03-02-2019 End: 09-23-2022 take 10 mg by mouth every six hours as needed Hydroxyzine Hcl Discontinued 10 MG PO EVERY 6 HOURS NEEDED March 02, 2019 1:00am September 23, 2022 9:30am Comment on above: Take 1 tablet by dustin four times daily as needed. Lactobacillus acidophilus (17 sources) take 1 tablet by mouth once daily Lactobacillus acidophilus (PROBIOTIC ORAL) Take 1 tablet by mouth once daily. Active take 1 tablet by mouth once americo y Lactobacillus acidophilus (PROBIOTIC ORAL) Take 1 tablet by mouth once daily. 0 Active Comment on above: Take 1 tablet by dustin once daily. Lactobacillus Combo No.6 (14 sources) Start: 07-06-2021 Lactobacillus Combo No.6 Active CELL PO July 06, 2021 11:25am Start: 07-06-2021 End: 01-28-2022 Lactobacillus Combo No.6 Dis continued CELL PO July 06, 2021 12:00am January 28, 2022 2:06pm Start: 07-06-2021 End: 01-28-2022 Lactobacillus Combo No.6 Dis continued CELL PO July 05, 2021 11:00pm January 28, 2022 1:06pm Start: 07-06-2021 Lactobacillus Combo No.6 Active CELL PO July 06, 2021 12:00am levothyroxine sodium 0.088 mg oral tablet (20 sources) l-Thyroxine Start: 09-16-2020 take 1 tablet by mouth once daily levothyroxine (SYNTHROID) 88 mcg tablet Indications: Hypothyroidism, unspecified type Take 1 tablet by mouth once daily. 30 tablet 5 04/07/2021 Active Start: 06-01-2018 End: 04-06-2019 take 88 ug by mouth once daily Levothyroxine Discontin ued 88 MCG PO DAILY June 01, 2018 1:00am April 06, 2019 9:01am Comment on above: Take 1 tablet by dustin th once daily. lidocaine 0.05 mg/mg medicated patch (20 sources) Antiarrhythmic, Amide Local Anesthetic Start: 03-25-2020 lidocaine (LIDODERM) 5 % Apply 2 Patches as directed as directed. 03/25/2020 Active Start: 03-19-2020 apply 1 dose topically once da luz Lidocaine Active 1 PATCH TOPICAL DAILY March 19, 2020 1:00am Comment on above: Apply 2 Patches as d irected as directed. losartan potassium 50 mg oral tablet (20 sources) Angiotensin 2 Receptor Chavo Start: 06-01-2018 take 50 mg by mouth once daily Losartan Active 50 MG PO DAILY June 01, 2018 1:00am Comment on above: Take 1 tablet by dustin th once daily. magnesium carbonate (17 sources) take 1 tablet by mouth once daily MAGNESIUM CARBONATE ORAL Take 1 tablet by mouth once daily. Active take 1 tablet by mouth once americo y MAGNESIUM CARBONATE ORAL Take 1 tablet by mouth once daily. 0 Active Comment on above: Take 1 tablet by dustin th once daily. magnesium oxide 400 mg oral capsule (14 sources) Start: 07-07-19 take 400 mg by mouth once daily Magnesium Oxide Active 400 MG PO DAILY July 06, 2021 12:00am methocarbamol 500 mg oral tablet (4 sources) Muscle Relaxant Start: 07-08-19 take 1000 mg by mouth four times daily as needed Methocarbamol Active 1000 MG PO 4 TIMES DAILY NEEDED 56 July 07, 2021 4:34am mupirocin 20 mg/ml topical cream (1 source) RNA Synthetase Inhibitor Antibacterial Start: 04-04-19 End: 04-14-19 mupirocin (BACTROBAN) 2 % cream Indications: Wound of left lower extremity, initial encounter Apply 1 application to affected area three times daily for 10 days. Location: to L leg wound 15 g 0 04/04/2022 04/14/2022 Active Comment on above: Apply 1 application to affected area three times daily for 10 days. Location: to L leg wound nitrofurantoin, macrocrystals 25 mg / nitrofurantoin, monohydrate 75 mg oral capsule (3 sources) Nitrofuran Antibacterial Start: 05-30-19 take 100 mg by mouth every twelve hours Nitrofurantoin Monohyd/M-Cryst Active 100 MG PO EVERY 12 HOURS 10 May 30, 2023 1:00am [place]-3 Fatty Acids-Fish Oil (14 sources) Start: 11-14-19 [place]-3 Fatty Acids-Fish Oil Active 1 EACH PO DAILY November 14, 2019 4:31pm Start: 11-14-2019 [place]-3 Fatty Acids-Fish Oil Active 1 EACH PO DAILY November 13, 2019 11:00pm Start: 11-14-2019 [place]-3 Fatty Acids-Fish Oil Active 1 EACH PO DAILY November 14, 2019 12:00am omeprazole 20 mg delayed release oral capsule (20 sources) Proton Pump Inhibitor Start: 04-07-2021 End: 09-14-2021 take 2 capsules by mouth once daily omeprazole (PRILOSEC) 20 mg capsule Take 2 capsules by mouth once daily. 120 capsule 1 09/14/2021 Active Start: 06-01-2018 End: 08-12-2022 take 20 mg by mouth once daily Omeprazole Discontinued 20 MG PO DAILY June 01, 2018 1:00am August 12, 2022 10:24am Comment on above: Take 2 capsules by m outh once daily. ondansetron 4 mg disintegrating oral tablet (9 sources) Serotonin-3 Receptor Antagonist Start: 3 take 4 mg by mouth every eight hours as needed Ondansetron Active 4 MG PO EVERY 8 HOURS NEEDED August 08, 2022 12:00am pantoprazole 40 mg delayed release oral tablet (8 sources) Proton Pump Inhibitor Start: 3 take 40 mg by mouth once daily Pantoprazole Active 40 MG PO DAILY August 12, 2022 12:00am potassium chloride 10 meq extended release oral tablet (20 sources) Start: 2 take 1 tablet by mouth once daily potassium chloride (K-TAB) 10 mEq tablet Take 1 tablet by mouth once daily. 30 tablet 5 04/07/2021 Active Start: 06-11-2018 take 10 mEq by mouth once americo y Potassium Chloride Active 10 MEQ PO DAILY June 11, 2018 1:00am Comment on above: Take 1 tablet by dustin once daily. predniSONE 20 mg oral tablet (5 sources) Start: 06-28-2022 End: 07-02-2022 take 2 tablets by mouth once daily predniSONE (DELTASONE) 20 mg tablet Indications: Sinobronchitis Take 2 tablets by mouth once daily for 4 days. 8 tablet 0 06/28/2022 07/02/2022 Active Start: 04-25-2022 End: 04-30-2022 take 2 tablets by mouth once daily predniSONE (DELTASONE) 20 mg tablet Take 2 tablets by mouth once daily for 5 days. 10 tablet 0 04/25/2022 04/30/2022 Active Start: 01-01-2022 End: 01-06-2022 take 2 tablets by mouth once daily predniSONE (DELTASONE) 20 mg tablet Indications: Suspected COVID-19 virus infection Take 2 tablets by mouth once daily for 5 days. 10 tablet 0 01/01/2022 01/06/2022 Active Start: 07-03-2021 End: 07-12-2021 predniSONE (DELTASONE) 10 mg tablet Indications: Acute bilateral low back pain with bilateral sciatica Take 4 tabs daily for 3 days, then 2 tabs daily for 3 days, then 1 tab daily for 3 days with food. 21 tablet 0 07/03/2021 07/12/2021 Active Comment on above: Take 4 tabs daily fo r 3 days, then 2 tabs daily for 3 days, then 1 tab daily for 3 days with food. Take 2 tablets by mo [facility] once daily for 5 days. Take 2 tablets by mo ut once daily for 4 days. sucralfate 1000 mg oral tablet (8 sources) Aluminum Complex Start: 09-03-2022 take 1 g by mouth 1 hour(s) before bedtime Sucralfate Active 1 GM PO before meals and at bedtime 120 September 03, 2022 12:00am take 1 hour before meals and at bedtime Vitamin B Complex (14 sources) Start: 07-06-2021 take 1 tablet by mouth once daily Vitamin B Complex Active 1 TABLET PO DAILY July 06, 2021 11:23am Start: 07-06-2021 take 1 tablet by mouth once da luz Vitamin B Complex Active 1 TABLET PO DAILY July 05, 2021 11:00pm Start: 07-06-2021 take 1 tablet by mouth once da luz Vitamin B Complex Active 1 TABLET PO DAILY July 06, 2021 12:00am vitamin b complex capsule (17 sources) take 1 capsule by [facility] once daily vitamin b complex capsule Take 1 capsule by mouth once daily. Active take 1 capsule by mouth once basilio ly vitamin b complex capsule Take 1 capsule by mouth once daily. 0 Active Comment on above: Take 1 capsule by [facility] once daily. Completed/Discontinued Medications Medication Drug Class(es) Dates Sig (Normalized) Sig (Original) acetaminophen 325 mg / HYDROcodone bitartrate 5 mg oral tablet (20 sources) Opioid Agonist Start: 08-06-2022 End: 09-23-2022 take 1 tablet by mouth every six hours as needed Hydrocodone-Acetami nophen Discontinued 1 TABLET PO EVERY 6 HOURS NEEDED 03 06August 06, 2022 September 23, 2022 9:30am Start: 07-07-2021 End: 01-28-2022 take 1 tablet by mouth every six hours Hydrocodone-Acetaminophen Discontinued 1 TABLET PO EVERY 6 HOURS 12 July 07, 2021 January 28, 2022 2:06pm Start: 03-07-2020 End: 03-09-2020 take 1 tablet by mouth every four hours as needed Hydrocodone-Acetaminophen Discontinued 1 TABLET PO EVERY 4 HOURS NEEDED 01 03March 07, 2020 March 09, 2020 1:03am Start: 07-24-2019 End: 07-26-2019 take 1 tablet by mouth every four hours as needed Hydrocodone-Acetaminophen Discontinued 1 TABLET PO EVERY 4 HOURS NEEDED 01 03July 24, 2019 July 26, 2019 12:02am cephalexin 500 mg oral capsule (2 sources) Cephalosporin Antibacterial Start: 05-21-2024 End: 05-28-2024 take 1 capsule by mouth four times daily cephALEXin (KEFLEX) 500 mg capsule Indications: Acute UTI Take 1 capsule by mouth four times daily for 7 days. 28 capsule 05/21/2024 05/28/2024 naproxen 500 mg oral tablet (20 sources) Nonsteroidal Anti-inflammatory Drug Start: 03-07-2020 End: 07-06-2021 take 500 mg by mouth twice daily Naproxen Discontinued 500 MG PO TWICE A DAY June 02, 2021 1:00am July 06, 2021 11:19am Start: 06-12-2018 End: 11-08-2019 take 500 mg by mouth twice daily as needed Naproxen Discontinued 500 MG PO TWICE DAILY NEEDED June 12, 2018 12:00am November 08, 2019 8:51am [place] 5-Tbn-Kgb-Fish Oil (14 sources) Start: 06-01-2018 End: 11-08-2019 take 1000 mg by mouth once daily [place] 4-Kxw-Xyd-Fish Oil Discontinued 1000 MG PO DAILY June 01, 2018 4:33am November 08, 2019 8:51am Start: 06-01-2018 End: 11-08-2019 take 1000 mg by mouth once daily [place] 9-Ack-Huk-Fish Oil Discontinued 1000 MG PO DAILY June 01, 2018 12:00am November 08, 2019 7:51am Start: 06-01-2018 End: 11-08-2019 take 1000 mg by mouth once daily [place] 7-Wwz-Ixl-Fish Oil Discontinued 1000 MG PO DAILY June 01, 2018 1:00am November 08, 2019 8:51am oxyCODONE hydrochloride 5 mg oral tablet (14 sources) Opioid Agonist Start: 04-06-2019 End: 04-13-2019 take 1 tablet by mouth every six hours as needed Oxycodone Discontinued 1 TABLET PO EVERY 6 HOURS NEEDED 21 10April 06, 2019 April 13, 2019 1:09am sertraline 150 mg oral tablet (14 sources) Serotonin Reuptake Inhibitor Start: 08-24-2016 End: 11-08-2019 take 150 mg by mouth once daily Sertraline HCl Discontinued 150 MG PO DAILY August 24, 2016 12:00am November 08, 2019 8:49am Problems Active Problems Problem Classification Problem Date Documented Da te Episodic/Chronic Abdominal hernia (20 sources) Unspecified abdominal hernia without obstruction or gangrene; Translations: [Hernia] 08-06-2022 Episodic Abdominal pain (10 sources) Abdominal pain; Translations: [Unspecified abdominal pain] 08-05-2022 Episodic Alcohol-related disorders (17 sources) History of alcohol abuse; Translations: [Alcohol abuse, in remission] 09-30-2020 Chronic Anxiety disorders (20 sources) Generalized anxiety disorder; Translations: [Generalized anxiety disorder] 09-30-2020 Chronic Asthma (20 sources) Allergic asthma; Translations: [Unspecified asthma, uncomplicated] 09-30-2020 Chronic Disorders of lipid metabolism (20 sources) Mixed hyperlipidemia; Translations: [Mixed hyperlipidemia] 10-08-2020 Chronic E Codes: Fall (14 sources) Fall on same level from slipping, tripping or stumbling ; Translations: [Fall on same level from slipping, tripping and stumbling without subsequent striking against object, initial encounter] 01-31-2021 Episodic E Codes: Natural/environment (14 sources) Insect bite - wound; Translations: [Bitten or stung by nonvenomous insect and other nonvenomous arthropods, initial encounter] 12-28-2018 Episodic Esophageal disorders (20 sources) Gastroesophageal reflux disease; Translations: [Gastro-esophageal reflux disease without esophagitis] 06-16-2020 Chronic Essential hypertension (20 sources) Hypertensive disorder; Translations: [Essential (primary) hypertension] 05-12-2018 Chronic Headache; including migraine (14 sources) Migraine; Translations: [Migraine, unspecified, not intractable, without status migrainosus] 06-11-2020 Chronic Headache; including migraine (14 sources) Sinus headache; Translations: [Sinus headache] 06-02-2018 Episodic Menopausal disorders (10 sources) Drug therapy status; Translations: [Hormone replacement therapy] 10-26-2022 Episodic Mood disorders (17 sources) Depressive disorder; Translations: [Depression] 09-30-2020 Chronic Nonmalignant breast conditions (12 sources) Large breast; Translations: [Hypertrophy of breast] 01-30-2022 Episodic Nonspecific chest pain (14 sources) Right sided chest pain; Translations: [Chest pain, unspecified] 06-13-2018 Episodic Nutritional deficiencies (17 sources) Vitamin D deficiency; Translations: [Vitamin D deficiency, unspecified] 09-30-2020 Chronic Nutritional deficiencies (14 sources) Vitamin deficiency; Translations: [Vitamin deficiency, unspecified] 07-06-2021 Episodic Open wounds of extremities (1 source) Disorder of lower extremity; Translations: [Unspecified open wound, left lower leg, initial encounter] Episodic Open wounds of head; neck; and trunk (14 sources) Open wound of left ear; Translations: [Unspecified open wound of left ear, sequela] 10-17-2020 Episodic Open wounds of head; neck; and trunk (14 sources) Open wound of right ear; Translations: [Unspecified open wound of right ear, sequela] 10-17-2020 Episodic Other bone disease and musculoskeletal deformities (14 sources) Costal chondritis; Translations: [Chondrocostal junction syndrome [Tietze]] 06-10-2021 Episodic Other connective tissue disease (1 source) Pain in left arm; Translations: [Pain in left arm] Episodic Other ear and sense organ disorders (14 sources) Cellulitis of head; Translations: [Cellulitis of left external ear] 10-17-2020 Episodic Other ear and sense organ disorders (20 sources) Mass of ear structure; Translations: [Other specified disorders of left ear] 10-17-2020 Episodic Other ear and sense organ disorders (1 source) Bilateral earache; Translations: [Otalgia, bilateral] Episodic Other female genital disorders (14 sources) Abnormal uterine bleeding; Translations: [Abnormal uterine and vaginal bleeding, unspecified] 04-06-2019 Chronic Other gastrointestinal disorders (17 sources) Heartburn; Translations: [Heartburn] 09-30-2020 Episodic Other gastrointestinal disorders (9 sources) Constipation; Translations: [Constipation, unspecified] 08-08-2022 Episodic Other inflammatory condition of skin (11 sources) Intertrigo; Translations: [Erythema intertrigo] 01-30-2022 Episodic Other inflammatory condition of skin (1 source) Erythema intertrigo; Translations: [Other specified erythematous conditions] 01-28-2022 Episodic Other nervous system disorders (14 sources) Paresthesia; Translations: [Paresthesia of skin] 12-28-2018 Episodic Other non-traumatic joint disorders (11 sources) Shoulder pain; Translations: [Pain in unspecified shoulder] 01-30-2022 Episodic Other nutritional; endocrine; and metabolic disorders (14 sources) Obesity; Translations: [Other obesity due to excess calories] 09-30-2020 Chronic Other nutritional; endocrine; and metabolic disorders (3 sources) Obesity caused by energy imbalance; Translations: [Other obesity due to excess calories] 09-30-2020 Chronic Other upper respiratory disease (17 sources) Seasonal allergy; Translations: [Other seasonal allergic rhinitis] 09-30-2020 Chronic Other upper respiratory disease (1 source) Seasonal allergic rhinitis; Translations: [Other seasonal allergic rhinitis] Chronic Other upper respiratory disease (11 sources) Acute bronchospasm; Translations: [Acute bronchospasm] 04-30-2022 Episodic Other upper respiratory infections (16 sources) Sinusitis; Translations: [Chronic sinusitis, unspecified] Chronic Otitis media and related conditions (2 sources) Acute bilateral otitis media ; Translations: [Otitis media, unspecified, bilateral] Episodic Pleurisy; pneumothorax; pulmonary collapse (8 sources) Atelectasis; Translations: [Atelectasis] 08-12-2022 Episodic Residual codes; unclassified (11 sources) Family history of breast cancer; Translations: [Family history of malignant neoplasm of breast] 01-30-2022 Episodic Residual codes; unclassified (1 source) Family history of malignant neoplasm of breast; Translations: [Family history of malignant neoplasm of breast] 01-28-2022 Episodic Screening and history of mental health and substance abuse codes (20 sources) Tobacco use and exposure - finding; Translations: [Personal history of nicotine dependence] 09-30-2020 Episodic Spondylosis; intervertebral disc disorders; other back problems (20 sources) Acute back pain with sciatica; Translations: [Lumbago with sciatica, left side] Episodic Sprains and strains (20 sources) Low back strain; Translations: [Strain of muscle, fascia and tendon of lower back, initial encounter] 01-31-2021 Episodic Substance-related disorders (14 sources) Smoker; Translations: [Nicotine dependence, unspecified, uncomplicated] 01-30-2022 Chronic Superficial injury; contusion (14 sources) Contusion of knee; Translations: [Contusion of right knee, initial encounter] 01-31-2021 Episodic Thyroid disorders (20 sources) Hypothyroidism; Translations: [Hypothyroidism, unspecified] Onset: 05-12-2018 Chronic Urinary tract infections (4 sources) Urinary tract infectious disease; Translations: [Urinary tract infection, site not specified] 06-07-2023 Episodic Viral infection (1 source) Viral disease; Translations: [Viral infection, unspecified] 05-21-2024 Episodic Past or Other Problems Problem Classification Problem Date Documented Da te Episodic/Chronic Immunizations and screening for infectious disease (2 sources) Suspected disease caused by 2019-nCoV; Translations: [Suspected COVID-19 virus infection] Onset: 11-28-2023 Episodic Other non-traumatic joint disorders (2 sources) Pain in unspecified shoulder; Translations: [Pain in joint, shoulder region] Onset: 02-29-2024 01-28-2022 Episodic Other non-traumatic joint disorders (1 source) Pain in unspecified hip; Translations: [Pain in unspecified hip] Onset: 01-04-2024 Episodic Other screening for suspected conditions (not mental disorders or infectious disease) (13 sources) CT of abdomen abnormal; Translations: [Abnormal findings on diagnostic imaging of other abdominal regions, including retroperitoneum] Onset: 12-14-2023 08-13-2022 Episodic Other upper respiratory infections (17 sources) Upper respiratory infection; Translations: [Acute upper respiratory infection, unspecified] Onset: 11-28-2023 Episodic Results Test Name Value Interpretation Reference Range Facility CBC W/Diff, Automatedon 07-04 Absolute Lymph 1.50 X10 3/uL Normal 0.83-4.51 [facility] Comment on above: Performed By: #### L 500.4100, L100.0100, L506.0400, L501.9520, L500.4050 #### [facility] [address] [place], [address] Absolute Neut 4.1 X10 3/uL Normal 2.0-7.7 [facility] Comment on above: Performed By: #### L 500.4100, L100.0100, L506.0400, L501.9520, L500.4050 #### [facility] [address] [place], [address] Basophils/100 WBC (Bld) 0.5 % Normal 0-1 [facility] Comment on above: Performed By: #### L 500.4100, L100.0100, L506.0400, L501.9520, L500.4050 #### [facility] [address] [place], [address] Eosinophils/100 WBC (Bld) 1.5 % Normal 0-5 [facility] Comment on above: Performed By: #### L 500.4100, L100.0100, L506.0400, L501.9520, L500.4050 #### [facility] [address] [place], [address] Erythrocyte distribution width (RBC) [Ratio] 13.4 % Normal 11.6-14.6 [facility] Comment on above: Performed By: #### L 500.4100, L100.0100, L506.0400, L501.9520, L500.4050 #### [facility] [address] [place], [address] Hematocrit (Bld) [Volume fraction] 43.8 % Normal 37-47 [facility] Comment on above: Performed By: #### L 500.4100, L100.0100, L506.0400, L501.9520, L500.4050 #### [facility] [address] [place], [address] Hemoglobin (Bld) [Mass/Vol] 14.1 g/dL Normal 12.0-15.0 [facility] Comment on above: Performed By: #### L 500.4100, L100.0100, L506.0400, L501.9520, L500.4050 #### [facility] [address] [place], [address] IG% 0.200 Normal 0.0-0.9 [facility] Comment on above: Result Comment: IG% - Immature Granulocytes (promyelocytes, myelocytes and metamyelocytes) > 1% indicates that a LEFT SHIFT is Present. Performed By: #### L 500.4100, L100.0100, L506.0400, L501.9520, L500.4050 #### [facility] [address] [place], [address] Lymphocytes/100 WBC (Bld) 24.8 % Normal 19-41 [facility] Comment on above: Performed By: #### L 500.4100, L100.0100, L506.0400, L501.9520, L500.4050 #### [facility] [address] [place], [address] MCH (RBC) [Entitic mass] 27.9 pg Normal 27.0-32.0 [facility] Comment on above: Performed By: #### L 500.4100, L100.0100, L506.0400, L501.9520, L500.4050 #### [facility] [address] [place], [address] MCHC (RBC) [Mass/Vol] 32.2 g/dL Normal 32-36 [facility] Comment on above: Performed By: #### L 500.4100, L100.0100, L506.0400, L501.9520, L500.4050 #### [facility] [address] [place], [address] MCV (RBC) [Entitic vol] 86.6 fL Normal 81-99 [facility] Comment on above: Performed By: #### L 500.4100, L100.0100, L506.0400, L501.9520, L500.4050 #### [facility] [address] [place], [address] Monocytes/100 WBC (Bld) 5.6 % Normal 0-10 [facility] Comment on above: Performed By: #### L 500.4100, L100.0100, L506.0400, L501.9520, L500.4050 #### [facility] [address] [place], [address] Neutrophils/100 WBC (Bld) 67.4 % Normal 47-70 [facility] Comment on above: Performed By: #### L 500.4100, L100.0100, L506.0400, L501.9520, L500.4050 #### [facility] [address] [place], [address] Nucleated RBC (Bld) [#/Vol] 0 10*3/uL Normal 0-5 [facility] Comment on above: Performed By: #### L 500.4100, L100.0100, L506.0400, L501.9520, L500.4050 #### [facility] [address] [place], [address] Platelet mean volume (Bld) [Entitic vol] 10.4 fL Normal 6.2-12.0 [facility] Comment on above: Performed By: #### L 500.4100, L100.0100, L506.0400, L501.9520, L500.4050 #### [facility] [address] [place], [address] Platelets (Bld) [#/Vol] 256 10*3/uL Normal 150-450 [facility] Comment on above: Performed By: #### L 500.4100, L100.0100, L506.0400, L501.9520, L500.4050 #### [facility] [address] [place], [address] RBC (Bld) [#/Vol] 5.06 10*6/uL Normal 4.2-5.4 [facility] Comment on above: Performed By: #### L 500.4100, L100.0100, L506.0400, L501.9520, L500.4050 #### [facility] [address] [place], [address] RDW SD 42.5 fl Normal 35.1-43.9 [facility] Comment on above: Performed By: #### L 500.4100, L100.0100, L506.0400, L501.9520, L500.4050 #### [facility] [address] [place], [address] WBC (Bld) [#/Vol] 6.1 10*3/uL Normal 4.4-11.0 [facility] Comment on above: Performed By: #### L 500.4100, L100.0100, L506.0400, L501.9520, L500.4050 #### [facility] [address] [place], [address] Comprehensive Metabolic Prof [facility] 07-26-2024 Albumin [Mass/Vol] 4.4 g/dL Normal 3.5-5.0 [facility] Comment on above: Performed By: #### L 500.4100, L100.0100, L506.0400, L501.9520, L500.4050 #### [facility] [address] [place], [address] Albumin/Globulin [Mass ratio] 1.5 {ratio} Normal 0.9-2.4 [facility] Comment on above: Performed By: #### L 500.4100, L100.0100, L506.0400, L501.9520, L500.4050 #### [facility] [address] [place], [address] ALK PHOS 79 U/L Normal 35-104 [facility] Comment on above: Performed By: #### L 500.4100, L100.0100, L506.0400, L501.9520, L500.4050 #### [facility] [address] [place], [address] ALT [Catalytic activity/Vol] 23 U/L Normal <=34 [facility] Comment on above: Performed By: #### L 500.4100, L100.0100, L506.0400, L501.9520, L500.4050 #### [facility] [address] [place], [address] AST [Catalytic activity/Vol] 24 U/L Normal <=31 [facility] Comment on above: Performed By: #### L 500.4100, L100.0100, L506.0400, L501.9520, L500.4050 #### [facility] [address] [place], [address] Bilirubin [Mass/Vol] 0.43 mg/dL Normal 0.00-1.30 [facility] Comment on above: Performed By: #### L 500.4100, L100.0100, L506.0400, L501.9520, L500.4050 #### [facility] [address] [place], [address] BUN/CRE 15.7 RATIO Normal 10-20 [facility] Comment on above: Performed By: #### L 500.4100, L100.0100, L506.0400, L501.9520, L500.4050 #### [facility] [address] [place], [address] Calcium [Mass/Vol] 9.7 mg/dL Normal 7.6-11.0 [facility] Comment on above: Performed By: #### L 500.4100, L100.0100, L506.0400, L501.9520, L500.4050 #### [facility] [address] [place], [address] Chloride [Moles/Vol] 104 mmol/L Normal 98-108 [facility] Comment on above: Performed By: #### L 500.4100, L100.0100, L506.0400, L501.9520, L500.4050 #### [facility] [address] [place], [address] CO2 [Moles/Vol] 24.9 mmol/L Normal 21.0-32.0 [facility] Comment on above: Performed By: #### L 500.4100, L100.0100, L506.0400, L501.9520, L500.4050 #### [facility] [address] [place], [address] Creatinine [Mass/Vol] 0.78 mg/dL Normal 0.70-1.20 [facility] Comment on above: Performed By: #### L 500.4100, L100.0100, L506.0400, L501.9520, L500.4050 #### [facility] [address] [place], [address] GAP 12 Normal 5-15 [facility] Comment on above: Performed By: #### L 500.4100, L100.0100, L506.0400, L501.9520, L500.4050 #### [facility] [address] [place], [address] GFR/1.73 sq M.predicted among non-blacks MDRD (S/P/Bld) [Vol rate/Area] 92 mL/min/{1.73_m2} Normal >60 [facility] Comment on above: Result Comment: mL/m in/1.73m2 CKD-EPI Creatinine Equation (2020) Performed By: #### L 500.4100, L100.0100, L506.0400, L501.9520, L500.4050 #### [facility] [address] [place], [address] Globulin (S) [Mass/Vol] 3.0 g/dL Normal 2.2-4.2 [facility] Comment on above: Performed By: #### L 500.4100, L100.0100, L506.0400, L501.9520, L500.4050 #### [facility] [address] [place], [address] Glucose [Mass/Vol] 111 mg/dL High 70-99 [facility] Comment on above: Performed By: #### L 500.4100, L100.0100, L506.0400, L501.9520, L500.4050 #### [facility] [address] [place], [address] Potassium [Moles/Vol] 4.2 mmol/L Normal 3.3-5.1 [facility] Comment on above: Performed By: #### L 500.4100, L100.0100, L506.0400, L501.9520, L500.4050 #### [facility] [address] [place], [address] Sodium [Moles/Vol] 140 mmol/L Normal 133-145 [facility] Comment on above: Performed By: #### L 500.4100, L100.0100, L506.0400, L501.9520, L500.4050 #### [facility] [address] [place], [address] T PROT 7.4 g/dL Normal 5.9-8.4 [facility] Comment on above: Performed By: #### L 500.4100, L100.0100, L506.0400, L501.9520, L500.4050 #### [facility] [address] [place], [address] Urea nitrogen [Mass/Vol] 12 mg/dL Normal 4-19 [facility] Comment on above: Performed By: #### L 500.4100, L100.0100, L506.0400, L501.9520, L500.4050 #### [facility] [address] [place], [address] Lipid Profileon 07-26-2024 CHOL:HDL 3.18 Normal [facility] Comment on above: Performed By: #### L 500.4100, L100.0100, L506.0400, L501.9520, L500.4050 #### [facility] [address] [place], [address] Cholesterol [Mass/Vol] 182 mg/dL Normal <=200 [facility] Comment on above: Result Comment: Chol esterol level, Desirable <200 mg/dL Borderline high cholesterol 200-239 mg/dL High cholesterol >=240 mg/dL Recommendations of the NCEP Adult Treatment Panel for the following risk-cutoff thresholds for the [place] population. Performed By: #### L 500.4100, L100.0100, L506.0400, L501.9520, L500.4050 #### [facility] [address] [place], [address] Cholesterol in HDL [Mass/Vol] 57 mg/dL Normal [facility] Comment on above: Result Comment: Nurys onal Cholesterol Education Program (NCEP) guidelines: <40 mg/dL: Low HDL-cholesterol (major risk factor for CHD) >= 60 mg/dL: High HDL-cholesterol (negative risk factor for CHD) HDL-cholesterol is affected by a number of factors, e.g. smoking, exercise, hormones, sex and age. Performed By: #### L 500.4100, L100.0100, L506.0400, L501.9520, L500.4050 #### [facility] [address] [place], [address] Cholesterol in LDL [Mass/Vol] 102 mg/dL Normal [facility] Comment on above: Result Comment: Bord sdblds=403-489 mg/dL Higher Ypqe=048 mg/dL or greater Performed By: #### L 500.4100, L100.0100, L506.0400, L501.9520, L500.4050 #### [facility] [address] [place], [address] Cholesterol in VLDL [Mass/Vol] 23 mg/dL Normal 5-40 [facility] Comment on above: Performed By: #### L 500.4100, L100.0100, L506.0400, L501.9520, L500.4050 #### [facility] [address] [place], [address] Triglyceride [Mass/Vol] 116 mg/dL Normal [facility] Comment on above: Result Comment: The drugs N-Acetylcysteine and Metamizole may falsely depress this assay. Normal range: <150 mg/dL Borderline High: 150-199 mg/dL High: 200-499 mg/dL Very High: >500 mg/dL Performed By: #### L 500.4100, L100.0100, L506.0400, L501.9520, L500.4050 #### [facility] [address] [place], [address] T4 Free Directon 07-26-2024 T4 FREE DIRECT 1.40 ng/dL Normal 0.76-1.46 [facility] Comment on above: Performed By: #### L 500.4100, L100.0100, L506.0400, L501.9520, L500.4050 #### [facility] [address] [place], [address] Thyroid Stim Hormone (TSH)on 07-26-2024 TSH 1.120 uIU/mL Normal 0.300-4.200 [facility] Comment on above: Performed By: #### L 500.4100, L100.0100, L506.0400, L501.9520, L500.4050 #### [facility] [address] [place], [place], [address] Bacteria Jonas Ivey 5 Bacteria identified Cx Nom (U) ORGANISM ID: 1 >=100,000 CFU/ml Escherichia coli ORGANISM ID: 1 (ESCHERICHIA COLI) ------ ANTIBIOTIC INTERPRETATION DESTINEE STATUS REFERENCE RANGE ------ Ampicillin S 4 F Susceptible <=8 , Intermediate >8 , Resistant >16 Cefazolin S <=4 F Susceptible 0-16 , Intermediate <0 or >16 , Resistant >16 For uncomplicated urinary tract infections, cefazolin results can be used to predict susceptibility or resistance to cephalexin. Ceftriaxone S <=1 F Susceptible <=1 , Intermediate >1 , Resistant >=4 Cefepime S <=1 F Susceptible <=2 , Susceptible-Dose Dependent >2 , Resistant >=16 Ertapenem S <=0.5 F Susceptible <=0.5 , Intermediate >.5 , Resistant >1 Meropenem S <=0.25 F Susceptible <=1 , Intermediate >1 , Resistant >2 Ampicillin/Sulbact S <=2 F Susceptible <=8 , Intermediate >8 , Resistant >16 Piperacillin/Tazobac S <=4 F Susceptible <16 , Susceptible-Dose Dependent >=16 , Resistant >=32 Gentamicin S <=1 F Susceptible <=2 , Intermediate >2 , Resistant >=8 Tobramycin S <=1 F Susceptible <4 , Intermediate >=4 , Resistant >=8 Trimeth sulfameth S <=20 F Susceptible <=40 , Resistant >40 Ciprofloxacin S <=0.25 F Susceptible <0.5 , Intermediate >=.5 , Resistant >=1 Nitrofurantoin S <=16 F Susceptible <=32 , Intermediate >32 , Resistant >64 Abnormal [facility] Comment on above: Performed By: #### 6 30-4 #### [facility] CLIA [id number] [address] [place] [address] [facility] CNOVon 05-21-2024 CNOV Office Visit (UCWSTR ) AURA SAUNDERS ([id number]) 1970 F UPA Date Time Provider Department 05/21/24 4:30 PM LILLI BROWN WS During your visit today, we recorded the following information about you: Temperature Pulse Respiration Blood pressure 97.9 degrees 98/minute 18/minute 122/80 Weight 76.1 kg Lilli Brown PA-C 05/21/2024 4:08 PM Signed This note was created using Anerg[employer]. Subjective Aura Saunders is a 53 year old female. Patient is a 53-year-old female who arrives for evaluation of 2 separate complaints. Patient complains of fever, chills, body aches, sore throat and cough that she has been experiencing for the past 2 to 3 days. Patient reports mild congestion but denies sinus pressure or ear pain. Patient has no history of asthma or COPD and does not smoke. Patient also reports burning with urination and urinary urgency that she has been experiencing for the past 2 days. Patient denies hematuria, flank pain or nausea. Patient states that she does have a history of recurrent urinary tract infection and that her current symptoms are consistent with same. Cough Associated symptoms include chills, sore throat and myalgias. Review of Systems Constitutional: Positive for chills and fever. HENT: Positive for congestion and sore throat. Respiratory: Positive for cough. Genitourinary: Positive for dysuria and urgency. Musculoskeletal: Positive for myalgias. All other systems reviewed and are negative. Objective BP 122/80 Pulse 98 Temp 36.6 ?C (97.9 ?F) (Tympanic) Resp 18 Wt 76.1 kg (167 lb 12.3 oz) LMP 09/05/2018 SpO2 99% BMI 28.80 kg/m? Physical Exam Vitals and nursing note reviewed. Constitutional: Appearance: Normal appearance. She is normal weight. HENT: Head: Normocephalic and atraumatic. Right Ear: Tympanic membrane, ear canal and external ear normal. Left Ear: Tympanic membrane, ear canal and external ear normal. Nose: Nose normal. Mouth/Throat: Mouth: Mucous membranes are moist. Pharynx: Oropharynx is clear. Eyes: Extraocular Movements: Extraocular movements intact. Conjunctiva/sclera: Conjunctivae normal. Pupils: Pupils are equal, round, and reactive to light. Cardiovascular: Rate and Rhythm: Normal rate and regular rhythm. Pulses: Normal pulses. Heart sounds: Normal heart sounds. Pulmonary: Effort: Pulmonary effort is normal. Breath sounds: Normal breath sounds. Musculoskeletal: Cervical back: Normal range of motion and neck supple. Skin: General: Skin is warm and dry. Capillary Refill: Capillary refill takes less than 2 seconds. Neurological: General: No focal deficit present. Mental Status: She is alert and oriented to person, place, and time. Psychiatric: Mood and Affect: Mood normal. Behavior: Behavior normal. Thought Content: Thought content normal. Judgment: Judgment normal. Assessment and Plan Physical exam findings as noted above. Urinalysis shows small leukocyte esterase with nitrite and large blood. Urine culture was ordered. Patient was provided with a prescription for Keflex 500 mg and supportive care instructions were discussed. Patient was advised that results of the urine culture be available in 2 days and she will be contacted if there is need to change her medication based on the sensitivity report. Patient verbalizes clear understanding of all of the above instructions. CLINICAL IMPRESSION: Acute UTI; Viral Illness ASSESSMENT/PLAN: 1. Sore throat - ICD9: 462, ICD10: J02.9 (primary diagnosis) - UA DIP, URINE (POC) 2. Viral illness - ICD9: 079.99, ICD10: B34.9 3. Acute UTI - ICD9: 599.0, ICD10: N39.0 - BACTERIAL CULTURE, URINE - CEPHALEXIN 500 MG CAPSULE Lilli Brown PA-C Allergies As of Date: 05/21/2024 Noted Allergy Reaction DOG DANDER 06/26/2020 14 - Other: See Comments Comments: headache and watery eyes and runny nose rash GRASS POLLEN 06/26/2020 14 - Other: See Comments Comments: runny nose and watery eyes LATEX 03/30/2019 2 - Rash PROZAC (FLUOXETINE) 09/30/2020 14 - Other: See Comments Comments: anger Date Reviewed: 05/21/2024 Reviewed by: Mariaelena Briceno LPN - Fully Assessed Reason for Visit: Cough [28] Cmt: Cough, ST, and burning with urination x 3 days Primary Visit Diagnosis:Sore throat [J02.9] Other Visit Diagnoses:Viral illness [B34.9] Acute UTI [N39.0] Order(s):UA DIP, URINE (POC) [4406909] Order #: [id number]. #:[id number] BACTERIAL CULTURE, URINE [SQURCUL] Order #: [id number]. #:[id number] cephALEXin (KEFLEX) 500 mg capsuleTake 1 capsule by mouth four times daily for 7 days.Disp: 28 capsuleRfl: 0 Prescriptions as of 05/21/2024 - cephALEXin (KEFLEX) 500 mg capsule Take 1 capsule by mouth four times daily for 7 days. - benzonatate (TESSALON PERLES) 100 mg capsule Take 2 capsules by mouth three times daily as (more content not included)... Normal [facility] UA DIP, URINE (POC)on 2024 BILIRUBIN UA (POCT) Negative Negative [facility] CLARITY UA (POCT) Cloudy [facility] COLOR UA (POCT) Yellow [facility] GLUCOSE UA (POCT) Negative Negative mg/dL [facility] [facility] Ql [facility]U) Large Abnormal Negative [facility] Interpretation and review of laboratory results Abnormal [facility] KETONE UA (POCT) Negative Negative mg/dL [facility] LEUKOCYTES UA (POCT) Small Abnormal Negative [facility] NITRITE UA (POCT) Positive Abnormal Negative [facility] PH UA (POCT) 6 4.5 - 8.0 [facility] Protein Ql (U) 100 mg/dL Abnormal Negative [facility] SPECIFIC GRAVITY UA (POCT) 1.025 1.005 - 1.030 [facility] UROBILINOGEN UA (POCT) 0.2 Mahi l E.U./dL [facility] Location:[facility] [address] [place], [address] [facility] POINT OF CARE [facility] Shoulder min 2 Viewson 02-06 Shoulder min 2 Views [facility] Imaging Services [address] [place], [place] [address] Shoulder min 2 Views MR#: [id number] Acct: [id number] Name: AURA SAUNDERS Rep #: [id number] : 1970 F 53 From: Jake Hernandez MD PCP: Dr. Radha Norton MD Status: [facility] CLI Study: Shoulder min 2 Views Date of Exam: 02/07/24 Exam# [id number] Ordering Dr: Radha Norton MD [id number] STUDY: X-RAY - LEFT SHOULDER REASON FOR EXAM: Female, 53 years old. SHOULDER PAIN, FALL TECHNIQUE: 4 view(s) of the shoulder. COMPARISON: 09/16/2020 FINDINGS: There is mild degenerative arthrosis of the glenohumeral articulation. There is degenerative arthrosis of the acromioclavicular joint without inferior osseous spur formation. Normal acromion. Normal humeral head and visualized proximal humerus. The soft tissue structures are unremarkable. Normal visualized pulmonary apex. RAD/Shoulder min 2 Views IMPRESSION: No acute fracture or dislocation. Mild glenohumeral and acromioclavicular joint arthrosis. Electronically Signed: Jake Hernandez MD at 16:41 EST , CC: Dr. Radha Norton MD Chief Design Engineer: Signed [facility] Chest PA and Lateralon 01-15 Chest PA and Lateral [facility] Imaging Services [address] [place] [address] Chest PA and Lateral MR#: [id number] Acct: [id number] Name: AURA SAUNDERS Rep #: [id number] : 1970 F 53 From: Juan perkins DO PCP: Dr. Radha Norton MD Status: REG ER Study: Chest PA and Lateral Date of Exam: 01/16/24 Exam# [id number] Ordering Dr: Phani Deng DO [id number] EXAM: XR CHEST, 2 VIEWS CLINICAL INDICATION: Cough TECHNIQUE: Frontal and lateral views of the chest. COMPARISON: 08/09/2019 ; CT chest, 08/20/2022 FINDINGS: LUNGS AND PLEURAL SPACES: No significant abnormality. No consolidation or edema. No pneumothorax. No effusion. HEART: No significant abnormality. Cardiac silhouette not enlarged. MEDIASTINUM: Central airways and mediastinal contour are unremarkable. BONES/JOINTS: No significant abnormality. No acute fracture. SOFT TISSUES: No significant abnormality. RAD/Chest PA and Lateral IMPRESSION: No radiographic evidence of acute cardiopulmonary disease. Electronically Signed: Juan Lr DO at 19:38 EDT , CC: Dr. Phani Deng DO; Dr. Radha Norton MD Chief Design Engineer: Signed Normal [facility] Emergency Department Summary on 01-16-2024 Emergency Department Summary [facility] Medical Records Department [address] [place] [address] Emergency Department Summary 01/16/24 MR#: [id number] Acct: [id number] Name: AURA SAUNDERS Rep #: [id number] : 1970 53 From: Phani Deng DO PCP: Dr. Radha Norton MD Status:DEP ER Location: ED HPI HPI - URI History of Present Illness Chief Complaint: Cough Informant: patient Onset/Context/Timing Onset: Weeks (2) Context: Gradual Onset Timing: Continuous Quality: Burning Location: Chest Worsened by: - (Nothing) Relieved by: - (Nothing) Associated Symptoms Associated Symptoms: Positive for Nasal Congestion, Headache, Nausea, Shortness of Breath and Productive Cough (Yellow sputum); Negative for Sinus Pressure, Myalgias, Vomiting, Diarrhea, Chest Pain, Nonproductive cough or Hemoptysis Narrative Narrative: Patient presents with cough and upper respiratory congestion that has been constant for the past 2 weeks. Patient states it came on gradually. Patient states it has been constant. Patient states she has some burning in her chest. Patient also admits to a headache. Patient states she is coughing up some yellow sputum. Patient admits to some shortness of breath. Patient also admits to some nausea. Patient denies any vomiting or diarrhea. Patient denies any body aches or muscle aches. Patient admits to some dizziness where she feels like she is lightheaded. ROS ROS ED Constitutional Constitutional ED: Denies chills or fever(s) Eyes Eyes: Reports blurry vision; Denies diplopia ENT ENT ED: Reports rhinorrhea; Denies sore throat Cardiovascular Cardiovascular: Denies chest pain or palpitations Respiratory/Chest Respiratory/Chest: Reports cough, dyspnea and sputum Gastrointestinal Gastrointestinal: Reports nausea; Denies vomiting Genitourinary Genitourinary ED: Denies dysuria or hematuria Musculoskeletal Musculoskeletal: Reports back pain; Denies neck pain Integumentary Denies abscess or rash Neurologic Neurologic: Reports headache(s); Denies weakness Allergic/Immunologic Allergic/Immunologic ED: Denies mouth swelling or urticaria PFSH PFSH Medical History Acute maxillary sinusitis, unspecified Contact with or exposure to other viral diseases Atelectasis Family history of breast cancer Intertrigo Shoulder pain Chronic thoracic back pain Chronic neck pain Macromastia High cholesterol Vitamin deficiency High cholesterol Back problem Depression Hypothyroidism Smoker Hypertension Chest pain Cellulitis of left ear Former smoker Mass of right ear Mass of left ear Vision problems Thyroid disease Hives High blood pressure Frequent headaches Asthma Allergies Home Medications ???Medication ???Instructions ???Recorded ???Last Taken ???Type losartan 50 mg tablet 50 mg PO DAILY 06/01/18 06/16/20 08:00 History potassium chloride 10 mEq 10 meq PO DAILY 06/11/18 Unknown History tablet,extended release(part/cryst) albuterol sulfate 90 mcg/actuation 2 puff inhalation Q4H PRN Sob /Or 11/08/19 Unknown History aerosol inhaler Wheezing omega-3 fatty acids-fish oil 340 1 ea PO DAILY 11/14/19 Unknown History mg-1,000 mg capsule lidocaine 5 % topical patch 1 patch topical DAILY #3 patches 03/19/20 Unknown Rx gabapentin 300 mg capsule 300 mg PO BID 06/11/20 Unknown History cholecalciferol (vitamin D3) 125 125 mcg PO DAILY 09/16/20 Unknown History mcg (5,000 unit) tablet levothyroxine 88 mcg tablet 88 mcg PO DAILY 09/16/20 Unknown History atorvastatin 80 mg tablet 80 mg PO DAILY 01/23/21 Unknown History buspirone 5 mg tablet 5 mg PO BID 01/23/21 Unknown History famotidine 20 mg tablet 20 mg PO DAILY 01/23/21 Unknown History duloxetine 20 mg capsule,delayed 60 mg PO DAILY 06/02/21 Unknown History release (Cymbalta) cyclobenzaprine 10 mg tablet 10 mg PO BID PRN Muscle Pain 07/06/21 Unknown History magnesium oxide 400 mg PO DAILY 07/06/21 Unknown History vitamin B complex 1 tab PO DAILY 07/06/21 Unknown History dicyclomine 10 mg capsule 10 mg PO TIDAC #20 CAPSULES 08/08/22 Unknown Rx ondansetron 4 mg disintegrating 4 mg PO Q8H PRN PRN Nausea #10 tabs 08/08/22 Unknown Rx tablet pantoprazole 40 mg tablet,delayed 40 mg PO DAILY #30 tabs 08/12/22 Unknown Rx release sucralfate 1 gram tablet 1 g PO QACHS #120 tabs 09/03/22 Unknown Rx estradiol 0.025 mg/24 hr 1 patch transdermal 2XW #24 ea 10/26/22 Unknown Rx semiweekly transdermal patch (Vivelle-Dot) nitrofurantoin 100 mg PO Q12 #10 CAPSULES 05/30/23 Unknown Rx monohydrate/macrocrys tals 100 mg capsule amoxicillin 500 mg tablet 500 mg PO TID #30 tabs 11/28/23 Unknown Rx Allergy/AdvReac Type Severity Reaction Status Date / Time dog dander Allergy Unknown Other Verified 01/16/24 (more content not included)... [facility] M100.678on 01-16-2024 M100.678 Pending SARS-CoV-2 (COVID 19) Negative INFLUENZA A Negative INFLUENZA B Negative RSV PCR Negative [facility] Comment on above: Performed By: #### M 100.678 #### [facility] [address] [facility] [place]. [place], [place], [address] Hips B/L min 2 views w/ Pelv leslie 12-15-2023 Hips B/L min 2 views w/ Pelvis [facility] Imaging Services [address] [place], [place] [address] Hips B/L min 2 views w/ Pelvis MR#: [id number] Acct: [id number] Name: AURA SAUNDERS Rep #: [id number] : 1970 F 52 From: Macario Myers MD PCP: Dr. Radha Norton MD Status: REG CLI Study: Hips B/L min 2 views w/ Pelvis Date of Exam: 0 12/15/23 Exam# [id number] Ordering Dr: Jovan Duke MD [id number] INDICATION: HIP PAIN EXAMINATION/TECHNIQUE : X-RAY - XR Hips Bilateral with Pelvis when performed; Min 5 Views COMPARISON: No relevant prior comparison study available. __ FINDINGS: PELVIC BONES: No displaced fracture, destructive or sclerotic lesions. Note that overlapping bowel shadows may however obscure fine detail. Sacroiliac joints are unremarkable. No widening of the pubic symphysis. HIPS: There is minimal osteoarthritic spur formation of the acetabula bilaterally. The articular structures are otherwise unremarkable. No displaced fracture. SOFT TISSUES: There are calcified phleboliths in the pelvis. No soft tissue swelling or gas. RAD/Hips B/L min 2 views w/ Pelvis IMPRESSION: Minimal degenerative arthrosis of the hip joints bilaterally. No evidence of displaced pelvic or hip fracture. Electronically Signed: Macario Myers MD at 12:28 EDT Reading Location ID and State: [address] [place] [address] , Service support , CC: Dr. Radha Norton MD; Dr. Jovan Duke MD Chief Design Engineer: Signed [facility] L/S Spine Min 4 Viewson 12-03 L/S Spine Min 4 Views [facility] Imaging Services [address] [place], [place] [address] L/S Spine Min 4 Views MR#: [id number] Acct: [id number] Name: AURA SAUNDERS Rep #: [id number] : 1970 F 52 From: Charli Sellers MD PCP: Dr. Radha Norton MD Status: REG CLI Study: L/S Spine Min 4 Views Date of Exam: 12/15/23 Exam# [id number] Ordering Dr: Jovan Duke MD [id number] STUDY: X-RAY - LUMBAR SPINE REASON FOR EXAM: Female, 52 years old. Lumbar spondylosis TECHNIQUE: 5 view(s) of the lumbar spine were obtained. COMPARISON: None FINDINGS: Normal lumbar lordosis. There is no substantial scoliosis. There is a normal alignment of the vertebrae. There is diffuse demineralization with multi-level endplate spondylosis. Normal disc space heights. The soft tissue structures are unremarkable. RAD/L/S Spine Min 4 Views IMPRESSION: Degenerative changes of the spine, as detailed above. Electronically Signed: Charli Sellers MD at 14:12 EDT Reading Location ID and State: [address] [place] [address] , Service support , CC: Dr. Radha Norton MD; Dr. Jovan Duke MD Chief Design Engineer: Signed Normal [facility] Urgent Care Visit Reporton 0 11-28-2023 Urgent Care Visit Report [facility] [address], [address] [place] [address] OFFICE VISIT Date of Service: 11/28/23 MR#: [id number] Acct: [id number] Name: AURA SAUNDERS Rep #: [id number] : 1970 Provider: TRACEY Schmidt Age/Sex: 52/F Location: [email or web address] Status: Signed with Addenda ADDENDUM by TRACEY Schmidt on 11/28/23 at 0733 HPI Details: ERROR: POC RAPID STREP NOT ASSESSED ON THIS PATIENT TODAY Assessment and Plan Assessment and Plan (1) Contact with or exposure to other viral diseases: Status: Acute (2) Acute maxillary sinusitis, unspecified: Status: Acute Orders: Orders POC Rapid Strep A Today J02.9 - Acute pharyngitis, unspecified POC Rapid SARS Antigen Today J01.00 - Acute maxillary sinusitis, unspecified Medications: New amoxicillin 500 mg PO TID 30 tabs 0RF 11/28/23 0733 Date Ishaan Patino cc: * Signed Intake Vital Signs 05/30/23 11:02 11/28/23 07:14 Height 5 ft 4.17 in 5 ft 4 in Weight: 164 lb 8 oz BMI 28.2 BP 122/80 H Position Sitting Pulse 84 Temp 98.4 F Temp Source Temporal Pulse Oximetry (%) 98 Oxygen Delivery Method room air Intake Visit Reasons: BILAT EASR PAIN/COUGH/ST Accompanied by: Self Allergies dog dander Allergy (Unknown, Verified 11/28/23 07:13) Other grass pollen Allergy (Unknown, Verified 11/28/23 07:13) Other Environmental Allergies: Uncoded Allergy (Verified 11/28/23 07:13) Rash latex Allergy (Verified 11/28/23 07:13) Rash Medications ???Medication ???Instructions ???Recorded ???Confirmed ???Type losartan 50 mg tablet 50 mg PO DAILY 06/01/18 11/28/23 History potassium chloride 10 mEq 10 meq PO DAILY 06/11/18 10/26/22 History tablet,extended release(part/cryst) albuterol sulfate 90 mcg/actuation 2 puff inhalation Q4H PRN Sob /Or 11/08/19 10/26/22 History aerosol inhaler Wheezing omega-3 fatty acids-fish oil 340 1 ea PO DAILY 11/14/19 10/26/22 History mg-1,000 mg capsule lidocaine 5 % topical patch 1 patch topical DAILY #3 patches 03/19/20 10/26/22 Rx gabapentin 300 mg capsule 300 mg PO BID 06/11/20 10/26/22 History cholecalciferol (vitamin D3) 125 125 mcg PO DAILY 09/16/20 10/26/22 History mcg (5,000 unit) tablet levothyroxine 88 mcg tablet 88 mcg PO DAILY 09/16/20 11/28/23 History atorvastatin 80 mg tablet 80 mg PO DAILY 01/23/21 11/28/23 History buspirone 5 mg tablet 5 mg PO BID 01/23/21 11/28/23 History famotidine 20 mg tablet 20 mg PO DAILY 01/23/21 10/26/22 History duloxetine 20 mg capsule,delayed 60 mg PO DAILY 06/02/21 11/28/23 History release (Cymbalta) cyclobenzaprine 10 mg tablet 10 mg PO BID PRN Muscle Pain 07/06/21 10/26/22 History magnesium oxide 400 mg PO DAILY 07/06/21 10/26/22 History vitamin B complex 1 tab PO DAILY 07/06/21 10/26/22 History dicyclomine 10 mg capsule 10 mg PO TIDAC #20 CAPSULES 08/08/22 10/26/22 Rx ondansetron 4 mg disintegrating 4 mg PO Q8H PRN PRN Nausea #10 tabs 08/08/22 10/26/22 Rx tablet pantoprazole 40 mg tablet,delayed 40 mg PO DAILY #30 tabs 08/12/22 10/26/22 Rx release sucralfate 1 gram tablet 1 g PO QACHS #120 tabs 09/03/22 10/26/22 Rx estradiol 0.025 mg/24 hr 1 patch transdermal 2XW #24 ea 10/26/22 10/26/22 Rx semiweekly transdermal patch (Vivelle-Dot) nitrofurantoin 100 mg PO Q12 #10 CAPSULES 05/30/23 Rx monohydrate/macrocrys tals 100 mg capsule amoxicillin 500 mg tablet 500 mg PO TID #30 tabs 11/28/23 11/28/23 Rx PFSH Medical History (Updated 11/28/23 @ 07:20 by Ishaan WEBB, PA) Acute maxillary sinusitis, unspecified Contact with or exposure to other viral diseases Atelectasis Family history of breast cancer Intertrigo Shoulder pain Chronic thoracic back pain Chronic neck pain Macromastia High cholesterol Vitamin deficiency High cholesterol Back problem Depression Hypothyroidism Smoker Hypertension Chest pain Cellulitis of left ear Former smoker Mass of right ear Mass of left ear Vision problems Thyroid disease Hives High blood pressure Frequent headaches Asthma Allergies Surgical History History of hysterectomy Ovarian cyst History of sinus surgery History of delivery History of excision of mass Family History Brother Alcohol abuse Severe allergy Suicide attempt Mother Anemia Anxiety and depression Arthritis Asthma Hormonal disorder Depression Grandmother Arthritis Thyroid disorder Aunt Breast cancer Cancer Thyroid disorder Father Diabetes Heart disease Hypertension High cholesterol History of ulcer disease Sis (more content not included)... [facility] Culture, urineOrdered By: Jhon Norton on 07-26-2023 Bacteria identified Cx Nom (U) Presumptive E. coli [facility] Bacteria identified Cx Nom (U) Positive [facility] Activated partial thrombopla stin time (aPTT) in platelet poor plasma by coagulation aOrdered By: Radha Norton on 07-12-2023 aPTT Coag (PPP) [Time] 26.0 s 24.1-36.2 [facility] - CoagulationOrde red By: Radha Norton on 07-12-2023 INR Coag (Bld) [Relative time] 0.9 {INR} [facility] PT Coag (PPP) [Time] 12.4 s 11.7-14.9 [facility] Basophil percentageOrdered B y: Radha Norton on 06-02-2023 Bilirubin [Mass/Vol] 0.30 mg/dL 0.20-1.00 [facility] Comment on above: For patients on eltr ombopag therapy, use of Dimension [place] TBIL is not recommended. Protein [Mass/Vol] 6.8 g/dL 6.4-8.2 [facility] Direct bilirubinOrdered By: Radha Norton on 06-02-2023 Bilirubin.direct [Mass/Vol] 0.15 mg/dL 0.00-0.30 [facility] - Chemistry and C hemistry - challengeOrdered By: Radha Norton on 06-02-2023 ALP [Catalytic activity/Vol] 89 U/L 45-117 [facility] ALT [Catalytic activity/Vol] 34 U/L 13-56 [facility] Globulin (S) [Mass/Vol] 3.1 g/dL 2.2-4.2 [facility] Lipase [Catalytic activity/Vol] 48 U/L 13-75 [facility] Comment on above: Please note:LIPASE r evised reference range effective 22. New Lipase methodology. Expected to produce lower values than the previous assay method. NEW Reference Range: 13 - 75 U/L Thin prep Papanicolaou smear with manual screeningOrdered By: Radha Norton on 06-02-2023 Thin prep Papanicolaou smear with manual screening 3.7 g/dL 3.2-5.0 [facility] Thin prep Papanicolaou smear with manual screening 19 U/L 15-37 [facility] Absolute lymphocyte countOrd ered By: Phani Deng on 05-30-2023 Lymphocytes Auto (Unsp spec) [#/Vol] 1.83 10*3/uL 0.83-4.51 [facility] Automated lymphocyte count a s percentage of total leukocytesOrdered By: Phani Deng on 05-30-2023 Lymphocytes/100 WBC Auto (Unsp spec) 20.3 % 19-41 [facility] Basophil percentageOrdered B y: Phani Deng on 05-30-2023 Basophil percentage 10-25 SEEN /hpf 0-5 [facility] Basophils/100 WBC (Bld) 0.2 % 0-1 [facility] Chloride [Moles/Vol] 106 mmol/L 98-107 [facility] Eosinophils/100 WBC (Bld) 0.4 % 0-5 [facility] Glucose [Mass/Vol] 100 mg/dL 74-106 [facility] Comment on above: Fasting Glucose resu lt from 100 to 125 mg/dL suggests IMPAIRED HOMEOSTASIS per A.D.A. criteria. Hemoglobin (Bld) [Mass/Vol] 14.4 g/dL 12.0-15.0 [facility] Monocytes/100 WBC (Bld) 7.1 % 0-10 [facility] Neutrophils (Bld) [#/Vol] 6.4 10*3/uL 2.0-7.7 [facility] Neutrophils/100 WBC (Bld) 71.6 % 47-70 [facility] Potassium [Moles/Vol] 4.4 mmol/L 3.5-5.1 [facility] Comment on above: Slight Hemolysis, Re sult may be falsely increased. Sodium [Moles/Vol] 138 mmol/L 136-145 [facility] WBC (Bld) [#/Vol] 9.0 10*3/uL 4.4-11.0 [facility] Bilirubin Test strip Ql (U)O rdered By: Phani Deng on 05-30-2023 Bilirubin Ql (U) Negative Negative [facility] Determination of erythrocyte mean corpuscular volume (MCV)Ordered By: Phani Deng on 05-30-2023 MCV (RBC) [Entitic vol] 88.0 fL 81-99 [facility] Erythrocyte distribution wid th ratioOrdered By: Phani Deng on 05-30-2023 Erythrocyte distribution width (RBC) [Ratio] 13.2 % 11.6-14.6 [facility] Erythrocyte distribution wid th standard deviationOrdered By: Phani Deng on 05-30-2023 Erythrocyte distribution width (RBC) [Entitic vol] 42.7 fL 35.1-43.9 [facility] Hematocrit Auto (Bld) [Volum e fraction]Ordered By: Phani Deng on 05-30-2023 Hematocrit (Bld) [Volume fraction] 42.6 % 37-47 [facility] Immature granulocytes/100 WB C Auto (Bld)Ordered By: Phani Deng on 05-30-2023 Immature granulocytes/100 WBC (Bld) 0.400 % 0.0-0.9 [facility] Comment on above: IG% - Immature Granu locytes (promyelocytes, myelocytes and metamyelocytes) > 1% indicates that a LEFT SHIFT is Present. Ketones Test strip Ql (U)Ord ered By: Phani Deng on 05-30-2023 Ketones Ql (U) 5 mg/dl Negative [facility] - Chemistry and C hemistry - challengeOrdered By: Phani Deng on 05-30-2023 CO2 [Moles/Vol] 30.0 mmol/L 21.0-32.0 [facility] Urea nitrogen/Creatinine [Mass ratio] 17.6 mg/mg 10-20 [facility] - Hematology and Cell countsOrdered By: Phani Deng on 05-30-2023 MCH (RBC) [Entitic mass] 29.8 pg 27.0-32.0 [facility] MCHC (RBC) [Mass/Vol] 33.8 g/dL 32-36 [facility] Nucleated RBC/100 WBC (Bld) [Ratio] 0 % 0-5 [facility] Platelet mean volume (Bld) [Entitic vol] 10.8 fL 6.2-12.0 [facility] Platelets (Bld) [#/Vol] 193 10*3/uL 150-450 [facility] Mucus LM Ql (Urine sed)Order ed By: Phani Deng on 05-30-2023 Mucus Ql (Urine sed) 0 SEEN /hpf [facility] Nitrite Test strip Ql (U)Ord ered By: Phani Deng on 05-30-2023 Nitrite Ql (U) Negative Negative [facility] No Panel InformationOrdered By: Phani Deng on 05-30-2023 Urine RBC 0 SEEN /hpf 0-5 [facility] Estimated Creatinine Clearance Calc 64.26 ml/min [facility] Estimated GFR (MDRD) Amer 74 mL/min >60 [facility] Comment on above: GFR Calc Estimated GFR (MDRD) Non-Af Amer 61 mL/min >60 [facility] Comment on above: Non- GFR Calc Protein Test strip Ql (U)Ord ered By: Phani Deng on 05-30-2023 Protein Ql (U) 30 mg/dl Negative [facility] RBC Auto (Bld) [#/Vol]Ordere d By: Phani Deng on 05-30-2023 RBC (Bld) [#/Vol] 4.84 10*6/uL 4.2-5.4 [facility] Serum or plasma calcium jewel urement (mass/volume)Ordered By: Phani Deng on 05-30-2023 Calcium [Mass/Vol] 9.3 mg/dL 8.5-10.1 [facility] Serum or plasma creatinine m easurement (mass/volume)Ordered By: Phani Deng on 05-30-2023 Creatinine [Mass/Vol] 1.02 mg/dL 0.55-1.02 [facility] Comment on above: The validity of the calculated GFR & GFRAA in patients over 70 years has not been determined. Clinical correlation is essential. Serum or plasma urea nitroge n measurement (mass/volume)Ordered By: Phani Deng on 05-30-2023 Urea nitrogen [Mass/Vol] 18 mg/dL 7-18 [facility] Squamous epithelial cells de tection in urine sediment by light microscopyOrdered By: Phani Deng on 05-30-2023 Epithelial cells.squamous LM Ql (Urine sed) 0-5 SEEN /hpf 5-10 [facility] Thin prep Papanicolaou smear with manual screeningOrdered By: Phani Deng on 02-26-2024 Thin prep Papanicolaou smear with manual screening 2 5-15 [facility] Urine blood detectionOrdered By: Phani Deng on 05-30-2023 RBC Ql (U) Negative Negative [facility] Urine clarityOrdered By: Yoko Deng on 05-30-2023 Clarity (U) Sl. Cloudy Clear [facility] Urine color determinationOrd ered By: Phani Deng on 05-30-2023 Color (U) Yellow Yellow [facility] Urine glucose detectionOrder ed By: Phani Deng on 05-30-2023 Glucose Ql (U) Normal mg/dl Normal [facility] Urine leukocyte esterase det ection by dipstickOrdered By: Phani Deng on 05-30-2023 Leukocyte esterase Test strip Ql (U) 100 /ul Negative [facility] Urine pHOrdered By: Phani gallo on 05-30-2023 pH (U) 6.0 [pH] 5.0 - 8.0 [facility] Urine sediment bacteria coun t by microscopy (number/high power field)Ordered By: Phani Deng on 05-30-2023 Bacteria LM.HPF (Urine sed) [#/Area] 0 /[HPF] None Seen [facility] Urine specific gravity measu rementOrdered By: Phani Deng on 05-30-2023 Specific gravity (U) [Rel density] 1.020 1.002-1.030 [facility] Urine urobilinogen measureme ntOrdered By: Phani Deng on 05-30-2023 Urobilinogen Ql (U) Normal mg/dl Normal [facility] No Panel InformationOrdered By: Radha Norton on 01-27-2023 Follicle Stimulating Hormone 102.2 mIU/mL [facility] Comment on above: NORMAL REFERENCE RAN GES FEMALE FOLLICULAR 2.3 - 12.6 mIU/mL MID-CYCLE PEAK 5.2 - 17.5 mIU/mL LUTEAL 1.7 - 12.9 mIU/mL POST-MENOPAUSAL ON MHT 5.9 - 72.8 mIU/mL NOT ON MHT 12.7 - 132.2 mlU/mL MALE 0.7 - 10.8 mIU/mL Absolute lymphocyte countOrd ered By: Radha Norton on 01-20-2023 Lymphocytes Auto (Unsp spec) [#/Vol] 2.22 10*3/uL 0.83-4.51 [facility] Basophil percentageOrdered B y: Radha Norton on 01-20-2023 Basophils/100 WBC (Bld) 0.5 % 0-1 [facility] Bilirubin [Mass/Vol] 0.70 mg/dL 0.20-1.00 [facility] Comment on above: For patients on eltr ombopag therapy, use of Dimension [place] TBIL is not recommended. Chloride [Moles/Vol] 106 mmol/L 98-107 [facility] Cholesterol [Mass/Vol] 130 mg/dL <200 [facility] Comment on above: <200 mg/dL Desirable 200-240 mg/dL Borderline >240 mg/dL High Risk Eosinophils/100 WBC (Bld) 3.9 % 0-5 [facility] Glucose [Mass/Vol] 110 mg/dL 74-106 [facility] Comment on above: Fasting Glucose resu lt from 100 to 125 mg/dL suggests IMPAIRED HOMEOSTASIS per A.D.A. criteria. Neutrophils (Bld) [#/Vol] 3.4 10*3/uL 2.0-7.7 [facility] Neutrophils/100 WBC (Bld) 53.1 % 47-70 [facility] Potassium [Moles/Vol] 3.8 mmol/L 3.5-5.1 [facility] Protein [Mass/Vol] 6.9 g/dL 6.4-8.2 [facility] Sodium [Moles/Vol] 139 mmol/L 136-145 [facility] Triglyceride [Mass/Vol] 68 mg/dL <199 [facility] Comment on above: The drugs N-Acetylcy steine and Metamizole may falsely depress this assay.Serum Triglycerides Reference Interval Normal <150 mg/dL Borderline high 150 - 199 mg/dL High 200 - 499 mg/dL Very High > or = 500 mg/dL WBC (Bld) [#/Vol] 6.5 10*3/uL 4.4-11.0 [facility] Blood erythrocytes count (nu mber/volume)Ordered By: Radha Norton on 01-20-2023 RBC (Bld) [#/Vol] 4.91 10*6/uL 4.2-5.4 [facility] Blood hemoglobin measurement (mass/volume)Ordered By: Radha Norton on 01-20-2023 Hemoglobin (Bld) [Mass/Vol] 14.2 g/dL 12.0-15.0 [facility] Blood lymphocytes/100 leukoc ytesOrdered By: Radha Norton on 01-20-2023 Lymphocytes/100 WBC (Bld) 34.3 % 19-41 [facility] Blood monocytes/100 leukocyt esOrdered By: Radha Norton on 01-20-2023 Monocytes/100 WBC (Bld) 7.9 % 0-10 [facility] Blood platelet mean volumeOr dered By: Radha Norton on 01-20-2023 Platelet mean volume (Bld) [Entitic vol] 11.3 fL 6.2-12.0 [facility] Determination of erythrocyte mean corpuscular volume (MCV)Ordered By: Radha Norton on 01-20-2023 MCV (RBC) [Entitic vol] 88.8 fL 81-99 [facility] Hematocrit Auto (Bld) [Volum e fraction]Ordered By: Radha Norton on 01-20-2023 Hematocrit (Bld) [Volume fraction] 43.6 % 37-47 [facility] Laboratory - Chemistry and C hemistry - challengeOrdered By: Radha Norton on 01-20-2023 ALP [Catalytic activity/Vol] 65 U/L 45-117 [facility] ALT [Catalytic activity/Vol] 30 U/L 13-56 [facility] CO2 [Moles/Vol] 27.0 mmol/L 21.0-32.0 [facility] Free T4 [Mass/Vol] 1.26 ng/dL 0.76-1.46 [facility] Globulin (S) [Mass/Vol] 3.4 g/dL 2.2-4.2 [facility] Urea nitrogen/Creatinine [Mass ratio] 12.2 mg/mg 10-20 [facility] - Hematology and Cell countsOrdered By: Radha Norton on 01-20-2023 Erythrocyte distribution width (RBC) [Entitic vol] 43.6 fL 35.1-43.9 [facility] Erythrocyte distribution width (RBC) [Ratio] 13.3 % 11.6-14.6 [facility] Immature granulocytes/100 WBC (Bld) 0.300 % 0.0-0.9 [facility] Comment on above: IG% - Immature Granu locytes (promyelocytes, myelocytes and metamyelocytes) > 1% indicates that a LEFT SHIFT is Present. MCH (RBC) [Entitic mass] 28.9 pg 27.0-32.0 [facility] Nucleated RBC/100 WBC (Bld) [Ratio] 0 % 0-5 [facility] MCHC Auto (RBC) [Mass/Vol]Or dered By: Radha Norton on 01-20-2023 MCHC (RBC) [Mass/Vol] 32.6 g/dL 32-36 [facility] No Panel InformationOrdered By: Radha Norton on 01-20-2023 Estimated GFR (MDRD) Amer 85 mL/min >60 [facility] Comment on above: GFR Calc Estimated GFR (MDRD) Non-Af Amer 70 mL/min >60 [facility] Comment on above: Non- GFR Calc Thyroid Stimulating Hormone (TSH) 1.10 uIU/mL 0.358-3.74 [facility] Platelets bldOrdered By: Royal Norton on 01-20-2023 Platelets (Bld) [#/Vol] 202 10*3/uL 150-450 [facility] Serum or plasma albumin jewel urement (mass/volume)Ordered By: Radha Norton on 01-20-2023 Albumin [Mass/Vol] 3.5 g/dL 3.2-5.0 [facility] Serum or plasma albumin/glob ulin mass ratioOrdered By: Radha Norton on 01-20-2023 Albumin/Globulin [Mass ratio] 1.0 {ratio} 0.9-2.4 [facility] Serum or plasma calcium jewel urement (mass/volume)Ordered By: Radha Norton on 01-20-2023 Calcium [Mass/Vol] 8.8 mg/dL 8.5-10.1 [facility] Serum or plasma cholesterol in HDL measurement (mass/volume)Ordered By: Radha Norton on 01-20-2023 Cholesterol in HDL [Mass/Vol] 67 mg/dL >40 [facility] Comment on above: The drugs N-Acetylcy steine and Metamizole may falsely depress this assay. Reference Range HDL <40 mg/dL Low HDL Cholesterol HDL >or= 60 mg/dL High HDL Cholesterol Serum or plasma cholesterol in VLDL measurement (mass/volume)Ordered By: Radha Norton on 01-20-2023 Cholesterol in VLDL [Mass/Vol] 14 mg/dL 5-40 [facility] Serum or plasma creatinine m easurement (mass/volume)Ordered By: Radha Norton on 01-20-2023 Creatinine [Mass/Vol] 0.90 mg/dL 0.55-1.02 [facility] Comment on above: The validity of the calculated GFR & GFRAA in patients over 70 years has not been determined. Clinical correlation is essential. Serum or plasma low density lipoprotein (LDL) cholesterol measurement (mass/volume)Ordered By: Radha Norton on 01-20-2023 Cholesterol in LDL [Mass/Vol] 49 mg/dL 0-130 [facility] Serum or plasma urea nitroge n measurement (mass/volume)Ordered By: Radha Norton on 01-20-2023 Urea nitrogen [Mass/Vol] 11 mg/dL 7-18 [facility] Thin prep Papanicolaou smear with manual screeningOrdered By: Radha Norton on 01-20-2023 Thin prep Papanicolaou smear with manual screening 21 U/L 15-37 [facility] Thin prep Papanicolaou smear with manual screening 6 5-15 [facility] Absolute lymphocyte countOrd ered By: Dr. Arcos on 08-05-2022 Lymphocytes Auto (Unsp spec) [#/Vol] 2.15 10*3/uL 0.83-4.51 [facility] Basophil percentageOrdered B y: Dr. Arcos on 08-05-2022 Basophil percentage 0 SEEN /hpf 0-5 [facility] Basophils/100 WBC (Bld) 0.3 % 0-1 [facility] Bilirubin [Mass/Vol] 0.50 mg/dL 0.20-1.00 [facility] Comment on above: For patients on eltr ombopag therapy, use of Dimension [place] TBIL is not recommended. Chloride [Moles/Vol] 103 mmol/L 98-107 [facility] Eosinophils/100 WBC (Bld) 2.3 % 0-5 [facility] Glucose [Mass/Vol] 107 mg/dL 74-106 [facility] Comment on above: Fasting Glucose resu lt from 100 to 125 mg/dL suggests IMPAIRED HOMEOSTASIS per A.D.A. criteria. Lactate [Moles/Vol] 0.9 mmol/L 0.4-2.0 [facility] Neutrophils (Bld) [#/Vol] 6.2 10*3/uL 2.0-7.7 [facility] Neutrophils/100 WBC (Bld) 64.3 % 47-70 [facility] Potassium [Moles/Vol] 4.2 mmol/L 3.5-5.1 [facility] Protein [Mass/Vol] 7.0 g/dL 6.4-8.2 [facility] Sodium [Moles/Vol] 140 mmol/L 136-145 [facility] WBC (Bld) [#/Vol] 9.7 10*3/uL 4.4-11.0 [facility] Bilirubin Test strip Ql (U)O rdered By: Dr. Arcos on 08-05-2022 Bilirubin Ql (U) Negative Negative [facility] Blood erythrocytes count (nu mber/volume)Ordered By: Dr. Arcos on 08-05-2022 RBC (Bld) [#/Vol] 4.60 10*6/uL 4.2-5.4 [facility] Blood hemoglobin measurement (mass/volume)Ordered By: Dr. Arcos on 08-05-2022 Hemoglobin (Bld) [Mass/Vol] 13.2 g/dL 12.0-15.0 [facility] Blood lymphocytes/100 leukoc ytesOrdered By: Dr. Arcos on 08-05-2022 Lymphocytes/100 WBC (Bld) 22.3 % 19-41 [facility] Blood monocytes/100 leukocyt esOrdered By: Dr. Arcos on 08-05-2022 Monocytes/100 WBC (Bld) 10.5 % 0-10 [facility] Blood platelet mean volumeOr dered By: Dr. Arcos on 08-05-2022 Platelet mean volume (Bld) [Entitic vol] 11.4 fL 6.2-12.0 [facility] Determination of erythrocyte mean corpuscular volume (MCV)Ordered By: Dr. Arcos on 08-05-2022 MCV (RBC) [Entitic vol] 89.3 fL 81-99 [facility] Hematocrit Auto (Bld) [Volum e fraction]Ordered By: Dr. Arcos on 08-05-2022 Hematocrit (Bld) [Volume fraction] 41.1 % 37-47 [facility] Ketones Test strip Ql (U)Ord ered By: Dr. Arcos on 08-05-2022 Ketones Ql (U) Negative Negative [facility] Laboratory - Chemistry and C hemistry - challengeOrdered By: Dr. Arcos on 08-05-2022 ALP [Catalytic activity/Vol] 72 U/L 45-117 [facility] ALT [Catalytic activity/Vol] 29 U/L 13-56 [facility] CO2 [Moles/Vol] 29.0 mmol/L 21.0-32.0 [facility] Globulin (S) [Mass/Vol] 3.7 g/dL 2.2-4.2 [facility] Lipase [Catalytic activity/Vol] 74 U/L - [facility] Comment on above: Please note:LIPASE r evised reference range effective 22. New Lipase methodology. Expected to produce lower values than the previous assay method. NEW Reference Range: 13 - 75 U/L Urea nitrogen/Creatinine [Mass ratio] 14.6 mg/mg 10-20 [facility] - Hematology and Cell countsOrdered By: Dr. Arcos on 08-05-2022 Erythrocyte distribution width (RBC) [Entitic vol] 44.3 fL 35.1-43.9 [facility] Erythrocyte distribution width (RBC) [Ratio] 13.6 % 11.6-14.6 [facility] Immature granulocytes/100 WBC (Bld) 0.300 % 0.0-0.9 [facility] Comment on above: IG% - Immature Granu locytes (promyelocytes, myelocytes and metamyelocytes) > 1% indicates that a LEFT SHIFT is Present. MCH (RBC) [Entitic mass] 28.7 pg 27.0-32.0 [facility] Nucleated RBC/100 WBC (Bld) [Ratio] 0 % 0-5 [facility] MCHC Auto (RBC) [Mass/Vol]Or dered By: Dr. Arcos on 08-05-2022 MCHC (RBC) [Mass/Vol] 32.1 g/dL 32-36 [facility] Mucus LM Ql (Urine sed)Order ed By: Dr. Arcos on 08-05-2022 Mucus Ql (Urine sed) 0 SEEN /hpf [facility] Nitrite Test strip Ql (U)Ord ered By: Dr. Arcos on 08-05-2022 Nitrite Ql (U) Negative Negative [facility] No Panel InformationOrdered By: Dr. Arcos on 08-05-2022 Estimated Creatinine Clearance Calc 78.35 ml/min [facility] Estimated GFR (MDRD) Amer 105 mL/min >60 [facility] Comment on above: GFR Calc Estimated GFR (MDRD) Non-Af Amer 87 mL/min >60 [facility] Comment on above: Non- GFR Calc Troponin I High Sensitivity 4 pg/mL 3.0-54.0 [facility] Comment on above: Please Note: New Kathy t Units and Gender Specific Reference Ranges. For more information see Policy Stat Procedure [place] High Sensitivity Troponin (TNIH) and attachments. Platelets bldOrdered By: Dr. Arcos on 08-05-2022 Platelets (Bld) [#/Vol] 182 10*3/uL 150-450 [facility] Protein Test strip Ql (U)Ord ered By: Dr. Arcos on 08-05-2022 Protein Ql (U) Negative Negative [facility] Serum or plasma albumin jewel urement (mass/volume)Ordered By: Dr. Arcos on 08-05-2022 Albumin [Mass/Vol] 3.3 g/dL 3.2-5.0 [facility] Serum or plasma albumin/glob ulin mass ratioOrdered By: Dr. Arcos on 08-05-2022 Albumin/Globulin [Mass ratio] 0.9 {ratio} 0.9-2.4 [facility] Serum or plasma calcium jewel urement (mass/volume)Ordered By: Dr. Arcos on 08-05-2022 Calcium [Mass/Vol] 8.9 mg/dL 8.5-10.1 [facility] Serum or plasma creatinine m easurement (mass/volume)Ordered By: Dr. Arcos on 08-05-2022 Creatinine [Mass/Vol] 0.75 mg/dL 0.55-1.02 [facility] Comment on above: The validity of the calculated GFR & GFRAA in patients over 70 years has not been determined. Clinical correlation is essential. Serum or plasma urea nitroge n measurement (mass/volume)Ordered By: Dr. Arcos on 08-05-2022 Urea nitrogen [Mass/Vol] 11 mg/dL 7-18 [facility] Squamous epithelial cells de tection in urine sediment by light microscopyOrdered By: Dr. Arcos on 08-05-2022 Epithelial cells.squamous LM Ql (Urine sed) 0 SEEN /hpf 5-10 [facility] Thin prep Papanicolaou smear with manual screeningOrdered By: Dr. Arcos on 08-05-2022 Thin prep Papanicolaou smear with manual screening 14 U/L 15-37 [facility] Thin prep Papanicolaou smear with manual screening 8 5-15 [facility] Urine blood detectionOrdered By: Dr. Arcos on 08-05-2022 RBC Ql (U) Negative Negative [facility] RBC Ql (U) 0 SEEN /hpf 0-5 [facility] Urine clarityOrdered By: Dr. Arcos on 08-05-2022 Clarity (U) Clear Clear [facility] Urine color determinationOrd ered By: Dr. Arcos on 08-05-2022 Color (U) Yellow Yellow [facility] Urine glucose detectionOrder ed By: Dr. Arcos on 08-05-2022 Glucose Ql (U) Normal mg/dl Normal [facility] Urine leukocyte esterase det ection by dipstickOrdered By: Dr. Arcos on 08-05-2022 Leukocyte esterase Test strip Ql (U) Negative Negative [facility] Urine pHOrdered By: Dr. Ashley heredia on 08-05-2022 pH (U) 7.0 [pH] 5.0 - 8.0 [facility] Urine sediment bacteria coun t by microscopy (number/high power field)Ordered By: Dr. rAcos on 08-05-2022 Bacteria LM.HPF (Urine sed) [#/Area] 0 /[HPF] None Seen [facility] Urine specific gravity measu rementOrdered By: Dr. Arcos on 08-05-2022 Specific gravity (U) [Rel density] 1.010 1.002-1.030 [facility] Urobilinogen Auto test strip Ql (U)Ordered By: Dr. Arcos on 08-05-2022 Urobilinogen Ql (U) Normal mg/dl Normal [facility] Influenza virus A and B and SARS-CoV-2 (COVID-19) Ag panel - Upper respiratory specimOrdered By: Dr. La on 04-30-2022 SARS-CoV-2 (COVID-19) RNA BRETT+probe Ql (Resp) [facility] STREP A MOLECULAR (POC)on Procedural Control Valid [facility] Strep A (POCT) Negative Negative [facility] Erythrocyte sedimentation ra niyah 11-23-2021 ESR (Bld) [Velocity] 13 mm/h 0-30 [facility] Work Phone: No Panel Informationon 11-23 Anti-Nuclear Antibody Screen Negative Negative [facility] Work Phone: Comment on above: Performed at: [address] [id number] Director: Salvatore Block PhD, Phone: [phone] Basophil percentageon 2021 Bilirubin [Mass/Vol] 0.70 mg/dL 0.20-1.00 [facility] Work Phone: Comment on above: For patients on eltr ombopag therapy, use of Dimension [place] TBIL is not recommended. Cholesterol [Mass/Vol] 148 mg/dL <200 [facility] Work Phone: Comment on above: <200 mg/dL Desirable 200-240 mg/dL Borderline >240 mg/dL High Risk Protein [Mass/Vol] 7.0 g/dL 6.4-8.2 [facility] Work Phone: Triglyceride [Mass/Vol] 78 mg/dL <199 [facility] Work Phone: [phone] Comment on above: The drugs N-Acetylcy steine and Metamizole may falsely depress this assay.Serum Triglycerides Reference Interval Normal <150 mg/dL Borderline high 150 - 199 mg/dL High 200 - 499 mg/dL Very High > or = 500 mg/dL Direct bilirubinon Bilirubin.direct [Mass/Vol] 0.19 mg/dL 0.00-0.30 [facility] Work Phone: [phone] Laboratory - Chemistry and C hemistry - challengeon 10-28-2021 ALP [Catalytic activity/Vol] 61 U/L 45-117 [facility] Work Phone: [phone] [Catalytic activity/Vol] 33 U/L 13-56 [facility] Work Phone: [phone] Free T4 [Mass/Vol] 1.35 ng/dL 0.76-1.46 [facility] Work Phone: [phone] Globulin (S) [Mass/Vol] 3.3 g/dL 2.2-4.2 [facility] Work Phone: [phone] No Panel Informationon 10-28 Thyroid Stimulating Hormone (TSH) 1.07 uIU/mL 0.358-3.74 [facility] Work Phone: [phone] Serum or plasma albumin jewel urement (mass/volume)on 10-28-2021 Albumin [Mass/Vol] 3.7 g/dL 3.2-5.0 [facility] Work Phone: [phone] Serum or plasma cholesterol in HDL measurement (mass/volume)on 10-28-2021 Cholesterol in HDL [Mass/Vol] 56 mg/dL >40 [facility] Work Phone: [phone] Comment on above: The drugs N-Acetylcy steine and Metamizole may falsely depress this assay. Reference Range HDL <40 mg/dL Low HDL Cholesterol HDL >or= 60 mg/dL High HDL Cholesterol Serum or plasma cholesterol in VLDL measurement (mass/volume)on 10-28-2021 Cholesterol in VLDL [Mass/Vol] 16 mg/dL 5-40 [facility] Work Phone: Serum or plasma low density lipoprotein (LDL) cholesterol measurement (mass/volume)on 10-28-2021 Cholesterol in LDL [Mass/Vol] 76 mg/dL 0-130 [facility] Work Phone: Thin prep Papanicolaou smear with manual screeningon 10-28-2021 Thin prep Papanicolaou smear with manual screening 25 U/L 15-37 [facility] Work Phone: ANES POSTPROC EVALon 021 ANES POSTPROC EVAL HNO ID: [id number] Author: Crystal Green MD Service: Anesthesiology Author Type: Anesthesiologist Type: Anesthesia Postprocedure Evaluation Filed: 11/24/2020 10:10 AM Note Text: POST ANESTHESIA EVALUATION NOTE : 1970 Procedure Summary Date: 11/24/20 Room / Location: [facility] Anesthesia Start: 735 Anesthesia Stop: 807 Procedures: COLONOSCOPY WITH BIOPSY (N/A ) EGD WITH BIOPSY (N/A ) Diagnosis: Heartburn Abnormal bowel habits Left upper quadrant abdominal pain Nausea Constipation, unspecified constipation type Surgeons: Jake Mcclain MD Responsible Provider: Crystal Green MD Anesthesia Type: MAC ASA Status: 2 Anesthesia Type: MAC Last vitals Vitals Value Taken Time BP 132/80 11/24/20 0845 Temp 36.1 ?C (97 ?F) 11/24/20 0808 Pulse 64 11/24/20 0854 Resp 17 11/24/20 0854 SpO2 96 % 11/24/20 0854 Vitals shown include unvalidated device data. Post Anesthesia Patient Status Patient Evaluation: PACU. PACU/ICU Patient Condition: stable. Anticipated Disposition: phase 2 then home. Neurological Status: aware and responsive. Pulmonary Status: breathing comfortably on room air Airway Control: returned to baseline unsupported. Cardiovascular Status: stable. Pain Management: clinically adequate - multimodal analgesia pain management approach Postoperative Hydration: acceptable. Intraoperative Events: no significant anesthesia events Post Operative Nausea/Vomiting Status: no significant post operative nausea or vomiting Anesthetic Observations: Recommendation: continue current plan of care. No complications documented. SIGNATURE: Crystal Green MD PATIENT NAME: Aura Sanuders DATE: November 24, 2020 TIME: 10:10 AM CSN: [id number] [facility] ANES PRE-OPon 11-24-2020 ANES PRE-OP HNO ID: [id number] Author: Crystal Green MD Service: Anesthesiology Author Type: Anesthesiologist Type: Anesthesia Preprocedure Evaluation Filed: 11/24/2020 7:24 AM Note Text: ANESTHESIOLOGY DAY OF SURGERY NOTE : 1970 Procedure(s) (LRB): COLONOSCOPY (N/A) EGD (N/A) Surgeon(s): Jake Mcclain MD Estimated body mass index is 31.41 kg/m? as calculated from the following: Height as of this encounter: 162.6 cm (5' 4). Weight as of this encounter: 83 kg (183 lb). Most recent hematocrit and potassium results: Hematocrit 43.2 07/01/2020 Potassium 4.4 07/01/2020 Relevant Problems CARDIO (+) Hypertension ENDO (+) Hypothyroid NEURO-PSYCH (+) History of alcohol abuse PULMONARY (+) Asthma due to seasonal allergies I - PHYSICAL EVALUATION AIRWAY Patient intubated: No. Tracheostomy tube not present Mallampati: II. TM distance: >3 FB. Neck ROM: full ROM without neurological symptoms. Mouth opening: adequate. Short neck: no. Thick neck: no DENTAL Dental findings: teeth intact. Additional exam findings: no II - ANESTHESIA PLAN ASA Score: 2 Anesthetic Plan: MAC The patient is not a current smoker. NPO Status: adequate Monitoring plan: standard ASA. Postoperative analgesic plan: parenteral or oral opioids. Anesthetic Risks, Benefits, Alternatives, Personnel Discussed. Consent obtained from: patient.Patient / Surrogate agrees to blood products: blood products not planned Significant changes in the patient condition since the History and Physical, not otherwise documented in primary service progress note: no. Potential Anesthesia issues that may suggest increased risk of complications or contraindication to planned procedure: none. Vitals Value Taken Time BP 117/68 11/24/20 0631 Pulse 80 11/24/20 0631 Resp 16 11/24/20 0631 Temp 36.4 ?C (97.5 ?F) 11/24/20 0631 SpO2 98 % 11/24/20 0631 Facility-Administered Medications as of 11/24/2020 Medication Dose Route Frequency - lactated ringers iv infusion 30 mL/hr INTRAVENOUS CONTINUOUS Outpatient Medications as of 11/24/2020 Medication Sig - omeprazole (PRILOSEC) 20 mg capsule Take 2 capsules by mouth once daily. - busPIRone (BUSPAR) 5 mg tablet Take 5 mg by mouth q 12 HR. - gabapentin (NEURONTIN) 300 mg capsule Take 1 capsule by mouth every evening. - [] slnrykirni-mikxdyx-qv nc chlor (ORAJEL 3X MOUTH SORES) 20-0.1-0.15 % gel Use 1 application as instructed three times daily as needed. - famotidine (PEPCID) 20 mg tablet Take 1 tablet by mouth daily at bedtime. - vitamin b complex capsule Take 1 capsule by mouth once daily. - albuterol HFA (PROVENTIL HFA, VENTOLIN HFA) 90 mcg/actuation inhaler Inhale 2 Puffs as instructed every 4 hours as needed. - cyclobenzaprine (FLEXERIL) 10 mg tablet Take 10 mg by mouth every 8 hours as needed. - lidocaine (LIDODERM) 5 % Apply 2 Patches as directed as directed. - docosahexaenoic acid/epa (FISH OIL ORAL) Take 1,000 mg by mouth once daily. - Lactobacillus acidophilus (PROBIOTIC ORAL) Take 1 tablet by mouth once daily. - fluticasone (FLONASE) 50 mcg/actuation nasal spray Use 2 Sprays in each nostril once daily. Rinse mouth after use. - losartan (COZAAR) 50 mg tablet Take 1 tablet by mouth once daily. - cholecalciferol (VITAMIN D-3) 5,000 unit tab Take 5,000 Units by mouth once daily. I have interviewed and examined the patient. I have reviewed the medical record and/or the pre-anesthesia evaluation, pertinent labs, and test results. This contains updated information obtained within 48 hours of Surgery/Procedure. SIGNATURE: Crystal Green MD PATIENT NAME: Aura Saunders DATE: November 24, 2020 TIME: 7:24 AM CSN: [id number] [facility] HISTORY PHYSICALon HISTORY PHYSICAL HNO ID: [id number] Author: Jake Mcclain MD Service: General Surgery Author Type: Physician Type: HANDP Filed: 11/24/2020 7:25 AM Note Text: Aura Saunders a 49 year old female who is a consultation requested by Jake Fuentes APRN in urgent Care, for an opinion regarding nausea and post prandial stomach pain. Her PCP is reported to be Radha Norton. My final recommendations will be communicated back to the requesting provider and PCP, by way of shared Medical record and fax. The patient has not been seen previously. The patient denies a family history of colon cancer. ? The patient was seen by Jake on 06/09/20, leading to this consultation. That note has been reviewed and part as follows: presents today for CC of?intermittent left upper quadrant pain and yellow loose stools. ?This started 5-6 years ago. ?Has tried nothing for relief. Symptoms are worsened by?sometimes eating.?Reports fam hx of pancreatitis and diabetes.?Denies possibility of being . Patient presents with: Abdominal Pain: RIGHT upper quadrant with nausea x intermittently ongoing 5-6 yrs ? No lab or testing was ordered. ? Presenting complaint: intermittent LUQ pain stabbing ? LUQ pain coming and going - last time it happened after eating sometimes gets nauseated and vomit but only phlegm ? The patient states she has had a change in bowel habits states she is constipated having yellow,stringy with abdominal cramping/burning pain while having a bowel movement and feels better after bowel movement. Having a bowel movement once daily very little amount. Denies blood or black tarry stool ? Noticed when she drinks energy drinks or high sugar - symptoms as above develop ? Miralax does not help - ? Takes off brand of dulcolax and this does help - last time she took this was over a month ago she stopped because it made her stomach pain worse ? Last BM was in the am was very little ? Patient denies heartburn regurgitation, indigestion or dysphagia symptoms omeprazole 20mg daily on a empty stomach ? Dizziness states this has been ongoing since last July and is aware. She fell in July 2019 Recently seen and pain management for her back pain and has had a block MRI- xray cervical ? REVIEW OF SYSTEMS: GENERAL: No weight loss, malaise or fevers RESPIRATORY: Negative for cough, hemoptysis, wheezing, COPD, dyspnea or shortness of breath CARDIOVASCULAR: Negative for chest pain, leg swelling, hypertension, CHF or palpitations GI: The patient states that her appetite has been good. She does not get hungry. There has been some nausea, some vomiting. She denies dysphagia and denies odynophagia. There has not been indigestion without heartburn. There has not been regurgitation. Bowel habits have been irregular. There has not been diarrhea. There has been constipation. The patient denies rectal bleeding. There has not been melena. Intermittent abdominal pain that is located in the left upper quadrant. All other reviewed and negative other than HPI. ? PAST MEDICAL HISTORY PAST MEDICAL HISTORY Diagnosis Date - Hypertension ? - Hypothyroid ? ? ? PAST SURGICAL HISTORY No past surgical history on file. ? FAMILY HISTORY No family history on file. ? CURRENT MEDICATIONS Current Outpatient Medications Medication Sig Dispense Refill - vitamin b complex capsule Take 1 capsule by mouth once daily. ? ? - levothyroxine (SYNTHROID) 88 mcg tablet Take 88 mcg by mouth once daily. ? ? - omeprazole (PRILOSEC) 20 mg capsule Take 20 mg by mouth once daily. ? ? - potassium chloride (K-TAB) 10 mEq tablet Take 10 mEq by mouth once daily. ? ? - sertraline (ZOLOFT) 100 mg tablet Take 2 tablets by mouth once daily. ? ? - albuterol HFA (PROVENTIL HFA, VENTOLIN HFA) 90 mcg/actuation inhaler Inhale 2 Puffs as instructed every 4 hours as needed. ? ? - busPIRone (BUSPAR) 5 mg tablet Take 5 mg by mouth q 12 HR. ? ? - cyclobenzaprine (FLEXERIL) 10 mg tablet Take 10 mg by mouth every 8 hours as needed. ? ? - gabapentin (NEURONTIN) 300 mg capsule Take 1 capsule by mouth every evening. ? ? - hydrOXYzine HCl (ATARAX) 10 mg tablet Take 10 mg by mouth every 6 hours as needed. ? ? - lidocaine (LIDODERM) 5 % Apply 2 Patches as directed as directed. ? ? - naproxen (NAPROSYN) 500 mg tablet Take 500 mg by mouth twice daily. ? ? - docosahexaenoic acid/epa (FISH OIL ORAL) Take 1,000 mg by mouth once daily. ? ? - Lactobacillus acidophilus (PROBIOTIC ORAL) Take 1 tablet by mouth once daily. ? ? - fluticasone (FLONASE) 50 mcg/actuation nasal spray Use 2 Sprays in each nostril once daily. Rinse mouth after use. 1 Bottle 0 - losartan (COZAAR) 50 mg tablet Take 1 tablet by mouth once daily. ? ? ? - cholecalciferol (VITAMIN D-3) 5,000 unit tab Take 5,000 Units by mouth once daily. ? ? - HYDROcodone-acetamino phen (NORCO) 5-325 mg per tablet Take 1 tablet (more content not included)... Normal [facility] SURGICAL PATHOLOGYon 021 SURGICAL PATHOLOGY Specimen originated from [facility] Specimen #: [id number] Submitting Physician: Jake Mcclain M.D. FINAL DIAGNOSIS 1. Distal esophagus, biopsy (A) - Mildly inflamed cardia-type mucosa, negative for intestinal metaplasia. - Reactive squamous mucosa with no significant inflammation. 2. Mid esophagus, biopsy (B) - Squamous mucosa with no significant diagnostic alteration. - No evidence of esophagitis. 3. Gastric antrum, biopsy (C) - Gastric antral mucosa with no significant diagnostic alteration. - No morphologic evidence of Helicobacter pylori organisms. 4. Jejunum, biopsy (D) - Small bowel mucosa with no significant diagnostic alteration. - No evidence of celiac disease or enteritis. 5. Random colon, biopsy (E) - Melanosis coli. - No evidence of colitis. IOG/mm 11/25/2020 Annabelle Cruz M.D., Ph.D. (Electronic Signature) ____ SPECIMEN SUBMITTED A: DISTAL ESOPHAGUS, BIOPSY B: MID ESOPHAGUS, BIOPSY C: GASTRIC/ANTRAL, BIOPSY D: JEJUNUM, BIOPSY E: RANDOM COLON, BIOPSY CLINICAL DATA ABDOMINAL PAIN; HEARTBURN, CONSTIPATION, LMP: NA C: R/O H. PYLORI GROSS DESCRIPTION A. Received in formalin are two pieces of mckinnon, soft tissue aggregating to 0.5 x 0.2 x 0.2 cm. Totally submitted in one cassette. B. Received in formalin are three pieces of mckinnon, soft tissue aggregating to 0.6 x 0.2 x 0.2 cm. Totally submitted in one cassette. C. Received in formalin is one piece of mckinnon, soft tissue measuring 0.3 x 0.2 x 0.2 cm. Totally submitted in one cassette. D. Received in formalin is one piece of mckinnon, soft tissue measuring 0.3 x 0.2 x 0.2 cm. Totally submitted in one cassette. E. Received in formalin are three pieces of mckinnon, soft tissue aggregating to 0.7 x 0.2 x 0.1 cm. Totally submitted in one cassette. Gross examination performed at [facility], [address] [place] [address] JJA 11/24/2020 7:24:02 PM Date of Report: 11/26/2020 Date of Procedure: 11/24/2020 Date of Receipt: 11/24/2020 Submitted by: Jake Mcclain M.D. Location: [facility] Diagnostic interpretation performed at [place] [address]. [place] Number: [id number] [facility] 11-10-2020 [facility] Office Visit (SHAN ) AURA SAUNDERS ([id number]) 1970 F [place] Date Time Provider Department 11/10/20 9:30 AM JESSICA KIMBROUGH During your visit today, we recorded the following information about you: Pulse Blood pressure 77/minute 104/69 Jessica Kimbrough APRN.TECHNICAL ILLUSTRATOR 11/10/2020 10:56 AM Signed Wellness and Preventative [facility] Department [facility] Visit date: November 10, 2020 Aura Saunders is a 49 year old female who presents on November 10, 2020 for a consultation at the [place] [facility]. CHIEF COMPLAINT: Back Pain PRIMARY CARE PHYSICIAN: Dr. Brando Patel REFERRED BY: Ward Quiles PA-C (spine) HISTORY OF PRESENT ILLNESS: Ellen is a 49 year old female with PMH as listed below. She presents to [facility] with referral from neurosurgery for consultation related to chronic back pain. Chronic back pain for about 1 year. Never had an initial injury but did have a fall that then worsened her pain. Lower back with bilateral sciatica Neck pain with radiating pain down her arms Has had MRI's, x-rays - nothing found on images. Has been to PT and OT - felt these were not helpful. Aquatic therapy was a little helpful Uses a lidocaine patch, gabapentin and naproxen. 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 Physical Activity Physical activity is low Pain is better with movement Does the PT stretches at home Sleep Bedtime: 8/8:30 am Pain causes her to have a long sleep latency Takes gabapentin and naproxen before sleep for her pain Sleeps on a couch and watches TV Has tried sleeping on a mattress and this doesn't Duration: 4-6 on average Sleep was better before the pain Stress Average day ratin-9/10 Describes herself as a stressed person - doesn't feel this is because of the pain Describes herself as someone that has a racing mind Home life: Lives at home by herself Has a good support system Anxiety and depression; has more of a tendency towards anxiety Has seen a counselor in the past PAST MEDICAL HISTORY Diagnosis Date - Asthma due to seasonal allergies - Chronic joint pain - Class 1 obesity due to excess calories without serious comorbidity with body mass index (BMI) of 31.0 to 31.9 in adult - Depression - Endometriosis s/p hysterectomy - Generalized anxiety disorder - Heartburn - History of alcohol abuse sober since 2017 - History of tobacco use - Hypertension - Hypothyroid - Mixed hyperlipidemia - Seasonal allergies - Vitamin D deficiency PAST SURGICAL HISTORY Procedure Laterality Date - SECTION HX 1999 - HYSTERECTOMY 2019 endometriosis - OVARIAN CYSTECTOMY - PAST SURGICAL HISTORY OF Right 1991 lipoma removal neck - PAST SURGICAL HISTORY OF 2019 sinus surgery-Dr. English FAMILY HISTORY Problem Relation Age of Onset - Heart disease Mother - Heart Failure Father - Heart disease Father - Diabetes Father - Hyperlipidemia Father - Hypertension Father - other (a fib) Father - Cerebral palsy Sister - Kidney Disease Sister - Heart Attack Maternal Grandmother - Stroke Maternal Grandfather - Stroke Paternal Grandmother - Heart Attack Paternal Grandfather - Systemic Lupus Erythematosus Other Cousin - other (bladder cancer) Paternal Uncle Social History Tobacco Use - Smoking status: Former Smoker Packs/day: 1.50 Years: 29.00 Pack years: 43.50 Types: Cigarettes Quit date: 12/15/2014 Years since quittin.9 - Smokeless tobacco: Never Used Substance Use Topics - Alcohol use: Not Currently - Drug use: Not Currently Types: Marijuana ALLERGIES Allergen Reactions - Dog Dander Other: See Comments headache and watery eyes and runny nose rash - Grass Pollen Other: See Comments runny nose and watery eyes - Latex Rash - Prozac [Fluoxetine] Other: See Comments anger Current Outpatient Medications on File Prior to Visit Medication Sig - potassium chloride (K-TAB) 10 mEq tablet Take 1 tablet by mouth once daily. - hydrOXYzine HCl (ATARAX) 10 mg tablet Take 1 tablet by mouth four times daily as needed. - levothyroxine (SYNTHROID) 88 mcg tablet Take 1 tablet by mouth once daily. - atorvastatin (LIPITOR) 80 mg tablet Take 1 tablet by mouth daily at bedtime. For cholesterol. - BENEFIBER, GUAR GUM, ORAL Take by mouth. - DULoxetine (CYMBALTA) 30 mg capsule Take 1 capsule by mouth once daily. - famotidine (PEPCID) 20 mg tablet Take 1 tablet by mouth daily at bedtime. - omeprazole (PRILOSEC) 20 mg capsule Take 2 capsules by mouth once daily. - vitamin b complex capsule Take 1 capsule by mouth once (more content not included)... Normal [facility] Strep Confirmon 12-29-2017 Strep Confirm Final Report: No Bet a Hemolytic Streptococci Isolated Normal [facility] Comment on above: Performed By: #### C [id number] #### DEVIN [employer]section [address] [place] [address] POC Strep Aon 12-27-2017 Strep A Screen Negative Normal Negative [facility] Comment on above: Performed By: #### C [id number] #### DEVIN POC Subsection [facility] [place] [address] Strep A Scrn Int Ctl Positive Normal Positive [facility] Comment on above: Performed By: #### C [id number] #### DEVIN POC Subsection [facility] [place] [address] Auto Diffon 08-11-2017 Basophils #/vol (Bld) 0.0 E3/mcL Normal 0.0-0.2 [facility] Comment on above: Order Comment: Order Added by Discern Expert. Performed By: #### 2 [id number] #### DEVIN RemHemo [address] [place] [address] Basophils/100 WBC (Bld) 0.4 % Normal 0.0-2.0 [facility] Comment on above: Order Comment: Order Added by Discern Expert. Performed By: #### 2 [id number] #### DEVIN RemHemo [address] [place] [address] Eos Absolute 0.2 E3/mcL Normal 0.0-0.7 [facility] Comment on above: Order Comment: Order Added by Discern Expert. Performed By: #### 2 [id number] #### DEVIN Rem[employer]emo [address] [place] [address] Eosinophils/100 WBC (Bld) 1.9 % Normal 0.0-11.0 [facility] Comment on above: Order Comment: Order Added by Discern Expert. Performed By: #### 2 [id number] #### DEVIN RemHemo [address] [place] [address] Lymphocytes #/vol (Bld) 2.2 E3/mcL Normal 1.2-3.4 [facility] Comment on above: Order Comment: Order Added by Discern Expert. Performed By: #### 2 [id number] #### DEVIN Rem[employer] [address] [place] [address] Lymphocytes/100 WBC (Bld) 27.1 % Normal 20.0-55.0 [facility] Comment on above: Order Comment: Order Added by Discern Expert. Performed By: #### 2 [id number] #### DEVIN TraylorHemo [address] [place] [address] Mathews Absolute 0.4 E3/mcL Normal 0.0-0.7 [facility] Comment on above: Order Comment: Order Added by Discern Expert. Performed By: #### 2 [id number] #### DEVIN TraylorHemo [address] [place] [address] Monocytes/100 WBC (Bld) 5.3 % Normal 0.0-10.0 [facility] Comment on above: Order Comment: Order Added by Discern Expert. Performed By: #### 2 [id number] #### DEVIN TraylorHemo [address] [place] [address] Neutro Absolute 5.4 E3/mcL Normal 1.4-6.5 [facility] Comment on above: Order Comment: Order Added by Discern Expert. Performed By: #### 2 [id number] #### DEVIN TraylorHemo [address] [place] [address] Neutro Auto 65.3 % Normal 37.0-75.0 [facility] Comment on above: Order Comment: Order Added by Discern Expert. Performed By: #### 2 [id number] #### DEVIN TraylorHemo [address] [place] [address] CBC w/ Auto Diffon 8 Erythrocyte distribution width Ratio (RBC) 13.8 % Normal 11.5-14.5 [facility] Comment on above: Performed By: #### 2 [id number] #### DEVIN TraylorHemo [address] [place], [place] [id number] Hematocrit Volume Fraction (Bld) 41.4 % Normal 36.0-48.0 [facility] Comment on above: Performed By: #### 2 [id number] #### DEVIN TraylorHemo [address] [place] [address] Hemoglobin mass conc (Bld) 13.9 g/dL Normal 12.0-16.0 [facility] Comment on above: Performed By: #### 2 [id number] #### DEVIN TraylorHemo [address] [place] [id number] MCH Entitic mass (RBC) 29.0 pg Normal 27.0-31.0 [facility] Comment on above: Performed By: #### 2 [id number] #### DEVIN RemHemo [address] [place] [address] MCHC mass conc (RBC) 33.6 g/dL Normal 33.0-37.0 [facility] Comment on above: Performed By: #### 2 [id number] #### DEVIN RemHemo [address] [place] [address] MCV Entitic volume (RBC) 86.3 fL Normal 78.0-100.0 [facility] Comment on above: Performed By: #### 2 [id number] #### DEVIN RemHemo [address] [place] [address] Platelet mean volume Entitic volume (Bld) 8.9 fL Normal 7.4-11.0 [facility] Comment on above: Performed By: #### 2 [id number] #### DEVIN RemHemo [address] [place] [address] Platelets #/vol (Bld) 258 E3/mcL Normal 130-400 [facility] Comment on above: Performed By: #### 2 [id number] #### DEVIN RemHemo [address] [place] [address] RBC #/vol (Bld) 4.80 E6/mcL Normal 3.90-5.40 [facility] Comment on above: Performed By: #### 2 [id number] #### DEVIN RemHemo [address] [place] [address] WBC #/vol (Bld) 8.2 E3/mcL Normal 3.6-11.0 [facility] Comment on above: Performed By: #### 2 [id number] #### DEVIN RemHemo [address] [place] [address] CMPon 08-11-2017 Albumin mass conc 4.6 g/dL Normal 3.2-5.0 [facility] Comment on above: Performed By: #### 2 [id number] #### DEVIN [employer] [address] [place] [address] Albumin/Globulin mass ratio 1.8 {ratio} Normal 1.1-1.9 [facility] Comment on above: Performed By: #### 2 [id number] #### DEVIN [employer] [address] [place] [address] Alk Phos 50 Int._Unit/L Normal 42-121 [facility] Comment on above: Performed By: #### 2 [id number] #### DEVIN TraylorChem [address] [place] [address] ALT enzyme act/vol 17 Int._Unit/L Normal 10-40 [facility] Comment on above: Performed By: #### 2 [id number] #### DEVIN [employer] [address] [place] [address] AST enzyme act/vol 19 Int._Unit/L Normal 10-42 [facility] Comment on above: Performed By: #### 2 [id number] #### DEVIN TraylorChem [address] [place] [address] Bili Total 0.8 mg/dL Normal 0.2-1.0 [facility] Comment on above: Performed By: #### 2 [id number] #### DEVIN TraylorChem [address] [place] [address] Creatinine mass conc 0.7 mg/dL Normal 0.6-1.3 [facility] Comment on above: Performed By: #### 2 [id number] #### DEVIN TraylorChem [address] [place] [address] Globulin mass conc (S) 2.6 g/dL Normal 2.0-4.0 [facility] Comment on above: Performed By: #### 2 [id number] #### DEVIN TraylorChem [address] [place] [address] Protein mass conc 7.2 g/dL Normal 6.4-8.3 [facility] Comment on above: Performed By: #### 2 556991 #### DEVIN [employer] [address] [place] [address] Urea nitrogen mass conc 13 mg/dL Normal 7-18 [facility] Comment on above: Performed By: #### 2 [id number] #### DEVIN [employer] [address] [place] [address] Urea nitrogen/Creatinine mass ratio 18.6 ratio Normal 5.4-30.0 [facility] Comment on above: Performed By: #### 2 290812 #### DEVIN [employer] [address] [place] [address] Calcium mass conc 9.2 mg/dL Normal 8.4-10.2 [facility] Comment on above: Performed By: #### 2 376019 #### DEVIN [employer] [address] [place] [address] Chloride molar conc 102 mmol/L Normal 98-107 [facility] Comment on above: Performed By: #### 2 122845 #### DEVIN [employer] [address] [place] [address] CO2 molar conc 25.2 mmol/L Normal 24.0-30.0 [facility] Comment on above: Performed By: #### 2 898182 #### DEVIN [employer] [address] [place] [address] Glucose mass conc 79 mg/dL Normal 70-99 [facility] Comment on above: Performed By: #### 2 714649 #### DEVIN [employer] [address] [place] [address] Potassium molar conc 3.4 mmol/L Low 3.5-5.1 [facility] Comment on above: Performed By: #### 2 [id number] #### DEVIN [employer] [address] [place] [address] Sodium molar conc 138 mmol/L Normal 136-145 [facility] Comment on above: Performed By: #### 2 895781 #### DEVIN [employer] [address] [place] [address] Lipid Profileon 08-11-2017 Cholesterol in HDL mass conc 64 mg/dL Normal >=41 [facility] Comment on above: Performed By: #### 3 [id number] #### DEVIN [employer] [address] [place] [address] Cholesterol in LDL mass conc 129 mg/dL Normal 0-130 [facility] Comment on above: Result Comment: <100 OPTIMAL 100-129 NEAR / ABOVE OPTIMAL 130-159 BORDERLINE HIGH 160-189 HIGH >190 VERY HIGH CALC LDL NOT VALID WHEN TRIGLYCERIDE IS >400 MG/DL Performed By: #### 3 [id number] #### DEVIN [employer] [address] [place] [address] Cholesterol in VLDL mass conc 15 mg/dL Normal [facility] Comment on above: Performed By: #### 3 [id number] #### DEVIN [employer] [address] [place] [address] Cholesterol mass conc 208 mg/dL High 50-200 [facility] Comment on above: Result Comment: TOTA L CHOLEESTEROL: <200 NORMAL 200 - 239 BORDERLINE HIGH >240 HIGH Performed By: #### 3 [id number] #### DEVIN [employer] [address] [place] [address] Triglyceride mass conc 77 mg/dL Normal 35-150 [facility] Comment on above: Result Comment: <150 NORMAL 150-199 BORDERLINE HIGH 200-499 HIGH >500 VERY HIGH Performed By: #### 3 [id number] #### DEVIN [employer] [address] [place], [place] [id number] Vit B12on 08-11-2017 Cobalamin (Vitamin B12) mass conc 574 pg/mL Normal 180-914 [facility] Comment on above: Performed By: #### 2 [id number] #### DEVIN [employer] [address] [place] [address] Vitamin D 25 Hydroxyon 08-11 Vitamin D 25 Hydroxy 48.2 ng/mL Normal 30.0-100.0 [facility] Comment on above: Performed By: #### 5 [id number] #### DEVIN [employer] [address] [place] [address] eGFRon 08-11-2017 GFR/1.73 sq M predicted among non-blacks MDRD vol rate/area (S/P/Bld) mL/min/{1.73_m2} Normal [facility] Comment on above: Order Comment: Order added by Discern Expert. Performed By: #### 1 [id number] #### DEVIN [employer] [address] [place], [place] [id number] POC Influenza A&B Agon 06-08 Influenzae A Ag Negative Normal Negative [facility] Comment on above: Result Comment: A ne gative test result does not exclude infection with influenza A and B. Therefore, the results obtained should be used in conjunction with clinical findings to make an accurate diagnosis. Performed By: #### C [id number] #### DEVIN POC Subsection [address] [place] [address] Influenzae B Ag Negative Normal Negative [facility] Comment on above: Performed By: #### C [id number] #### DEVIN POC Subsection [address] [place] [address] Vital Signs Date Time Vital Sign Value Performing Clinician Facility 05-21-2024 15:53-0500 Body mass index (BMI) [Ratio] 28.8 kg/m2 Lilli Clutter PA-C Work Phone: [facility] 05-21-2024 15:53-0500 Body temperature 97.9 [degF] Lilli Clutter PA-C Work Phone: [facility] 05-21-2024 15:53-0500 Body weight 76.1 kg Lilli Clutter PA-C Work Phone: [facility] 05-21-2024 15:53-0500 Diastolic blood pressure 80 mm[Hg] Lilli Clutter PA-C Work Phone: [facility] 05-21-2024 15:53-0500 Heart rate 98 /min Lilli Clutter PA-C Work Phone: [facility] 05-21-2024 15:53-0500 Respiratory rate 18 /min Lilli Clutter PA-C Work Phone: [facility] 05-21-2024 15:53-0500 SaO2% (BldA) [Mass fraction] 99 % Lilli Clutter PA-C Work Phone: [facility] 05-21-2024 15:53-0500 Systolic blood pressure 122 mm[Hg] Lilli Clutter PA-C Work Phone: [facility] 05-30-2023 14:10-0500 Body temperature 98.1 [degF] Dr. Radha Norton Work Phone: [facility] 05-30-2023 14:10-0500 Diastolic blood pressure 98 mm[Hg] Dr. Radha Norton Work Phone: [facility] 05-30-2023 14:10-0500 Heart rate 78 /min Dr. Radha Norton Work Phone: [facility] 05-30-2023 14:10-0500 Respiratory rate 16 /min Dr. Radha Norton Work Phone: [facility] 05-30-2023 14:10-0500 SaO2% (BldA) [Mass fraction] 98 % Dr. Radha Norton Work Phone: [facility] 05-30-2023 14:10-0500 Systolic blood pressure 134 mm[Hg] Dr. Radha Norton Work Phone: [facility] 05-30-2023 11:02-0500 Body height 162.[address] Radha Norton Work Phone: [facility] 05-30-2023 11:02-0500 Body mass index (BMI) [Ratio] 27.1 kg/m2 Dr. Radha Norton Work Phone: [facility] 05-30-2023 11:02-0500 Body weight 72.[address] Radha Norton Work Phone: [facility] 10-26-2022 13:48-0400 Body height 162.[address] Radha Norton Work Phone: [facility] 10-26-2022 13:45-0400 Body mass index (BMI) [Ratio] 29.7 kg/m2 Dr. Radha Norton Work Phone: [facility] 10-26-2022 13:45-0400 Body weight 78.[address] Radha Norton Work Phone: [facility] 10-26-2022 13:45-0400 Diastolic blood pressure 78 mm[Hg] Dr. Radha Norton Work Phone: [facility] 10-26-2022 13:45-0400 Systolic blood pressure 110 mm[Hg] Dr. Radha Norton Work Phone: [facility] 10-06-2022 15:55-0400 Body temperature 97.2 [degF] Miya Emma NET COORDINATOR.TECHNICAL ILLUSTRATOR Work Phone: [facility] 10-06-2022 15:55-0400 Body weight 79.38 kg Miya Emma NET COORDINATOR.TECHNICAL ILLUSTRATOR Work Phone: [facility] 10-06-2022 15:55-0400 Diastolic blood pressure 78 mm[Hg] Miya Emma NET COORDINATOR.TECHNICAL ILLUSTRATOR Work Phone: [facility] 10-06-2022 15:55-0400 Heart rate 92 /min Miya Emma NET COORDINATOR.TECHNICAL ILLUSTRATOR Work Phone: [facility] 10-06-2022 15:55-0400 Respiratory rate 16 /min Miya Emma NET COORDINATOR.TECHNICAL ILLUSTRATOR Work Phone: [facility] 10-06-2022 15:55-0400 SaO2% (BldA) [Mass fraction] 97 % Miya Emma NET COORDINATOR.TECHNICAL ILLUSTRATOR Work Phone: [facility] 10-06-2022 15:55-0400 Systolic blood pressure 126 mm[Hg] Miya Emma NET COORDINATOR.TECHNICAL ILLUSTRATOR Work Phone: [facility] 09-23-2022 09:34-0400 Body height 162.[address] Radha Norton Work Phone: [facility] 09-23-2022 09:27-0400 Body mass index (BMI) [Ratio] 30.4 kg/m2 Dr. Radha Norton Work Phone: [facility] 09-23-2022 09:27-0400 Body weight 80.[address] Radha Norton Work Phone: [facility] 09-23-2022 09:27-0400 Diastolic blood pressure 72 mm[Hg] Dr. Radha Norton Work Phone: [facility] 09-23-2022 09:27-0400 Systolic blood pressure 118 mm[Hg] Dr. Radha Norton Work Phone: [facility] 08-12-2022 09:38-0400 Body mass index (BMI) [Ratio] 30.8 kg/m2 Dr. Radha Norton Work Phone: [facility] 08-12-2022 09:38-0400 Body temperature 97.5 [degF] Dr. Radha Norton Work Phone: [facility] 08-12-2022 09:38-0400 Body weight 81.[address] Radha Norton Work Phone: [facility] 08-12-2022 09:38-0400 Diastolic blood pressure 82 mm[Hg] Dr. Radha Norton Work Phone: [facility] 08-12-2022 09:38-0400 Heart rate 74 /min Dr. Radha Norton Work Phone: [facility] 08-12-2022 09:38-0400 Respiratory rate 17 /min Dr. Radha Norton Work Phone: [facility] 08-12-2022 09:38-0400 SaO2% (BldA) [Mass fraction] 99 % Dr. Radha Norton Work Phone: [facility] 08-12-2022 09:38-0400 Systolic blood pressure 125 mm[Hg] Dr. Radha Norton Work Phone: [facility] 08-08-2022 19:11-0400 Body temperature 97 [degF] [facility] 08-08-2022 19:11-0400 Diastolic blood pressure 86 mm[Hg] [facility] 08-08-2022 19:11-0400 Heart rate 79 /min [facility] 08-08-2022 19:11-0400 Respiratory rate 16 /min [facility] 08-08-2022 19:11-0400 SaO2% (BldA) [Mass fraction] 97 % [facility] 08-08-2022 19:11-0400 Systolic blood pressure 126 mm[Hg] [facility] 08-08-2022 16:18-0400 Body height 162.56 cm [facility] 08-08-2022 16:18-0400 Body mass index (BMI) [Ratio] 30.7 kg/m2 [facility] 08-08-2022 16:18-0400 Body weight 81.33 kg [facility] 08-06-2022 01:08-0400 Diastolic blood pressure 73 mm[Hg] [facility] 08-06-2022 01:08-0400 Heart rate 90 /min [facility] 08-06-2022 01:08-0400 Respiratory rate 16 /min [facility] 08-06-2022 01:08-0400 SaO2% (BldA) [Mass fraction] 95 % [facility] 08-06-2022 01:08-0400 Systolic blood pressure 104 mm[Hg] [facility] 08-05-2022 21:29-0400 Body height 162.56 cm [facility] 08-05-2022 21:29-0400 Body mass index (BMI) [Ratio] 31.4 kg/m2 [facility] 08-05-2022 21:29-0400 Body temperature 97.8 [degF] [facility] 08-05-2022 21:29-0400 Body weight 83 kg [facility] 06-28-2022 08:20-0400 Body temperature 96.8 [degF] Odette Praisler-Wood NET COORDINATOR.TECHNICAL ILLUSTRATOR Work Phone: [facility] 06-28-2022 08:20-0400 Body weight 80.2 kg Odette Praisler-Wood NET COORDINATOR.TECHNICAL ILLUSTRATOR Work Phone: [facility] 06-28-2022 08:20-0400 Diastolic blood pressure 66 mm[Hg] Odette Praisler-Wood NET COORDINATOR.TECHNICAL ILLUSTRATOR Work Phone: [facility] 06-28-2022 08:20-0400 Heart rate 90 /min Odette Praisler-Wood NET COORDINATOR.TECHNICAL ILLUSTRATOR Work Phone: [facility] 06-28-2022 08:20-0400 Respiratory rate 18 /min Odette Praisler-Wood NET COORDINATOR.TECHNICAL ILLUSTRATOR Work Phone: [facility] 06-28-2022 08:20-0400 SaO2% (BldA) [Mass fraction] 99 % Odette Praisler-Wood NET COORDINATOR.TECHNICAL ILLUSTRATOR Work Phone: [facility] 06-28-2022 08:20-0400 Systolic blood pressure 110 mm[Hg] Odette Praisler-Wood NET COORDINATOR.TECHNICAL ILLUSTRATOR Work Phone: [facility] 04-30-2022 18:55-0500 Heart rate 100 /min Dr. Radha Norton Work Phone: [facility] 04-30-2022 18:55-0500 Respiratory rate 17 /min Dr. Radha Norton Work Phone: [facility] 04-30-2022 18:55-0500 SaO2% (BldA) [Mass fraction] 98 % Dr. Radha Norton Work Phone: [facility] 04-30-2022 16:53-0500 Body height 162.[address] Radha Norton Work Phone: [facility] 04-30-2022 16:53-0500 Body mass index (BMI) [Ratio] 31.2 kg/m2 Dr. Radha Norton Work Phone: [facility] 04-30-2022 16:53-0500 Body temperature 97.6 [degF] Dr. Radha Norton Work Phone: [facility] 04-30-2022 16:53-0500 Body weight 82.[address] Radha Norton Work Phone: [facility] 04-30-2022 16:53-0500 Diastolic blood pressure 94 mm[Hg] Dr. Radha Norton Work Phone: [facility] 04-30-2022 16:53-0500 Systolic blood pressure 119 mm[Hg] Dr. Radha Norton Work Phone: [facility] 04-25-2022 10:06-0500 Body temperature 97.9 [degF] Juju Athy PA-C Work Phone: [facility] 04-25-2022 10:06-0500 Body weight 83.01 kg Juju Athy PA-C Work Phone: [facility] 04-25-2022 10:06-0500 Diastolic blood pressure 82 mm[Hg] Juju Athy PA-C Work Phone: [facility] 04-25-2022 10:06-0500 Heart rate 102 /min Juju Athy PA-C Work Phone: [facility] 04-25-2022 10:06-0500 Respiratory rate 16 /min Juju Athy PA-C Work Phone: [facility] 04-25-2022 10:06-0500 SaO2% (BldA) [Mass fraction] 98 % Juju Athy PA-C Work Phone: [facility] 04-25-2022 10:06-0500 Systolic blood pressure 128 mm[Hg] Juju Athy PA-C Work Phone: [facility] 04-04-2022 15:26-0500 Body temperature 97.81 [degF] María Ball NET COORDINATOR.TECHNICAL ILLUSTRATOR Work Phone: [facility] 04-04-2022 15:26-0500 Body weight 81.19 kg María Ball NET COORDINATOR.TECHNICAL ILLUSTRATOR Work Phone: [facility] 04-04-2022 15:26-0500 Diastolic blood pressure 76 mm[Hg] María Ball NET COORDINATOR.TECHNICAL ILLUSTRATOR Work Phone: [facility] 04-04-2022 15:26-0500 Heart rate 116 /min Maíra Ball NET COORDINATOR.TECHNICAL ILLUSTRATOR Work Phone: [facility] 04-04-2022 15:26-0500 Respiratory rate 18 /min María Ball NET COORDINATOR.TECHNICAL ILLUSTRATOR Work Phone: [facility] 04-04-2022 15:26-0500 SaO2% (BldA) [Mass fraction] 97 % María Ball NET COORDINATOR.TECHNICAL ILLUSTRATOR Work Phone: [facility] 04-04-2022 15:26-0500 Systolic blood pressure 120 mm[Hg] María Ball NET COORDINATOR.TECHNICAL ILLUSTRATOR Work Phone: [facility] 03-09-2022 16:37-0500 Body temperature 97.3 [degF] Miya Emma NET COORDINATOR.TECHNICAL ILLUSTRATOR Work Phone: [facility] 03-09-2022 16:37-0500 Body weight 82.56 kg Miya Emma NET COORDINATOR.TECHNICAL ILLUSTRATOR Work Phone: [facility] 03-09-2022 16:37-0500 Diastolic blood pressure 68 mm[Hg] Miya Emma NET COORDINATOR.TECHNICAL ILLUSTRATOR Work Phone: [facility] 03-09-2022 16:37-0500 Heart rate 114 /min Miya Emma NET COORDINATOR.TECHNICAL ILLUSTRATOR Work Phone: [facility] 03-09-2022 16:37-0500 Respiratory rate 18 /min Miya Emma NET COORDINATOR.TECHNICAL ILLUSTRATOR Work Phone: [facility] 03-09-2022 16:37-0500 SaO2% (BldA) [Mass fraction] 98 % Miya Emma NET COORDINATOR.TECHNICAL ILLUSTRATOR Work Phone: [facility] 03-09-2022 16:37-0500 Systolic blood pressure 118 mm[Hg] Miya Emma NET COORDINATOR.TECHNICAL ILLUSTRATOR Work Phone: [facility] 01-28-2022 14:07-0400 Body mass index (BMI) [Ratio] 30.7 kg/m2 Dr. Radha Norton Work Phone: [facility] 01-28-2022 14:07-0400 Body temperature 96.7 [degF] Dr. Radha Norton Work Phone: [facility] 01-28-2022 14:07-0400 Body weight 81.[address] Radha Norton Work Phone: [facility] 01-28-2022 14:07-0400 Diastolic blood pressure 69 mm[Hg] Dr. Radha Norton Work Phone: [facility] 01-28-2022 14:07-0400 Heart rate 90 /min Dr. Radha Norton Work Phone: [facility] 01-28-2022 14:07-0400 Respiratory rate 16 /min Dr. Radha Norton Work Phone: [facility] 01-28-2022 14:07-0400 SaO2% (BldA) [Mass fraction] 97 % Dr. Radha Norton Work Phone: [facility] 01-28-2022 14:07-0400 Systolic blood pressure 105 mm[Hg] Dr. Radha Norton Work Phone: [facility] 01-01-2022 08:45-0400 Body temperature 97.59 [degF] Juju Athy PA-C Work Phone: [facility] 01-01-2022 08:45-0400 Body weight 81.74 kg Juju Athy PA-C Work Phone: [facility] 01-01-2022 08:45-0400 Diastolic blood pressure 82 mm[Hg] Juju Athy PA-C Work Phone: [facility] 01-01-2022 08:45-0400 Heart rate 91 /min Juju Athy PA-C Work Phone: [facility] 01-01-2022 08:45-0400 Respiratory rate 18 /min Juju Athy PA-C Work Phone: [facility] 01-01-2022 08:45-0400 SaO2% (BldA) [Mass fraction] 99 % Juuj Baca PA-C Work Phone: [facility] 01-01-2022 08:45-0400 Systolic blood pressure 110 mm[Hg] Juju Baca PA-C Work Phone: [facility] 10-11-2021 09:25-0400 Body temperature 98.2 [degF] Lourdes Barros NET COORDINATOR.TECHNICAL ILLUSTRATOR Work Phone: [facility] 10-11-2021 09:25-0400 Body weight 81.19 kg Lourdes Barros NET COORDINATOR.TECHNICAL ILLUSTRATOR Work Phone: [facility] 10-11-2021 09:25-0400 Diastolic blood pressure 62 mm[Hg] Lourdes Barrso NET COORDINATOR.TECHNICAL ILLUSTRATOR Work Phone: [facility] 10-11-2021 09:25-0400 Heart rate 110 /min Lourdes Barros NET COORDINATOR.TECHNICAL ILLUSTRATOR Work Phone: [facility] 10-11-2021 09:25-0400 Respiratory rate 18 /min Lourdes Barros NET COORDINATOR.TECHNICAL ILLUSTRATOR Work Phone: [facility] 10-11-2021 09:25-0400 SaO2% (BldA) [Mass fraction] 97 % Lourdes Barros NET COORDINATOR.TECHNICAL ILLUSTRATOR Work Phone: [facility] 10-11-2021 09:25-0400 Systolic blood pressure 122 mm[Hg] Lourdes Barros NET COORDINATOR.TECHNICAL ILLUSTRATOR Work Phone: [facility] 08-25-2021 14:13-0400 Body temperature 97.7 [degF] Julia Podlogar NET COORDINATOR.TECHNICAL ILLUSTRATOR Work Phone: [facility] 08-25-2021 14:130400 Body weight 81.56 kg Julia Podlogar NET COORDINATOR.TECHNICAL ILLUSTRATOR Work Phone: [facility] 08-25-2021 14:13-0400 Diastolic blood pressure 72 mm[Hg] Julia Podlogar NET COORDINATOR.TECHNICAL ILLUSTRATOR Work Phone: [facility] 08-25-2021 14:13-0400 Heart rate 95 /min Julia Podlogar NET COORDINATOR.TECHNICAL ILLUSTRATOR Work Phone: [facility] 08-25-2021 14:13-0400 Respiratory rate 18 /min Julia Podlogar NET COORDINATOR.TECHNICAL ILLUSTRATOR Work Phone: [facility] 08-25-2021 14:13-0400 SaO2% (BldA) [Mass fraction] 97 % Julia Podlogar NET COORDINATOR.TECHNICAL ILLUSTRATOR Work Phone: [facility] 08-25-2021 14:13-0400 Systolic blood pressure 118 mm[Hg] Julia Podlogar NET COORDINATOR.TECHNICAL ILLUSTRATOR Work Phone: [facility] 07-07-2021 05:13-0400 Body height 162.[address] Paco Patel Work Phone: [facility] Work Phone: 07-07-2021 05:13-0400 Body mass index (BMI) [Ratio] 30.9 kg/m2 Dr. Paco Patel Work Phone: [facility] Work Phone: 07-07-2021 05:13-0400 Body temperature 98.4 [degF] Dr. Paco Patel Work Phone: [facility] Work Phone: 07-07-2021 05:13-0400 Body weight 81.[address] Paco Patel Work Phone: [facility] Work Phone: 07-07-2021 05:13-0400 Diastolic blood pressure 85 mm[Hg] Dr. Paco Patel Work Phone: [facility] Work Phone: 07-07-2021 05:13-0400 Heart rate 97 /min Dr. Paco Patel Work Phone: [facility] Work Phone: 07-07-2021 05:13-0400 Respiratory rate 18 /min Dr. Paco Patel Work Phone: [facility] Work Phone: 07-07-2021 05:13-0400 SaO2% (BldA) [Mass fraction] 98 % Dr. Paco Patel Work Phone: [facility] Work Phone: 07-07-2021 05:13-0400 Systolic blood pressure 132 mm[Hg] Dr. Paco Patel Work Phone: [facility] Work Phone: 07-03-2021 15:53-0400 Body weight 79.83 kg Lilli Muniz MD Work Phone: [facility] 07-03-2021 15:53-0400 Diastolic blood pressure 72 mm[Hg] Lilli Muniz MD Work Phone: [facility] 07-03-2021 15:53-0400 Heart rate 86 /min Lilli Muniz MD Work Phone: [facility] 07-03-2021 15:53-0400 Respiratory rate 16 /min Lilli Muniz MD Work Phone: [facility] 07-03-2021 15:53-0400 Systolic blood pressure 110 mm[Hg] Lilli Muniz MD Work Phone: [facility] 06-02-2021 21:59-0500 Diastolic blood pressure 69 mm[Hg] Dr. Paco Patel Work Phone: [facility] Work Phone: 06-02-2021 21:59-0500 Heart rate 78 /min Dr. Paco Patel Work Phone: [facility] Work Phone: 06-02-2021 21:59-0500 Respiratory rate 16 /min Dr. Paco Patel Work Phone: [facility] Work Phone: 06-02-2021 21:59-0500 SaO2% (BldA) [Mass fraction] 96 % Dr. Paco Patel Work Phone: [facility] Work Phone: 06-02-2021 21:59-0500 Systolic blood pressure 102 mm[Hg] Dr. Paco Patel Work Phone: [facility] Work Phone: 06-02-2021 20:27-0500 Body mass index (BMI) [Ratio] 30.2 kg/m2 Dr. Paco Patel Work Phone: [facility] Work Phone: 06-02-2021 20:27-0500 Body temperature 97.6 [degF] Dr. Paco Patel Work Phone: [facility] Work Phone: 06-02-2021 20:27-0500 Body weight 79.[address] Paco Patel Work Phone: [facility] Work Phone: Encounters Encounter Date Encounter Type Care Provider Facility Start: 07-26-2024 End: 07-26-2024 ambulatory [facility] Facility:[facility] Start: 05-22-2024 End: 07-22-2024 Follow-up encounter Lourdes Barros APRN.CNP Work Phone: [facility] Start: 05-21-2024 End: 05-21-2024 Office outpatient visit 25 minutes Lilli Borwn PA-C Work Phone: [facility] Comment on above: Sore throat (Primary Dx); Viral illness; Acute UTI Start: 05-21-2024 End: 05-21-2024 ambulatory [facility] Facility:[facility] Start: 02-07-2024 End: 02-07-2024 ambulatory [facility] Facility:[facility] Start: 01-16-2024 End: 01-16-2024 Emergency department patient visit [facility] Facility:[facility] Start: 12-16-2023 ambulatory Radha Norton Facility: [facility] Start: 12-15-2023 End: 12-15-2023 ambulatory [facility] Facility:[facility] Start: 11-28-2023 End: 11-28-2023 ambulatory Radha Michristopher Facility:[facility] Start: 07-26-2023 End: 07-26-[address] Radha Norton Work Phone: [facility] Work Phone: Start: 07-26-2023 End: 07-26-[address] Radha Norton Work Phone: [facility] Start: 07-12-2023 End: 07-12-[address] Radha Norton Work Phone: [facility] Work Phone: Start: 07-12-2023 End: 07-12-[address] Radha Norton Work Phone: [facility] Start: 06-02-2023 End: 06-02-[address] Radha Norton Work Phone: [facility] Work Phone: Start: 06-02-2023 End: 06-02-[address] Radha Norton Work Phone: [facility] Start: 05-30-2023 End: 05-30-2023 Emergency department patient visit Dr. Radha Norton Work Phone: [facility]Emergency Department Work Phone: Start: 04-06-2023 Non-patient / Non-visit Dr. Jhon Norton Work Phone: [facility] Start: 04-06-2023 End: 04-06-[address] Radha Norton Work Phone: [facility] Work Phone: Start: 04-06-2023 End: 04-06-[address] Radha Norton Work Phone: [facility] Services/Neurology Work Phone: Start: 01-27-2023 End: 01-27-[address] Radha Norton Work Phone: [facility] Work Phone: Start: 01-27-2023 End: 01-27-[address] Radha Norton Work Phone: [facility]atory, [facility] Start: 01-20-2023 End: 01-20-[address] Radha Norton Work Phone: [facility] Work Phone: Start: 01-20-2023 End: 01-20-[address] Radha Norton Work Phone: [facility]Laboratory Work Phone: Start: 10-27-2022 End: 10-27-[address] Radha Norton Work Phone: [facility] Work Phone: Start: 10-27-2022 End: 10-27-[address] Radha Norton Work Phone: [facility]Outpatient Breast Imaging Work Phone: Start: 10-26-2022 End: 10-26-[address] Radha Norton Work Phone: [facility] Work Phone: Start: 10-06-2022 End: 10-06-2022 Patient encounter procedure Miya Carter APRN.TECHNICAL ILLUSTRATOR Work Phone: [facility] Comment on above: Non-recurrent acute serous otitis media of both ears (Primary Dx); Seasonal allergic rhinitis, unspecified trigger Start: 09-30-2022 End: 09-30-[address] Radha Norton Work Phone: [facility] Work Phone: Start: 09-30-2022 End: 09-30-[address] Radha Norton Work Phone: [facility] Work Phone: Start: 09-23-2022 End: 09-23-[address] Radha Norton Work Phone: [facility] Work Phone: Start: 09-03-2022 End: 09-03-[address] Radha Norton Work Phone: [facility] Work Phone: Start: 08-20-2022 End: 08-20-[address] Radha Norton Work Phone: [facility] Work Phone: Start: 08-12-2022 End: 08-12-[address] Radha Norton Work Phone: [facility] Work Phone: Start: 08-08-2022 End: 08-08-2022 Emergency department patient visit [facility] Start: 08-05-2022 End: 08-06-2022 Emergency department patient visit [facility] Start: 06-28-2022 End: 06-28-2022 Patient encounter procedure Odette Simms APRN.TECHNICAL ILLUSTRATOR Work Phone: [facility] Comment on above: Sinobronchitis (Prim makayla Dx); Otalgia of both ears Start: 04-30-2022 End: 04-30-2022 Emergency department patient visit Dr. Radha Norton Work Phone: [facility]gency [facility] Start: 04-25-2022 End: 04-25-2022 Patient encounter procedure Juju LOPEZC Work Phone: [facility] Comment on above: Sore throat (Primary Dx); Sinobronchitis Start: 04-04-2022 End: 04-04-2022 Office outpatient visit 10 minutes María Francisco APRN.TECHNICAL ILLUSTRATOR Work Phone: [facility] Comment on above: Wound of left lower extremity, initial encounter (Primary Dx) Start: 03-09-2022 End: 03-09-2022 Patient encounter procedure Miya Carter NET COORDINATOR.TECHNICAL ILLUSTRATOR Work Phone: [facility] Comment on above: URI with cough and c ongestion (Primary Dx) Start: 01-28-2022 End: 01-28-[address] Radha Norton Work Phone: [facility] Start: 01-01-2022 End: 01-01-2022 Patient encounter procedure Juju Baca PA-C Work Phone: [facility] Comment on above: Suspected COVID-19 v irus infection (Primary Dx) Start: 12-27-2021 Refill Julia Maciel APRN.TECHNICAL ILLUSTRATOR Work Phone: [facility] Comment on above: Refill Request Start: 11-23-2021 End: 11-23-2021 ambulatory [facility] Work Phone: Start: 11-23-2021 End: 11-23-2021 Patient encounter procedure [facility] Start: 10-28-2021 End: 10-28-[address] Paco Patel Work Phone: [facility] Start: 10-11-2021 End: 10-11-2021 Patient encounter procedure Lourdes Barros NET COORDINATOR.TECHNICAL ILLUSTRATOR Work Phone: [facility] Comment on above: Acute otitis media, bilateral (Primary Dx) Start: 09-14-2021 Refill Brando Patel MD Work Phone: [facility] Comment on above: Refill Request Start: 08-30-2021 ambulatory Julia Brockloglyubov NET COORDINATOR.TECHNICAL ILLUSTRATOR Work Phone: [facility] Comment on above: Meds Start: 08-25-2021 End: 08-25-2021 Patient encounter procedure Julia Brockloglyubov NET COORDINATOR.TECHNICAL ILLUSTRATOR Work Phone: [facility] Comment on above: Left arm pain (Prima ry Dx); Upper back pain Start: 08-05-2021 Telephone encounter Julia oliveros NET COORDINATOR.TECHNICAL ILLUSTRATOR Work Phone: [facility] Comment on above: Nasal Congestion Start: 07-07-2021 ambulatory Brando Patel MD Work Phone: [facility] Comment on above: Back pain Start: 07-07-2021 End: 07-07-2021 Emergency department patient [facility] Start: 07-06-2021 Non-patient / Non-visit Dr. Hilda Patel Work Phone: [facility] Start: 07-03-2021 End: 07-03-2021 Patient encounter procedure Lilli Muniz MD Work Phone: [facility] Comment on above: Acute bilateral low back pain with bilateral sciatica (Primary Dx) Start: 06-30-2021 Refill Brando Patel MD Work Phone: [facility] Comment on above: Refill Request Start: 06-02-2021 End: 06-02-2021 Emergency department patient visit Dr. Paco Patel Work Phone: [facility] Start: 01-21-2018 End: 01-21-2018 Patient encounter procedure Westley Simpson Facility:[facility] Start: 12-27-2017 End: 12-27-2017 Patient encounter procedure Westley Simpson Facility:[facility] Start: 08-11-2017 End: 08-12-2017 Patient encounter procedure Sridevi Gant Facility:[facility] Start: 06-08-2017 End: 06-08-2017 Patient encounter procedure Ron Mendez Facility:[facility] Procedures Date Procedure Procedure Detail Performing Clinician Start: 05-21-2024 Urnls dip stick/tabl et rgnt auto w/o microscopy Odette Simms NET COORDINATOR.TECHNICAL ILLUSTRATOR Work Phone: Start: 07-26-[address] Lucila Norton Work Phone: Start: 10-27-2022 Screening mammography Jarad Norton Work Phone: Start: 09-30-2022 Radiography of sacrococcygeal spine Dr. Radha Norton Work Phone: Start: 08-20-2022 CT of chest and abdomen Dr. Radha Norton Work Phone: Start: 08-08-2022 Diagnostic radiograp hy of abdomen Start: 08-05-2022 Computed tomography of abdomen and pelvis with intravenous contrast Start: 04-30-2022 Plain chest X-ray Dr. Thomas Norton Work Phone: Start: 04-25-2022 STREP A MOLECULAR (POC) Juju Baca PA-C Work Phone: Start: 06-09-2021 Mammography Paco Patel MD Work Phone: Start: 04-13-2021 Lipid 1996 panel - S jennifer or Plasma Lilli LOPEZC Work Phone: Start: 11-24-2020 Colonoscopy Paco Patel MD Work Phone: SARS-CoV-2 & FLU Ant igen (Rapid) Dr. Radha Norton Work Phone: Plan of Treatment Date Care Activity Detail Author Start: 11-24-2030 Colonoscopy COLONOSCOPY [facility] Start: 11-24-2030 COLORECTAL CANCER SCREENING COLORECTAL CANCER SCREENING [facility] Start: 11-24-2030 Screening for malign ant neoplasm of colon [facility] Start: 04-13-2026 Lipid panel Lipid Screening [facility] Start: 04-13-2026 LIPID SCREEN LIPID SCREEN [facility] Start: 04-13-2024 [facility] Start: 04-13-2024 Diabetes Screening Diabetes Screenin g [facility] Start: 12-04-2023 Covid-19 Vaccine () Covid-19 Vaccine () [facility] Start: 12-04-2023 Influenza vaccination Influenza Vacc ine (#1) [facility] Start: 10-07-2023 BP CONTROLLED (<130/80) BP CONTROLLE D (<130/80) [facility] Start: 06-29-2023 BP CONTROLLED (<130/80) BP CONTROLLE D (<130/80) [facility] Start: 05-30-2023 [facility] Start: 04-04-2023 BP CONTROLLED (<130/80) BP CONTROLLE D (<130/80) [facility] Start: 03-09-2023 BP CONTROLLED (<130/80) BP CONTROLLE D (<130/80) [facility] Start: 2022 Screening for malign ant neoplasm of lung Lung Cancer Screening [facility] Start: 2022 Shingrix Vaccine (1 of 2) Shingrix Vaccine (1 of 2) [facility] Start: 12-03-2022 Influenza vaccination INFLUENZA (#1) [facility] Start: 10-11-2022 BP CONTROLLED (<130/80) BP CONTROLLE D (<130/80) [facility] Start: 08-25-2022 ANNUAL PCP TEAM FILM TOUCH UP INSPECTOR RAE DISEASE VISIT ANNUAL PCP TEAM CHRONIC DISEASE VISIT [facility] Start: 08-25-2022 BP CONTROLLED (<130/80) BP CONTROLLE D (<130/80) [facility] Start: 08-05-2022 ANNUAL PCP TEAM FILM TOUCH UP INSPECTOR RAE DISEASE VISIT ANNUAL PCP TEAM CHRONIC DISEASE VISIT [facility] Start: 08-05-2022 BP CONTROLLED (<130/80) BP CONTROLLE D (<130/80) [facility] Start: 07-03-2022 ANNUAL PCP TEAM FILM TOUCH UP INSPECTOR RAE DISEASE VISIT ANNUAL PCP TEAM CHRONIC DISEASE VISIT [facility] Start: 07-03-2022 BP CONTROLLED (<130/80) BP CONTROLLE D (<130/80) [facility] Start: 06-22-2022 ANNUAL PCP TEAM FILM TOUCH UP INSPECTOR RAE DISEASE VISIT ANNUAL PCP TEAM CHRONIC DISEASE VISIT [facility] Start: 06-22-2022 BP CONTROLLED (<130/80) BP CONTROLLE D (<130/80) [facility] Start: 06-09-2022 Mammography MAMMOGRAM [facility] Start: 06-09-2022 Screening for malign ant neoplasm of breast Mammogram Screening [facility] Start: 04-07-2022 BP CONTROLLED (<130/80) BP CONTROLLE D (<130/80) [facility] Start: 04-07-2022 PNEUMOCOCCAL (2 - PCV) PNEUMOCOCCAL (2 - PCV) [facility] Start: 04-07-2022 Pneumococcal Vaccine : 50+ (2 of 2 - PCV) Pneumococcal Vaccine: 50+ (2 of 2 - PCV) [facility] Start: 03-09-2022 End: 03-23-2022 Influenza virus A and B RNA and SARS-CoV-2 (COVID-19) N gene panel - Respiratory specimen by BRETT with probe detection COVID WITH FLUA+B, ROUTINE Microbiology Routine URI with cough and congestion Expected: 03/09/2022, Expires: 03/23/2022 [facility] Work Phone: Comment on above: Expected: 03/09/2022 , Expires: 03/23/2022 Start: 01-01-2022 End: 01-15-2022 Influenza virus A and B RNA and SARS-CoV-2 (COVID-19) N gene panel - Respiratory specimen by BRETT with probe detection [facility] Work Phone: Comment on above: Expected: 01/01/2022 , Expires: 01/15/2022 Start: 12-03-2021 Influenza vaccination INFLUENZA (#1) [facility] Start: 06-04-2021 COVID-19 VACCINE (4 - Booster for Moderna series) COVID-19 VACCINE (4 - Booster for Moderna series) [facility] Start: 03-01-2021 Urine microalbumin profile [facility] Start: 2017 COLOGUARD (FIT-DNA) COLOGUARD (FIT-D NA) [facility] Start: [address] COLONOGRAPHY [facility] Start: 2017 FECAL OCCULT BLOOD FECAL OCCULT BLOO D [facility] Start: 2017 Screening for malign ant neoplasm of colon [facility] Start: 2017 SIGMOIDOSCOPY SIGMOIDOSCOPY [facility] Start: 12-31-1991 Hepatitis B Vaccine (1 of 3 - 19+ 3-dose series) Hepatitis B Vaccine (1 of 3 - 19+ 3-dose series) [facility] Start: 1990 HIV SCREENING [facility] Start: 1990 HIV screening HIV Screening [facility] Start: 1990 SPIROMETRY SPIROMETRY [facility] Start: 1972 HEPATITIS B (1 of 3 - 3-dose series) HEPATITIS B (1 of 3 - 3-dose series) [facility] Antibody to lupus La protein measurement [facility] Work Phone: Antibody to SS-A measurement [facility] Work Phone: Bacteria identified in Urine by Culture BACTERIAL CULTURE, URINE Microbiology Routine Acute UTI 05/21/2024 4:09 PM EST [facility] Work Phone: Centromere protein B Ab [Units/volume] in Serum [facility] Work Phone: Chromatin Ab [Units/volume] in Serum or Plasma [facility] Work Phone: DNA double strand Ab [Units/volume] in Serum [facility] Work Phone: Radha-1 extractable nuc lear Ab [Units/volume] in Serum [facility] Work Phone: MG Breast - bilatera l Screening [facility] Patient Education [facility] Work Phone: Patient referral [facility] Work Phone: SCL-70 extractable nuclear Ab [Units/volume] in Serum by Immunoassay [facility] Work Phone: Ramos extractable nuclear Ab [Presence] in Serum [facility] Work Phone: [facility] Immunizations Immunization Date Immunization Notes Care Provider Jayden ross 04-07-2021 pneumococcal polysaccharide vaccine, 23 valent Brando Patel MD Work Phone: [facility] 01-13-2021 influenza, seasonal, injectable Brando Patel MD Work Phone: [facility] Work Phone: 01-13-2021 influenza virus vaccine, unspecified formulation Lilli WEBB-Minda Work Phone: [facility] 08-07-2020 COVID-19 vaccine, fu ll dose (MODERNA) Brando Patel MD Work Phone: [facility] 07-10-2020 COVID-19 vaccine, fu ll dose (MODERNA) Brando Patel MD Work Phone: [facility] 12-25-[address] Paco Patel Work Phone: [facility] 12-25-2018 influenza, seasonal, injectable, preservative free Brando Patel MD Work Phone: [facility] 11-25-2015 influenza, seasonal, injectable, preservative free Brando Patel MD Work Phone: [facility] 02-10-2013 influenza, seasonal, injectable Brando Patel MD Work Phone: [facility] 06-28-2011 hepatitis B vaccine, pediatric or pediatric/adolescent dosage Brando Patel MD Work Phone: [facility] 06-28-2011 hepatitis B vaccine, unspecified formulation Julia Maciel APRN.CNP Work Phone: [facility] 04-26-2011 hepatitis B vaccine, pediatric or pediatric/adolescent dosage Brando Patel MD Work Phone: [facility] 03-01-2011 hepatitis B vaccine, pediatric or pediatric/adolescent dosage Brando Patel MD Work Phone: [facility] 03-01-2011 tetanus toxoid, redu frantz diphtheria toxoid, and acellular pertussis vaccine, adsorbed Brando Patel MD Work Phone: [facility] Payers Date Payer Category Payer Self-pay [id number] 2021 [employer] BLUE ACCE PPO [id number] 2021 Unknown GURINDER SANCHEZ ACCE PPO [id number] 2021-Present [id number] [id number] 2021 Unknown [id number] 2017 Unknown 1972 Unknown [id number] 2. 1972 Unknown [id number]. 2. 1972 Unknown [id number]. 2.7 1972 Unknown [id number] 2.71 Unknown [id number] Unknown [id number] Unknown [id number] Unknown [id number] Unknown [id number] Unknown [id number] Unknown [id number] Social History Date Type Detail Facility Start: 04-07-2021 End: 01-01-2022 Tobacco smoking status NHIS Smokes tobacco daily [facility] Work Phone: End: 12-15-2014 History of tobacco use Cigarette Smoker [facility] Work Phone: Start: 04-07-2021 End: 04-21-2022 Cigarettes smoked current (pack per day) - Reported 1 [facility] Start: 04-07-2021 End: 01-01-2022 Tobacco use and exposure Smokeless tobacco non-user [facility] Work Phone: Start: 06-22-2021 End: 05-21-2024 Alcohol intake Ex-drinker (finding) [facility] Start: 11-29-2020 History SDOH Alcohol Std Drinks 98 [facility] Start: 11-29-2020 End: 03-02-2021 History SDOH Alcohol Binge 1 [facility] Start: 11-20-2020 History SDOH Alcohol Comment quit 2017 [facility] Start: 11-29-2020 History SDOH Social Connections Phone 5 [facility] Start: 11-29-2020 End: 03-02-2021 History SDOH Social Connections Get Together 2 [facility] Start: 11-29-2020 History SDOH Stress 4 [facility] Start: 03-02-2021 History SDOH Housing Unable to Pay 3 [facility] Start: 11-29-2020 Education 15 [facility] Start: 1970 Sex Assigned At Female C [facility] Start: 06-12-2021 End: 01-01-2022 Exposure to SARS-CoV-2 (event) Not sure [facility] Start: 07-07-2021 End: 05-30-2023 Tobacco smoking status NHIS Unknown if ever smoked [facility] Start: 11-14-2019 None [facility] Start: 11-14-2019 Alone [facility] Start: 03-02-2019 Non-smoker [facility] Start: 11-29-2020 End: 04-21-2022 Social connection and isolation panel [facility] Do you belong to any clubs or organizations such as sabianism groups, unions, fraternal or athletic groups, or school groups? No [facility] Are you now , , , , never or living with a partner? [facility] Frequency of Alcohol Consumption Not on file [facility] How often do you hav e 6 or more drinks on 1 occasion? Never [facility] Do you feel stress - tense, restless, nervous, or anxious, or unable to sleep at night because your mind is troubled all the time - these days [OSQ] Rather much [facility] (I/We) worried wheth er (my/our) food would run out before (I/we) got money to buy more. Never true [facility] Start: 06-28-2020 Gender identity Identifies as female gender (finding) [facility] Start: 06-28-2020 Sexual orientation Heterosexual (apoorva schafer) [facility] NEGATED: Highlighted row [facility] Medical Equipment Procedure Code Equipment Code Equipment Origin al Text Equipment Identifier Dates GERDA 3GRM HEMO STAT ABS FDA Start: 03-05-2019 GERDA 3GRM HEMO STAT ABS FDA Start: 03-05-2019 GERDA 3GRM HEMO STAT ABS FDA Start: 03-05-2019 GERDA 3GRM HEMO STAT ABS FDA Start: 03-05-2019 GERDA 3GRM HEMO STAT ABS FDA Start: 03-05-2019 GERDA 3GRM HEMO STAT ABS FDA Start: 03-05-2019 GERDA 3GRM HEMO STAT ABS FDA Start: 03-05-2019 GERDA 3GRM HEMO STAT ABS FDA Start: 03-05-2019 GERDA 3GRM HEMO STAT ABS FDA Start: 03-05-2019 GERDA 3GRM HEMO STAT ABS FDA Start: 03-05-2019 GERDA 3GRM HEMO STAT ABS FDA Start: 03-05-2019 GERDA 3GRM HEMO STAT ABS FDA Start: 03-05-2019 GERDA 3GRM HEMO STAT ABS FDA Start: 03-05-2019 GERDA 3GRM HEMO STAT ABS FDA Start: 03-05-2019 Mental Status Date Assessment Result Facility 05-30-2023 Cognitive function Level Of Cons ciousness Awake;Alert;Appropriate;Follow s Commands [facility] Work Phone: 04-30-2022 Cognitive function Level Of Cons ciousness Awake;Alert;Appropriate;Follow s Commands [facility] Work Phone: 06-02-2021 Cognitive function Voice/Name [facility] Work Phone: Clinical Notes 11-10-2020 to 05-21-2024 Lilli Brown PA-C - 05/21/2024 4:05 PM Kristie Carter APRN.CNP - 10/06/2022 4:01 PM EDT Note Date & Type Note Facility 05-21-2024 Note HNO ID: [id number] Author: LILLI BROWN PA-C Service: ? Author Type: Physician Lieutenant Shift Supervisor Type: Progress Notes Filed: 05/21/2024 16:08 Note Text: This note was created using SeroMatchriter. Subjective Aura Saunders is a 53 year old female. Patient is a 53-year-old female who arrives for evaluation of 2 separate complaints. Patient complains of fever, chills, body aches, sore throat and cough that she has been experiencing for the past 2 to 3 days. Patient reports mild congestion but denies sinus pressure or ear pain. Patient has no history of asthma or COPD and does not smoke. Patient also reports burning with urination and urinary urgency that she has been experiencing for the past 2 days. Patient denies hematuria, flank pain or nausea. Patient states that she does have a history of recurrent urinary tract infection and that her current symptoms are consistent with same. Cough Associated symptoms include chills, sore throat and myalgias. Review of Systems Constitutional: Positive for chills and fever. HENT: Positive for congestion and sore throat. Respiratory: Positive for cough. Genitourinary: Positive for dysuria and urgency. Musculoskeletal: Positive for myalgias. All other systems reviewed and are negative. Objective BP 122/80 Pulse 98 Temp 36.6 ?C (97.9 ?F) (Tympanic) Resp 18 Wt 76.1 kg (167 lb 12.3 oz) LMP 09/05/2018 SpO2 99% BMI 28.80 kg/m? Physical Exam Vitals and nursing note reviewed. Constitutional: Appearance: Normal appearance. She is normal weight. HENT: Head: Normocephalic and atraumatic. Right Ear: Tympanic membrane, ear canal and external ear normal. Left Ear: Tympanic membrane, ear canal and external ear normal. Nose: Nose normal. Mouth/Throat: Mouth: Mucous membranes are moist. Pharynx: Oropharynx is clear. Eyes: Extraocular Movements: Extraocular movements intact. Conjunctiva/sclera: Conjunctivae normal. Pupils: Pupils are equal, round, and reactive to light. Cardiovascular: Rate and Rhythm: Normal rate and regular rhythm. Pulses: Normal pulses. Heart sounds: Normal heart sounds. Pulmonary: Effort: Pulmonary effort is normal. Breath sounds: Normal breath sounds. Musculoskeletal: Cervical back: Normal range of motion and neck supple. Skin: General: Skin is warm and dry. Capillary Refill: Capillary refill takes less than 2 seconds. Neurological: General: No focal deficit present. Mental Status: She is alert and oriented to person, place, and time. Psychiatric: Mood and Affect: Mood normal. Behavior: Behavior normal. Thought Content: Thought content normal. Judgment: Judgment normal. Assessment and Plan Physical exam findings as noted above. Urinalysis shows small leukocyte esterase with nitrite and large blood. Urine culture was ordered. Patient was provided with a prescription for Keflex 500 mg and supportive care instructions were discussed. Patient was advised that results of the urine culture be available in 2 days and she will be contacted if there is need to change her medication based on the sensitivity report. Patient verbalizes clear understanding of all of the above instructions. CLINICAL IMPRESSION: Acute UTI; Viral Illness ASSESSMENT/PLAN: 1. Sore throat - ICD9: 462, ICD10: J02.9 (primary diagnosis) - UA DIP, URINE (POC) 2. Viral illness - ICD9: 079.99, ICD10: B34.9 3. Acute UTI - ICD9: 599.0, ICD10: N39.0 - BACTERIAL CULTURE, URINE - CEPHALEXIN 500 MG CAPSULE Lilli Brown PA-C [facility] 05-21-2024 History of Present illness Narrative This note was created using Anergis. Subjective Aura Saunders is a 53 year old female. Patient is a 53-year-old female who arrives for evaluation of 2 separate complaints. Patient complains of fever, chills, body aches, sore throat and cough that she has been experiencing for the past 2 to 3 days. Patient reports mild congestion but denies sinus pressure or ear pain. Patient has no history of asthma or COPD and does not smoke. Patient also reports burning with urination and urinary urgency that she has been experiencing for the past 2 days. Patient denies hematuria, flank pain or nausea. Patient states that she does have a history of recurrent urinary tract infection and that her current symptoms are consistent with same. Cough Associated symptoms include chills, sore throat and myalgias. Review of Systems Constitutional: Positive for chills and fever. HENT: Positive for congestion and sore throat. Respiratory: Positive for cough. Genitourinary: Positive for dysuria and urgency. Musculoskeletal: Positive for myalgias. All other systems reviewed and are negative. Objective BP 122/80 Pulse 98 Temp 36.6 C (97.9 F) (Tympanic) Resp 18 Wt 76.1 kg (167 lb 12.3 oz) LMP 09/05/2018 SpO2 99% BMI 28.80 kg/m Physical Exam Vitals and nursing note reviewed. Constitutional: Appearance: Normal appearance. She is normal weight. HENT: Head: Normocephalic and atraumatic. Right Ear: Tympanic membrane, ear canal and external ear normal. Left Ear: Tympanic membrane, ear canal and external ear normal. Nose: Nose normal. Mouth/Throat: Mouth: Mucous membranes are moist. Pharynx: Oropharynx is clear. Eyes: Extraocular Movements: Extraocular movements intact. Conjunctiva/sclera: Conjunctivae normal. Pupils: Pupils are equal, round, and reactive to light. Cardiovascular: Rate and Rhythm: Normal rate and regular rhythm. Pulses: Normal pulses. Heart sounds: Normal heart sounds. Pulmonary: Effort: Pulmonary effort is normal. Breath sounds: Normal breath sounds. Musculoskeletal: Cervical back: Normal range of motion and neck supple. Skin: General: Skin is warm and dry. Capillary Refill: Capillary refill takes less than 2 seconds. Neurological: General: No focal deficit present. Mental Status: She is alert and oriented to person, place, and time. Psychiatric: Mood and Affect: Mood normal. Behavior: Behavior normal. Thought Content: Thought content normal. Judgment: Judgment normal. Assessment and Plan Physical exam findings as noted above. Urinalysis shows small leukocyte esterase with nitrite and large blood. Urine culture was ordered. Patient was provided with a prescription for Keflex 500 mg and supportive care instructions were discussed. Patient was advised that results of the urine culture be available in 2 days and she will be contacted if there is need to change her medication based on the sensitivity report. Patient verbalizes clear understanding of all of the above instructions. CLINICAL IMPRESSION: Acute UTI; Viral Illness ASSESSMENT/PLAN: 1. Sore throat - ICD9: 462, ICD10: J02.9 (primary diagnosis) - UA DIP, URINE (POC) 2. Viral illness - ICD9: 079.99, ICD10: B34.9 3. Acute UTI - ICD9: 599.0, ICD10: N39.0 - BACTERIAL CULTURE, URINE - CEPHALEXIN 500 MG CAPSULE Lilli Brown PA-C documented in this encounter [facility] 04-06-2023 Procedure note [facility] 10-06-2022 History of Present illness Narrative Subjective The history is provided by the patient. No second language tutor was used. ERICK Saunders is a 51 year old female who presents today for CC of left ear pain that is worsening for 3 days. She is also having sinus pressure and congestion. She has used ibuprofen with short term relief. No known exposures, works in a factory. H/o seasonal allergies BP 126/78 Pulse 92 Temp 36.2 C (97.2 F) Resp 16 Wt 79.4 kg (175 lb) LMP 09/05/2018 SpO2 97% BMI 30.04 kg/m Social History Tobacco Use Smoking status: Every Day Packs/day: 1.00 Years: 29.00 Pack years: 29.00 Types: Cigarettes Smokeless tobacco: Never Substance Use Topics Alcohol use: Not Currently Comment: quit 2017 Drug use: Not Currently Types: Marijuana PAST MEDICAL HISTORY Diagnosis Date Asthma due to seasonal allergies Chronic joint pain Class 1 obesity due to excess calories without serious comorbidity with body mass index (BMI) of 31.0 to 31.9 in adult Depression Endometriosis s/p hysterectomy Generalized anxiety disorder Heartburn History of alcohol abuse sober since 2017 History of tobacco use Hypertension Hypothyroid Mixed hyperlipidemia Seasonal allergies Vitamin D deficiency I have confirmed and edited as necessary, the [facility] Review of Systems Constitutional: Positive for malaise/fatigue. Negative for chills and fever. HENT: Positive for ear pain and sinus pain. Negative for congestion and sore throat. Respiratory: Negative for cough, sputum production, shortness of breath and wheezing. Cardiovascular: Negative for chest pain. Gastrointestinal: Negative for abdominal pain, diarrhea, nausea and vomiting. Musculoskeletal: Negative for myalgias. Neurological: Positive for headaches. Objective Physical Exam Vitals and nursing note reviewed. HENT: Head: Normocephalic and atraumatic. Right Ear: Ear canal and external ear normal. A middle ear effusion (dull) is present. Tympanic membrane is erythematous and bulging. Left Ear: Ear canal and external ear normal. A middle ear effusion (dull) is present. Tympanic membrane is erythematous and bulging. Nose: No mucosal edema, congestion or rhinorrhea. Right Sinus: No maxillary sinus tenderness or frontal sinus tenderness. Left Sinus: No maxillary sinus tenderness or frontal sinus tenderness. Mouth/Throat: Pharynx: Uvula midline. No oropharyngeal exudate or posterior oropharyngeal erythema. Cardiovascular: Rate and Rhythm: Normal rate and regular rhythm. Heart sounds: Normal heart sounds. Pulmonary: Effort: Pulmonary effort is normal. Breath sounds: Normal breath sounds. Lymphadenopathy: Head: Right side of head: No submental, submandibular or tonsillar adenopathy. Left side of head: No submental, submandibular or tonsillar adenopathy. Cervical: No cervical adenopathy. Skin: General: Skin is warm and dry. Neurological: Mental Status: She is alert. Psychiatric: Mood and Affect: Affect normal. ASSESSMENT/PLAN: 1. Non-recurrent acute serous otitis media of both ears - ICD9: 381.01, ICD10: H65.03 (primary diagnosis) - Will begin treatment with Amoxicillin for 7 days - Supportive care with plenty of fluids, rest, and analgesia prn. - Follow up in one week if symptoms persist or worsen. 2. Seasonal allergic rhinitis, unspecified trigger - ICD9: 477.9, ICD10: J30.2 Flonase or Nasonex 2 sprays in each nostril once a day Zyrtec 10 mg By mouth daily at bedtime Follow up with PCP as needed Diagnosis and treatment plan were discussed and questions were answered to the patient's satisfaction. Pt acknowledged understanding of concepts and follow up plan. Specific signs and symptoms that would indicate the need for higher level of care were discussed in detail warranting prompt ER evaluation. Miya Carter APRN.NEAL documented in this encounter [facility] 08-08-2022 Discharge summary Note Date/Time August 08, 2022 6:37pm [facility] Medical Records Department [address] [place] [address] Emergency Department Summary 08/08/22 MR#: [id number] Acct: [id number] Name: AURA SAUNDERS Rep #:[id number] : 1970 51 From: Jone Lobato DO PCP: Dr. Radha Norton MD Status:REG ER Location: ED HPI History of Present Illness Chief Complaint: Abd Pain Narrative Narrative: Patient is a 51-year-old female who is presenting to the ER with chief complaintleft upper quadrant pain. Patient was just here 2 days ago. Patient had lab work and also CT of the abdomen pelvis done 2 days ago. Patient had a left elevated hemidiaphragm, and noted hernia as well. Patient has a surgery appointment on this week. Patient says that last weekend she had several episodes of diarrhea. She had no bowel movements this week until today where she had small hard stools. Patient has been passing flatulence no difficulty. Patient was sent home with a prescription of [facility] 2 days ago. Patient is not using any stool softeners. Patient is back because her pain has returned and patient states that she cannot deal with the pain until . Patient has not tried taking any other lipd-yrn-fkrjnng products to help with pain, no other stool softeners or anything else [id number]-[id number] to help with her symptoms. Patient has no fever or chills. No headache. No chest pain or shortness of breath. No urinary complaints, patient was constipated today, no bowel movements this week in the past, and diarrhea last weekend. Patient did not take any Imodium this past week. [facility] Medical History Allergies Asthma Back problem Cellulitis of left ear Chest pain Chronic neck pain Chronic thoracic back pain Depression Family history of breast cancer Former smoker Frequent headaches High blood pressure High cholesterol High cholesterol Hives Hypertension Hypothyroidism Intertrigo Macromastia Mass of left ear Mass of right ear Shoulder pain Smoker Thyroid disease Vision problems Vitamin deficiency Home Medications losartan 50 mg tablet 50 mg PO DAILY 06/01/18 [History Last Taken 06/16/20 08:00] omeprazole 20 mg capsule,delayed release 20 mg PO DAILY 06/01/18 [History Last Taken 06/16/20 08:00] potassium chloride 10 mEq tablet,extended release(part/cryst) 10 meq PO DAILY 06/11/18 [History Last Taken Unknown] hydroxyzine HCl 10 mg tablet 10 mg PO Q6H PRN PRN Anxiety 03/02/19 [History Last Taken Unknown] albuterol sulfate 90 mcg/actuation aerosol inhaler 2 puff inhalation Q4H PRN Sob&/Or Wheezing 11/08/19 [History Last Taken Unknown] omega-3 fatty acids-fish oil 340 mg-1,000 mg capsule 1 ea PO DAILY 11/14/19 [History Last Taken Unknown] lidocaine 5 % topical patch 1 patch topical DAILY #3 patches 03/19/20 [Rx Last Taken Unknown] gabapentin 300 mg capsule 300 mg PO BID 06/11/20 [History Last Taken Unknown] cholecalciferol (vitamin D3) 125 mcg (5,000 unit) tablet 125 mcg PO DAILY 09/16/20 [History Last Taken Unknown] levothyroxine 88 mcg tablet 88 mcg PO DAILY 09/16/20 [History Last Taken Unknown] atorvastatin 80 mg tablet 80 mg PO DAILY 01/23/21 [History Last Taken Unknown] buspirone 5 mg tablet 5 mg PO BID 01/23/21 [History Last Taken Unknown] famotidine 20 mg tablet 20 mg PO DAILY 01/23/21 [History Last Taken Unknown] duloxetine 20 mg capsule,delayed release (Cymbalta) 60 mg PO DAILY 06/02/21 [History Last Taken Unknown] cyclobenzaprine 10 mg tablet 10 mg PO BID PRN Muscle Pain 07/06/21 [History Last Taken Unknown] magnesium oxide 400 mg PO DAILY 07/06/21 [History Last Taken Unknown] vitamin B complex 1 tab PO DAILY 07/06/21 [History Last Taken Unknown] hydrocodone-acetaminophen 5-325mg 5mg-325mg 1 tab PO Q6H PRN PRN Pain 3 days #12TABLETS 08/06/22 [Rx Last Taken Unknown] dicyclomine 10 mg capsule 10 mg PO TIDAC #20 CAPSULES 08/08/22 [Rx Last Taken Unknown] ondansetron 4 mg disintegrating tablet 4 mg PO Q8H PRN PRN Nausea #10 tabs 08/08/22 [Rx Last Taken Unknown] Allergy/AdvReac Type Severity Reaction Status Date / Time dog dander Allergy Unknown Other Verified 08/08/22 16:39 grass pollen Allergy Unknown Other Verified 08/08/22 16:39 Environmental Allergies: Allergy Rash Verified 08/08/22 16:39 Uncoded latex Allergy Rash Verified 08/08/22 16:39 Family History Brother Alcohol abuse Severe allergy Suicide attempt Mother Anemia Anxiety and depression Arthritis Asthma Hormonal disorder Depression Grandmother Arthritis Thyroid disorder Aunt Breast cancer Cancer Thyroid disorder Father Diabetes Heart disease Hypertension High cholesterol History of ulcer disease Sister Seizures Other Family history of breast cancer Surgical History History of delivery History of excision of mass History of hysterectomy History of sinus surgery Ovarian cyst Social History Smoking Status: Current every day smoker tobacco type: cigarettes alcohol intake: never substance use type: does not use additional social history: DOES TAKE ASPIRIN NEEDED DOES TAKE IBUPROFEN NEEDED ROS ROS ED ROS Narrative REVIEW OF SYSTEMS: Unless otherwise stated in this report the patient's positiveand negative responses for review of systems for constitutional, eyes, ENT, cardiovascular, respiratory, gastrointestinal, neurological, , musculoskeletal, and integument systems and related systems to the presenting problem are either stated in the history of present illness or were not pertinent or were negative for the symptoms and/or complaints related to the presenting medical problem. EXAM Physical Exam Narrative Exam Narrative: Vital signs reviewed and patient is not hypoxic. General: The patient appears well and in no apparent distress. Patient is resting comfortably on cart. Not toxic, lethargic, or listless. Skin: Warm, dry, no pallor noted. There is no rash noted. Head: Normocephalic, atraumatic Eye: Normal conjunctiva, no drainage, EOMI. PERRL. Ears, Nose, Mouth, and Throat: oral mucosa is moist. Nares patent. Cardiovascular: Regular Rate and Rhythm, no murmurs, gallops, or rubs Respiratory: Patient is in no distress, no accessory muscle use, lungs are clearto auscultation, no wheezing, rales or rhonchi Back: non-tender, no CVA tenderness bilaterally to percussion. NO CTLS midline or paracervicl tenderness to palpation. GI: Soft, moderate tenderness to palpation to left upper quadrant, no pain in right upper quadrant, right lower quadrant, no flank pain bilateral. No peritoneal signs. Patient has hypoactive bowel sounds, minimal tenderness to palpationleft lower quadrant, no suprapubic tenderness palpation, otherwise, no masses appreciated. No rebound, guarding, or rigidity noted. Musculoskeletal: The patient has full range of motion of all extremities and joints with no difficulty. Patient has no motor, no sensory deficits. Neurological: A&O x4, normal speech, no focal neurological deficits. Psychiatric: Cooperative Const Vital Signs: 08/08/22 16:18 08/08/22 18:19 Temperature 98 F Temperature Source Temporal Pulse Rate 102 H Respiratory Rate 20 H 18 Blood Pressure 144/95 H Blood Pressure Mean 111 Pulse Ox 100 Oxygen Delivery Method Room Air Room Air MDM MDM Radiography X-Ray: Read by ED Physician (X-ray read by Dr. Lobato. No cardiopulm disease, infiltrate, no effusion. No air-fluid levels, nonspecific bowel gas pattern, nofree air, no obstruction.) Diagnostic Testing: Clinical Impression(s) from Imaging Studies Acute Abdomen Series 08/08/22 17:40 IMPRESSION: Increased stool otherwise Normal x-ray examination of the chest, abdomen, and pelvis. Electronically Signed: Gabino Patel MD at 18:31 EDT , Treatment and Re-Evaluation :: Patient was given Zofran, Bentyl and Toradol. Patient's pain did improve. Patient's abdominal/chest x-ray shows no acute pathology. Patient has signs andsymptoms of constipation. Patient was educated on using mineral oil and mag citrate at home, she will increase fluids. Patient was sent home with prescription for Zofran and Bentyl. Patient has a surgical appointment on . Patient has no signs of obstruction or free air from new changes fromCT that was just done 2 days ago. Discharge Plan Triage Chief Complaint: Abd Pain ED Provider: Jone Lobato Dx/Rx/DC Orders Clinical Impression: Abdominal pain, Constipation Instructions: Abdominal Pain, ED Constipation (Adult) Prescriptions: New ondansetron [ondansetron] 4 mg tablet,disintegrating 4 mg PO Q8H PRN PRN (Reason: Nausea) Qty: 10 0RF dicyclomine 10 mg capsule 10 mg PO TIDAC Qty: 20 0RF Rx Instructions: Take 2 tablets every 6 hours as needed abdominal cramping No Action albuterol sulfate 90 mcg/actuation HFA aerosol inhaler 2 puff INHALATION Q4H PRN (Reason: Sob &/Or Wheezing) cyclobenzaprine 10 mg tablet 10 mg PO BID PRN (Reason: Muscle Pain) magnesium oxide 400 mg magnesium capsule 400 mg PO DAILY vitamin B complex Tablet 1 tab PO DAILY losartan 50 MG tablet 50 mg PO DAILY omeprazole 20 MG capsule,delayed release(DR/EC) 20 mg PO DAILY potassium chloride 10 MEQ tablet 10 meq PO DAILY hydroxyzine HCl 10 MG tablet 10 mg PO Q6H PRN PRN (Reason: Anxiety) omega-3 fatty acids-fish oil 1 EACH capsule 1 ea PO DAILY lidocaine 1 PATCH patch 1 patch TOPICAL DAILY Qty: 3 0RF gabapentin 300 MG capsule 300 mg PO BID levothyroxine 88 mcg Tablet 88 mcg PO DAILY cholecalciferol (vitamin D3) 125 mcg (5,000 unit) Tablet 125 mcg PO DAILY buspirone 5 mg tablet 5 mg PO BID Label Comments: TAKE 1 TABLET BY MOUTH EVERY 12 HOURS atorvastatin 80 mg tablet 80 mg PO DAILY Label Comments: Take 1 tablet by mouth daily at bedtime. For cholesterol. famotidine 20 mg tablet 20 mg PO DAILY Label Comments: Take 1 tablet by mouth twice daily. duloxetine [Cymbalta] 20 mg Capsule,Delayed Release(Dr/Ec) 60 mg PO DAILY hydrocodone-acetaminophen 5-325 mg tablet 1 tab PO Q6H PRN PRN (Reason: Pain) 3 Days Qty: 12 0RF Primary Care Provider: Radha Norton Referrals: Radha Norton MD [Primary Care Provider] - Activity Restrictions/Additional Instructions: Use [id number] MiraLAX twice a day for the next 3 to 4 days. Use 1-2 bottles of mineral oil daily for the next couple days. Increase fluids. Use fleets enemas if needed. Use prune juice or apple juice as needed. Follow-up with your surgery appointment on . Disposition Disposition: Home, Self Care What to do if you have Problems For any increased pain, shortness of breath, bleeding, nausea or vomiting, chestpain, or any unexpected problems, contact your Primary Care Provider. Call [facility] ([phone]) or report to the closest Emergency Room. Call 911 if necessary. 08/08/221915 <Electronically signed by Jone Lobato DO> Cosigner Signature (if applicable): CC: Dr. Radha Norton MD ~ Signed [facility] Work Phone: 1(159) 728-345705-07-2023 Hospital Discharge instructions Additional Instructions Use [id number] MiraLAX twice a day for the next 3 to 4 days. Use 1-2 bottles of mineral oil daily for the next couple days. Increase fluids. Use fleets enemas if needed. Use prune juice or apple juice as needed. Follow-up with your surgery appointment on . [facility] Work Phone: 1(380) 878-430605-04-2023 Discharge summary Author Landen Borrero [facility] August 06, 2022 12:54am Note Date/Time August 05, 2022 9:57pm [facility] [address] [place] [address] Emergency Department Summary 08/05/22 MR#: [id number] Acct: [id number] Name: AURA SAUNDERS Rep #:[id number] : 1970 51 From: Warren Arcos DO PCP: Dr. Radha Norton MD Status:REG ER Location: ED HPI HPI - GI History of Present Illness Chief Complaint: Abd Pain Detail of Chief Complaint: Abdominal pain Informant: patient Narrative Narrative: Patient presents with abdominal pain that started 3 days ago. Patient states that over the weekend she had some watery stools after eating some peppers and cabbage. 3 days ago she woke up in the middle night with severe pain in the left upper abdomen. Pain sometimes radiates to her left shoulder and into her left arm. She denies chest pain. Patient denies blood in her stool or black tarry stool. She had nausea but no vomiting. She denies fever. She is never had pain like this before. No history of kidney stones or diverticulitis. Patient has had prior hysterectomy. [facility] Medical History Allergies Asthma Back problem Cellulitis of left ear Chest pain Chronic neck pain Chronic thoracic back pain Depression Family history of breast cancer Former smoker Frequent headaches High blood pressure High cholesterol High cholesterol Hives Hypertension Hypothyroidism Intertrigo Macromastia Mass of left ear Mass of right ear Shoulder pain Smoker Thyroid disease Vision problems Vitamin deficiency Home Medications losartan 50 mg tablet 50 mg PO DAILY 06/01/18 [History Last Taken 06/16/20 08:00] omeprazole 20 mg capsule,delayed release 20 mg PO DAILY 06/01/18 [History Last Taken 06/16/20 08:00] potassium chloride 10 mEq tablet,extended release(part/cryst) 10 meq PO DAILY 06/11/18 [History Last Taken Unknown] hydroxyzine HCl 10 mg tablet 10 mg PO Q6H PRN PRN Anxiety 03/02/19 [History Last Taken Unknown] albuterol sulfate 90 mcg/actuation aerosol inhaler 2 puff inhalation Q4H PRN Sob&/Or Wheezing 11/08/19 [History Last Taken Unknown] omega-3 fatty acids-fish oil 340 mg-1,000 mg capsule 1 ea PO DAILY 11/14/19 [History Last Taken Unknown] lidocaine 5 % topical patch 1 patch topical DAILY #3 patches 03/19/20 [Rx Last Taken Unknown] gabapentin 300 mg capsule 300 mg PO BID 06/11/20 [History Last Taken Unknown] cholecalciferol (vitamin D3) 125 mcg (5,000 unit) tablet 125 mcg PO DAILY 09/16/20 [History Last Taken Unknown] levothyroxine 88 mcg tablet 88 mcg PO DAILY 09/16/20 [History Last Taken Unknown] atorvastatin 80 mg tablet 80 mg PO DAILY 01/23/21 [History Last Taken Unknown] buspirone 5 mg tablet 5 mg PO BID 01/23/21 [History Last Taken Unknown] famotidine 20 mg tablet 20 mg PO DAILY 01/23/21 [History Last Taken Unknown] duloxetine 20 mg capsule,delayed release (Cymbalta) 60 mg PO DAILY 06/02/21 [History Last Taken Unknown] cyclobenzaprine 10 mg tablet 10 mg PO BID PRN Muscle Pain 07/06/21 [History Last Taken Unknown] magnesium oxide 400 mg PO DAILY 07/06/21 [History Last Taken Unknown] vitamin B complex 1 tab PO DAILY 07/06/21 [History Last Taken Unknown] Allergy/AdvReac Type Severity Reaction Status Date / Time dog dander Allergy Unknown Other Verified 08/05/22 21:31 grass pollen Allergy Unknown Other Verified 08/05/22 21:31 Environmental Allergies: Allergy Rash Verified 08/05/22 21:31 Uncoded latex Allergy Rash Verified 08/05/22 21:31 Family History Brother Alcohol abuse Severe allergy Suicide attempt Mother Anemia Anxiety and depression Arthritis Asthma Hormonal disorder Depression Grandmother Arthritis Thyroid disorder Aunt Breast cancer Cancer Thyroid disorder Father Diabetes Heart disease Hypertension High cholesterol History of ulcer disease Sister Seizures Other Family history of breast cancer Surgical History History of delivery History of excision of mass History of hysterectomy History of sinus surgery Ovarian cyst Social History Smoking Status: Current every day smoker tobacco type: cigarettes alcohol intake: never substance use type: does not use additional social history: DOES TAKE ASPIRIN NEEDED DOES TAKE IBUPROFEN NEEDED ROS ROS ED Review of Systems ROS Unobtainable: other Constitutional Constitutional ED: Reports lethargy; Denies chills, fever(s), sweats or weight loss Eyes Eyes: Denies blurry vision, change in vision or diplopia ENT ENT ED: Denies rhinorrhea or sore throat Cardiovascular Cardiovascular: Denies chest pain, orthopnea or racing heartbeat Respiratory/Chest Respiratory/Chest: Denies cough, dyspnea, dyspnea on exertion, orthopnea or sputum Gastrointestinal Gastrointestinal: Reports abdominal pain and nausea; Denies diarrhea or vomiting Genitourinary Genitourinary ED: Denies dysuria, hematuria or urinary frequency Musculoskeletal Musculoskeletal: Denies arthralgias, back pain, myalgias or neck pain Integumentary Denies abscess, Abrasions or rash Neurologic Neurologic: Denies headache(s) or weakness Psychiatric Psychiatric: Denies anxiety, depression or suicidal thoughts Endocrine Endocrinology: Denies polydipsia, polyphagia or polyuria Hematologic/Lymphatic Hematologic/Lymphatic: Denies easy bleeding, easy bruising or lymphadenopathy Allergic/Immunologic Allergic/Immunologic ED: Denies mouth swelling, tongue swelling or urticaria EXAM Physical Exam Const Vital Signs: 08/05/22 21:29 Temperature 97.8 F Temperature Source Temporal Pulse Rate 106 H Respiratory Rate 16 Blood Pressure 119/85 H Blood Pressure Mean 96 Pulse Ox 98 Oxygen Delivery Method Room Air Positive well nourished and well developed General Appearance ED: well developed and NAD HEENT Reports TM's clear and moist mucous membranes normocephalic and atraumatic; Negative for trauma or tenderness Tympanic Membrane ED: Yes TM's clear Eyes PERRL and EOMs intact bilaterally General Eye ED: Negative for pale conjunctiva or scleral icterus Neck no lymphadenopathy, supple and no JVD General: Negative for tenderness Chest Wall inspection of chest normal and palpation of chest normal Chest: Negative for tenderness Resp normal respiratory effort and clear to auscultation bilaterally Effort and Inspection: Negative for respiratory distress or pain with movement Auscultation: Negative for rhonchi, wheezes or diminished lung sounds Cardio regular rate, regular rhythm, S1 normal heart sound, S2 normal heart sound and no murmurs Peripheral Pulses: pulses 2+ throughout GI normal to inspection, nondistended, normoactive bowel sounds, soft to palpation,non-distended and no masses GI Narrative: Tenderness palpation over the left upper quadrant and left lower quadrant with guarding. There is no rebound, rigidity, or. Signs. No mass palpated. Back/Spine no CVA tenderness and no thoracic nor lumbar tenderness Extremity normal to inspection General Extremety ED: Negative for edema General Extremity: Negative for edema Neuro oriented x3, CN's II-XII intact bilaterally, no sensory deficits noted and gait normal Sensorium / Orientation: awake, alert, oriented to person, oriented to place andoriented to time Motor Exam: strength 5/5 throughout and strength abnormal Psych mental status grossly normal Skin no rashes or lesions noted and no wounds MDM MDM MDM Narrative Medical decision making narrative: Patient per ounce with a history of left upper abdomen pain. Pain will radiate to the shoulder blade and front shoulder at times. Given her age I did perform an EKG which showed a sinus rhythm with a rate of 95 bpm with no acute ST segment changes. Troponin was normal. Patient had a CBC with differential thatwas normal. Chemistries normal. LFTs normal. Lactate normal. Lipase normal. I did order a CT scan of the abdomen and pelvis to evaluate further her abdominal pain. Care of patient turned over to evening physician awaiting CT result and final disposition. Urinalysis also ordered and pending. At this time etiology of her abdominal pain is unclear. Lab Data Labs: Laboratory Results - last 24 hr 08/05/22 08/05/22 08/05/22 22:15 22:15 22:15 WBC 9.7 RBC 4.60 Hgb 13.2 Hct 41.1 MCV 89.3 MCH 28.7 MCHC 32.1 RDW Std Deviation 44.3 H RDW Coeff of Singh 13.6 Plt Count 182 MPV 11.4 Immature Gran % (Auto) 0.300 Neut % (Auto) 64.3 Lymph % (Auto) 22.3 Mathews % (Auto) 10.5 H Eos % (Auto) 2.3 Baso % (Auto) 0.3 Absolute Neuts (auto) 6.2 Absolute Lymphs (auto) 2.15 Nucleated RBC % 0 Sodium 140 Potassium 4.2 Chloride 103 Carbon Dioxide 29.0 Anion Gap 8 BUN 11 Creatinine 0.75 Estim Creat Clear Calc 78.35 Est GFR (MDRD) Af Amer 105 Est GFR (MDRD) Non-Af 87 BUN/Creatinine Ratio 14.6 Glucose 107 H Lactic Acid 0.9 Calcium 8.9 Total Bilirubin 0.50 AST 14 L ALT 29 Alkaline Phosphatase 72 Troponin I High Sens 4 Total Protein 7.0 Albumin 3.3 Globulin 3.7 Albumin/Globulin Ratio 0.9 Lipase 74 EKG Initial EKG: Attestation: I personally reviewed and interpreted this EKG as follows: Comments: Sinus rhythm with a rate of 95 bpm with no acute ST segment changes Discharge Plan Triage Chief Complaint: Abd Pain ED Provider: Warren Arcos Dx/Rx/DC Orders Clinical Impression: Abdominal pain Prescriptions: No Action albuterol sulfate 90 mcg/actuation HFA aerosol inhaler 2 puff INHALATION Q4H PRN (Reason: Sob &/Or Wheezing) cyclobenzaprine 10 mg tablet 10 mg PO BID PRN (Reason: Muscle Pain) magnesium oxide 400 mg magnesium capsule 400 mg PO DAILY vitamin B complex Tablet 1 tab PO DAILY losartan 50 MG tablet 50 mg PO DAILY omeprazole 20 MG capsule,delayed release(DR/EC) 20 mg PO DAILY potassium chloride 10 MEQ tablet 10 meq PO DAILY hydroxyzine HCl 10 MG tablet 10 mg PO Q6H PRN PRN (Reason: Anxiety) omega-3 fatty acids-fish oil 1 EACH capsule 1 ea PO DAILY lidocaine 1 PATCH patch 1 patch TOPICAL DAILY Qty: 3 0RF gabapentin 300 MG capsule 300 mg PO BID levothyroxine 88 mcg Tablet 88 mcg PO DAILY cholecalciferol (vitamin D3) 125 mcg (5,000 unit) Tablet 125 mcg PO DAILY buspirone 5 mg tablet 5 mg PO BID Label Comments: TAKE 1 TABLET BY MOUTH EVERY 12 HOURS atorvastatin 80 mg tablet 80 mg PO DAILY Label Comments: Take 1 tablet by mouth daily at bedtime. For cholesterol. famotidine 20 mg tablet 20 mg PO DAILY Label Comments: Take 1 tablet by mouth twice daily. duloxetine [Cymbalta] 20 mg Capsule,Delayed Release(Dr/Ec) 60 mg PO DAILY Primary Care Provider: Radha Norton Referrals: Radha Norton MD [Primary Care Provider] - What to do if you have Problems For any increased pain, shortness of breath, bleeding, nausea or vomiting, chestpain, or any unexpected problems, contact your Primary Care Provider. Call [facility] ([phone]) or report to the closest Emergency Room. Call 911 if necessary. 08/05/22 2279 <Electronically signed by Warren Arcos DO> Cosigner Signature (if applicable): CC: Dr. Radha Norton MD ~ Signed ADDENDUM by Landen Borrero DO on 08/06/22 at 0053 The patient was signed out to me while pending CT report. The CT showed a hernia in the left hemidiaphragm with colon protruding through. Despite this there were no signs of intestinal obstruction or incarceration. This correlateswith the patient's labs as she has no leukocytosis or lactic acidosis. Therefore at this time as the CT scan and laboratory studies do not suggest incarceration or strangulation there is no need for emergent surgical consultation. Patient is safe for discharge she can given pain medication and follow-up with surgeon outpatient basis to discuss surgical fixation of her hernia 08/06/22 0054<Electronically signed by Landen Borrero DO> Cosigner Signature (if applicable): cc: Dr. Radha Norton MD ~* Signed [facility] Work Phone: [phone] History of Present illness Narrative* Odette Simms APRN.TECHNICAL ILLUSTRATOR - 06/28/2022 8:31 AM EDT Subjective Cough Associated symptoms include ear pain, headaches, shortness of breath and wheezing. Pertinent negatives include no chest pain, no chills, no sore throat and no myalgias. Aura Saunders is a 51 year old female who presents with cough, nasal and chest congestion, bilateral ear pain for the past 10 days. She has been taking coriciding and Aleve and using her inhaler. She has had some slight shortnessof breath. She has not had a fever. Review of Systems Constitutional: Negative for chills and fever. HENT: Positive for congestion, ear pain and sinus pain. Negative for sore throat. Respiratory: Positive for cough, sputum production, shortness of breath and wheezing. Cardiovascular: Negative for chest pain. Gastrointestinal: Negative for diarrhea, nausea and vomiting. Musculoskeletal: Negative for myalgias. Neurological: Positive for headaches. BP 110/66 Pulse 90 Temp 36 C (96.8 F) Resp 18 Wt 80.2 kg (176 lb 12.8 oz) LMP 09/05/2018 SpO2 99% BMI 30.35 kg/m PAST MEDICAL HISTORY Diagnosis Date Asthma due to seasonal allergies Chronic joint pain Class 1 obesity due to excess calories without serious comorbidity with body mass index (BMI) of 31.0 to 31.9 in adult Depression Endometriosis s/p hysterectomy Generalized anxiety disorder Heartburn History of alcohol abuse sober since 2017 History of tobacco use Hypertension Hypothyroid Mixed hyperlipidemia Seasonal allergies Vitamin D deficiency PAST SURGICAL HISTORY Procedure Laterality Date SECTION HX 2000 COLONOSCOPY FLX DX W/COLLJ SPEC WHEN PFRMD 11/24/2020 ESOPHAGOGASTRODUODENOSCOPY TRANSORAL DIAGNOSTIC 11/24/2020 HYSTERECTOMY 2020 endometriosis OVARIAN CYSTECTOMY PAST SURGICAL HISTORY OF Right 1991 lipoma removal neck PAST SURGICAL HISTORY OF 2019 sinus surgery-Dr. English ALLERGIES Dog Dander, Grass Pollen, Latex, and Prozac [Fluoxetine] MEDICATIONS DULoxetine (CYMBALTA) 60 mg capsule Take 1 capsule by mouth once daily. omeprazole (PRILOSEC) 20 mg capsule Take 2 capsules by mouth once daily. fluticasone (FLONASE) 50 mcg/actuation nasal spray Use 2 Sprays in each nostril once daily. Rinse mouth after use. cyclobenzaprine (FLEXERIL) 10 mg tablet Take 1 tablet by mouth twice daily as needed for muscle spasm or pain. famotidine (PEPCID) 20 mg tablet Take 1 tablet by mouth twice daily. potassium chloride (K-TAB) 10 mEq tablet Take 1 tablet by mouth once daily. levothyroxine (SYNTHROID) 88 mcg tablet Take 1 tablet by mouth once daily. albuterol HFA (PROVENTIL HFA, VENTOLIN HFA) 90 mcg/actuation inhaler Inhale 2 Puffs as instructed every 4 hours as needed. MAGNESIUM CARBONATE ORAL Take 1 tablet by mouth once daily. hydrOXYzine HCl (ATARAX) 10 mg tablet Take 1 tablet by mouth four times daily as needed. vitamin b complex capsule Take 1 capsule by mouth once daily. busPIRone (BUSPAR) 5 mg tablet Take 5 mg by mouth q 12 HR. gabapentin (NEURONTIN) 300 mg capsule Take 1 capsule by mouth every evening. docosahexaenoic acid/epa (FISH OIL ORAL) Take 1,000 mg by mouth once daily. Lactobacillus acidophilus (PROBIOTIC ORAL) Take 1 tablet by mouth once daily. losartan (COZAAR) 50 mg tablet Take 1 tablet by mouth once daily. cholecalciferol (VITAMIN D3) 5,000 unit tab Take 5,000 Units by mouth once daily. amoxicillin-clavulanic acid (AUGMENTIN) 875-125 mg per tablet Take 1 tablet by mouth twice daily for 7 days. predniSONE (DELTASONE) 20 mg tablet Take 2 tablets by mouth once daily for 4 days. benzonatate (TESSALON PERLES) 100 mg capsule Take 2 capsules by mouth three times daily as needed. atorvastatin (LIPITOR) 80 mg tablet Take 1 tablet by mouth daily at bedtime. For cholesterol. BENEFIBER, GUAR GUM, ORAL Take by mouth. lidocaine (LIDODERM) 5 % Apply 2 Patches as directed as directed. FAMILY HISTORY Problem Relation Age of Onset Heart disease Mother Heart Failure Father Heart disease Father Diabetes Father Hyperlipidemia Father Hypertension Father other (a fib) Father Heart Father Cerebral palsy Sister Kidney Disease Sister other (bladder cancer) Paternal Uncle Heart Attack Maternal Grandmother Stroke Maternal Grandfather Stroke Paternal Grandmother Heart Attack Paternal Grandfather Systemic Lupus Erythematosus Other Cousin Social History Tobacco Use Smoking status: Every Day Packs/day: 1.00 Years: 29.00 Pack years: 29.00 Types: Cigarettes Smokeless tobacco: Never Substance Use Topics Alcohol use: Not Currently Comment: quit 2017 Drug use: Not Currently Types: Marijuana Objective Physical Exam Vitals and nursing note reviewed. Constitutional: General: She is not in acute distress. Appearance: Normal appearance. She is not toxic-appearing. HENT: Right Ear: Tympanic membrane, ear canal and external ear normal. Left Ear: Tympanic membrane, ear canal and external ear normal. Nose: Nasal tenderness, mucosal edema, congestion and rhinorrhea present. Mouth/Throat: Mouth: Mucous membranes are moist. Pharynx: Oropharynx is clear. Uvula midline. No oropharyngeal exudate or posterior oropharyngeal erythema. Cardiovascular: Rate and Rhythm: Normal rate and regular rhythm. Heart sounds: Normal heart sounds. Pulmonary: Effort: Pulmonary effort is normal. No respiratory distress. Breath sounds: Normal breath sounds. No wheezing or rales. Comments: Frequent cough during exam Musculoskeletal: Cervical back: Neck supple. Lymphadenopathy: Cervical: No cervical adenopathy. Skin: General: Skin is warm and dry. Findings: No erythema or rash. Neurological: Mental Status: She is alert. ASSESSMENT/PLAN: 1. Sinobronchitis - ICD9: 473.9, 490, ICD10: J32.9, J40 - Will begin treatment with as per antibiotic as written, see orders - Supportive care with plenty of fluids, rest, and analgesia prn. - continue to use your inhaler as prescribed. - AMOXICILLIN 875 MG-POTASSIUM CLAVULANATE 125 MG TABLET - PREDNISONE 20 MG TABLET 2. Otalgia of both ears - ICD9: 388.70, ICD10: H92.03 - ear exam normal today. May continue aleve as needed. - Follow-up with your PCP in 3-5 days if symptoms have not improved or sooner if symptoms worsen - Discussed red flags and need for immediate medical evaluation if any occur. - Discussed supportive care treatment with fluids, rest and analgesia. - Discussed expected course of illness Odette Simms APRN.CNP documented in this encounterK[facility]03-27-2023 Instructions* Patient Instructions* Odette Simms APRN.CNP - 06/28/2022 8:31 AM EDT ASSESSMENT/PLAN: 1. Sinobronchitis - ICD9: 473.9, 490, ICD10: J32.9, J40 - Will begin treatment with as per antibiotic as written, see orders - Supportive care with plenty of fluids, rest, and analgesia prn. - continue to use your inhaler as prescribed. - AMOXICILLIN 875 MG-POTASSIUM CLAVULANATE 125 MG TABLET - PREDNISONE 20 MG TABLET 2. Otalgia of both ears - ICD9: 388.70, ICD10: H92.03 - ear exam normal today. May continue aleve as needed. - Follow-up with your PCP in 3-5 days if symptoms have not improved or sooner if symptoms worsen - Discussed red flags and need for immediate medical evaluation if any occur. - Discussed supportive care treatment with fluids, rest and analgesia. - Discussed expected course of illness Odette Simms APRN.CNP documented in this encounterK[facility]01-27-[address] Bessie Webb [facility] [place] April 30, 2022 8:26pm Note Date/Time April 30, 2022 6 :07pm [facility] Medical Records Department [address] [place] [address] Emergency Department Summary 04/30/22 MR#: [id number] Acct: [id number] Name: AURA SAUNDERS Rep #:[id number] : 1970 51 From: Pietro La MD PCP: Dr. Radha Norton MD Status:REG ER Location: ED HPI History of Present Illness Chief Complaint: General Illness Informant: patient Narrative Narrative: Patient presents with a cough. She states it started about 2 weeks ago. No sputum production. She has had intermittent wheezing. She had nasal congestionbut steroids and a [place] pot stopped that. She had ear pain but that is gone. She has had intermittent dizziness but that is gotten better. She is still coughing though. She does not have chest pain. She does not think she has had fevers now. She has been seen in urgent care twice. First time she was placed on Flonase. She did not take this because she did not like the flowery smell. The second time she went to urgent care she was given steroids. But she does not know what dose this was. She was also given an antibiotic to take if she was not better. She started this antibiotic about 3 days ago but has already stopped it because she thinks it might of sent her blood pressure up. However, she did not check her blood pressure. She does not know what the antibiotic was. Patient is still smoking despite the ongoing cough. She was counseled that smoking is probably not good for her cough and long-term health. [facility] Medical History Allergies Asthma Back problem Cellulitis of left ear Chest pain Chronic neck pain Chronic thoracic back pain Depression Family history of breast cancer Former smoker Frequent headaches High blood pressure High cholesterol High cholesterol Hives Hypertension Hypothyroidism Intertrigo Macromastia Mass of left ear Mass of right ear Shoulder pain Smoker Thyroid disease Vision problems Vitamin deficiency Home Medications losartan 50 mg tablet 50 mg PO DAILY 06/01/18 [History Last Taken 06/16/20 08:00] omeprazole 20 mg capsule,delayed release 20 mg PO DAILY 06/01/18 [History Last Taken 06/16/20 08:00] potassium chloride 10 mEq tablet,extended release(part/cryst) 10 meq PO DAILY 06/11/18 [History Last Taken Unknown] hydroxyzine HCl 10 mg tablet 10 mg PO Q6H PRN PRN Anxiety 03/02/19 [History Last Taken Unknown] albuterol sulfate 90 mcg/actuation aerosol inhaler 2 puff inhalation Q4H PRN Sob&/Or Wheezing 11/08/19 [History Last Taken Unknown] omega-3 fatty acids-fish oil 340 mg-1,000 mg capsule 1 ea PO DAILY 11/14/19 [History Last Taken Unknown] lidocaine 5 % topical patch 1 patch topical DAILY #3 patches 03/19/20 [Rx Last Taken Unknown] gabapentin 300 mg capsule 300 mg PO BID 06/11/20 [History Last Taken Unknown] cholecalciferol (vitamin D3) 125 mcg (5,000 unit) tablet 125 mcg PO DAILY 09/16/20 [History Last Taken Unknown] levothyroxine 88 mcg tablet 88 mcg PO DAILY 09/16/20 [History Last Taken Unknown] atorvastatin 80 mg tablet 80 mg PO DAILY 01/23/21 [History Last Taken Unknown] buspirone 5 mg tablet 5 mg PO BID 01/23/21 [History Last Taken Unknown] famotidine 20 mg tablet 20 mg PO DAILY 01/23/21 [History Last Taken Unknown] duloxetine 20 mg capsule,delayed release (Cymbalta) 60 mg PO DAILY 06/02/21 [History Last Taken Unknown] cyclobenzaprine 10 mg tablet 10 mg PO BID PRN 07/06/21 [History Last Taken Unknown] magnesium oxide 400 mg PO DAILY 07/06/21 [History Last Taken Unknown] vitamin B complex 1 tab PO DAILY 07/06/21 [History Last Taken Unknown] methocarbamol 500 mg tablet 1,000 mg PO 4X/DAY PRN PRN Muscle pain/spasm #56 tabs 07/07/21 [Rx Last Taken Unknown] Allergy/AdvReac Type Severity Reaction Status Date / Time dog dander Allergy Unknown Other Verified 04/30/22 16:54 grass pollen Allergy Unknown Other Verified 04/30/22 16:54 latex Allergy Rash Verified 04/30/22 16:54 card board Allergy Rash Uncoded 04/30/22 16:54 Family History Brother Alcohol abuse Severe allergy Suicide attempt Mother Anemia Anxiety and depression Arthritis Asthma Hormonal disorder Depression Grandmother Arthritis Thyroid disorder Aunt Breast cancer Cancer Thyroid disorder Father Diabetes Heart disease Hypertension High cholesterol History of ulcer disease Sister Seizures Other Family history of breast cancer Surgical History History of delivery History of excision of mass History of hysterectomy History of sinus surgery Ovarian cyst Social History Smoking Status: Current every day smoker tobacco type: cigarettes alcohol intake: never substance use type: does not use additional social history: DOES TAKE ASPIRIN NEEDED DOES TAKE IBUPROFEN NEEDED ROS ROS ED Constitutional Constitutional ED: Denies fever(s) Eyes Eyes: Denies change in vision or diplopia ENT ENT ED: Reports rhinorrhea; Denies ear pain or sore throat Cardiovascular Cardiovascular: Denies chest pain, palpitations or racing heartbeat Respiratory/Chest Respiratory/Chest: Reports cough; Denies sputum Gastrointestinal Gastrointestinal: Denies nausea or vomiting Genitourinary Genitourinary ED: Denies dysuria Musculoskeletal Musculoskeletal: Denies myalgias Integumentary Denies rash Neurologic Neurologic: Denies headache(s) Psychiatric Psychiatric: Reports anxiety and depression Endocrine Endocrinology: Denies polydipsia or polyuria Hematologic/Lymphatic Hematologic/Lymphatic: Denies lymphadenopathy Allergic/Immunologic Allergic/Immunologic ED: Denies mouth swelling, tongue swelling or urticaria EXAM Physical Exam Narrative Exam Narrative: Patient awake alert no acute distress. She is sitting quietly in bed looks verycomfortable. Breathing is normal easy and unlabored. She carries on normal conversation. HEENT shows mild clear rhinorrhea. No sinus tenderness at all. She has a traceamount of fluid behind both tympanic membranes but they are not at all red or inflamed. Posterior pharynx is normal color without exudate or swelling. Voiceis normal. Neck shows no stridor or JVD. Lungs show just a tiny hint of expiratory wheeze but after a few breaths it doesget better. I hear no rhonchi or rales. There is no pain with a deep breath. Heart is regular. Her rate is about 85 now. There is no murmur gallop or rub. Abdomen: Soft and completely nontender : No CVA or suprapubic tenderness Extremities: No edema cords or asymmetry tenderness along deep venous system or distended veins. Peripheral pulses are equal and normal x4. Patient is alert oriented and appropriate. Const Vital Signs: 04/30/22 16:53 04/30/22 17:55 04/30/22 18:55 Temperature 97.6 F L Temperature Source Temporal Pulse Rate 103 H 100 Respiratory Rate 18 17 Respiratory Effort Normal Non-Labored Respiratory Pattern Normal Blood Pressure 119/94 H Blood Pressure Mean 102 Pulse Ox 98 98 Oxygen Delivery Method Room Air Room Air MDM MDM MDM Narrative Medical decision making narrative: My independent interpretation of the patient's PA and lateral chest x-ray shows no acute process. No infiltrate. No cardiomegaly. No fluid overload. No pneumothorax. Final reading by radiology also shows no acute radiographic abnormalities. COVID and influenza are negative. Patient still does have a very slight wheeze. I will give her a dose of Kenaloghere. She has albuterol at home. I think she likely has a viral upper respiratory infection but is having some intermittent bronchospasm with it. I do not think she needs to be admitted at that this point. She has no travel surgery immobilization personal or family history of DVT or PE. She is not hypoxic. There is no chest pain or pleuritic pain or leg swelling I do not think she needs D-dimer or CT scan of the chest. Radiography Diagnostic Testing: Clinical Impression(s) from Imaging Studies Chest X-Ray 04/30/22 18:02 IMPRESSION: No acute radiographic abnormalities. Electronically Signed: Brando Pena MD at 18:54 EST , Discharge Plan Triage Chief Complaint: General Illness ED Provider: Pietro La Dx/Rx/DC Orders Clinical Impression: Acute bronchospasm, Viral URI with cough Prescriptions: No Action albuterol sulfate 90 mcg/actuation HFA aerosol inhaler 2 puff INHALATION Q4H PRN (Reason: Sob &/Or Wheezing) cyclobenzaprine 10 mg tablet 10 mg PO BID PRN magnesium oxide 400 mg magnesium capsule 400 mg PO DAILY vitamin B complex Tablet 1 tab PO DAILY losartan 50 MG tablet 50 mg PO DAILY omeprazole 20 MG capsule,delayed release(DR/EC) 20 mg PO DAILY potassium chloride 10 MEQ tablet 10 meq PO DAILY hydroxyzine HCl 10 MG tablet 10 mg PO Q6H PRN PRN (Reason: Anxiety) omega-3 fatty acids-fish oil 1 EACH capsule 1 ea PO DAILY lidocaine 1 PATCH patch 1 patch TOPICAL DAILY Qty: 3 0RF gabapentin 300 MG capsule 300 mg PO BID levothyroxine 88 mcg Tablet 88 mcg PO DAILY cholecalciferol (vitamin D3) 125 mcg (5,000 unit) Tablet 125 mcg PO DAILY buspirone 5 mg tablet 5 mg PO BID Label Comments: TAKE 1 TABLET BY MOUTH EVERY 12 HOURS atorvastatin 80 mg tablet 80 mg PO DAILY Label Comments: Take 1 tablet by mouth daily at bedtime. For cholesterol. famotidine 20 mg tablet 20 mg PO DAILY Label Comments: Take 1 tablet by mouth twice daily. duloxetine [Cymbalta] 20 mg Capsule,Delayed Release(Dr/Ec) 60 mg PO DAILY methocarbamol 500 mg tablet 1,000 mg PO 4X/DAY PRN PRN (Reason: Muscle pain/spasm) Qty: 56 0RF Primary Care Provider: Radha Norton Referrals: Radha Norton MD [Primary Care Provider] - 3-5 Days if not improving Disposition Disposition: Home, Self Care What to do if you have Problems For any increased pain, shortness of breath, bleeding, nausea or vomiting, chestpain, or any unexpected problems, contact your Primary Care Provider. Call [facility] ([phone]) or report to the closest Emergency Room. Call 911 if necessary. 04/30/222025 <Electronically signed by Pietro La MD> Cosigner Signature (if applicable): CC: Dr. Radha Norton MD ~ Signed [facility] Work Phone: [phone]) 178-789901-22-2023 History of Present illness Narrative* Juju Baca PA-C - 04/25/2022 10:38 AM EST This note was created using NoteWriter. Subjective Aura Saunders is a 51 year old female. HPI Patient presents with sore throat, sinus congestion and cough for over a week. She was seen on the and diagnosed with eustachian tube dysfunction. She has been using a [place] pot and has had some yellow drainage from it. No fever. She is a smoker. Has history of asthma. She has tried [id number]. She is also tried Zyrtec and Flonase. Review of Systems Constitutional: Negative. HENT: Positive for congestion, ear pain, rhinorrhea and sore throat. Respiratory: Positive for cough. Cardiovascular: Negative. Gastrointestinal: Negative. Genitourinary: Negative. Musculoskeletal: Negative. All other systems reviewed and are negative. PAST MEDICAL HISTORY Diagnosis Date Asthma due to seasonal allergies Chronic joint pain Class 1 obesity due to excess calories without serious comorbidity with body mass index (BMI) of 31.0 to 31.9 in adult Depression Endometriosis s/p hysterectomy Generalized anxiety disorder Heartburn History of alcohol abuse sober since 2017 History of tobacco use Hypertension Hypothyroid Mixed hyperlipidemia Seasonal allergies Vitamin D deficiency Current Outpatient Medications Medication Sig Dispense Refill DULoxetine (CYMBALTA) 60 mg capsule Take 1 capsule by mouth once daily. 30 capsule 5 omeprazole (PRILOSEC) 20 mg capsule Take 2 capsules by mouth once daily. 120 capsule 1 fluticasone (FLONASE) 50 mcg/actuation nasal spray Use 2 Sprays in each nostril once daily. Rinse mouth after use. 16 g 1 cyclobenzaprine (FLEXERIL) 10 mg tablet Take 1 tablet by mouth twice daily as needed for muscle spasm or pain. 60 tablet 0 famotidine (PEPCID) 20 mg tablet Take 1 tablet by mouth twice daily. 180 tablet 2 atorvastatin (LIPITOR) 80 mg tablet Take 1 tablet by mouth daily at bedtime. For cholesterol. 90 tablet 1 potassium chloride (K-TAB) 10 mEq tablet Take 1 tablet by mouth once daily. 30 tablet 5 levothyroxine (SYNTHROID) 88 mcg tablet Take 1 tablet by mouth once daily. 30 tablet 5 albuterol HFA (PROVENTIL HFA, VENTOLIN HFA) 90 mcg/actuation inhaler Inhale 2 Puffs as instructed every 4 hours as needed. 18 g 1 MAGNESIUM CARBONATE ORAL Take 1 tablet by mouth once daily. hydrOXYzine HCl (ATARAX) 10 mg tablet Take 1 tablet by mouth four times daily as needed. 120 tablet1 BENEFIBER, GUAR GUM, ORAL Take by mouth. vitamin b complex capsule Take 1 capsule by mouth once daily. busPIRone (BUSPAR) 5 mg tablet Take 5 mg by mouth q 12 HR. gabapentin (NEURONTIN) 300 mg capsule Take 1 capsule by mouth every evening. lidocaine (LIDODERM) 5 % Apply 2 Patches as directed as directed. docosahexaenoic acid/epa (FISH OIL ORAL) Take 1,000 mg by mouth once daily. Lactobacillus acidophilus (PROBIOTIC ORAL) Take 1 tablet by mouth once daily. losartan (COZAAR) 50 mg tablet Take 1 tablet by mouth once daily. cholecalciferol (VITAMIN D3) 5,000 unit tab Take 5,000 Units by mouth once daily. predniSONE (DELTASONE) 20 mg tablet Take 2 tablets by mouth once daily for 5 days. 10 tablet 0 benzonatate (TESSALON PERLES) 100 mg capsule Take 2 capsules by mouth three times daily as needed. 30 capsule 0 doxycycline (VIBRA-TABS) 100 mg tablet Take 1 tablet by mouth twice daily for 7 days. 14 tablet 0 No current facility-administered medications for this visit. PAST SURGICAL HISTORY Procedure Laterality Date SECTION HX 1999 COLONOSCOPY FLX DX W/COLLJ SPEC WHEN PFRMD 11/24/2020 ESOPHAGOGASTRODUODENOSCOPY TRANSORAL DIAGNOSTIC 11/24/2020 HYSTERECTOMY 2020 endometriosis OVARIAN CYSTECTOMY PAST SURGICAL HISTORY OF Right 1990 lipoma removal neck PAST SURGICAL HISTORY OF 2019 sinus surgery-Dr. English FAMILY HISTORY Problem Relation Age of Onset Heart disease Mother Heart Failure Father Heart disease Father Diabetes Father Hyperlipidemia Father Hypertension Father other (a fib) Father Heart Father Cerebral palsy Sister Kidney Disease Sister other (bladder cancer) Paternal Uncle Heart Attack Maternal Grandmother Stroke Maternal Grandfather Stroke Paternal Grandmother Heart Attack Paternal Grandfather Systemic Lupus Erythematosus Other Cousin Social History Tobacco Use Smoking status: Every Day Packs/day: 1.00 Years: 29.00 Pack years: 29.00 Types: Cigarettes Smokeless tobacco: Never Substance Use Topics Alcohol use: Not Currently Comment: quit 2017 Drug use: Not Currently Types: Marijuana Objective BP 128/82 Pulse 102 Temp 36.6 C (97.9 F) Resp 16 Wt 83 kg (183 lb) LMP 09/05/2018 SpO2 98% BMI 31.41 kg/m Physical Exam Vitals reviewed. Constitutional: Appearance: Normal appearance. HENT: Head: Normocephalic and atraumatic. Right Ear: Tympanic membrane, ear canal and external ear normal. Left Ear: Tympanic membrane, ear canal and external ear normal. Nose: Congestion present. Mouth/Throat: Mouth: Mucous membranes are moist. Pharynx: Oropharynx is clear. Posterior oropharyngeal erythema present. No oropharyngeal exudate. Cardiovascular: Rate and Rhythm: Normal rate and regular rhythm. Heart sounds: Normal heart sounds. Pulmonary: Effort: Pulmonary effort is normal. Breath sounds: Normal breath sounds. Skin: General: Skin is warm and dry. Neurological: General: No focal deficit present. Mental Status: She is alert and oriented to person, place, and time. Assessment and Plan ASSESSMENT/PLAN: 1. Sore throat - ICD9: 462, ICD10: J02.9 (primary diagnosis) - Alere Strep Test neg, no culture pending - STREP A MOLECULAR (POC) 2. Sinobronchitis - ICD9: 473.9, 490, ICD10: J32.9, J40 - Will begin treatment with Doxycycline - Supportive care with plenty of fluids, rest, and analgesia prn. - Follow up in 3-5 days if symptoms persist or worsen. Juju Baca PA-C documented in this [facility]01-01-2023 Instructions* Patient Instructions* María Francisco APRN.CNP - 04/04/2022 3:34 PM EST Keep wound clean and dry. Use mild soap and water. No peroxide or alcohol. Then apply topical antibiotic and keep covered with a bandaid documented in this encounterK[facility]01-01-2023 History of Present illness Narrative* María Francisco APRN.CNP - 04/04/2022 3:29 PM EST Images from the original note were not included. This note was created using SeroMatchriter. Subjective Aura Saunders is a 51 year old female. HPI by patient: Ellen is a 51 year old presenting to the office with the complaint of leg wound Started approximately 4 weeks ago. Start as a ingrown hair or mole and she picked at it Denies any other concern Covid Immunization Dates COVID-19 VACCINE (Series Information) Completed 02/07/2022 Imm Admin: COVID-19 booster vaccine, age 12+ yr, bivalent (PFIZER-BIONTECH) 04/09/2021 Imm Admin: COVID-19 vaccine, age 12+ yr (PFIZER-BIONTECH - PURPLE TOP) 08/07/2020 Imm Admin: COVID-19 vaccine, full dose (MODERNA) 07/10/2020 Imm Admin: COVID-19 vaccine, full dose (MODERNA) OTC New Skin, Neosporin, Peroxide No antibiotic use in the last 60 days. ALLERGIES Dog Dander Other: See Comments Comment:headache and watery eyes and runny nose rash Grass Pollen Other: See Comments Comment:runny nose and watery eyes Latex Rash Prozac [Fluoxetine] Other: See Comments Comment:anger Family History Reviewed Including Cardiac Diseases, Psychiatric Diseases, & Substance Abuse Problem: Heart disease Relation: Mother Age of Onset: (Not Specified) Problem: Heart Failure Relation: Father Age of Onset: (Not Specified) Problem: Heart disease Relation: Father Age of Onset: (Not Specified) Problem: Diabetes Relation: Father Age of Onset: (Not Specified) Problem: Hyperlipidemia Relation: Father Age of Onset: (Not Specified) Problem: Hypertension Relation: Father Age of Onset: (Not Specified) Problem: other (a fib) Relation: Father Age of Onset: (Not Specified) Problem: Heart Relation: Father Age of Onset: (Not Specified) Problem: Cerebral palsy Relation: Sister Age of Onset: (Not Specified) Problem: Kidney Disease Relation: Sister Age of Onset: (Not Specified) Problem: other (bladder cancer) Relation: Paternal Uncle Age of Onset: (Not Specified) Problem: Heart Attack Relation: Maternal Grandmother Age of Onset: (Not Specified) Problem: Stroke Relation: Maternal Grandfather Age of Onset: (Not Specified) Problem: Stroke Relation: Paternal Grandmother Age of Onset: (Not Specified) Problem: Heart Attack Relation: Paternal Grandfather Age of Onset: (Not Specified) Problem: Systemic Lupus Erythematosus Relation: Other Age of Onset: (Not Specified) Comment: Cousin Social History Tobacco Use Smoking status: Every Day Packs/day: 1.00 Years: 29.00 Pack years: 29 Types: Cigarettes Smokeless tobacco: Never Alcohol use: Not Currently Comment: quit 2017 Drug use: Not Currently Types: Marijuana Review of Systems Constitutional: Negative. HENT: Negative. Respiratory: Negative. Cardiovascular: Negative. Skin: Positive for wound (L leg wound on calf). Objective BP 120/76 Pulse 116 Temp 36.6 C (97.8 F) Resp 18 Wt 81.2 kg (179 lb) LMP 09/05/2018 SpO2 97% BMI 30.73 kg/m Physical Exam Vitals and nursing note reviewed. Constitutional: Appearance: She is well-developed. Pulmonary: Effort: Pulmonary effort is normal. Skin: General: Skin is warm and dry. Findings: Wound present. Neurological: Mental Status: She is alert and oriented to person, place, and time. Assessment and Plan ASSESSMENT/PLAN: 1. Wound of left lower extremity, initial encounter - ICD9: 894.0, ICD10: S81.802A - MUPIROCIN CALCIUM 2 % TOPICAL CREAM - DOXYCYCLINE MONOHYDRATE 100 MG TABLET María Francisco APRN.CNP Medical Decision Making: Problems: Moderate: New problem with uncertain prognosis Data: Unique source(s) for external note(s) reviewed: 1 Risk: Moderate: Drug management Medical Decision Making Level: 4 - Moderate This patient encounter involved the screening or treatment of novel coronavirus infection (COVID-19). documented in this encounterK[facility]12-06-2022 Instructions* Patient Instructions* Miya Carter APRN.CNP - 03/09/2022 4:56 PM EST covid and influenza test ordered You will be notified in 12-24 hours, results available on [facility] Home isolation until results are back Rest, increase water intake Motrin or Tylenol as needed for fever or pain. Salt water gargles, chloraseptic spray or lozenges as needed for sore throat. Warm beverages, honey. Nasal saline spray as needed Cool mist humidifier at night Tylenol (generic acetaminophen) 500 mg-2 tabs every 8 hrs. as needed for fever and aches Ibuprofen 600 mg (3-200mg tablets) every 6 hours -Mucinex (generic is fine) Guaifenesin 1200 mg twice daily to help with cough and to thin out mucus * Seek medical care immediately, call 911, go to ER if you have chest pain, difficulty breathing, shortness of breath, inability to swallow. documented in this encounterK[facility]12-06-2022 History of Present illness Narrative* Miya Carter APRN.CNP - 03/09/2022 4:48 PM EST Subjective The history is provided by the patient. No second language tutor was used. ERICK Saunders is a 51 year old female who presents today for CC of fever, chills body aches, sore throat and cough. She also has sneezing, rhinorrhea, and nasal congestion with nausea. No vomiting or diarrhea. She has used aleve. She is an every day smoker BP 118/68 Pulse 114 Temp 36.3 C (97.3 F) Resp 18 Wt 82.6 kg (182 lb) LMP 09/05/2018 SpO2 98% BMI 31.24 kg/m Social History Tobacco Use Smoking status: Every Day Packs/day: 1.00 Years: 29.00 Pack years: 29.00 Types: Cigarettes Smokeless tobacco: Never Substance Use Topics Alcohol use: Not Currently Comment: quit 2016 Drug use: Not Currently Types: Marijuana PAST MEDICAL HISTORY Diagnosis Date Asthma due to seasonal allergies Chronic joint pain Class 1 obesity due to excess calories without serious comorbidity with body mass index (BMI) of 31.0 to 31.9 in adult Depression Endometriosis s/p hysterectomy Generalized anxiety disorder Heartburn History of alcohol abuse sober since 2017 History of tobacco use Hypertension Hypothyroid Mixed hyperlipidemia Seasonal allergies Vitamin D deficiency I have confirmed and edited as necessary, the [facility] Review of Systems Constitutional: Negative for chills and fever. HENT: Positive for congestion. Negative for ear pain, sinus pain and sore throat. Respiratory: Negative for cough, sputum production, shortness of breath and wheezing. Cardiovascular: Negative for chest pain. Musculoskeletal: Negative for myalgias. Neurological: Negative for headaches. Objective Physical Exam Vitals and nursing note reviewed. HENT: Head: Normocephalic and atraumatic. Right Ear: Tympanic membrane, ear canal and external ear normal. No middle ear effusion. Tympanic membrane is not erythematous. Left Ear: Tympanic membrane, ear canal and external ear normal. No middle ear effusion. Tympanic membrane is not erythematous. Nose: Mucosal edema, congestion and rhinorrhea present. Right Sinus: No maxillary sinus tenderness or frontal sinus tenderness. Left Sinus: No maxillary sinus tenderness or frontal sinus tenderness. Mouth/Throat: Pharynx: Uvula midline. Posterior oropharyngeal erythema present. No oropharyngeal exudate. Cardiovascular: Rate and Rhythm: Normal rate and regular rhythm. Heart sounds: Normal heart sounds. Pulmonary: Effort: Pulmonary effort is normal. Breath sounds: Normal breath sounds. Lymphadenopathy: Head: Right side of head: No submental, submandibular or tonsillar adenopathy. Left side of head: No submental, submandibular or tonsillar adenopathy. Cervical: No cervical adenopathy. Skin: General: Skin is warm and dry. Neurological: Mental Status: She is alert. Psychiatric: Mood and Affect: Affect normal. ASSESSMENT/PLAN: 1. URI with cough and congestion - ICD9: 465.9, ICD10: J06.9 - Discussed viral etiology and rationale for treatment. Flu, covid other - Symptomatic treatment with prn analgesia - Supportive care with fluids and rest Home isolation Testing ordered Comfort measures discussed - see patient instructions. When to seek higher level of care Notified in 12-24 hours with results, available on [employer] - COVID WITH FLUA+B, ROUTINE Diagnosis and treatment plan were discussed and questions were answered to the patient's satisfaction. Pt acknowledged understanding of concepts and follow up plan. Specific signs and symptoms that would indicate the need for higher level of care were discussed indetail warranting prompt ER evaluation. Miya Carter APRN.NEAL documented in this encounterK[facility]09-30-2022 History of Present illness Narrative* Juju Baca PA-C - 01/01/2022 12:39 PM EDT This note was created using SeroMatchriter. Subjective Aura Saunders is a 51 year old female. HPI Patient presents with cough, congestion and sore throat over the past 3 days. 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 A few of them had COVID a couple weeks ago. She states she has hada little bit of chest burning when she coughs. She is a smoker. She does have a history of asthma from her allergies. She has been a little wheezy at night. She does have an inhaler but has not been using it. No vomiting or diarrhea. Review of Systems Constitutional: Positive for chills. Negative for fever. HENT: Positive for congestion, postnasal drip and sore throat. Negative for ear pain. Respiratory: Positive for cough and wheezing. Gastrointestinal: Negative. Genitourinary: Negative. Musculoskeletal: Negative. Neurological: Negative. All other systems reviewed and are negative. PAST MEDICAL HISTORY Diagnosis Date Asthma due to seasonal allergies Chronic joint pain Class 1 obesity due to excess calories without serious comorbidity with body mass index (BMI) of 31.0 to 31.9 in adult Depression Endometriosis s/p hysterectomy Generalized anxiety disorder Heartburn History of alcohol abuse sober since 2017 History of tobacco use Hypertension Hypothyroid Mixed hyperlipidemia Seasonal allergies Vitamin D deficiency Current Outpatient Medications Medication Sig Dispense Refill DULoxetine (CYMBALTA) 60 mg capsule Take 1 capsule by mouth once daily. 30 capsule 5 omeprazole (PRILOSEC) 20 mg capsule Take 2 capsules by mouth once daily. 120 capsule 1 fluticasone (FLONASE) 50 mcg/actuation nasal spray Use 2 Sprays in each nostril once daily. Rinse mouth after use. 16 g 1 cyclobenzaprine (FLEXERIL) 10 mg tablet Take 1 tablet by mouth twice daily as needed for muscle spasm or pain. 60 tablet 0 famotidine (PEPCID) 20 mg tablet Take 1 tablet by mouth twice daily. 180 tablet 2 potassium chloride (K-TAB) 10 mEq tablet Take 1 tablet by mouth once daily. 30 tablet 5 levothyroxine (SYNTHROID) 88 mcg tablet Take 1 tablet by mouth once daily. 30 tablet 5 albuterol HFA (PROVENTIL HFA, VENTOLIN HFA) 90 mcg/actuation inhaler Inhale 2 Puffs as instructed every 4 hours as needed. 18 g 1 MAGNESIUM CARBONATE ORAL Take 1 tablet by mouth once daily. hydrOXYzine HCl (ATARAX) 10 mg tablet Take 1 tablet by mouth four times daily as needed. 120 tablet1 BENEFIBER, GUAR GUM, ORAL Take by mouth. vitamin b complex capsule Take 1 capsule by mouth once daily. busPIRone (BUSPAR) 5 mg tablet Take 5 mg by mouth q 12 HR. gabapentin (NEURONTIN) 300 mg capsule Take 1 capsule by mouth every evening. lidocaine (LIDODERM) 5 % Apply 2 Patches as directed as directed. docosahexaenoic acid/epa (FISH OIL ORAL) Take 1,000 mg by mouth once daily. Lactobacillus acidophilus (PROBIOTIC ORAL) Take 1 tablet by mouth once daily. losartan (COZAAR) 50 mg tablet Take 1 tablet by mouth once daily. cholecalciferol (VITAMIN D3) 5,000 unit tab Take 5,000 Units by mouth once daily. predniSONE (DELTASONE) 20 mg tablet Take 2 tablets by mouth once daily for 5 days. 10 tablet 0 atorvastatin (LIPITOR) 80 mg tablet Take 1 tablet by mouth daily at bedtime. For cholesterol. 90 tablet 1 No current facility-administered medications for this visit. PAST SURGICAL HISTORY Procedure Laterality Date SECTION HX 1999 COLONOSCOPY FLX DX W/COLLJ SPEC WHEN PFRMD 11/24/2020 ESOPHAGOGASTRODUODENOSCOPY TRANSORAL DIAGNOSTIC 11/24/2020 HYSTERECTOMY 2020 endometriosis OVARIAN CYSTECTOMY PAST SURGICAL HISTORY OF Right 1991 lipoma removal neck PAST SURGICAL HISTORY OF 2019 sinus surgery-Dr. English FAMILY HISTORY Problem Relation Age of Onset Heart disease Mother Heart Failure Father Heart disease Father Diabetes Father Hyperlipidemia Father Hypertension Father other (a fib) Father Heart Father Cerebral palsy Sister Kidney Disease Sister other (bladder cancer) Paternal Uncle Heart Attack Maternal Grandmother Stroke Maternal Grandfather Stroke Paternal Grandmother Heart Attack Paternal Grandfather Systemic Lupus Erythematosus Other Cousin Social History Tobacco Use Smoking status: Every Day Packs/day: 1.00 Years: 29.00 Pack years: 29.00 Types: Cigarettes Smokeless tobacco: Never Substance Use Topics Alcohol use: Not Currently Comment: quit 2017 Drug use: Not Currently Types: Marijuana Objective BP 110/82 Pulse 91 Temp 36.4 C (97.6 F) Resp 18 Wt 81.7 kg (180 lb 3.2 oz) LMP 09/05/2018 SpO2 99% BMI 30.93 kg/m Physical Exam Vitals reviewed. Constitutional: Appearance: Normal appearance. HENT: Head: Normocephalic and atraumatic. Right Ear: Tympanic membrane, ear canal and external ear normal. Left Ear: Tympanic membrane, ear canal and external ear normal. Nose: Congestion present. Mouth/Throat: Mouth: Mucous membranes are moist. Pharynx: Oropharynx is clear. Cardiovascular: Rate and Rhythm: Normal rate and regular rhythm. Heart sounds: Normal heart sounds. Pulmonary: Effort: Pulmonary effort is normal. Breath sounds: Normal breath sounds. Musculoskeletal: Cervical back: Neck supple. Lymphadenopathy: Cervical: No cervical adenopathy. Skin: General: Skin is warm and dry. Neurological: General: No focal deficit present. Mental Status: She is alert and oriented to person, place, and time. Assessment and Plan ASSESSMENT/PLAN: 1. Suspected COVID-19 virus infection - ICD9: V01.79, ICD10: Z20.822 Given prednisone and discussed continuing the Coricidin she is using [id number]. She has an albuterol inhaler that she can use as well. Lungs were clear here. Discussed red flag symptoms to be seen again. COVID testing pending. Discussed possible quarantine and red flags for ER. Patient agreeable plan - PREDNISONE 20 MG TABLET - COVID WITH FLUA+B, ROUTINE Juju Baca PA-C documented in this encounterK[facility]09-26-2022 Miscellaneous Notes* Telephone Encounter - Catherine Sandoval MA - 12/28/2021 10:58 AM EDT RX INSTRUCTIONS: Patient aware RX will be sent to pharmacy. No need to notify patient. Last OV: 08/25/21 Last refill: 07/01/21 With 30 and 5 refills Follow up: No F/U scheduled at this time Catherine Sandoval MA documented in this encounterK[facility]07-10-2022 History of Present illness Narrative* Lourdes Barros APRN.TECHNICAL ILLUSTRATOR - 10/11/2021 9:28 AM EDT This note was created using SeroMatchriter. Subjective Aura Saunders is a 50 year old female. 50 year old female with PMH HTN, hyperlipidemia, hypothyroid, depression presents for complaints ofillness. Acute onset 3 days ago +headache +bilateral ear pain throbbing +cough, but states that she has cough at baseline, related to her history of smoking. (denies worsening cough) Denies CP. Denies SOB. States the pain is worsening. Has utilized Advil with mild relief. Has an appointment with PCP 10/27 +tobacco usage. The history is provided by the patient. No second language tutor was used. Cough This is a new problem. The current episode started more than 2 days ago. The problem occurs constantly. The problem has not changed since onset.The cough is non-productive. There has been no fever. Associated symptoms include ear pain. Pertinent negatives include no chest pain, no chills, no sweats, no weight loss, no ear congestion, no headaches, no rhinorrhea, no sore throat, no myalgias, no shortness of breath, no wheezing and no eye redness. She has tried nothing for the symptoms. The treatment provided no relief. She is a smoker. Her past medical history does not include bronchitis, pneumonia, bronchiectasis, COPD, emphysema or asthma. PAST MEDICAL HISTORY Diagnosis Date Asthma due to seasonal allergies Chronic joint pain Class 1 obesity due to excess calories without serious comorbidity with body mass index (BMI) of 31.0 to 31.9 in adult Depression Endometriosis s/p hysterectomy Generalized anxiety disorder Heartburn History of alcohol abuse sober since 2016 History of tobacco use Hypertension Hypothyroid Mixed hyperlipidemia Seasonal allergies Vitamin D deficiency PAST SURGICAL HISTORY Procedure Laterality Date SECTION HX 1999 COLONOSCOPY FLX DX W/COLLJ SPEC WHEN PFRMD 11/24/2020 ESOPHAGOGASTRODUODENOSCOPY TRANSORAL DIAGNOSTIC 11/24/2020 HYSTERECTOMY 2020 endometriosis OVARIAN CYSTECTOMY PAST SURGICAL HISTORY OF Right 1991 lipoma removal neck PAST SURGICAL HISTORY OF 2019 sinus surgery-Dr. English ALLERGIES Dog Dander, Grass Pollen, Latex, and Prozac [Fluoxetine] MEDICATIONS omeprazole (PRILOSEC) 20 mg capsule Take 2 capsules by mouth once daily. fluticasone (FLONASE) 50 mcg/actuation nasal spray Use 2 Sprays in each nostril once daily. Rinse mouth after use. DULoxetine (CYMBALTA) 60 mg capsule Take 1 capsule by mouth once daily. famotidine (PEPCID) 20 mg tablet Take 1 tablet by mouth twice daily. atorvastatin (LIPITOR) 80 mg tablet Take 1 tablet by mouth daily at bedtime. For cholesterol. potassium chloride (K-TAB) 10 mEq tablet Take 1 tablet by mouth once daily. levothyroxine (SYNTHROID) 88 mcg tablet Take 1 tablet by mouth once daily. albuterol HFA (PROVENTIL HFA, VENTOLIN HFA) 90 mcg/actuation inhaler Inhale 2 Puffs as instructed every 4 hours as needed. MAGNESIUM CARBONATE ORAL Take 1 tablet by mouth once daily. hydrOXYzine HCl (ATARAX) 10 mg tablet Take 1 tablet by mouth four times daily as needed. BENEFIBER, GUAR GUM, ORAL Take by mouth. vitamin b complex capsule Take 1 capsule by mouth once daily. busPIRone (BUSPAR) 5 mg tablet Take 5 mg by mouth q 12 HR. gabapentin (NEURONTIN) 300 mg capsule Take 1 capsule by mouth every evening. lidocaine (LIDODERM) 5 % Apply 2 Patches as directed as directed. docosahexaenoic acid/epa (FISH OIL ORAL) Take 1,000 mg by mouth once daily. Lactobacillus acidophilus (PROBIOTIC ORAL) Take 1 tablet by mouth once daily. losartan (COZAAR) 50 mg tablet Take 1 tablet by mouth once daily. cholecalciferol (VITAMIN D-3) 5,000 unit tab Take 5,000 Units by mouth once daily. amoxicillin (AMOXIL) 875 mg tablet Take 1 tablet by mouth twice daily for 7 days. cyclobenzaprine (FLEXERIL) 10 mg tablet Take 1 tablet by mouth twice daily as needed for muscle spasm or pain. FAMILY HISTORY Problem Relation Age of Onset Heart disease Mother Heart Failure Father Heart disease Father Diabetes Father Hyperlipidemia Father Hypertension Father other (a fib) Father Heart Father Cerebral palsy Sister Kidney Disease Sister other (bladder cancer) Paternal Uncle Heart Attack Maternal Grandmother Stroke Maternal Grandfather Stroke Paternal Grandmother Heart Attack Paternal Grandfather Systemic Lupus Erythematosus Other Cousin Social History Tobacco Use Smoking status: Current Every Day Smoker Packs/day: 1.00 Years: 29.00 Pack years: 29.00 Types: Cigarettes Smokeless tobacco: Never Used Substance Use Topics Alcohol use: Not Currently Comment: quit 2017 Drug use: Not Currently Types: Marijuana Review of Systems Constitutional: Negative for chills and weight loss. HENT: Positive for ear pain. Negative for rhinorrhea and sore throat. Eyes: Negative for redness. Respiratory: Positive for cough. Negative for shortness of breath and wheezing. Cardiovascular: Negative for chest pain. Musculoskeletal: Negative for myalgias. Allergic/Immunologic: Negative for environmental allergies, food allergies and immunocompromised state. Neurological: Negative for headaches. Hematological: Negative for adenopathy. Does not bruise/bleed easily. Psychiatric/Behavioral: Negative for agitation and behavioral problems. Objective BP 122/62 Pulse 110 Temp 36.8 C (98.2 F) Resp 18 Wt 81.2 kg (179 lb) LMP 09/05/2018 SpO2 97% BMI 30.73 kg/m Physical Exam Vitals and nursing note reviewed. Constitutional: General: She is not in acute distress. Appearance: Normal appearance. She is normal weight. She is not ill-appearing, toxic-appearing or diaphoretic. HENT: Head: Normocephalic and atraumatic. Right Ear: Ear canal and external ear normal. Left Ear: Ear canal and external ear normal. Ears: Comments: Bilateral TMs erythematous, right greater than left. Bondy landmarks not easily distinguished. Bilateral EACs normal. Nose: Nose normal. No congestion or rhinorrhea. Mouth/Throat: Mouth: Mucous membranes are moist. Pharynx: No oropharyngeal exudate or posterior oropharyngeal erythema. Eyes: General: Right eye: No discharge. Left eye: No discharge. Extraocular Movements: Extraocular movements intact. Conjunctiva/sclera: Conjunctivae normal. Pupils: Pupils are equal, round, and reactive to light. Cardiovascular: Rate and Rhythm: Normal rate and regular rhythm. Pulses: Normal pulses. Heart sounds: Normal heart sounds. No murmur heard. No friction rub. Pulmonary: Effort: Pulmonary effort is normal. No respiratory distress. Breath sounds: Normal breath sounds. No stridor. No wheezing, rhonchi or rales. Chest: Chest wall: No tenderness. Abdominal: General: Abdomen is flat. There is no distension. Palpations: Abdomen is soft. There is no mass. Tenderness: There is no abdominal tenderness. There is no right CVA tenderness, left CVA tenderness, guarding or rebound. Hernia: No hernia is present. Musculoskeletal: General: No swelling, tenderness, deformity or signs of injury. Normal range of motion. Cervical back: Normal range of motion and neck supple. No rigidity. Right lower leg: No edema. Left lower leg: No edema. Lymphadenopathy: Cervical: No cervical adenopathy. Skin: General: Skin is warm and dry. Capillary Refill: Capillary refill takes less than 2 seconds. Coloration: Skin is not jaundiced or pale. Findings: No bruising, erythema, lesion or rash. Neurological: General: No focal deficit present. Mental Status: She is alert and oriented to person, place, and time. Cranial Nerves: No cranial nerve deficit. Sensory: No sensory deficit. Motor: No weakness. Coordination: Coordination normal. Gait: Gait normal. Psychiatric: Mood and Affect: Mood normal. Behavior: Behavior normal. Thought Content: Thought content normal. Judgment: Judgment normal. Assessment and Plan ASSESSMENT/PLAN: 1. Acute otitis media, bilateral - ICD9: 382.9, ICD10: H66.93 - Will begin treatment with as per antibiotic as written, see orders - The patient should also be given OTC cough and cold meds as needed, warm salt water gargles, throat lozenges and/or OTC throat spray as needed and nasal saline gtts and suction prn for the first 5-7 days of treatment. - Supportive care with plenty of fluids, rest, and analgesia prn. - Follow up in 3-5 days if symptoms persist or worsen. Lourdes Barros APRN.TECHNICAL ILLUSTRATOR documented in this encounterK[facility]06-13-2022 Miscellaneous Notes* Telephone Encounter - Luis Conn LPN - 09/14/2021 5:01 PM EDT [facility] 08/25/21 NOV no upcoming appt * Telephone Encounter - Yoselyn Castañeda - 09/14/2021 4:40 PM EDT [facility]acy [facility] Patient has been identified by name and date of : Yes Patient aware RX will be sent to pharmacy. No need to notify patient. Patient phones for refill(s): Pending Prescriptions Disp Refills OMEPRAZOLE 20 MG CAPSULE,DELAYED RELEASE 120 capsule 1 Sig: Take 2 capsules by mouth once daily. BIPIN: No Date of last office visit : 08/25/2021 Date of next office visit : Visit date not found Last 2 Encounter Wt Readings: Date: Wt: 08/25/2021 81.6 kg (179 lb 12.8 oz) 08/05/2021 80.8 kg (178 lb 3.2 oz) Please advise. Yoselyn Mcgregor Pss documented in this encounterK[facility]05-31-2022 Miscellaneous Notes* Telephone Encounter - Aura Tanner Ma - 09/01/2021 9:17 AM EDT Images from the original note were not included. Dr. Patel per records patient has been getting refill of Gabapentin since est with you 09/30/2020: Dr. 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 Dr. Santiago performed epidural steroid injection 3 months ago. Had discussion with PCP last month about joint pain and was referred to aqua therapy which she has tried before. On Naproxen and gabapentin without relief. Aura Tanner Ma documented in this encounterK[facility]05-24-2022 History of Present illness Narrative* Julia Podlogar, NET COORDINATOR.TECHNICAL ILLUSTRATOR - 08/25/2021 2:12 PM EDT 08/25/2021 Patient presents with: Muscle Aches SUBJECTIVE: This is a 50 year old that is here today for Above Complaints. Having some upper back pain that radiates down her left arm for the last five days. Pain described as burning. Pain constant but has improved some. Patient reports some tingling in left hand, howeverthis has been ongoing for some time. Has been using tylenol, muscle relaxer, lidocaine patches, andheat with minimal relief. Denies past or recent surgery/injury, arm weakness, joint swelling or excessive redness/warmth. PAST MEDICAL HISTORY Diagnosis Date Asthma due to seasonal allergies Chronic joint pain Class 1 obesity due to excess calories without serious comorbidity with body mass index (BMI) of 31.0 to 31.9 in adult Depression Endometriosis s/p hysterectomy Generalized anxiety disorder Heartburn History of alcohol abuse sober since 2017 History of tobacco use Hypertension Hypothyroid Mixed hyperlipidemia Seasonal allergies Vitamin D deficiency ALLERGIES Dog Dander, Grass Pollen, Latex, and Prozac [Fluoxetine] MEDICATIONS Current Outpatient Medications Medication Sig fluticasone (FLONASE) 50 mcg/actuation nasal spray Use 2 Sprays in each nostril once daily. Rinse mouth after use. DULoxetine (CYMBALTA) 60 mg capsule Take 1 capsule by mouth once daily. cyclobenzaprine (FLEXERIL) 10 mg tablet Take 1 tablet by mouth twice daily as needed for muscle spasm or pain. famotidine (PEPCID) 20 mg tablet Take 1 tablet by mouth twice daily. atorvastatin (LIPITOR) 80 mg tablet Take 1 tablet by mouth daily at bedtime. For cholesterol. omeprazole (PRILOSEC) 20 mg capsule Take 2 capsules by mouth once daily. potassium chloride (K-TAB) 10 mEq tablet Take 1 tablet by mouth once daily. levothyroxine (SYNTHROID) 88 mcg tablet Take 1 tablet by mouth once daily. albuterol HFA (PROVENTIL HFA, VENTOLIN HFA) 90 mcg/actuation inhaler Inhale 2 Puffs as instructed every 4 hours as needed. MAGNESIUM CARBONATE ORAL Take 1 tablet by mouth once daily. hydrOXYzine HCl (ATARAX) 10 mg tablet Take 1 tablet by mouth four times daily as needed. BENEFIBER, GUAR GUM, ORAL Take by mouth. vitamin b complex capsule Take 1 capsule by mouth once daily. busPIRone (BUSPAR) 5 mg tablet Take 5 mg by mouth q 12 HR. gabapentin (NEURONTIN) 300 mg capsule Take 1 capsule by mouth every evening. lidocaine (LIDODERM) 5 % Apply 2 Patches as directed as directed. docosahexaenoic acid/epa (FISH OIL ORAL) Take 1,000 mg by mouth once daily. Lactobacillus acidophilus (PROBIOTIC ORAL) Take 1 tablet by mouth once daily. losartan (COZAAR) 50 mg tablet Take 1 tablet by mouth once daily. cholecalciferol (VITAMIN D-3) 5,000 unit tab Take 5,000 Units by mouth once daily. No current facility-administered medications for this visit. Medications and allergies reviewed by this provider. SOCIAL HISTORY Social History Tobacco Use Smoking status: Current Every Day Smoker Packs/day: 1.00 Years: 29.00 Pack years: 29.00 Types: Cigarettes Smokeless tobacco: Never Used Substance Use Topics Alcohol use: Not Currently Comment: quit 2017 Drug use: Not Currently Types: Marijuana REVIEW OF SYSTEMS All other reviewed and negative other than HPI. OBJECTIVE: BP 118/72 Pulse 95 Temp 36.5 C (97.7 F) Resp 18 Wt 81.6 kg (179 lb 12.8 oz) LMP 09/05/2018 SpO2 97% BMI 30.86 kg/m . Vital signs reviewed by this provider. APPEARANCE Well appearing, alert, in no acute distress, well-hydrated, well nourished. BACK: Mild TTP left upper shoulder blade. FROM without difficulty LEFT SHOULDER/ARM: no obvious deformity, swelling, erythema or excessive warmth. FROM without difficulty. Negative Rivera and NEERs. Mild TTP over AC joint and upper arm SPIROMETRY Never done HIV SCREENING Never done DTAP,TDAP,TD(2 - Td or Tdap) due on 03/01/2021 PNEUMOCOCCAL(2 - PCV) due on 04/07/2022 MAMMOGRAM due on 06/09/2022 ANNUAL PCP TEAM CHRONIC DISEASE VISIT due on 08/05/2022 BP CONTROLLED (<130/80) due on 08/05/2022 DIABETES SCREEN due on 04/13/2024 LIPID SCREEN due on 04/13/2026 COLORECTAL CANCER SCREENING due on 11/24/2030 INFLUENZA Completed HEPATITIS C SCREENING Completed COVID-19 VACCINE Completed PAP TESTING Discontinued HPV TESTING Discontinued ASSESSMENT/PLAN: 1. Left arm pain - ICD9: 729.5, ICD10: M79.602 (primary diagnosis) - consider pulled muscle vs tendonitis - no red flag symptoms or exam findings - red flag symptoms discussed, verbalizes understanding - recommend OTC NSAID product as indicated on packaging - may continue heat- recommend not to sleep with heating pad, topical, and lidocaine patches - follow-up if symptoms fail to improve, to ER with red flag symptoms 2. Upper back pain - ICD9: 724.5, ICD10: M54.9 - plan as in #1 Julia Maciel APRN.TECHNICAL ILLUSTRATOR Prescription instructions reviewed with patient as applicable. Patient advised if symptoms do not improve or if symptoms worsen sooner, to contact their primary care physician. Potential red flag symptoms discussed with the patient. Reviewed appropriate action plan to take if red flag symptoms occur. Patient agreeable to treatment plan. documented in this encounterK[facility]05-04-2022 Miscellaneous Notes* Telephone Encounter - Aura Tanner Ma - 08/05/2021 4:53 PM EDT Patient was scheduled Aura Tanner Ma * Telephone Encounter - Julia Maciel APRN.CNP - 08/05/2021 4:46 PM EDT I'm find with either video or in office. Please call to schedule. Julia Maciel APRN.CNP documented in this encounterKettering [facility]04-07-2022 Miscellaneous Notes* Telephone Encounter - Zulma Mcdonald Ma - 07/09/2021 9:38 AM EDT [facility] pt [facility] Asked pt if she had preference which one she went to. Wait on pt response. Zulma Mcdonald Ma * Telephone Encounter - Brando Patel MD - 07/09/2021 9:34 AM EDT Referral order to PT placed for patient. Usually they would go to [facility]. Please assist with referral. * Telephone Encounter - Zulma Mcdonald Ma - 07/07/2021 9:41 AM EDT See pt message and advise. Zulma Mcdonald Ma documented in this [facility] History of Present illness Narrative* Lilli Muniz MD - 07/03/2021 3:40 PM EDT Chief Complaint Patient presents with: Back Pain HPI Aura Saunders is a 50 year old female who presents here today for back pain. Pt of Dr. Patel's who is out of office today. Pt c/o increased back pain x 3 weeks, difficulty sitting and reaching due to pain. Pain today increased with bending and picking up boxes. Overall pain stable, about the same since her previous OV. Recent evaluation by PCP 06/22/21 for back pain with bilateral sciatica down to her knees. Treated at that time with Flexeril and advised to use heat or ice. Pt notes that she continues to still have pain, rating this a 5/10. Pt took Naproxen before her appt which gives her a little relief as well as wearing a Lidocaine patch. Pt notes that she was seen in UC on 01/21/21 and was given Prednisone which really seemed to help her pain. Has previously been seen by Spine. Pt reports that she does have chronic back pain and leg weakness. Previous PCP has referred her to PT and [facility]. Has followed with Pain Management, Dr. Teran and Marielos Crawford who gave her aninjection. Has not followed with them since transferring care. Works at [employer], does a lot of lifting, turning, etc all day at work. Past medical history, appointments, medications, allergies reviewed. Previous Medical History PAST MEDICAL HISTORY Diagnosis Date Asthma due to seasonal allergies Chronic joint pain Class 1 obesity due to excess calories without serious comorbidity with body mass index (BMI) of 31.0 to 31.9 in adult Depression Endometriosis s/p hysterectomy Generalized anxiety disorder Heartburn History of alcohol abuse sober since 2017 History of tobacco use Hypertension Hypothyroid Mixed hyperlipidemia Seasonal allergies Vitamin D deficiency Previous Surgical History PAST SURGICAL HISTORY Procedure Laterality Date SECTION HX 2000 COLONOSCOPY FLX DX W/COLLJ SPEC WHEN PFRMD 11/24/2020 ESOPHAGOGASTRODUODENOSCOPY TRANSORAL DIAGNOSTIC 11/24/2020 HYSTERECTOMY 2020 endometriosis OVARIAN CYSTECTOMY PAST SURGICAL HISTORY OF Right 1990 lipoma removal neck PAST SURGICAL HISTORY OF 2019 sinus surgery-Dr. English Family History FAMILY HISTORY Problem Relation Age of Onset Heart disease Mother Heart Failure Father Heart disease Father Diabetes Father Hyperlipidemia Father Hypertension Father other (a fib) Father Heart Father Cerebral palsy Sister Kidney Disease Sister other (bladder cancer) Paternal Uncle Heart Attack Maternal Grandmother Stroke Maternal Grandfather Stroke Paternal Grandmother Heart Attack Paternal Grandfather Systemic Lupus Erythematosus Other Cousin Patient Allergies ALLERGIES Allergen Reactions Dog Dander Other: See Comments headache and watery eyes and runny nose rash Grass Pollen Other: See Comments runny nose and watery eyes Latex Rash Prozac [Fluoxetine] Other: See Comments anger Current Medications Current Outpatient Medications on File Prior to Visit Medication Sig DULoxetine (CYMBALTA) 60 mg capsule Take 1 capsule by mouth once daily. cyclobenzaprine (FLEXERIL) 10 mg tablet Take 1 tablet by mouth twice daily as needed for muscle spasm or pain. famotidine (PEPCID) 20 mg tablet Take 1 tablet by mouth twice daily. atorvastatin (LIPITOR) 80 mg tablet Take 1 tablet by mouth daily at bedtime. For cholesterol. omeprazole (PRILOSEC) 20 mg capsule Take 2 capsules by mouth once daily. potassium chloride (K-TAB) 10 mEq tablet Take 1 tablet by mouth once daily. levothyroxine (SYNTHROID) 88 mcg tablet Take 1 tablet by mouth once daily. albuterol HFA (PROVENTIL HFA, VENTOLIN HFA) 90 mcg/actuation inhaler Inhale 2 Puffs as instructed every 4 hours as needed. MAGNESIUM CARBONATE ORAL Take 1 tablet by mouth once daily. hydrOXYzine HCl (ATARAX) 10 mg tablet Take 1 tablet by mouth four times daily as needed. BENEFIBER, GUAR GUM, ORAL Take by mouth. vitamin b complex capsule Take 1 capsule by mouth once daily. busPIRone (BUSPAR) 5 mg tablet Take 5 mg by mouth q 12 HR. gabapentin (NEURONTIN) 300 mg capsule Take 1 capsule by mouth every evening. lidocaine (LIDODERM) 5 % Apply 2 Patches as directed as directed. docosahexaenoic acid/epa (FISH OIL ORAL) Take 1,000 mg by mouth once daily. Lactobacillus acidophilus (PROBIOTIC ORAL) Take 1 tablet by mouth once daily. fluticasone (FLONASE) 50 mcg/actuation nasal spray Use 2 Sprays in each nostril once daily. Rinse mouth after use. losartan (COZAAR) 50 mg tablet Take 1 tablet by mouth once daily. cholecalciferol (VITAMIN D-3) 5,000 unit tab Take 5,000 Units by mouth once daily. No current facility-administered medications on file prior to visit. Social History Social History Tobacco Use Smoking status: Current Every Day Smoker Packs/day: 1.00 Years: 29.00 Pack years: 29.00 Types: Cigarettes Last attempt to quit: 12/15/2014 Years since quittin.5 Smokeless tobacco: Never Used Substance Use Topics Alcohol use: Not Currently Comment: quit 2017 Drug use: Not Currently Types: Marijuana EXAM: BP 110/72 (BP Site: Left Arm, BP Position: Sitting, BP Cuff Size: Regular Adult) Pulse 86 Resp 16 Wt 79.8 kg (176 lb) LMP 09/05/2018 BMI 30.21 kg/m General Appearance: Well appearing, alert, in no acute distress, well-hydrated, well nourished.. Back:tendeness midline lower lumbar area, increased pain with flexion, good ext and side to side Health Maintenance List SPIROMETRY Never done HIV SCREENING Never done DTAP,TDAP,TD(2 - Td or Tdap) due on 03/01/2021 MAMMOGRAM due on 06/09/2022 ANNUAL PCP TEAM CHRONIC DISEASE VISIT due on 06/22/2022 BP CONTROLLED (<130/80) due on 06/22/2022 DIABETES SCREEN due on 04/13/2024 LIPID SCREEN due on 04/13/2026 COLORECTAL CANCER SCREENING due on 11/24/2030 ONE PNEUMOVAX PRIOR TO AGE 65 Completed INFLUENZA Completed HEPATITIS C SCREENING Completed COVID-19 VACCINE Completed MENINGOCOCCAL CONJUGATE Aged Out PAP TESTING Discontinued HPV TESTING Discontinued Data reviewed none ASSESSMENT/PLAN: 1. Acute bilateral low back pain with bilateral sciatica - ICD9: 724.2, 724.3, ICD10: M54.42, M54.41 Will use prednisone burst, as this has helped in the past. Continue other treatments. Follow up prn - PREDNISONE 10 MG TABLET Medical Decision Making: Problems: Moderate: 1+ chronic illnesses with change Risk: Moderate: Drug management Medical Decision Making Level: 4 - Moderate Lilli Muniz MD documented in this encounterK[facility]03-29-2022 Miscellaneous Notes* Telephone Encounter - Andreina Plascencia LPN - 06/30/2021 4:07 PM EDT KERLINE 06/22/21 NOV no upcoming appt noted * Telephone Encounter - Heather Burnett Pss - 06/30/2021 3:47 PM EDT Patient has been identified by name and date of : Yes Pending Prescriptions Disp Refills DULOXETINE 60 MG CAPSULE,DELAYED RELEASE 30 capsule 5 Sig: Take 1 capsule by mouth once daily. BIPIN: No RX INSTRUCTIONS: Patient aware RX will be sent to pharmacy. No need to notify patient. Heather Burnett Pss documented in this encounterK[facility]08-09-2021 NoteHNO ID: [id number] Author: Jessica Kimbrough APRN.TECHNICAL ILLUSTRATOR Service: ? Author Type: Nurse Practitioner Type: Progress Notes Filed: 11/10/2020 10:56 AM Note Text: Wellness and Preventative Medicine Department [facility] Visit date: November 10, 2020 Aura Saunders is a 49 year old female who presents on November 10, 2020 for a consultation at the [facility]. CHIEF COMPLAINT: Back Pain PRIMARY CARE PHYSICIAN: Dr. Brando Patel REFERRED BY: Ward Quiles PA-C (spine) HISTORY OF PRESENT ILLNESS: Ellen is a 49 year old female with PMH as listed below. She presents to [facility] with referral from neurosurgery for consultation related to chronic back pain. Chronic back pain for about 1 year. Never had an initial injury but did have a fall that then worsened her pain. Lower back with bilateral sciatica Neck pain with radiating pain down her arms Has had MRI's, x-rays - nothing found on images. Has been to PT and OT - felt these were not helpful. Aquatic therapy was a little helpful Uses a lidocaine patch, gabapentin and naproxen. 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 Physical Activity Physical activity is low Pain is better with movement Does the PT stretches at home Sleep Bedtime: 8/8:30 am Pain causes her to have a long sleep latency Takes gabapentin and naproxen before sleep for her pain Sleeps on a couch and watches TV Has tried sleeping on a mattress and this doesn't Duration: 4-6 on average Sleep was better before the pain Stress Average day ratin-9/10 Describes herself as a stressed person - doesn't feel this is because of the pain Describes herself as someone that has a racing mind Home life: Lives at home by herself Has a good support system Anxiety and depression; has more of a tendency towards anxiety Has seen a counselor in the past PAST MEDICAL HISTORY Diagnosis Date - Asthma due to seasonal allergies - Chronic joint pain - Class 1 obesity due to excess calories without serious comorbidity with body mass index (BMI) of 31.0 to 31.9 in adult - Depression - Endometriosis s/p hysterectomy - Generalized anxiety disorder - Heartburn - History of alcohol abuse sober since 2017 - History of tobacco use - Hypertension - Hypothyroid - Mixed hyperlipidemia - Seasonal allergies - Vitamin D deficiency PAST SURGICAL HISTORY Procedure Laterality Date - SECTION HX 1999 - HYSTERECTOMY 2019 endometriosis - OVARIAN CYSTECTOMY - PAST SURGICAL HISTORY OF Right 1991 lipoma removal neck - PAST SURGICAL HISTORY OF 2019 sinus surgery-Dr. English FAMILY HISTORY Problem Relation Age of Onset - Heart disease Mother - Heart Failure Father - Heart disease Father - Diabetes Father - Hyperlipidemia Father - Hypertension Father - other (a fib) Father - Cerebral palsy Sister - Kidney Disease Sister - Heart Attack Maternal Grandmother - Stroke Maternal Grandfather - Stroke Paternal Grandmother - Heart Attack Paternal Grandfather - Systemic Lupus Erythematosus Other Cousin - other (bladder cancer) Paternal Uncle Social History Tobacco Use - Smoking status: Former Smoker Packs/day: 1.50 Years: 29.00 Pack years: 43.50 Types: Cigarettes Quit date: 12/15/2014 Years since quittin.9 - Smokeless tobacco: Never Used Substance Use Topics - Alcohol use: Not Currently - Drug use: Not Currently Types: Marijuana ALLERGIES Allergen Reactions - Dog Dander Other: See Comments headache and watery eyes and runny nose rash - Grass Pollen Other: See Comments runny nose and watery eyes - Latex Rash - Prozac [Fluoxetine] Other: See Comments anger Current Outpatient Medications on File Prior to Visit Medication Sig - potassium chloride (K-TAB) 10 mEq tablet Take 1 tablet by mouth once daily. - hydrOXYzine HCl (ATARAX) 10 mg tablet Take 1 tablet by mouth four times daily as needed. - levothyroxine (SYNTHROID) 88 mcg tablet Take 1 tablet by mouth once daily. - atorvastatin (LIPITOR) 80 mg tablet Take 1 tablet by mouth daily at bedtime. For cholesterol. - BENEFIBER, GUAR GUM, ORAL Take by mouth. - DULoxetine (CYMBALTA) 30 mg capsule Take 1 capsule by mouth once daily. - famotidine (PEPCID) 20 mg tablet Take 1 tablet by mouth daily at bedtime. - omeprazole (PRILOSEC) 20 mg capsule Take 2 capsules by mouth once daily. - vitamin b complex capsule Take 1 capsule by mouth once daily. - albuterol HFA (PROVENTIL HFA, VENTOLIN HFA) 90 mcg/actuation inhaler Inhale 2 Puffs as instructed every 4 hours as needed. - busPIRone (BUSPAR) 5 mg tablet Take 5 mg by mouth q 12 HR. - cyclobenzaprine (more content not included)...[facility] Diagnosis Acute bilateral low back pain with bilateral sciatica- Primary documented in this encounter [facility] noteNo assessment information availableWCleveland Clinic Foundation Work Phone: Evaluation note* Diagnosis Acute bilateral low back pain with bilateral sciatica- Primary [facility]* Diagnosis Left arm pain- Primary Pain in limb Upper back pain documented in this encounter [facility] note* Diagnosis Acute otitis media, bilateral- Primary Unspecified otitis media [facility]* Diagnosis Suspected COVID-19 virus infection- Primary documented [facility] this encounter [facility]* Diagnosis URI with cough and congestion- Primary [facility]* Diagnosis Wound of left lower extremity, initial encounter- Primary documented [facility] this [facility]* Diagnosis Sore throat- Primary Acute pharyngitis Sinobronchitis Unspecified sinusitis (chronic) documented [facility] this encounter [facility]* Diagnosis Onset Date Resolution Status Smoker acute Chronic neck pain chronic Chronic thoracic back pain c hronic Family history of breast cancer chronic Intertrigo chronic Macromastia chronic Shoulder pain [facility] Work Phone: Evaluation note* Diagnosis Sinobronchitis- Primary Unspecified sinusitis (chronic) Otalgia of both ears Otalgia, unspecified documented in this encounter [facility] note* Diagnosis Non-recurrent acute serous otitis media of both ears- Primary Seasonal allergic rhinitis, unspecified trigger [facility]* Diagnosis Onset Date Resolution Status Abnormal CT of the abdomen a cute GERD (gastroesophageal reflux disease) acute Hiatal hernia acute Abnormal CT of the abdomen a cute GERD (gastroesophageal reflux disease) acute Hiatal hernia acute Smoker acute Encounter for routine gynecological examination noneactive [facility] Work Phone: Evaluation note* Diagnosis Onset Date Resolution Status Abnormal CT of the abdomen a cute GERD (gastroesophageal reflux disease) acute Hiatal hernia acute Abnormal CT of the abdomen a cute GERD (gastroesophageal reflux disease) acute Hiatal hernia acute Smoker acute Encounter for routine gynecological examination noneactive Hormone replacement therapy acute [facility] Work Phone: Evaluation note* Diagnosis Onset Date Resolution Status Hormone replacement therapy acute [facility] Work Phone: Evaluation note* Diagnosis Sore throat- Primary Acute pharyngitis Viral illness Unspecified viral infection, in conditions classified elsewhere and of unspecified site Acute UTI Urinary tract infection, site not specified documented in this encounter [facility] Discharge instructions Additional Instructions Please follow-up with general surgery 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 If you have any further concerns or worsening of symptoms please return to the ER for repeat evaluationWCleveland Clinic Foundation Work Phone: Summary Purpose Family History No Family History Records Found Relationship Condition Age at Onset Recorded Date/T hammad brother Alcohol abuse Unknown Severe allergy Unknown Attempted suicide Unknown mother Anemia Unknown Anxiety and depression Unknown Arthritis Unknown Asthma Unknown Disorder of endocrine system Unknown Depression Unknown grandmother Arthritis Unknown Disorder of thyroid Unknown aunt Malignant neoplasm of breast Unknown Malignant neoplasm Unknown father Diabetes mellitus Unknown Cardiac disease Unknown Hypertension Unknown High blood cholesterol Unknown History of ulcer disease Unknown sister Seizure Unknown Relationship Condition Age at Onset Recorded Date/T hammad Not Specified Family history of ma lignant neoplasm of breast Unknown brother Alcohol abuse Unknown Severe allergy Unknown Attempted suicide Unknown mother Anemia Unknown Anxiety and depression Unknown Arthritis Unknown Asthma Unknown Disorder of endocrine system Unknown Depression Unknown grandmother Arthritis Unknown Disorder of thyroid Unknown aunt Malignant neoplasm of breast Unknown Malignant neoplasm Unknown father Diabetes mellitus Unknown Cardiac disease Unknown Hypertension Unknown High blood cholesterol Unknown History of ulcer disease Unknown sister Seizure Unknown Advance Directives No Advanced Directives Records FoundDocuments on File Type Date Recorded Patient Resourcing Advisor Expl anation Advance Directive(s) 11/24/2020 7:52 AM Advance Directive(s) 10/29/2020 9:36 AM Advance Directive Response Recorded Date/ Time Name of Medical Power of Stave Grader hector esquivel June 02, 2021 10:35pm Living Will No July 07, 2021 5:17am Power of Stave Grader No July 07 5:17am Documents on File Type Date Recorded Patient Resourcing Advisor Expl anation Advance Directive(s) 11/24/2020 7:52 AM Advance Directive(s) 10/29/2020 9:36 AM Advance Directive Response Recorded Date/ Time Living Will No July 07, 2021 5:17am Power of Stave Grader No July 07 5:17am Advance Directive Response Recorded Date/ Time Living Will No April 30 5:55pm Power of Stave Grader No April 30, 2022 5:55pm Advance Directive Response Recorded Date/ Time Living Will No August 05, 2022 9: 38pm Power of Stave Grader No August 05, 2022 9:38pm Advance Directive Response Recorded Date/ Time Living Will No August 08, 2022 4: 39pm Power of Stave Grader No August 08, 2022 4:39pm Advance Directive Response Recorded Date/ Time Living Will No August 08, 2022 3: 39pm Power of Stave Grader No August 08, 2022 3:39pm Advance Directive Response Recorded Date/ Time Living Will No May 30 11:08am Power of Stave Grader No May 30, 2023 11:08am Advance Directive Response Recorded Date/ Time Living Will No May 30 12:08pm Power of Stave Grader No May 30, 2023 12:08pm Chief Complaint and Reason for Visit Chief Complaint CHEST PAIN Amb Documentation BACK PAIN Chief Complaint Amb Documentation BACK PAIN Chief Complaint Consult GENERAL ILLNESS Reason for Visit Smoker Chronic neck pain Chronic thoracic back pain Family history of breast cancer Intertrigo Macromastia Shoulder pain Chief Complaint GENERAL ILLNESS UPPER ABDOMEN Chief Complaint GENERAL ILLNESS UPPER ABDOMEN ABD PAIN Chief Complaint UPPER ABDOMEN ABD PAIN [facility] F/U / Hernia POSSIBLE HERNIA HIATAL HERNIA/CT SCAN F/U Annual (FEED BLENDER) FALL Reason for Visit Abnormal CT of the a bdomen GERD (gastroesophageal reflux disease) Hiatal hernia Abnormal CT of the abdomen GERD (gastroesophageal reflux disease) Hiatal hernia Smoker Encounter for routine gynecological examination Chief Complaint UPPER ABDOMEN ABD PAIN [facility] F/U 5/4 Hernia POSSIBLE HERNIA HIATAL HERNIA/CT SCAN F/U Annual (FEED BLENDER) FALL 4 [facility] MED CHECK SCREENING Reason for Visit Abnormal CT of the a bdomen GERD (gastroesophageal reflux disease) Hiatal hernia Abnormal CT of the abdomen GERD (gastroesophageal reflux disease) Hiatal hernia Smoker Encounter for routine gynecological examination Hormone replacement therapy Chief Complaint FALL 4 [facility] MED CHECK SCREENING Reason for Visit Hormone replacement therapy Chief Complaint 4 [facility] MED CHECK SCREENING Reason for Visit Hormone replacement therapy Chief Complaint BILATERAL THIGH PAIN BILATERAL THIGH PAIN Chief Complaint BILATERAL THIGH PAIN BILATERAL THIGH PAIN HTN Reason for Referral Specialty Diagnoses / Procedures Referred By Contac t Referred To Contact [facility] Diagnoses Acute bilateral low back pain with bilateral sciatica Procedures CONSULT TO PHYSICAL THERAPY PHYSICAL THERAPY EVALUATION HIGH COMPLEX 45 MINS Brando Patel MD [address] [place] [address] [facility] [place] [address] [place] [address] Referral ID Status Reason Start Date Expiration Date Visits Requested Visits Authorized [id number] Authorized Auto-Generat ed Referral 04/04/2021 04/03/2022 20 20 Health Concerns Infection Onset Date Last Indicated Resolved Time COVID-19 Rule-Out 03/09/2022 03/09/2022 Additional Source Comments INFORMATION SOURCE (unrecogn ized section and content) DATE CREATED AUTHOR 05/18/2018 [facility] DATE CREATED AUTHOR AUTHOR'S ORGANIZ ATION 11/28/2020 [facility] DATE CREATED AUTHOR AUTHOR'S ORGANIZ ATION 05/24/2024 [facility] DATE CREATED AUTHOR AUTHOR'S ORGANIZ ATION 07/31/2024 [facility] Source Comments (unrecognize d section and content) In the event this informatio n is protected by the Federal Confidentiality of Alcohol and Drug Abuse Patient Records regulations: The Federal rules restrict any use of the information to criminally investigate or prosecute any alcohol or drug abuse patient.[facility] MemorialIn the event this information is protected by the Federal Confidentiality of Alcohol and Drug Abuse Patient Records regulations: The Federal rules restrict any use of the information to criminally investigate or prosecute any alcohol or drug abuse patient.[facility] MemorialIn the event this information is protected by the Federal Confidentiality of Alcohol and Drug Abuse Patient Records regulations: The Federal rules restrict any use of the information to criminally investigate or prosecute any alcohol or drug abuse patient.[facility] MemorialIn the event this information is protected by the Federal Confidentiality of Alcohol and Drug Abuse Patient Records regulations: The Federal rules restrict any use of the information to criminally investigate or prosecute any alcohol or drug abuse patient.[facility] MemorialIn the event this information is protected by the Federal Confidentiality of Alcohol and Drug Abuse Patient Records regulations: The Federal rules restrict any use of the information to criminally investigate or prosecute any alcohol or drug abuse patient.[facility] MemorialIn the event this information is protected by the Federal Confidentiality of Alcohol and Drug Abuse Patient Records regulations: The Federal rules restrict any use of the information to criminally investigate or prosecute any alcohol or drug abuse patient.[facility] MemorialIn the event this information is protected by the Federal Confidentiality of Alcohol and Drug Abuse Patient Records regulations: The Federal rules restrict any use of the information to criminally investigate or prosecute any alcohol or drug abuse patient.[facility] MemorialIn the event this information is protected by the Federal Confidentiality of Alcohol and Drug Abuse Patient Records regulations: The Federal rules restrict any use of the information to criminally investigate or prosecute any alcohol or drug abuse patient.[facility] MemorialIn the event this information is protected by the Federal Confidentiality of Alcohol and Drug Abuse Patient Records regulations: The Federal rules restrict any use of the information to criminally investigate or prosecute any alcohol or drug abuse patient.[facility] MemorialIn the event this information is protected by the Federal Confidentiality of Alcohol and Drug Abuse Patient Records regulations: The Federal rules restrict any use of the information to criminally investigate or prosecute any alcohol or drug abuse patient.[facility] MemorialIn the event this information is protected by the Federal Confidentiality of Alcohol and Drug Abuse Patient Records regulations: The Federal rules restrict any use of the information to criminally investigate or prosecute any alcohol or drug abuse patient.[facility] MemorialIn the event this information is protected by the Federal Confidentiality of Alcohol and Drug Abuse Patient Records regulations: The Federal rules restrict any use of the information to criminally investigate or prosecute any alcohol or drug abuse patient.[facility] MemorialIn the event this information is protected by the Federal Confidentiality of Alcohol and Drug Abuse Patient Records regulations: The Federal rules restrict any use of the information to criminally investigate or prosecute any alcohol or drug abuse patient.[facility] MemorialIn the event this information is protected by the Federal Confidentiality of Alcohol and Drug Abuse Patient Records regulations: The Federal rules restrict any use of the information to criminally investigate or prosecute any alcohol or drug abuse patient.[facility] MemorialIn the event this information is protected by the Federal Confidentiality of Alcohol and Drug Abuse Patient Records regulations: The Federal rules restrict any use of the information to criminally investigate or prosecute any alcohol or drug abuse patient.[facility] MemorialIn the event this information is protected by the Federal Confidentiality of Alcohol and Drug Abuse Patient Records regulations: The Federal rules restrict any use of the information to criminally investigate or prosecute any alcohol or drug abuse patient.[facility] MemorialIn the event this information is protected by the Federal Confidentiality of Alcohol and Drug Abuse Patient Records regulations: The Federal rules restrict any use of the information to criminally investigate or prosecute any alcohol or drug abuse patient.[facility] Reason for Visit (unrecogniz ed section and content) Reason Onset Date Comments Refill Request 06/30/2021 Reason Comments Back Pain Reason Comments Nasal Congestion Reason Comments Muscle Aches Reason Onset Date Comments Refill Request 09/14/2021 Reason Comments Cough some congestion, vlad ateral ear pain, chills and headache x couple days Reason Onset Date Comments Refill Request 12/27/2021 Reason Comments Cough Chest congestion, ST , runny nose, watery eyes x3 days Reason Comments Nasal Congestion drainage, cough, sor e throat, bodyaches x 2 days Reason Comments Derm Problem lower left spot redn ess x 1 week Reason Comments Sore Throat right ear pain x 1 w moapa Reason Comments Cough Congestion, bilatera l ear pain x1.5 weeks Reason Comments Sinus Problem sinus pressure, ears popping and nausea x 3 days Reason Comments Cough Cough, ST, and burni ng with urination x 3 days Care Teams (unrecognized sec tion and content) Box Repairer Relationship Specialty Start Date End Date Brando Patel MD [address] [place], [place] [id number] PCP - General Family Practice 09/30/20 Box Repairer Relationship Specialty Start Date End Date Brando Patel MD [address] [place], [place] [id number] PCP - General Family Practice 09/30/20 Box Repairer Relationship Specialty Start Date End Date Brando Patel MD [address] [place], [place] [id number] PCP - General Family Practice 09/30/20 Box Repairer Relationship Specialty Start Date End Date Brando Patel MD [address] [facility] [place] [address] PCP - General Family Practice 09/30/20 Box Repairer Relationship Specialty Start Date End Date Brando Patel MD [address] [facility] [place] [address] PCP - General Family Practice 09/30/20 Box Repairer Relationship Specialty Start Date End Date Brando Patel MD [address] [facility] [place] [address] PCP - General Family Practice 09/30/20 Box Repairer Relationship Specialty Start Date End Date Brando Patel MD [address] [facility] [place] [address] PCP - General Family Practice 09/30/20 Box Repairer Relationship Specialty Start Date End Date Brando Patle MD [address] [facility] [place] [address] PCP - General Family Medicine 09/30/20 Box Repairer Relationship Specialty Start Date End Date Radha Norton [address] [place] [address] PCP - General Family Medicine 01/01/22 Box Repairer Relationship Specialty Start Date End Date Radha Norton [address] [place] [address] PCP - General Family Medicine 01/01/22 Box Repairer Relationship Specialty Start Date End Date Radha Norton MD [address] [place] [address] PCP - General Family Medicine 01/01/22 Team Status: Active Member Role Status Dates Dr. Radha Norton MD Family Provider Active Dr. Radha Norton MD Primary Care Provider Active Team Status: Inactive Member Role Status Dates Dr. Radha Norton MD Primary Care Provider, Referrin g Provider Active Dr. Prince Spangler MD Attending Provider Active Team Status: Inactive Member Role Status Dates Dr. Radha Norton MD Primary Care Provider Active Dr. Pietro La MD Emergency Provider Active Box Repairer Relationship Specialty Start Date End Date Radha Norton MD [address] [place], [place] [id number] PCP - [facility] Family Medicine 01/01/22 Team Status: Inactive Member Role Status Dates Dr. Radha Norton MD Primary Care Provider Active Dr. Pietro La MD Attending Provider, Emergency Provider Active Team Status: Inactive Member Role Status Dates Dr. Radha Norton MD Primary Care Provider Active Dr. Warren Arcos DO Emergency Provider Active Team Status: Inactive Member Role Status Dates Dr. Radha Norton MD Primary Care Provider Active Dr. Jone Lobato DO Emergency Provider Active Box Repairer Relationship Specialty Start Date End Date Radha Norton MD [address] [place], [place] [id number] [facility] Medicine 01/01/22 Team Status: Inactive Member Role Status Dates Dr. Radha Norton MD Primary Care Provider, Referrin g Provider Active Priti Harding LEAD TANK MECHANIC, LEAD TANK MECHANIC-C Attending Provider Active Team Status: Inactive Member Role Status Dates Dr. Radha Norton MD Primary Care Provider Active Dr. Lizeth Basilio MD Attending Provider Active Dr. Warren Arcos DO Referring Provider Active Team Status: Inactive Member Role Status Dates Dr. Radha Norton MD Primary Care Provider, Referrin g Provider Active Dr. Lizeth Basilio MD Attending Provider Active Team Status: Inactive Member Role Status Dates Dr. Radha Norton MD Primary Care Provider Active Dr. Warren Arcos DO Attending Provider, Emergency Pro vider Active Team Status: Inactive Member Role Status Dates Dr. Radha Norton MD Primary Care Provider Active Dr. Jone Lobato DO Attending Provider, Emergency Pro vider Active Team Status: Inactive Member Role Status Dates Dr. Radha Norton MD Primary Care Provider Active Dr. Lizeth Basilio MD Attending Provider, Referring Provider Active Team Status: Inactive Member Role Status Dates Dr. Radha Norton MD Primary Care Provider Active Dr. Lilli Dewitt DO Attending Provider, Referring P rovider Active Team Status: Inactive Member Role Status Dates Dr. Radha Norton MD Primary Care Provider Active Priti Harding LEAD TANK MECHANIC, LEAD TANK MECHANIC-C Attending Provider, Referring Provider Active Team Status: Inactive Member Role Status Dates Dr. Radha Norton MD Primary Care Provider, Attendin g Provider Active Team Status: Inactive Member Role Status Dates Dr. Radha Norton MD Primary Care Prov ider, Attending Provider, Referring Provider Active Team Status: Active Member Role Status Dates Dr. Radha Norton MD Primary Care Prov ider, Referring Provider, Other Provider Active Dr. Aamir Kaur MD Attending Provider Active Team Status: Inactive Member Role Status Dates Dr. Radha Norton MD Primary Care Provider Active Dr. Phani Deng DO Attending Provider, Emergency P rovider Active Box Repairer Relationship Specialty Start Date End Date Radha Norton MD [address] [place] [address] PCP - General Family Medicine 01/01/22 Box Repairer Relationship Specialty Start Date End Date Radha Norton MD [address] [address] PCP - General Family Medicine 01/01/22 Goals (unrecognized section and content) Goals may be documented in a n alternate sectionGoals may be documented in an alternate sectionGoals may be documented in an alternate sectionGoals may be documented in an alternate sectionGoals may be documented in an alternate sectionGoals may be documented in an alternate sectionGoals may be documented in an alternate sectionGoals may be documented in an alternate sectionGoals may be documented in an alternate sectionGoals may be documented in an alternate sectionGoals may be documented in an alternate sectionGoals may be documented in an alternate sectionGoals may be documented in an alternate sectionGoals may be documented in an alternate section FOR RECORDS PERTAINING TO PATIENTS WHO ARE OR HAVE BEEN ENROLLED IN A CHEMICAL DEPENDENCY/SUBSTANCEABUSE PROGRAM, SOME INFORMATION MAY BE OMITTED. This clinical summary was aggregated from multiple sources. Caution should be exercised in using it in the provision of clinical care. This summary normalizes information from multiple sources, and as a consequence, information in this document may materially change the coding, format and clinical context of patient data. In addition, data may be omitted in some cases. CLINICAL DECISIONS SHOULD BE BASED ON THE PRIMARY CLINICAL RECORDS. [employer] [facility]. provides no warranty or guarantee of the accuracy or completeness of information in this document.
[2024-09-12 22:56] VITALS: BP 127/74; PULSE 97; RESP 18; TEMP 36.6; O2SAT 100
== END 2024-09-12 22:57 | disposition home or self-care (01) ==
LOC: ED 22:39
PROVIDERS: Emergency Provider Emergency Medicine; PCP Family Medicine; Referring Provider Emergency Medicine; Visit Provider Emergency Medicine
DX: S30.0XXA Contusion of lower back and pelvis, initial encounter (principal); K21.9 Gastro-esophageal reflux disease without esophagitis; Z90.710 Acquired absence of both cervix and uterus; I10 Essential (primary) hypertension; F17.210 Nicotine dependence, cigarettes, uncomplicated; E03.9 Hypothyroidism, unspecified; Y99.0 Civilian activity done for income or pay; E78.00 Pure hypercholesterolemia, unspecified; Y93.89 Activity, other specified; W19.XXXA Unspecified fall, initial encounter; Y92.89 Other specified places as the place of occurrence of the external cause; Z79.890 Hormone replacement therapy; Z79.899 Other long term (current) drug therapy; F32.A Depression, unspecified
CPT/HCPCS: 72170; 99282

== ENCOUNTER → 2024-09-19 | Outpatient (CLI) | payer OTHER, SELFPAY ==
--- NOTE | 2024-09-19 11:20 | RAD_ITS ---
PROCEDURE: LUMBAR SPINE 2 OR 3 VIEWS 09/19/2024 REASON FOR EXAM: Low back pain. Initial encounter. TECHNIQUE: LUMBAR SPINE 2 OR 3 VIEWS COMPARISON: Lumbar spine radiographs December 15, 2023 FINDINGS: Vertebrae: Normal height. . Discs: Intervertebral disc heights relatively maintained. No significant endplate spondylosis. Alignment: Normal alignment with normal lumbar lordosis. Other: Ovoid density projects left lateral to the L!-L2 disc level. RAD/Lumbar Spine 2 or 3 Views IMPRESSION: Unremarkable exam Reading [facility]
== END | disposition home or self-care (01) ==
PROVIDERS: PCP Family Medicine; Referring Provider Physician Assistant; Visit Provider Physician Assistant
DX: S30.0XXA Contusion of lower back and pelvis, initial encounter (principal); M54.16 Radiculopathy, lumbar region
CPT/HCPCS: 72100

== ENCOUNTER → 2024-10-10 | Outpatient (CLI) | payer OTHER, SELFPAY ==
--- NOTE | 2024-10-10 07:35 | MRI_ITS ---
PROCEDURE: SPINE LUMBAR (ROUTINE) 10/10/2024 REASON FOR EXAM: LBP W/ RLE PARESTHESIAS TECHNIQUE: SPINE LUMBAR (ROUTINE) COMPARISON: MRI lumbar spine, 04/16/2020. FINDINGS: Vertebrae: There are no compression fractures. There is normal bone marrow signal in the lumbar vertebral bodies. Alignment: There is maintenance of the normal lumbar lordosis. Conus Medullaris: Conus medullaris terminates normally at the T12-L1 level. There are Schmorl's nodes at the vertebral endplates at T11, T12, and L1. There is resultant narrowing of the intervertebral disc height. There is no abnormal signal within the intervertebral discs at T11-12 and T12 L1. L1-2: There is mild disc degeneration. There is an anterior disc protrusion. There is bilateral facet arthropathy with ligamentum flavum bulging. There is no central canal stenosis, lateral recess stenosis or foraminal narrowing. L2-3: The intervertebral disc is normal. There is no significant facet arthropathy. There is no central canal stenosis, lateral recess stenosis or foraminal narrowing. L3-4: The intervertebral disc is normal. There is bilateral facet arthropathy with ligamentum flavum bulging. There is no central canal stenosis, lateral recess stenosis or foraminal narrowing. L4-5: There is a broad-based disc protrusion. There is a superimposed right lateral recess and right foraminal disc protrusion. There is bilateral facet arthropathy with ligamentum flavum bulging. There is 2 mm of degenerative anterolisthesis of L4 on L5. There is central canal stenosis with the AP dimension of the spinal canal measuring 8 mm. There is moderate lateral recess stenosis, with posterior displacement of the right L5 nerve root sleeve, and moderate foraminal narrowing on the right. L5-S1: There is a broad-based right lateral recess and right foraminal disc protrusion. There is bilateral facet arthropathy with ligamentum flavum bulging. There is moderate lateral recess stenosis with posterior displacement of the right S1 nerve root sleeve. There is mild foraminal narrowing on the right. 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 The paravertebral soft tissues are unremarkable. MRI/Spine Lumbar (Routine) IMPRESSION: 1. There is degenerative disc disease at L4-5 and L5-S1 with right lateral rec ess stenosis and right foraminal narrowing as described. 2. There is central canal stenosis at the L4-5 level. 3. Schmorl's nodes are noted on the vertebral endplates of T11 through L1. 4. Multilevel facet arthropathy with degenerative grade 1 anterolisthesis of L 4 on L5. Progression of disease since the prior exam. Reading Location: [id number]
== END | disposition home or self-care (01) ==
LOC: OPMRI 07:34
PROVIDERS: PCP Family Medicine; Referring Provider Physician Assistant; Visit Provider Physician Assistant
DX: S30.0XXA Contusion of lower back and pelvis, initial encounter (principal)
CPT/HCPCS: 72148